=== PATIENT | male | born 1945 | race Caucasian/White ===

== ENCOUNTER 2018-12-24 08:17 | Day surgery (SDC) | payer OTHER ==
[2018-12-20 14:38] VITALS: BMI 29.6
[~2018-12-24 08:17] MED LIST: LACTATED RINGERS 1,000 ML IV SCH
[2018-12-24 09:14] VITALS: TEMP 97
[2018-12-24] MEDS ORDERED: hydrALAZINE HCL 20 MG/ML 1 ML VIAL ONE (09:28)
[2018-12-24] MEDS ORDERED: PROPOFOL 10 MG/ML 20 ML VIAL IV ONE (09:28)
--- NOTE | 2018-12-24 10:01 | P.PCN ---
Date of Procedure: 12/24/18 Description of Procedure: BRIEF HISTORY: Patient is a 73-year-old pleasant male scheduled for an elective colonoscopy as a part of screening for malignant neoplasm colon. Denies any change in bowel habits, constipation, diarrhea, abdominal pain or blood per rectum. No family history of colon cancer. No prior colonoscopy reported. PROCEDURE PERFORMED: Colonoscopy with polypectomy. PREOPERATIVE DIAGNOSIS: And screening for malignant colon. ESTIMATED BLOOD LOSS: Minimal. IV sedation per Anesthesia. PROCEDURE: After informed consent was obtained, the patient, was brought into the endoscopy unit. IV sedation was administered by Anesthesia under continuous monitoring. Digital rectal examination was normal, with external hemorrhoids noted. Initially the Olympus CF-190 flexible video colonoscope was then inserted in the rectum, gradually advanced into the cecum without any difficulty. Careful examination was performed as the scope was gradually being withdrawn. Ileocecal valve and the appendiceal orifice were visualized and appeared normal. Prep was excellent. Mucosa of the cecum, ascending colon, transverse colon, descending colon, sigmoid colon, and rectum appeared normal. Diminutive 2 mm ascending colon polyp removed with cold forcep polypectomy. Flat 6 mm hepatic flexure polyp removed with cold snare polypectomy. Diminutive 2 mm rectal polyp removed with cold forceps from the rectum. Mild sigmoid diverticulosis noted by a few small mouth diverticula in the sigmoid colon noted. Retroflexion was performed in the rectum and no lesions were seen, mild internal hemorrhoids noted. The patient tolerated the procedure well. IMPRESSION: Diminutive polyps removed with cold forcep from rectum and ascending colon. Small hepatic flexure polyp removed with cold snare polypectomy. Mild sigmoid diverticulosis. RECOMMENDATIONS: Findings of this examination were discussed with the patient and his . Okay to resume high-fiber diet. Okay to resume medications. Await pathology from polypectomies. Anticipate repeat colonoscopy in 3-5 years pending pathology from polypectomies.
[2018-12-24 10:21] VITALS: BP 163/91; PULSE 83; RESP 18
== END 2018-12-24 10:41 | disposition home or self-care (01) ==
LOC: ORWHC2ENDO 08:17
PROVIDERS: ATTEND Internal Medicine
DX: Z12.11 Encounter for screening for malignant neoplasm of colon (principal); D12.2 Benign neoplasm of ascending colon; D12.3 Benign neoplasm of transverse colon; K62.1 Rectal polyp; K57.30 Diverticulosis of large intestine without perforation or abscess without bleeding; K64.8 Other hemorrhoids; I10 Essential (primary) hypertension; E78.5 Hyperlipidemia, unspecified; Z87.891 Personal history of nicotine dependence; Z79.1 Long term (current) use of non-steroidal anti-inflammatories (NSAID); Z79.899 Other long term (current) drug therapy; Z88.0 Allergy status to penicillin; Z98.890 Other specified postprocedural states
CPT/HCPCS: 88305; 45380; 45385; J0360; J2704

== ENCOUNTER 2020-10-26 05:45 | Day surgery (SDC) | payer OTHER ==
[2020-10-21 12:32] VITALS: BMI 31.3
[2020-10-26] MEDS ORDERED: ALPRAZolam 0.25 MG TAB PO PRN (05:58)
[2020-10-26] MEDS ORDERED: SODIUM CHLORIDE 0.9% 1,000 ML in EMPTY BAG 1 BAG IV ONE (05:58)
[2020-10-26] MEDS ORDERED: ASPIRIN 325 MG TAB PO STA (05:58)
[2020-10-26] MEDS ORDERED: ALPRAZolam 0.5 MG TAB PO PRN (05:58)
[2020-10-26] MEDS ORDERED: HEPARIN SODIUM,PORCINE 2,500 UNIT in SODIUM CHLORIDE 0.9% 250 ML IRRIGATION PRN (05:58)
[2020-10-26] MEDS ORDERED: HEPARIN SODIUM,PORCINE 10,000 UNIT in SODIUM CHLORIDE 0.9% 1,000 ML IRRIGATION PRN (05:58)
[2020-10-26] MEDS ORDERED: NITROGLYCERIN SL TABS 0.4 MG TAB SUBLINGUAL PRN (05:58)
[2020-10-26 06:34] LABS: Basophils # (A) 0.1 k/uL (0-0.2); Basophils % (A) 1 %; Eosinophils # (A) 0.3 k/uL (0-0.7); Eosinophils % (A) 3 %; HCT 46.1 % (39.0-53.0); HGB 15.8 gm/dL (13.0-17.5); Lymphocytes # (A) 1.8 k/uL (1.0-4.8); Lymphocytes % (A) 21 %; MCH 30.8 pg (25.0-35.0); MCHC 34.3 g/dL (31.0-37.0); MCV 89.8 fL (80.0-100.0); Mean Platelet Volume 6.9; Monocytes # (A) 0.6 k/uL (0-1.0); Monocytes % (A) 7 %; Neutrophils # (A) 5.5 k/uL (1.3-7.7); Neutrophils % (A) 66 %; Platelet Count 242 k/uL (150-450); RBC 5.13 m/uL (4.30-5.90); RDW 13.6 % (11.5-15.5); WBC 8.4 k/uL (3.8-10.6)
[2020-10-26 06:37] VITALS: TEMP 98.7
[2020-10-26] MEDS ORDERED: SODIUM CHLORIDE 0.9% 1,000 ML IV ONE (06:38)
[2020-10-26 06:49] LABS: Potassium 4.2 mmol/L (3.5-5.1)
[2020-10-26] MEDS ORDERED: fentaNYL (PF) 50 MCG/ML 2 ML AMP ONE (07:09)
[2020-10-26] MEDS ORDERED: LIDOCAINE 1% INJ 10MG/ML (20 ML MDV) ONE (07:22)
[2020-10-26 07:45] VITALS: RESP 16
[2020-10-26] MEDS: BENZOCAINE SPRAY 1 CAN MUCOUS MEM ONE ×2 (07:53→07:55)
[2020-10-26] MEDS: fentaNYL (PF) 50 MCG/ML 2 ML AMP IVP ONE ×2 (07:56→08:50)
[2020-10-26] MEDS ORDERED: MIDAZOLAM 2 MG/2 ML VIAL IVP ONE (07:56)
[2020-10-26] MEDS ORDERED: LIDOCAINE 1% INJ 10MG/ML (20 ML MDV) SQ ONE (08:49)
[2020-10-26] MEDS ORDERED: MIDAZOLAM 2 MG/2 ML VIAL IV ONE (08:51)
[2020-10-26 09:19] LABS: O2 Sat Blood Gas 68.2 %
[2020-10-26 09:22] LABS: O2 Sat Blood Gas 70.9 %
[2020-10-26 09:33] LABS: O2 Sat Blood Gas 91.4 %
[2020-10-26] MEDS ORDERED: RX INFO: IV CONTRAST WAS GIVEN 1 EACH MISC MISCELLANE PRN (09:44)
[2020-10-26] MEDS ORDERED: SODIUM CHLORIDE 0.9% 1,000 ML IV SCH (09:45)
[2020-10-26] MEDS ORDERED: IOPAMIDOL-370 125ML BTL INJ ONE (09:45)
[2020-10-26 14:27] VITALS: BP 124/74; PULSE 68
--- NOTE | 2020-10-26 17:32 | P.TEE ---
Indications for Procedure(s): Aortic stenosis Date of Procedure: 10/26/20 Preoperative Diagnosis: Aortic stenosis, bicuspid aortic valve Postoperative Diagnosis: critical aortic stenosis with bicuspid aortic valve Procedure(s) Performed: CINDY Description of Procedure(s): This 75-year-old gentleman who has been experiencing exertional chest tightness and was noted to have severe aortic stenosis by transthoracic echo was brought in for CINDY examination. Procedure: Patient was brought to the lab in a fasting state. He was prepped and draped in the usual fashion. A verbal consent was obtained from the patient. The throat was sprayed with Hurricaine. Patient was given 2 mg of Versed and 25 g of fentanyl for sedation. A lubricated Omni probe was introduced in the oropharynx and was advanced into the esophagus. Multiple v iews were obtained both from the esophagus and stomach. Color, pulsed and continuous her Doppler studies were performed. A saline contrast bubble injections also done. Patient tolerated the procedure well. Findings: The aortic valve is calcified and bicuspid with restricted opening excursion. By planimetry valve area of 0.7 2.8 square segments were obtained. No significant aortic regurgitation was noted. The mitral valve function was normal with mild central regurgitation. The left atrial appendage is free of any clot. A peak gradient of about 70 with a mean gradient of 37 was obtained across the aortic valve. The interatrial septum appeared to show a small shunt suggestive of PFO. However, saline contrast bubble injection did not reveal any crossing of the bubbles. LV function appeared within normal. There is mild plaque in the aorta. Final impression: #1. Severe aortic stenosis. #2. Bicuspid aortic valve #3. Mild mitral regurgitation. #4. No clot in the left atrial appendage. #5. Suggestion of a small PFO, though bubble injection is negative. #5. Concentric left hypertrophy with preserved lv function.
--- NOTE | 2020-10-26 17:38 | P.CARDCATH ---
Date of Procedure: 10/26/20 Preoperative Diagnosis: Severe aortic stenosis. Rule out coronary artery disease Postoperative Diagnosis: Severe aortic stenosis. Mild diffuse coronary artery disease without critical stenosis Procedure(s) Performed: Left heart catheterization without left ventriculography. Right heart catheterization Description of Procedure: This 75-year-old gentleman was recently evaluated for symptoms of exertional chest pain and shortness of breath. He was found to have severe aortic stenosis which is confirmed by CINDY examination patient is also found to have bicuspid aortic valve. He is advised to have a cardiac catheterization to rule out concomitant ischemic or disease. Right heart catheterization. This is performed from the right femoral vein approach. The groin is infiltrated with lidocaine. The right femoral vein was entered using Seldinger technique. A 7-Dutch sheath was left in place. A 6- Dutch balloontipped [place] catheter was was used for right heart catheterization. Oxygen saturation were obtained. Cardiac output was measured. Patient tolerated the procedure well. Hemostasis was obtained with manual compression. Left heart catheterization CONSENT:I have discussed the risks, benefits and alternative therapies for the above-mentioned procedure and for both sedation/analgesia as well as necessary blood product administration, if indicated, as they pertain to this patient. The patient has indicated understanding and acceptance of the risks and procedures discussed. PROCEDURE: Patient was brought to the lab in a fasting state. Patient was given some IV sedation. The right groin is infiltrated with lidocaine and right femoral artery was entered using Seldinger technique. A 6-Dutch catheter was left in place and selective coronary arteriography was performed. Patient tolerated the procedure well. Femoral angiogram was performed and Angio-Seal was applied for hemostasis. No immediate complications were noted and patient was transferred to [facility] in a stable condition Conscious Sedation: Versed 0.5mg Fentanyl 25 g Duration 52 minutes minutes HEMODYNAMICS: The right heart catheterization: Right atrial pressure was 0. Right ventricular pressure was 21/2 and pulmonary artery pressure was 15/2 and pulmonary wedge pressure was 2. The the cardiac output by thermodilution method is 5.2 to and by Alessandra method was 6.23. The left heart catheterization: The aortic pressure is 120/68. Left ventricular pressures were 160/2. The peak gradient was 50 with a mean gradient of 42 across the aortic valve SELECTIVE CORONARY ARTERIOGRAPHY: LEFT MAIN: Short and divides into left anterior descending and also left circumflex and is coronary artery immediately THE LEFT ANTERIOR DESCENDING CORONARY ARTERY: moderate caliber vessel with a diffuse plaque with areas of about 40-50% stenosis. No critical lesions were noted THE LEFT CIRCUMFLEX AND IS CORONARY ARTERY: . Moderate caliber vessel, again with the diffuse disease with areas of 50-60% lesion in the midportion. No critical lesions noted THE RIGHT CORONARY ARTERY: Moderate caliber vessel, again diffuse disease with areas of 40-50% lesions LEFT VENTRICULOGRAPHY: Not performed FINAL IMPRESSION: For 1. Bicuspid aortic valve. #2. Critical aortic stenosis. #3. Mild to moderate diffuse coronary artery disease PLAN: . Continue medical therapy. Patient should be considered for aortic valve replacement PROGNOSIS: Fair
== END 2020-10-26 15:06 | disposition home or self-care (01) ==
LOC: CATHCVL 05:45
PROVIDERS: ATTEND Internal Medicine Cardiovascular Disease
DX: I08.0 Rheumatic disorders of both mitral and aortic valves (principal); I70.0 Atherosclerosis of aorta; Q23.1 Congenital insufficiency of aortic valve; I51.7 Cardiomegaly; I10 Essential (primary) hypertension; E78.00 Pure hypercholesterolemia, unspecified; Z20.822 Contact with and (suspected) exposure to COVID-19; E78.5 Hyperlipidemia, unspecified; Z87.891 Personal history of nicotine dependence; Z88.0 Allergy status to penicillin; Z79.899 Other long term (current) drug therapy; I25.10 Atherosclerotic heart disease of native coronary artery without angina pectoris
CPT/HCPCS: 93312; 93320; 93325; 93460; 80048; 85018; 82810; 85025; 87635; C1769 ×4; C1760; C1894 ×2; J2250; J2001; J3010; Q9967

== ENCOUNTER → 2020-11-23 | Outpatient (CLI) | payer OTHER ==
[2020-11-23 08:48] LABS: ALT 28 U/L (4-49); AST 28 U/L (17-59); African American GFR (CKD) >90 (>60 ml/min/1.73 sqM); Albumin 4.2 g/dL (3.5-5.0); Albumin/Globulin Ratio 1.6; Alkaline Phosphatase 72 U/L (38-126); Anion Gap 6 mmol/L; Bilirubin,Unconjugated 0.9 mg/dL (0.0-1.1); Blood Urea Nitrogen 17 mg/dL (9-20); Calcium 9.7 mg/dL (8.4-10.2); Carbon Dioxide 28 mmol/L (22-30); Chloride 104 mmol/L (98-107); Globulin 2.7 g/dL; Glucose 120 mg/dL (74-99); Magnesium 1.8 mg/dL (1.6-2.3); Non-African American GFR(CKD) 78 (>60 ml/min/1.73 sqM); Potassium 3.9 mmol/L (3.5-5.1); Sodium 138 mmol/L (137-145); Total Protein 6.9 g/dL (6.3-8.2)
[2020-11-23 08:52] LABS: Partial Thromboplastin Time 22.1 sec (22.0-30.0); Prothrombin Time 10.5 sec (9.0-12.0)
[2020-11-23 12:12] LABS: Amorphous Sediment,Urine Rare /hpf; Appearance,Urine Clear (Clear); Bilirubin,Urine Negative (Negative); Blood,Urine Negative (Negative); Color,Urine Yellow; Glucose,Urine (UA) Negative (Negative); Hyaline Casts,Urine 1 /lpf (0-2); Ketones,Urine Negative (Negative); Leukocyte Esterase,Urine Trace (Negative); Mucus,Urine Rare /hpf; Nitrite,Urine Negative (Negative); PH, Urine 5.5 (5.0-8.0); Protein,Urine Negative (Negative); RBC,Urine 1 /hpf (0-5); Specific Gravity,Urine 1.027 (1.001-1.035); Urobilinogen,Urine <2.0 mg/dL (<2.0); WBC,Urine 9 /hpf (0-5)
--- NOTE | 2020-11-23 12:33 | US ---
EXAMINATION TYPE: US carotid duplex BILAT DATE OF EXAM: 11/23/2020 COMPARISON: NONE CLINICAL HISTORY: R55. No HTN, no hx tia EXAM MEASUREMENTS: RIGHT: Peak Systolic Velocity (PSV) cm/sec ----- Right CCA: 82.6 ----- Right ICA: 57.4 ----- Right ECA: 84.8 ICA/CCA ratio: 0.7 RIGHT: End Diastole cm/sec ----- Right CCA: 16.6 ----- Right ICA: 13.3 ----- Right ECA: 13.4 LEFT: Peak Systolic Velocity (PSV) cm/sec ----- Left CCA: 67.0 ----- Left ICA: 59.2 ----- Left ECA: 90.1 ICA/CCA ratio: 0.9 LEFT: End Diastole cm/sec ----- Left CCA: 16.1 ----- Left ICA: 22.5 ----- Left ECA: 17.8 VERTEBRALS (direction of flow): Right Vertebral: Antegrade Left Vertebral: Antegrade Rhythm: Normal IMPRESSION: Bilateral wall thickening. No significant stenosis. No elevated velocities. Plaque in left bulb. Criteria for Assigning % of Stenosis / Diameter reduction (Estimation based on the indirect measurements of the internal carotid artery velocities (ICA PSV). 1. Normal (no stenosis)=ICA PSV < 125 cm/s: ratio < 2.0: ICA EDV<40 cm/s. 2. Less than 50% stenosis=ICA PSV < 125 cm/s: ratio < 2.0: ICA EDV<40 cm/s. 3. 50 to 69% stenosis=ICA PSV of 125 to 230 cm/s: ration 2.0 ? 4.0: ICA EDV 40-100 cm/s. 4. Greater than 70% stenosis to near occlusion= ICA PSV > 230 cm/s: ratio > 4.0: ICA EDV > 100 cm/s. 5. Near occlusion= ICA PSV velocities may be low or undetectable: variable ratio and ICA EDV. 6. Total occlusion=unable to detect flow.
[2020-11-23 12:54] LABS: Basophils # (A) 0.11 X 10*3/uL (0.00-0.10); Basophils % (A) 1.6 %; Eosinophils # (A) 0.18 X 10*3/uL (0.04-0.35); Eosinophils % (A) 2.6 %; HCT 45.6 % (39.6-50.0); Lymphocytes # (A) 1.51 X 10*3/uL (0.90-5.00); MCH 30.4 pg (27.0-32.0); MCHC 32.9 g/dL (32.0-37.0); MCV 92.3 fL (80.0-97.0); Mean Platelet Volume 10.4 fL (9.5-12.2); Monocytes # (A) 0.44 X 10*3/uL (0.20-1.00); Monocytes % (A) 6.4 %; Neutrophils # (A) 4.61 X 10*3/uL (1.80-7.70); Neutrophils % (A) 67.1 %; Platelet Count 238 X 10*3/uL (140-440); RBC 4.94 X 10*6/uL (4.40-5.60); RDW 13.8 % (11.5-14.5); WBC 6.87 X 10*3/uL (4.50-10.00)
[2020-11-23 15:40] LABS: Hemoglobin A1C 6.2 % (4.0-6.0)
[2020-11-23 17:26] LABS: Chol/HDL Ratio 3.69; Cholesterol 133 mg/dL (0-200); LDL Cholesterol,Calculated 72.8 mg/dL (0.0-131.0)
--- NOTE | 2020-11-23 18:24 | CT ---
EXAMINATION TYPE: CT TAVR Planning DATE OF EXAM: 11/23/2020 COMPARISON: None HISTORY: Nonrheumatic aortic (valve) insufficiency CT DLP: 1819.9 mGycm Automated exposure control for dose reduction was used. Contrast: None Technique: CT of the chest abdomen and pelvis is performed for evaluation for precardiac valve surger y. FINDINGS: CT chest: Lung owens are clear. Heart size is normal. The ascending thoracic aorta at the level of t he main pulmonary artery is 3.4 cm. Main pulmonary artery the bifurcation is 2.1 cm. No enlarged medi astinal or hilar adenopathy is evident. Note is made of coronary artery calcification. Small hiatal h ernia is present. CT ABDOMEN: There is moderate fatty infiltration of liver. The gallbladder is unremarkable. Spleen is normal. Adrenal glands normal. Pancreas is normal. Loops of bowel without oral contrast are normal. Kidneys at this phase of contrast appear normal bilaterally CT PELVIS: Loops of bowel within the pelvis are unremarkable. There are a few diverticula present. Th e prostate is very prominent. Urinary bladder is unremarkable. Facet degenerative changes are present . No suspicious lytic or sclerotic lesions are evident. IMPRESSION: 1. CT FOR PRECARDIAC VALVE SURGERY PLANNING. 2. NO SUSPICIOUS ACUTE CHANGES CT CHEST ABDOMEN PELVIS
== END | disposition home or self-care (01) ==
LOC: LABWHC1 07:34
PROVIDERS: ATTEND Thoracic Surgery (Cardiothoracic Vascular Surgery)
DX: Z01.812 Encounter for preprocedural laboratory examination (principal); E87.8 Other disorders of electrolyte and fluid balance, not elsewhere classified; E07.9 Disorder of thyroid, unspecified; R35.0 Frequency of micturition; E11.9 Type 2 diabetes mellitus without complications; N28.9 Disorder of kidney and ureter, unspecified; E78.5 Hyperlipidemia, unspecified; I35.1 Nonrheumatic aortic (valve) insufficiency; R55 Syncope and collapse; Z79.899 Other long term (current) drug therapy; R58 Hemorrhage, not elsewhere classified
CPT/HCPCS: 94150; 83880; 80061; 80053; 84443; 82248; 83735; 85025; 85610; 85730; 81001; 87086; 83036; 93880; 71275; 74174; 93005; 36415; Q9967; 87077; 87186

== ENCOUNTER 2020-12-01 10:13 | Day surgery (SDC) | payer OTHER ==
[2020-11-30 10:13] VITALS: BMI 30.5
[~2020-12-01 10:13] MED LIST changes: +ALPRAZolam 0.25 MG TAB PO PRN; +ALPRAZolam 0.5 MG TAB PO PRN; +ASPIRIN 325 MG TAB PO STA; +ATORVASTATIN 80 MG TAB PO STA; +HEPARIN SODIUM,PORCINE 10,000 UNIT in SODIUM CHLORIDE 0.9% 1,000 ML IRRIGATION PRN; +HEPARIN SODIUM,PORCINE 2,500 UNIT in SODIUM CHLORIDE 0.9% 250 ML IRRIGATION PRN; -LACTATED RINGERS 1,000 ML IV SCH; +NITROGLYCERIN SL TABS 0.4 MG TAB SUBLINGUAL PRN; +SODIUM CHLORIDE 0.9% 1,000 ML in EMPTY BAG 1 BAG IV ONE
[2020-12-01] MEDS ORDERED: VERAPAMIL 2.5 MG/ML 2 ML AMP ONE (12:26)
[2020-12-01] MEDS ORDERED: LIDOCAINE 1% INJ 10MG/ML (20 ML MDV) ONE (12:26)
[2020-12-01] MEDS ORDERED: LIDOCAINE 1% INJ 10MG/ML (20 ML MDV) SQ ONE (12:46)
[2020-12-01] MEDS ORDERED: HEPARIN SODIUM 1,000 UN/ML (10ML VL) ONE (12:47)
[2020-12-01] MEDS ORDERED: MIDAZOLAM 2 MG/2 ML VIAL IV ONE ×2 (12:50→12:57)
[2020-12-01] MEDS ORDERED: VERAPAMIL SYRINGE (5 MG/10 ML) INTRAARTER ONE (12:50)
[2020-12-01] MEDS ORDERED: HEPARIN SODIUM 1,000 UN/ML (10ML VL) IV ONE (12:50)
[2020-12-01] MEDS ORDERED: NITROGLYCERIN 1000MCG/10ML SYRINGE INTRACORON ONE (12:57)
[2020-12-01] MEDS ORDERED: CLOPIDOGREL 75 MG TAB PO ONE (13:07)
[2020-12-01] MEDS ORDERED: IOPAMIDOL-370 100ML BTL INJ ONE ×3 (13:07→13:12)
[2020-12-01] MEDS ORDERED: CLOPIDOGREL 75 MG TAB ONE (13:08)
[2020-12-01] MEDS ORDERED: RX INFO: IV CONTRAST WAS GIVEN 1 EACH MISC MISCELLANE PRN (13:45)
[2020-12-01] MEDS ORDERED: SODIUM CHLORIDE 0.9% 1,000 ML IV SCH (13:45)
[2020-12-01] MEDS ORDERED: MAG HYDROX/AL HYDROX/SIMETH 30 ML CUP PO PRN (13:45)
[2020-12-01] MEDS ORDERED: ZOLPIDEM 5 MG TAB PO PRN (13:45)
[2020-12-01] MEDS ORDERED: ATROPINE SULFATE 0.1 MG/ML 10ML SYRINGE IV PRN (13:45)
[2020-12-01] MEDS ORDERED: NITROGLYCERIN SL TABS 0.4 MG TAB SUBLINGUAL PRN (13:45)
[2020-12-01 14:23] LABS: Basophils # (A) 0.1 k/uL (0-0.2); Basophils % (A) 1 %; Eosinophils # (A) 0.2 k/uL (0-0.7); Eosinophils % (A) 2 %; HCT 47.6 % (39.0-53.0); HGB 15.8 gm/dL (13.0-17.5); Lymphocytes # (A) 1.7 k/uL (1.0-4.8); Lymphocytes % (A) 21 %; MCH 31.2 pg (25.0-35.0); MCHC 33.3 g/dL (31.0-37.0); MCV 93.6 fL (80.0-100.0); Mean Platelet Volume 8.5; Monocytes # (A) 0.5 k/uL (0-1.0); Monocytes % (A) 6 %; Neutrophils # (A) 5.4 k/uL (1.3-7.7); Neutrophils % (A) 66 %; Platelet Count 258 k/uL (150-450); RBC 5.08 m/uL (4.30-5.90); RDW 13.7 % (11.5-15.5); WBC 8.2 k/uL (3.8-10.6)
[2020-12-01 14:28] LABS: Calcium 10.1 mg/dL (8.4-10.2)
[2020-12-01 14:30] LABS: Potassium 5.1 mmol/L (3.5-5.1)
--- NOTE | 2020-12-01 15:11 | PTCA ---
PERCUTANEOUSTRANS CORORONARY ANGIOGRAPHY DATE OF SERVICE: December 01, 2020. PERFORMING PHYSICIAN: Chad Shine MD. PROCEDURE PERFORMED: Successful stenting of the mid left circumflex using 2.5 x 28 mm Xience drug-eluting stent which was dilated using 2.75 mm NC balloon with an excellent angiographic results and reduction of stenosis from 80% to 0%. INDICATION: This is a 75-year-old gentleman who was diagnosed recently with severe symptomatic aortic stenosis and was found to have severe disease involving the mid left circumflex coronary artery. He is scheduled to have the transcutaneous aortic valve replacement in a few days. APPROACH: Right radial artery. COMPLICATION: None. LEVEL OF SEDATION: Moderate with sedation length of 30 minutes. PROCEDURE DESCRIPTION: After obtaining an informed consent, the patient was brought to the cardiac mobile lab technician. The right radial artery was cannulated using micropuncture technique and a micropuncture wire passed easily. Then I placed a 6-[place] sheath at the right radial artery. At that point, I gave the patient 2 mg of verapamil IA and 6000 units of heparin IV. Subsequently, I did engage the left main using a JL-4 guiding catheter. I did wire the left circumflex using a run-through wire. I did balloon angioplasty using 2.5 x 12 mm balloon before I deployed 2.5 x 28 mm Xience drug-eluting stent where the stent was positioned under fluoroscopy guidance and deployed under 14 atmospheres for 20 seconds. The stent was dilated using 2.75 mm NC balloon. The final angiogram showed excellent angiographic results and the procedure was completed without any complication. POSTPROCEDURE MANAGEMENT: 1. Dual anti-platelet therapy. 2. Aggressive cholesterol control. 3. Risk factor modifications. 4. Follow up with the patient. MMODL / IJN: [id number] /
[2020-12-01] MEDS: lisinopriL 20 MG TAB PO SCH (19:56)
[2020-12-01] MEDS ORDERED: TAMSULOSIN 0.4 MG CAP.ER.24H PO SCH (21:00)
[2020-12-01] MEDS ORDERED: ATORVASTATIN 40 MG TAB PO SCH (21:00)
[2020-12-02 07:32] VITALS: BP 120/67; PULSE 72; RESP 19; TEMP 98.1
[2020-12-02 08:30] LABS: Basophils # (A) 0.1 k/uL (0-0.2); Basophils % (A) 1 %; Eosinophils # (A) 0.3 k/uL (0-0.7); Eosinophils % (A) 3 %; HCT 43.4 % (39.0-53.0); HGB 14.2 gm/dL (13.0-17.5); Lymphocytes # (A) 1.8 k/uL (1.0-4.8); Lymphocytes % (A) 21 %; MCH 31.1 pg (25.0-35.0); MCHC 32.8 g/dL (31.0-37.0); MCV 94.7 fL (80.0-100.0); Mean Platelet Volume 7.7; Monocytes # (A) 0.5 k/uL (0-1.0); Monocytes % (A) 6 %; Neutrophils # (A) 5.6 k/uL (1.3-7.7); Neutrophils % (A) 66 %; Platelet Count 242 k/uL (150-450); RBC 4.58 m/uL (4.30-5.90); RDW 13.7 % (11.5-15.5); WBC 8.5 k/uL (3.8-10.6)
[2020-12-02 08:46] LABS: African American GFR (CKD) 90 (>60 ml/min/1.73 sqM); Anion Gap 6 mmol/L; Blood Urea Nitrogen 19 mg/dL (9-20); Calcium 9.5 mg/dL (8.4-10.2); Carbon Dioxide 26 mmol/L (22-30); Chloride 104 mmol/L (98-107); Glucose 102 mg/dL (74-99); Non-African American GFR(CKD) 78 (>60 ml/min/1.73 sqM); Potassium 4.5 mmol/L (3.5-5.1); Sodium 136 mmol/L (137-145)
[2020-12-02] MEDS ORDERED: ASPIRIN 81 MG PO SCH (09:00)
[2020-12-02] MEDS ORDERED: CLOPIDOGREL 75 MG TAB PO SCH (09:00)
[2020-12-02] MEDS: lisinopriL 20 MG TAB PO SCH (09:31)
--- NOTE | 2020-12-02 10:06 | DS ---
DISCHARGE SUMMARY ADMISSION DATE: December 01, 2020. DISCHARGE DATE: December 02, 2020. BRIEF HISTORY: This is a very pleasant 75-year-old gentleman who underwent yesterday successful stenting of the left circumflex before transcutaneous aortic valve replacement to be performed in a few days. The patient was seen this morning. The procedure was performed from the right groin. The right radial artery site is good. No bruises identified. The patient is going to be discharged on dual anti-platelet therapy to follow up with Dr. De La Cruz. MMRICHARD / SHARRIN: [id number] /
== END 2020-12-02 10:25 | disposition home or self-care (01) ==
LOC: CATHCVL 10:13 → 6NMEDSUR 13:30 → CATHCVL 12-02 10:25
PROVIDERS: ATTEND Internal Medicine Interventional Cardiology
DX: I25.10 Atherosclerotic heart disease of native coronary artery without angina pectoris (principal); I10 Essential (primary) hypertension; E78.5 Hyperlipidemia, unspecified; Z79.899 Other long term (current) drug therapy; Z88.0 Allergy status to penicillin; I35.0 Nonrheumatic aortic (valve) stenosis; F17.210 Nicotine dependence, cigarettes, uncomplicated
CPT/HCPCS: 86900; 86901; 80048 ×2; 82565; 85025 ×2; 86850; 87070; C9600; C1769 ×2; C1887 ×2; C1894; C1725; C1874; J2250; J2001; J1644; Q9967

== ENCOUNTER 2020-12-08 05:45 | Inpatient (IN) | payer OTHER ==
[~2020-12-08 05:45] MED LIST changes: -ALPRAZolam 0.25 MG TAB PO PRN; -ALPRAZolam 0.5 MG TAB PO PRN; +ASPIRIN 325 MG TAB PO ONE; -ASPIRIN 325 MG TAB PO STA; +ATORVASTATIN 10 MG TAB PO ONE; -ATORVASTATIN 80 MG TAB PO STA; +CLEVIDIPINE BUTYRATE 25 MG in EMPTY BAG 1 BAG IV PRN; +CLOPIDOGREL 75 MG TAB PO ONE; +ELECTROLYTE-A SOLUTION 1,000 ML with POTASSIUM CHLORIDE 100 MEQ, MAGNESIUM SULFATE 16 M... IV PRN; +ELECTROLYTE-A SOLUTION 1,000 ML with POTASSIUM CHLORIDE 40 MEQ, MAGNESIUM SULFATE 16 ME... IV PRN; -HEPARIN SODIUM,PORCINE 10,000 UNIT in SODIUM CHLORIDE 0.9% 1,000 ML IRRIGATION PRN; -HEPARIN SODIUM,PORCINE 2,500 UNIT in SODIUM CHLORIDE 0.9% 250 ML IRRIGATION PRN; +INSULIN REGULAR 100 UNIT in SODIUM CHLORIDE 0.9% 100 ML IV PRN; +METOPROLOL TARTRATE 25 MG TAB PO ONE; +MUPIROCIN 2% OINT 22 GM TUBE NASAL SCH; -NITROGLYCERIN SL TABS 0.4 MG TAB SUBLINGUAL PRN; +NITROGLYCERIN-D5W PMX 25 MG/250 ML BTL IV PRN; +PROTAMINE SULFATE 250 MG in EMPTY BAG 1 BAG IV PRN; -SODIUM CHLORIDE 0.9% 1,000 ML in EMPTY BAG 1 BAG IV ONE; +SODIUM CHLORIDE 0.9% 500 ML 500 ML INTRAARTER ONE; +SODIUM CHLORIDE 0.9% 500 ML 500 ML IV ONE; +TRANEXAMIC ACID 2,000 MG in SODIUM CHLORIDE 0.9% 80 ML IV PRN; +VANCOMYCIN 1,250 MG in SODIUM CHLORIDE 0.9% 250 ML IVPB ONE
[2020-12-08 06:27] LABS: Glucose,Whole Blood 102 mg/dL (75-99)
[2020-12-08] MEDS ORDERED: PROPOFOL 10 MG/ML 20 ML VIAL IV ONE (07:56)
[2020-12-08] MEDS ORDERED: HEPARIN SODIUM,PORCINE 10,000 UNIT/ML 1 ML VIAL ONE (07:56)
[2020-12-08] MEDS ORDERED: NEOSTIGMINE 1 MG/ML 10 ML VIAL ONE (07:56)
[2020-12-08] MEDS ORDERED: fentaNYL (PF) 50 MCG/ML 2 ML AMP ONE (07:56)
[2020-12-08] MEDS ORDERED: ROCURONIUM 10 MG/ML (5 ML VIAL) IV ONE (07:56)
[2020-12-08] MEDS ORDERED: SUCCINYLCHOLINE CHLORIDE 100 MG/5 ML SYR IV ONE (07:56)
[2020-12-08] MEDS ORDERED: MIDAZOLAM 2 MG/2 ML VIAL ONE (07:56)
[2020-12-08] MEDS ORDERED: LIDOCAINE 1% INJ 10MG/ML (20 ML MDV) ONE (07:56)
[2020-12-08] MEDS ORDERED: ePHEDrine SULFATE/0.9% NACL/PF 50 MG/5 ML SYRINGE IV ONE (07:56)
[2020-12-08] MEDS ORDERED: PHENYLEPHRINE-0.9% NACL SYG 1,000 MCG/10 ML SYRINGE ONE (07:56)
[2020-12-08] MEDS ORDERED: PROTAMINE SULFATE 10 MG/ML 5 ML VIAL IV ONE (07:56)
[2020-12-08] MEDS ORDERED: GLYCOPYRROLATE 0.2 MG/ML 2 ML VIAL ONE (07:56)
[2020-12-08] MEDS ORDERED: CLINDAMYCIN 150 MG/ML 4 ML VIAL ONE (07:56)
[2020-12-08] MEDS ORDERED: IOPAMIDOL-370 125ML BTL INJ ONE (09:36)
[2020-12-08] MEDS ORDERED: ONDANSETRON 4 MG/2 ML VIAL IVP PRN (10:05)
[2020-12-08] MEDS ORDERED: IPRATROPIUM-ALBUTEROL 3 ML NEB INHALATION PRN (10:05)
[2020-12-08] MEDS ORDERED: ACETAMINOPHEN TAB 325 MG TAB PO PRN (10:05)
--- NOTE | 2020-12-08 10:17 | P.OP ---
Date of Procedure: 12/08/20 Preoperative Diagnosis: Bicuspid aortic valve calcific stenosis Postoperative Diagnosis: Same Procedure(s) Performed: Percutaneous transfemoral transcatheter aortic valve implantation with 29 mm Medtronic pro plus core valve Implants: 29 Medtronic pro plus core valve Surgeon: Gurdeep Liu Sap Architect #1: Gael Adams (card writer hand) Sap Architect #2: Chad Shine Estimated Blood Loss (ml): 10 IV fluids (ml): 1,000 Pathology: none sent Condition: stable Disposition: ICU Indications for Procedure: 75-year-old male with symptomatic aortic stenosis found to be calcific bicuspid valve. Ventricular function was good. Patient chronically ill gentleman who was felt to be high risk for cardiac surgery. Was therefore recommended that he undergo transcatheter aortic valve implantation. He had stenosis in his circumflex coronary artery and was stented a week prior. He was brought to the catheterization laboratory for elective aortic valve implantation. Operative Findings: Transvalvular gradient was high with a 40 mm gradient. Post deployment the valve was that 3 and 2 depths. The CINDY demonstrated no valvular insufficiency however the valve looked severely underexpanded. After post dilatation the valve expansion was beautiful and there was still 0 aortic insufficiency. After right femoral closure angiogram demonstrated normal-appearing iliofemoral system. Description of Procedure: Patient was brought to the cardiac catheterization laboratory and placed supine on the table. General anesthesia was induced. CINDY probe was placed. The anterior torso and bilateral groins were sterilely prepped and draped. After timeout a right subclavian venipuncture was performed with an 18-gauge needle and a guidewire threaded into the right atrium. Introducer and dilator were placed and through the introducer sheath a screw-in Medtronic pacemaker lead was advanced into the apex of the right ventricle and screwed in. Pacing thresholds were less than 1 V. Sheath was removed and the catheter secured with 0 silk sutures. Bilateral femoral access was obtained by Dr. Adams using ultrasound guidance. On the right a 6-[place] sheath was placed and 2 Perclose devices were deployed. On the left a long 6-[place] sheath was placed and this advanced into the descending thoracic aorta. Through this a pigtail catheter was advanced and a root injection was performed with the catheter positioned in the non-coronary cusp. Patient was now heparinized. The right sheath was removed and the tract dilated with 10 and 12-[place] dilators and then an 18-[place] sheath was placed over a stiff wire. The valve was then crossed through the right and a pigtail catheter placed in the apex of the ventricle. Transvalvular gradients were obtained. The predilated dictation of the aortic valve was then purse performed under rapid ventricular pacing with a 22-[place] chest root balloon. Following this a 29 Medtronic core valve pro plus delivery system which and been loaded on the back table was brought up onto the field. It was advanced through the 18 sheath across the valve. The valve was deployed under rapid ventricular pacing. Valve deployment levels were 2-3 on the right and 3 on the left. Echocardiography demonstrated no aortic valvular insufficiency however the valve didn't appear under expanded on fluoroscopy. The wire was maintained in the delivery system removed and a 24 Z-Med balloon was used to post dilate the valve. This proceeded well and the valve expanded nicely. The balloon and wire were now removed and CINDY demonstrated no evidence of valvular insufficiency with oh gradient. Heparin was reversed with protamine delivery system was removed and bilateral femoral hemostasis was obtained by Dr. Adams and Dr. Shine. Patient was subsequently transferred to the ICU in stable condition.
[2020-12-08 10:25] LABS: Glucose,Whole Blood 119 mg/dL (75-99)
[2020-12-08] MEDS: LACTATED RINGERS 1,000 ML IV SCH (10:36)
[2020-12-08 10:38] LABS: Basophils # (A) 0.1 k/uL (0-0.2); Basophils % (A) 1 %; Eosinophils # (A) 0.2 k/uL (0-0.7); Eosinophils % (A) 3 %; HCT 41.8 % (39.0-53.0); HGB 14.2 gm/dL (13.0-17.5); Lymphocytes # (A) 1.5 k/uL (1.0-4.8); Lymphocytes % (A) 19 %; MCH 31.7 pg (25.0-35.0); MCHC 33.9 g/dL (31.0-37.0); MCV 93.4 fL (80.0-100.0); Mean Platelet Volume 7.7; Monocytes # (A) 0.4 k/uL (0-1.0); Monocytes % (A) 5 %; Neutrophils # (A) 5.3 k/uL (1.3-7.7); Neutrophils % (A) 71 %; Platelet Count 222 k/uL (150-450); RBC 4.47 m/uL (4.30-5.90); RDW 13.3 % (11.5-15.5); WBC 7.5 k/uL (3.8-10.6)
--- NOTE | 2020-12-08 10:43 | IR ---
EXAMINATION TYPE: IR stent intravas non coronary DATE OF EXAM: 12/08/2020 COMPARISON: NONE HISTORY: Fluoroscopy time. Fluoroscopy was provided to the referring clinician.
[2020-12-08 10:51] LABS: INR 1.1 (<1.2); Prothrombin Time 11.4 sec (9.0-12.0)
[2020-12-08 11:01] LABS: Albumin 3.3 g/dL (3.5-5.0); Calcium 8.8 mg/dL (8.4-10.2); Magnesium 1.7 mg/dL (1.6-2.3); Potassium 4.2 mmol/L (3.5-5.1); Total Bilirubin 0.8 mg/dL (0.2-1.3); Total Protein 5.9 g/dL (6.3-8.2)
--- NOTE | 2020-12-08 13:41 | P.CNPUL ---
History of Present Illness Consult date: 12/08/20 Requesting physician: Gurdeep Liu Reason for consult: other Chief complaint: Status post transcatheter aortic valve replacement for aortic stenosis. History of present illness: Pulmonary/critical care note dated 12/08/2020. 75-year-old gentleman, with history of CAD, as well as hypertension, hyperlipidemia, and aortic stenosis. The patient underwent a transcatheter aortic valve replacement today by Dr. Liu. Currently he is resting comfortably in the intensive care unit. He is not on any supplemental oxygen is leaving lactated Ringer's at 50 mL an hour. Basically, the patient was recently found to have severe aortic stenosis, and active for transcatheter aortic valve replacement. It was done today here at the hospital. As mentioned earlier, the patient is resting comfortably in the intensive care unit. We saw him to 65. He has no major complaints. Fact, he was hungry asking for a Big Mac, and a strawberry malt. Currently labs include a white count 7.5, hemoglobin 14.2, hematocrit 41.8, and a platelet count that was 222,000. PT/INR/PTT are all normal. Sodium 135, potassium 4.2, chlorides 104, CO2 24, anion gap 7, BUN 26, and creatinine 1.01. No chest x-ray was done. The cardiovascular procedure note/operative note, was evaluated. Review of Systems REVIEW OF SYSTEMS: CONSTITUTIONAL: [Negative.] NEUROLOGIC: [ Negative.] HEENT: [ Negative.] CARDIAC: [Negative.] PULMONARY: Shortness of breath on exertion. GI: [Negative.] : [Negative.] RHEUMATOLOGIC: [ Negative.] IMMUNOLOGIC: [ Negative.] ENDOCRINE: [Negative. ] DERMATOLOGIC: [Negative.] Past Medical History Past Medical History: Hyperlipidemia, Hypertension, Musculoskeletal Disorder, Osteoarthritis (OA), Prostate Disorder Additional Past Medical History / Comment(s): self cath's due to enlarged prostate, heart valve problem per pt, DDD, both doses Moderna vaccine History of Any Multi-Drug Resistant Organisms: None Reported Past Surgical History: Heart Catheterization, Heart Catheterization With Stent Additional Past Surgical History / Comment(s): cyst off back of neck, circumcision, colonoscopy, recent CINDY Past Anesthesia/Blood Transfusion Reactions: No Reported Reaction Date of Last Stent Placement:: 12-01-20 Smoking Status: Former smoker - Past Family History Mother Additional Family Medical History / Comment(s): in 's Father Family Medical History: Diabetes Mellitus Medications and Allergies Home Medications Medication Instructions Recorded Confirmed Type Atorvastatin [Lipitor] 40 mg PO HS 12/20/18 12/08/20 History Aspirin 81 mg PO DAILY 10/21/20 12/08/20 History Tamsulosin [Flomax] 0.4 mg PO HS 10/21/20 12/08/20 History lisinopriL [Zestril] 20 mg PO BID 10/21/20 12/08/20 History Naproxen [Naprosyn] 500 mg PO Q12HR PRN 11/30/20 12/06/20 History Clopidogrel [Plavix] 75 mg PO DAILY #90 tablet 12/02/20 12/08/20 Rx Allergies Allergy/AdvReac Type Severity Reaction Status Date / Time Penicillins Allergy Anaphylaxis Verified 12/08/20 06:08 Physical Exam Osteopathic Statement: *. No significant issues noted on an osteopathic structural exam other than those noted in the History and Physical/Consult. Vitals: Vital Signs Temp Pulse Pulse Resp BP BP BP 12/08/20 13:00 94 29 H 12/08/20 12:30 74 7 L 100/70 12/08/20 12:00 98.2 F 70 15 12/08/20 11:30 82 13 94/63 12/08/20 11:10 71 41 H 94/63 12/08/20 11:00 73 77 H 12/08/20 10:50 73 15 12/08/20 10:40 75 48 H 12/08/20 10:30 80 12 106/78 12/08/20 10:20 82 23 12/08/20 10:19 97.3 F L 18 12/08/20 10:15 97.3 F L 12/08/20 06:42 98.5 F 81 18 128/72 118/76 Pulse Ox 12/08/20 13:00 93 L 12/08/20 12:30 94 L 12/08/20 12:00 95 12/08/20 11:30 93 L 12/08/20 11:10 94 L 12/08/20 11:00 90 L 12/08/20 10:50 93 L 12/08/20 10:40 91 L 12/08/20 10:30 92 L 12/08/20 10:20 92 L 12/08/20 10:19 12/08/20 10:15 12/08/20 06:42 95 Intake and Output 12/07/20 12/08/20 12/08/20 22:59 06:59 14:59 Intake Total 225 150 Balance 225 150 Intake: IV 225 150 Lactated Ringers 1,000 ml 150 @ 50 mls/hr IV .Q20H ISIDRO Rx#:[id number] Other: Weight 86.183 kg ABP, PAP, CO, CI - Last 8 Hours Arterial Blood Pressure 100/55 Arterial Blood Pressure 112/61 Arterial Blood Pressure 117/63 Arterial Blood Pressure 119/67 Arterial Blood Pressure 105/56 Arterial Blood Pressure 104/55 Arterial Blood Pressure 103/55 Arterial Blood Pressure 103/54 Arterial Blood Pressure 110/58 No acute distress, oriented 3. Patient is currently not on any supplemental oxygen. Room air saturations are 95%. HEENT examination is grossly unremarkable. Neck supple. Full range of motion. No adenopathy thyromegaly or neck vein distention. Cardiovascular examination reveals regular rhythm rate. S1-S2 normal. No S3 or S4. No discernible murmur noted. Heart rate 94 bpm. Lungs reveal clear breath sounds. Breath sounds are equal bilaterally. No a dventitious lung sounds including wheezes rhonchi or crackles. Abdomen soft bowel sounds are heard. No masses or tenderness. Extremities are intact. No cyanosis clubbing or edema. Skin is without rash or lesion. Neurologic examination is brief but nonfocal. Results - Laboratory Findings CBC and BMP: 12/08/20 10:20 12/08/20 10:20 PT/INR, D-dimer PT 11.4 sec (9.0-12.0) 12/08/20 10:20 INR 1.1 (<1.2) 12/08/20 10:20 Abnormal lab findings: Abnormal Labs 12/08/20 12/08/20 12/08/20 06:16 10:20 10:23 Sodium 135 L BUN 26 H Glucose 119 H POC Glucose (mg/dL) 102 H 119 H Total Protein 5.9 L Albumin 3.3 L Assessment and Plan Assessment: Postop day #0, status post transcatheter aortic valve replacement, for severe aortic stenosis. History of coronary artery disease. History of hypertension. History of hyperlipidemia. History of bicuspid aortic valve. Plan: Plan dated 12/08/2020. The patient was evaluated in the intensive care unit, room 265. The patient's resting comfortably. He is not requiring any supplemental oxygen. He is getting lactated Ringer's at 50 mL an hour. He is very hungry. He is requesting a Big Mac and a strawberry malt. The patient appears to be doing very well. We will continue to follow make recommendations where appropriate. Time with Patient: Greater than 30
--- NOTE | 2020-12-08 13:43 | P.ANPRN ---
Procedure Note - Anesthesia - Invasive Line Left Arterial Line Time Out Performed: Yes Date of Procedure: 12/08/20 Location of Patient: PreOp Preparation: Sterile Prep, Sterile Dressing Arterial Line Location: Radial Ultrasound Used: No Narrative: Central line placement per sterile protocol utilized. Informed consent obtained from the patient. Procedure was performed under complete aseptic precautions. The left wrist is slightly extended and placed on a roll of cloth. Radial artery palpated and appeared to have a intact collat eral circulation. Front of the wrist was cleaned with ChloraPrep. It was draped and 2 mL of 1% lidocaine was infiltrated and ability into the front of the wrist. A 20-gauge two and half inch Arrow arterial catheter was inserted and a bright red blood/back was noticed. It was connected to the pressure monitoring line and the flashback was confirmed. The line was sutured into the skin. Tegaderm dressing was applied. Patient tolerated the procedure very well with no apparent complications. Right Central Line Time Out Performed: Yes Date of Procedure: 12/08/20 Location of Patient: PreOp Preparation: Sterile Prep, Sterile Dressing Ultrasound Used: Yes Purpose - Visualization and Identification of Vasculature: Yes Image Stored and Saved: Yes Narrative: Central line placement per sterile protocol utilized. Informed consent obtained. Central line placement per sterile protocol utilized. Right Internal jugular vein cannulated under aseptic precautions. 3cc 1% lidocaine infiltrated initially after cleaning with iodine based prep and draping. Ultrasound used to locate the vein and selginger technique used. Triple-lumen central line inserted and after the finding the needle with water resource agent needle/catheter. After the insertion, the line is dressed with biopatch and tegaderm. Patient tolerated the procedure well. - CINDY Intraop Pre Bypass CINDY Intraop - Anesthesia Indication: Transcatheter aortic valve replacement procedure Date of Procedure: 12/08/20 Pre-operative Diagnosis: Severe aortic stenosis Post-operative Diagnosis: Transcatheter aortic valve replacement Surgeon: Gael Adams Ejection Fraction: Normal Regional Wall Motion Abnormalities: None Left Ventricle Hypertrophy: No R. Ventricle Function: Normal Aortic Valve: Bicuspid aortic valve with severe stenosis and calcification. Mean gradient across the valve 32 and peak gradient 52 mmHg Anatomy: Other (Bicuspid aortic valve) Aortic Stenosis: Severe Aortic Regurgitation: None Mitral Stenosis: None Mitral Regurgitation: Mild Tricuspid Stenosis: None Tricuspid Regurgitation: Trace Pulmonic Stenosis: None R. Atrial Dilation: No R. Atrial PFO: No L. Atrial Dilation: No Aortic Dissection: No Aortic Calcification: Mild Plural Effusion: None - CINDY Intraop Post Bypass CINDY Intraop Post Bypass Procedure Performed: Prosthetic aortic valve replacement Left Ventricle: Ejection fraction normal 50-60% Ejection Fraction: Normal Regional Wall Motion Abnormalities: None R. Ventricle Function: Normal Aortic Valve: Prosthetic aortic valve seated well. Mean gradient across the valve 5 mmHg and peak gradient of 9 mmHg. No paravalvular leaks seen Mitral Valve: Unchanged Tricuspid: Unchanged Pulmonic: Unchanged Aortic Dissection: No
--- NOTE | 2020-12-08 15:25 | XR ---
EXAMINATION TYPE: Portable chest DATE OF EXAM: 12/08/2020 COMPARISON: 01/29/2011 INDICATION: Postop cardiac surgery TECHNIQUE: Single frontal view of the chest is obtained. FINDINGS: The heart size is normal. The pulmonary vasculature is normal. The lungs are clear. IMPRESSION: 1. No acute pulmonary process.
[2020-12-08] MEDS: CLINDAMYCIN 600 MG in DEXTROSE 5% IN WATER 50 ML IVPB SCH ×2 (16:37)
--- NOTE | 2020-12-08 17:49 | P.OP ---
Description of Procedure: Transcatheter Aoritc Valve Replacement Operative report PROCEDURE PERFORMED: 1. Percutaneous Aortic Valve Implantation using a 29 mm Core-Valve Evolut-Pro Plus. 2. Transesophageal echocardiography (performed by anesthesia) 3. Ultrasound guided access and repair of right femoral artery access site by Perclose closure device. 4. Placement of temporary pacemaker wire. 5. Aortic root angiography 6. Pre balloon aortic valvuloplasty with a 22mm True balloon and post balloon aortic valvuloplasty with a 24mm Z med balloon INDICATIONS: 1. 75 year-old with a history of severe symptomatic aortic valve stenosis. 2. Bicuspid aortic valve, coronary artery disease status post stenting approximately one week prior, hypertension, hyperlipidemia, former tobacco, BPH requiring straight cath. He was felt to be higher risk for surgery and therefore recommendation was for stenting of the circumflex 12/01/2020 and TAVR. PERFORMING PHYSICIANS: 1. Gael Adams DO Interventional Cardiology 2. Chad Shine MD Interventional Cardiology. 3. Gurdeep Liu MD, Cardiothoracic Surgeon. 4. Ravi Resendez MD Proctoring Interventional cardiology SEDATION: General anesthesia provided by anesthesia, see separate note APPROACH: Right femoral artery via percutaneous approach PROCEDURE DESCRIPTION: The patient was discussed at valve clinic with multidisciplinary approach with cardiothoracic surgeon as well as panelboard tank pumper and thought better treated with TAVR. Risks, benefits, and alternatives of the procedure had been explained to the patient who understood the risks and agreed to proceed. After consents were obtained, patient was brought to the transcatheter aortic valve implantation room in the cardiac labor custodian and general anesthesia was provided by the anesthesiologist (see separate report). Once full body sterile prep was performed, right subclavian venous access was obtained and a temporary pacemaker was screwed in, performed by cardiothoracic surgery. Pacing threshholds were checked and deemed appropriate. Next the left femoral artery waw accessed using a modified Seldinger technique, ultrasound guidance and micropuncture technique. A 6 Ghanaian Rabi sheath was placed in the left femoral artery. Next, a 6-Ghanaian pigtail catheter was advanced into the aorta and positioned in the aortic root, aortic root angiography was performed to determine optimal deployment angle. The right femoral artery was accessed using modified Seldinger technique, micropuncture technique and under direct ultrasound guidance. Femoral angiogram was done showing access in the common femoral artery and a 6Fr sheath was placed. Next preclose technique was performed using 2 Percloses at 10 and 2 oclock position. Next a 0.035 Lunderquist wire was placed in the Aorta via a pigtail catheter. Over that the arteriotomy was serially dilated and an 18 Fr Mendon sheath was placed. Next a 6F- AL1 catheter was advanced over a wire to the aortic root. A straight wire was advanced through the catheter and used to cross the severely stenotic valve. The AL1 was then exchanged for a 6Fr pigtail catheter and pressure measurements were obtained. The 0.035 Lunderquist wire was then positioned in the apex. Next preTAVR balloon aortic valvuloplasty was performed with a 22mm True balloon. Next a 29 mm Corevalve Evolut-Pro Plus was advanced. The valve was then positioned across the aortic valve and confirmed with aortic root angiography. [The valve was initially partially deployed however needed repositioning and therefore was recaptured.] The valve was then deployed in proper position using slow deployment and with rapid pacing in conjuncture with aortic root angiography and CINDY. The delivery system was withdrawn back into the arch. The valve was somewhat constrained and therefore post TAVR balloon aortic valvuloplasty was performed with a 24mm Z-Med balloon. An aortic root injection in conjunction with CINDY demonstrated a satisfactory result. There was no para valvular leak. There was no evidence of any other significant abnormalities. The preclose Perclose was then deployed in the right femoral artery and hemostasis was achieved. The pigtail was then advanced to the level of the iliac bifurcation via the left femoral access. Femoral angiogram was performed that showed no contrast leak. The left femoral angiogram demons trated an arteriotomy in the common femoral artery and this was repaired using a 6F angioseal device with complete hemostasis. The temporary venous pacemaker was secured in place. The patient was then transported to the ICU in hemodynamically stable condition, requiring no pressor support. COMPLICATIONS: None CONCLUSION: 1. Implantaion of 29 Core-Valve Evolut-Pro Plus transcatheter aortic valve via right femoral approach under CINDY and fluoro guidance with no cheri-valvular aortic regurgitation. 2. Placement of temporary pacemaker wire 3. Aortic Root Aortogram. 4. Pre balloon aortic valvuloplasty with a 22mm True balloon and post balloon aortic valvuloplasty with a 24mm Z med balloon RECOMMENDATIONS: The patient will be monitored in the ICU for hemodynamic and electrical stability. Check 2D echo tomorrow morning.
[2020-12-08] MEDS ORDERED: TAMSULOSIN 0.4 MG CAP.ER.24H PO SCH (21:00)
[2020-12-08] MEDS ORDERED: ATORVASTATIN 40 MG TAB PO SCH (21:00)
[2020-12-08] MEDS: lisinopriL 20 MG TAB PO SCH (21:03)
[2020-12-09] MEDS: HEPARIN SODIUM,PORCINE/PF 5,000 UNIT/0.5 ML SYRINGE SQ SCH ×2 (00:56→08:22)
[2020-12-09] MEDS: CLINDAMYCIN 600 MG in DEXTROSE 5% IN WATER 50 ML IVPB SCH ×2 (00:57)
[2020-12-09 04:22] LABS: Basophils # (A) 0.1 k/uL (0-0.2); Basophils % (A) 1 %; Eosinophils # (A) 0.2 k/uL (0-0.7); Eosinophils % (A) 2 %; HCT 41.8 % (39.0-53.0); HGB 14.1 gm/dL (13.0-17.5); Lymphocytes # (A) 1.2 k/uL (1.0-4.8); Lymphocytes % (A) 12 %; MCH 31.2 pg (25.0-35.0); MCHC 33.6 g/dL (31.0-37.0); MCV 92.8 fL (80.0-100.0); Mean Platelet Volume 7.3; Monocytes # (A) 0.5 k/uL (0-1.0); Monocytes % (A) 6 %; Neutrophils # (A) 7.6 k/uL (1.3-7.7); Neutrophils % (A) 78 %; Platelet Count 229 k/uL (150-450); RBC 4.51 m/uL (4.30-5.90); RDW 13.8 % (11.5-15.5); WBC 9.8 k/uL (3.8-10.6)
[2020-12-09 04:26] LABS: ALT 29 U/L (4-49); AST 34 U/L (17-59); African American GFR (CKD) >90 (>60 ml/min/1.73 sqM); Albumin 3.5 g/dL (3.5-5.0); Alkaline Phosphatase 71 U/L (38-126); Anion Gap 8 mmol/L; Blood Urea Nitrogen 22 mg/dL (9-20); Calcium 9.3 mg/dL (8.4-10.2); Carbon Dioxide 25 mmol/L (22-30); Chloride 103 mmol/L (98-107); Glucose 117 mg/dL (74-99); Magnesium 1.8 mg/dL (1.6-2.3); Non-African American GFR(CKD) 80 (>60 ml/min/1.73 sqM); Potassium 4.4 mmol/L (3.5-5.1); Sodium 136 mmol/L (137-145); Total Bilirubin 0.7 mg/dL (0.2-1.3); Total Protein 5.9 g/dL (6.3-8.2)
[2020-12-09] MEDS: LACTATED RINGERS 1,000 ML IV SCH (07:13)
[2020-12-09] MEDS ORDERED: PANTOPRAZOLE 40 MG TABLET PO SCH (07:30)
[2020-12-09] MEDS: lisinopriL 20 MG TAB PO SCH (08:22)
--- NOTE | 2020-12-09 08:32 | XR ---
EXAMINATION TYPE: XR chest 1V portable DATE OF EXAM: 12/09/2020 Comparison: 12/08/2020 Clinical History: 75-year-old male Post Operative Cardiac Surgery Findings: Heart normal size. Endovascular aortic valve replacement. Mild patchy opacity at the left base, likel y atelectasis. A right ventricular pacer lead is noted. No consolidation or pleural effusion otherwis e seen. Impression: Right ventricular pacer lead. Endovascular aortic valve replacement. Left basilar opacity suspected s trandy atelectasis.
[2020-12-09] MEDS ORDERED: CLOPIDOGREL 75 MG TAB PO SCH (09:00)
[2020-12-09] MEDS ORDERED: ASPIRIN 81 MG PO SCH (09:00)
[2020-12-09] MEDS ORDERED: bisacodyL 10 MG SUPP RECTAL PRN (09:00)
[2020-12-09] MEDS ORDERED: METOPROLOL TARTRATE 12.5 MG TAB PO SCH (09:00)
[2020-12-09] MEDS ORDERED: ASPIRIN 325 MG TAB PO SCH (09:00)
[2020-12-09] MEDS ORDERED: MAGNESIUM HYDROXIDE 2,400 MG/10 ML CUP PO PRN (09:00)
[2020-12-09 09:53] VITALS: BMI 31.1
--- NOTE | 2020-12-09 09:57 | P.PN ---
Subjective Progress Note Date: 12/09/20 Principal diagnosis: Severe aortic stenosis 75-year-old gentleman, with history of CAD, as well as hypertension, hyperlipidemia, and aortic stenosis. The patient underwent a transcatheter aortic valve replacement today by Dr. Liu. Currently he is resting comfortably in the intensive care unit. He is not on any supplemental oxygen is leaving lactated Ringer's at 50 mL an hour. Basically, the patient was recently found to have severe aortic stenosis, and active for transcatheter aortic valve replacement. It was done today here at the hospital. As mentioned earlier, the patient is resting comfortably in the intensive care unit. We saw him to 65. He has no major complaints. Fact, he was hungry asking for a Big Mac, and a strawberry malt. Currently labs include a white count 7.5, hemoglobin 14.2, hematocrit 41.8, and a platelet count that was 222,000. PT/INR/PTT are all normal. Sodium 135, potassium 4.2, chlorides 104, CO2 24, anion gap 7, BUN 26, and creatinine 1.01. No chest x-ray was done. The cardiovascular procedure note/operative note, was evaluated. The patient is seen today 12/09/2020 in follow-up in the intensive care unit. This is postoperative day #1 of a percutaneous transcatheter aortic valve replacement. Currently he is doing very well. He is seen in follow-up in the intensive care unit. He is awake and alert in no acute distress. Maintaining O2 saturations in the 90s on room air. No IV fluids. White count 9.8. Hemoglobin 14.1. Sodium 136. Potassium 4.4. Creatinine 0.93. Objective - Vital Signs Vital signs: Vital Signs Temp 98.5 F 12/09/20 08:00 Pulse 84 12/09/20 09:00 Resp 23 12/09/20 09:00 BP 110/64 12/09/20 09:00 Pulse Ox 93 L 12/09/20 09:00 Intake & Output 12/08/20 12/09/20 12/09/20 18:59 06:59 18:59 Intake Total 650 750 740 Output Total 750 800 0 Balance -100 -50 740 Weight 90.2 kg Intake: IV 250 Lactated Ringers 1,000 ml 250 @ 50 mls/hr IV .Q20H [facility] Rx#:[id number] Intake, IV Titration 50 50 Amount Clindamycin 600 mg In 50 50 Dextrose 5% in Water 50 ml @ 50 mls/hr IVPB Q8HR [facility] Rx#:[id number] Oral 350 700 740 Output: Urine 750 800 0 Other: Voiding Method Self-Catheterization Self-Catheterization # Voids 1 0 ABP, PAP, CO, CI - Last Documented Arterial Blood Pressure 108/58 - Exam GENERAL EXAM: Alert, active, very pleasant 75-year-old gentleman, on room air, comfortable in no apparent distress. HEAD: Normocephalic. EYES: Normal reaction of pupils, equal size. NOSE: Clear with pink turbinates. THROAT: No erythema or exudates. NECK: No masses, no JVD. CHEST: No chest wall deformity. LUNGS: Equal air entry with no crackles, wheeze, rhonchi or dullness. CVS: S1 and S2 normal with no audible murmur, regular rhythm. ABDOMEN: No hepatosplenomegaly, normal bowel sounds, no guarding or rigidity. SPINE: No scoliosis or deformity SKIN: No rashes CENTRAL NERVOUS SYSTEM: No focal deficits, tone is normal in all 4 extremities. EXTREMITIES: There is no peripheral edema. No clubbing, no cyanosis. Peripheral pulses are intact. - Labs CBC & Chem 7: 12/09/20 03:52 12/09/20 03:52 Labs: Abnormal Lab Results - Last 24 Hours (Table) 12/08/20 12/08/20 12/09/20 Range/Units 10:20 10:23 03:52 Sodium 135 L 136 L (137-145) mmol/L BUN 26 H 22 H (9-20) mg/dL Glucose 119 H 117 H (74-99) mg/dL POC Glucose (mg/dL) 119 H (75-99) mg/dL Total Protein 5.9 L 5.9 L (6.3-8.2) g/dL Albumin 3.3 L (3.5-5.0) g/dL Assessment and Plan Assessment: 1 Postop day #1, status post transcatheter aortic valve replacement, for severe aortic stenosisbicuspid aortic valve. 2 History of coronary artery disease. 3 History of hypertension. 4 History of hyperlipidemia. Plan: The patient was seen and evaluated by Dr. Rui Shane from the pulmonary and critical care standpoint Home once cleared by CT services/cardiology I, the cosigning physician, performed a history & physical examination of the patient. Lungs sounds are clear. Maintaining good O2 saturations in the 90s on room air. I discussed the assessment and plan of care with my nurse practitioner, Jaja Mike. I attest to the above note as dictated by her.
--- NOTE | 2020-12-09 11:52 | ECHOF ---
Referral Reason:POST TAVR MEASUREMENTS -------- HEIGHT: 170.2 cm WEIGHT: 86.2 kg BP: 98/71 RVIDd: 3.1 cm (< 3.3) IVSd: 1.5 cm (0.6 - 1.1) LVIDd: 3.5 cm (3.9 - 5.3) LVPWd: 1.4 cm (0.6 - 1.1) IVSs: 1.8 cm LVIDs: 2.5 cm LVPWs: 1.9 cm LA Diam: 2.9 cm (2.7 - 3.8) LAESV Index (A-L): 17.09 ml/m Ao Diam: 2.7 cm (2.0 - 3.7) MV EXCURSION: 18.872 mm (> 18.000) MV EF SLOPE: 51 mm/s (70 - 150) EPSS: 0.3 cm MV E Krish: 0.70 m/s MV DecT: 155 ms MV A Krish: 1.06 m/s MV E/A Ratio: 0.65 AV maxP.86 mmHg AV meanP.52 mmHg RAP: 5.00 mmHg RVSP: 22.12 mmHg FINDINGS -------- Sinus rhythm. This was a technically adequate study. The left ventricular size is normal. There is moderate concentric left ventricular hypertrophy. O verall left ventricular systolic function is normal with, an EF between 60 - 65 %. The right ventricle is normal in size. The left atrium is normal in size. The right atrium is normal in size. Interatrial and interventricular septum intact. Peak/mean gradient across the Aortic Valve is 12.86mmHg / 5.52mmHg. Normally functioning bioprosthe tic valve. There is no cheri-prosthetic regurgitation of the bioprosthetic aortic valve. TAVR done The mitral valve is normal. Mild tricuspid regurgitation present. Right ventricular systolic pressure is normal at < 35 mmHg. Trace/mild (physiologic) pulmonic regurgitation. The aortic root size is normal. Normal inferior vena cava with normal inspiratory collapse consistent with estimated right atrial pre ssure of 5 mmHg. There is no pericardial effusion. CONCLUSIONS -------- 1. The left ventricular size is normal. 2. There is moderate concentric left ventricular hypertrophy. 3. Overall left ventricular systolic function is normal with, an EF between 60 - 65 %. 4. Peak/mean gradient across the Aortic Valve is 12.86mmHg / 5.52mmHg. 5. Normally functioning bioprosthetic valve. 6. There is no cheir-prosthetic regurgitation of the bioprosthetic aortic valve. 7. TAVR done 8. Mild tricuspid regurgitation present. 9. Trace/mild (physiologic) pulmonic regurgitation. 10. There is no pericardial effusion. PATIENT OFFICE REP: Dorothea Grimes RDCS
[2020-12-09 12:08] VITALS: TEMP 98.8
[2020-12-09 13:22] VITALS: BP 121/72
--- NOTE | 2020-12-09 13:55 | P.DS ---
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 Calcified bicuspid aortic valve with severe symptomatic aortic valve stenosis 2. Coronary artery disease, left circumflex, status post drug-eluting stent 3. Hypertension 4. Hyperlipidemia 5. Previous tobacco dependence 6. BPH requiring straight catheterization PROCEDURE: 1. Percutaneous aortic valve implantation using a 29 mm Core Valve Evolute-Pro Plus under CINDY and fluoroscopy guidance 2. Transesophageal echocardiography performed by anesthesia 3. Ultrasound-guided access and repair of right femoral artery access site by Perclose closure device 4. Placement of temporary pacemaker wire 5. Aortic root angiography 6. Pre-balloon aortic valvuloplasty with a 22 mm True balloon and post-balloon aortic valvuloplasty with a 24 mm Z med balloon HISTORY OF PRESENT ILLNESS: This is a 75-year-old gentleman who follows on an outpatient basis at the [facility] [place] for primary care and Dr. De La Cruz for cardiology. He has a known history of severe aortic stenosis and has been s ymptomatic with increased exertional dyspnea as well as chest tightness. He had been referred to structural heart clinic for evaluation for transcatheter aortic valve replacement after heart catheterization and transesophageal echocardiogram were completed. Echocardiography demonstrated normal left ventricular systolic function with EF 55%, calcified bicuspid aortic valve, aortic valve area 0.7 cm with a peak/mean gradient 70/37 mmHg. Heart catheterization showed diffuse nonobstructive coronary artery disease in the left anterior descending and right coronary arteries, along with 60% stenosis to the circumflex coronary artery. After workup was completed STS risk score was calculated along with incremental risk and the patient was felt to be very high risk for surgical aortic valve rep lacement, therefore transcatheter aortic valve replacement was recommended. The usual course of TAVR was discussed in detail the patient, risks and benefits were reviewed, and the patient consented to proceed with the procedure. Prior to his TAVR procedure a drug-eluting stent was placed to the left circumflex coronary artery by Dr. Shine. HOSPITAL COURSE: The patient was brought to the hospital on 12/08/20, taken to the extended stay area, prepared in the usual fashion, and subsequently taken to the cardiac catheterization laboratory where Dr. Adams and Dr. Liu completed TAVR procedure under general anesthesia with fluoroscopy and CINDY. The valve was deployed under rapid ventricular pacing and proceeded without event. At the end of the procedure there was no evidence of gradient, hemodynamics were felt to be excellent, and there is no evidence of significant perivalvular leak. Upon completion of the procedure the patient was extubated and was transferred to the cardiovascular intensive care unit where he was recovered and monitored hemodynamically. His oxygen was titrated down, he was tolerating oral diet, his pain was controlled, follow-up TTE demonstrated normal left ventricular systolic function with EF 60-65%, no periprosthetic regurgitation, mean gradient across the aortic valve 5.52 mmHg, and he was ready to be discharged to home on postoperative day #1. He received written and verbal instruction regarding his medications, activity restrictions, signs and symptoms requiring physician notification, and follow-up appointments. Patient Condition at Discharge: Stable Plan - Discharge Summary Discharge Rx Participant: No New Discharge Prescriptions: New Metoprolol Tartrate [Lopressor] 12.5 mg PO BID #30 tab Acetaminophen Tab [Tylenol] 650 mg PO Q4HR PRN tab PRN Reason: Fever And/ Or Mild Pain (1-3) Continue Atorvastatin [Lipitor] 40 mg PO HS Tamsulosin [Flomax] 0.4 mg PO HS Aspirin 81 mg PO DAILY lisinopriL [Zestril] 20 mg PO BID Clopidogrel [Plavix] 75 mg PO DAILY #90 tablet Naproxen [Naprosyn] 500 mg PO Q12HR PRN PRN Reason: Pain Discharge Medication List Atorvastatin [Lipitor] 40 mg PO HS 12/20/18 [History] Aspirin 81 mg PO DAILY 10/21/20 [History] Tamsulosin [Flomax] 0.4 mg PO HS 10/21/20 [History] lisinopriL [Zestril] 20 mg PO BID 10/21/20 [History] Naproxen [Naprosyn] 500 mg PO Q12HR PRN 11/30/20 [History] Clopidogrel [Plavix] 75 mg PO DAILY #90 tablet 12/02/20 [Rx] Acetaminophen Tab [Tylenol] 650 mg PO Q4HR PRN tab 12/09/20 [Rx] Metoprolol Tartrate [Lopressor] 12.5 mg PO BID #30 tab 12/09/20 [Rx] Follow up Appointment(s)/Referral(s): Bailey Cole NPC [Nurse Practitioner] - 01/20/21 1:30 pm (Appointment is at the hospital (come in the main entrance and ask for Baiely Cole) prior to your echo appointment with Dr. De La Cruz ) William De La Cruz MD [STAFF PHYSICIAN] - 12/16/20 2:30 pm (12/16/20 appointment is for groin check; you also have an appointment for an echocardiogram w/ Dr. De La Cruz 01/20/21 @ 2pm) [facility],Clinic [Primary Care Provider] - As Needed Activity/Diet/Wound Care/Special Instructions: DISCHARGE INSTRUCTIONS: 1. No driving for 1 week, or until physician gives their ok. 2. No lifting, pushing, or pulling more than 5-10 pounds for 1 week. 3. Hold both groins when you cough or sneeze for the next 2 weeks. Bruising is common, but report increased swelling, pain or fever >101F 4. Shower daily. No pool, hot tub, or bathtub for 1 week 5. No powders, lotions, ointments on incisions. 6. No straining, including for bowel movements. Use stool softner if necessary 7. Stairs are not an issue. Go slowly, using handrail and take 1 step at a time. Ambulate several times daily 8. Continue pain control per as needed orders. 9. Take only the medications listed on your discharge form 10. Eat low salt (limited to 2 grams or 2000 milligrams) daily, avoid adding salt, avoid canned/processed foods 11. Take your weight daily in the morning and record, bring with you to your follow up appointments 12. Keep all follow up appointments. You will need a valve clinic appointment at 30 days and 1 year post procedure for follow up 13. You have been referred to and are expected to begin Cardiac Rehab in approximately 4 weeks. 14. You will need antibiotics prior to any dental work, including cleanings, and any surgeries to prevent Endocarditis (bacterial infection in your heart) For any questions or concerns please call your valve coordinators: Bailey @ or Francesco @ Discharge Disposition: HOME SELF-CARE
[2020-12-09 14:02] VITALS: PULSE 76; RESP 18
[2020-12-09] MEDS ORDERED: SENNOSIDES-DOCUSATE SODIUM 1 EACH TAB PO SCH (21:00)
== END 2020-12-09 14:41 | disposition home or self-care (01) | DRG 267 ==
LOC: 2ORMAIN 05:45 → 2SICU 09:51
PROVIDERS: ADMIT Internal Medicine; ATTEND Internal Medicine
PROC: B3101ZZ Fluoroscopy of Thoracic Aorta using Low Osmolar Contrast (ICD-10-PCS; 2020-12-08)
PROC: B246ZZ4 Ultrasonography of Right and Left Heart, Transesophageal (ICD-10-PCS; 2020-12-08)
PROC: 02RF38Z Replacement of Aortic Valve with Zooplastic Tissue, Percutaneous Approach (ICD-10-PCS; principal; 2020-12-08 08:00)
PROC: 5A1223Z Performance of Cardiac Pacing, Continuous (ICD-10-PCS; 2020-12-08 08:00)
DX: Q23.1 Congenital insufficiency of aortic valve (principal); E78.5 Hyperlipidemia, unspecified; Z00.6 Encounter for examination for normal comparison and control in clinical research program; I25.10 Atherosclerotic heart disease of native coronary artery without angina pectoris; Z95.5 Presence of coronary angioplasty implant and graft; N40.0 Benign prostatic hyperplasia without lower urinary tract symptoms; I10 Essential (primary) hypertension; Z87.891 Personal history of nicotine dependence; Z83.3 Family history of diabetes mellitus; Z79.82 Long term (current) use of aspirin; Z79.02 Long term (current) use of antithrombotics/antiplatelets; Z79.899 Other long term (current) drug therapy
CPT/HCPCS: 33210; 33361; 71045; 80053; 82330; 83735; 85025; 85610; 85730; 86850; 86900; 86901; 93306; 93312; 93320; 93325

== ENCOUNTER → 2021-01-20 | Outpatient (CLI) | payer OTHER ==
[2021-01-20 14:21] LABS: HCT 45.4 % (39.6-50.0); HGB 14.6 g/dL (13.0-17.0); MCH 29.5 pg (27.0-32.0); MCHC 32.2 g/dL (32.0-37.0); MCV 91.7 fL (80.0-97.0); Platelet Count 276 X 10*3/uL (140-440); RBC 4.95 X 10*6/uL (4.40-5.60); RDW 13.8 % (11.5-14.5); WBC 8.46 X 10*3/uL (4.50-10.00)
[2021-01-20 16:33] LABS: African American GFR (CKD) 68.1 (60.0-200.0); Albumin 4.6 g/dL (3.80-4.90); Albumin/Globulin Ratio 1.92 (1.60-3.17); Anion Gap 4.7 mmol/L (4.00-12.00); BUN/Creat Ratio 15.83 Ratio (12.00-20.00); Calcium 9.4 mg/dL (8.7-10.3); Carbon Dioxide 28.3 mmol/L (21.6-31.8); Globulin 2.4 g/dL (1.6-3.3); Non-African American GFR(CKD) 58.8 (60.0-200.0); Potassium 5.2 mmol/L (3.5-5.5); Total Bilirubin 0.6 mg/dL (0.3-1.2)
== END | disposition home or self-care (01) ==
LOC: LABWHC1 09:38
PROVIDERS: ATTEND Nurse Practitioner Family
DX: Z48.812 Encounter for surgical aftercare following surgery on the circulatory system (principal)
CPT/HCPCS: 36415; 80053; 85027

== ENCOUNTER → 2021-04-06 | Outpatient (CLI) | payer OTHER ==
[2021-04-06 20:29] LABS: African American GFR (CKD) 82.9 (60.0-200.0); Blood Urea Nitrogen 15.3 mg/dL (9.0-27.0); Non-African American GFR(CKD) 71.6 (60.0-200.0); Prostate Specific Antigen 7.8 ng/mL (0.00-6.50)
== END | disposition home or self-care (01) ==
LOC: LABWHC1 11:23
PROVIDERS: ATTEND Urology
DX: N40.1 Benign prostatic hyperplasia with lower urinary tract symptoms (principal); R97.20 Elevated prostate specific antigen [PSA]
CPT/HCPCS: 36415; 82565; 84153; 84520

== ENCOUNTER → 2021-09-29 | Outpatient (CLI) | payer OTHER ==
[2021-09-29 22:59] LABS: African American GFR (CKD) 84.9 (60.0-200.0); Blood Urea Nitrogen 17.8 mg/dL (9.0-27.0); Non-African American GFR(CKD) 73.2 (60.0-200.0); Prostate Specific Antigen 5.9 ng/mL (0.00-6.50)
== END | disposition home or self-care (01) ==
LOC: LABWHC1 15:59
PROVIDERS: ATTEND Urology
DX: N40.1 Benign prostatic hyperplasia with lower urinary tract symptoms (principal)
CPT/HCPCS: 36415; 82565; 84153; 84520

== ENCOUNTER 2021-11-03 09:49 | Day surgery (SDC) | payer OTHER ==
[2021-11-01 16:10] VITALS: BMI 30.4
[~2021-11-03 09:49] MED LIST changes: +ALPRAZolam 0.25 MG TAB PO PRN; +ALPRAZolam 0.5 MG TAB PO PRN; -ASPIRIN 325 MG TAB PO ONE; +ASPIRIN 325 MG TAB PO STA; -ATORVASTATIN 10 MG TAB PO ONE; +ATORVASTATIN 80 MG TAB PO STA; -CLEVIDIPINE BUTYRATE 25 MG in EMPTY BAG 1 BAG IV PRN; -CLOPIDOGREL 75 MG TAB PO ONE; -ELECTROLYTE-A SOLUTION 1,000 ML with POTASSIUM CHLORIDE 100 MEQ, MAGNESIUM SULFATE 16 M... IV PRN; -ELECTROLYTE-A SOLUTION 1,000 ML with POTASSIUM CHLORIDE 40 MEQ, MAGNESIUM SULFATE 16 ME... IV PRN; +HEPARIN SODIUM,PORCINE 10,000 UNIT in SODIUM CHLORIDE 0.9% 1,000 ML IRRIGATION PRN; +HEPARIN SODIUM,PORCINE 2,500 UNIT in SODIUM CHLORIDE 0.9% 250 ML IRRIGATION PRN; -INSULIN REGULAR 100 UNIT in SODIUM CHLORIDE 0.9% 100 ML IV PRN; -METOPROLOL TARTRATE 25 MG TAB PO ONE; -MUPIROCIN 2% OINT 22 GM TUBE NASAL SCH; +NITROGLYCERIN SL TABS 0.4 MG TAB SUBLINGUAL PRN; -NITROGLYCERIN-D5W PMX 25 MG/250 ML BTL IV PRN; -PROTAMINE SULFATE 250 MG in EMPTY BAG 1 BAG IV PRN; +SODIUM CHLORIDE 0.9% 1,000 ML in EMPTY BAG 1 BAG IV SCH; -SODIUM CHLORIDE 0.9% 500 ML 500 ML INTRAARTER ONE; -SODIUM CHLORIDE 0.9% 500 ML 500 ML IV ONE; -TRANEXAMIC ACID 2,000 MG in SODIUM CHLORIDE 0.9% 80 ML IV PRN; -VANCOMYCIN 1,250 MG in SODIUM CHLORIDE 0.9% 250 ML IVPB ONE
[2021-11-03 10:32] VITALS: RESP 16; TEMP 98.1
[2021-11-03 10:32] LABS: Basophils # (A) 0.1 k/uL (0-0.2); Basophils % (A) 1 %; Eosinophils # (A) 0.2 k/uL (0-0.7); Eosinophils % (A) 4 %; HCT 47.5 % (39.0-53.0); HGB 15.7 gm/dL (13.0-17.5); Lymphocytes # (A) 1.3 k/uL (1.0-4.8); Lymphocytes % (A) 23 %; MCHC 33.1 g/dL (31.0-37.0); MCV 93.5 fL (80.0-100.0); Mean Platelet Volume 7.6; Monocytes # (A) 0.3 k/uL (0-1.0); Monocytes % (A) 6 %; Neutrophils # (A) 3.7 k/uL (1.3-7.7); Neutrophils % (A) 64 %; Platelet Count 179 k/uL (150-450); RBC 5.08 m/uL (4.30-5.90); RDW 13.9 % (11.5-15.5); WBC 5.8 k/uL (3.8-10.6)
[2021-11-03 10:56] LABS: Calcium 9.3 mg/dL (8.4-10.2); Potassium 4.5 mmol/L (3.5-5.1)
[2021-11-03] MEDS ORDERED: VERAPAMIL 2.5 MG/ML 2 ML AMP ONE (11:29)
[2021-11-03] MEDS ORDERED: HEPARIN SODIUM 1,000 UN/ML (10ML VL) ONE (11:43)
[2021-11-03] MEDS ORDERED: LIDOCAINE 1% INJ 10MG/ML (5 ML VIAL-PF) SQ ONE ×2 (11:49→11:50)
[2021-11-03] MEDS ORDERED: MIDAZOLAM 2 MG/2 ML VIAL IV ONE ×2 (11:49)
[2021-11-03] MEDS ORDERED: VERAPAMIL SYRINGE (5 MG/10 ML) INTRAARTER ONE ×2 (11:50→11:51)
[2021-11-03] MEDS ORDERED: HEPARIN SODIUM 1,000 UN/ML (10ML VL) IV ONE ×2 (11:52→11:53)
[2021-11-03] MEDS ORDERED: IOPAMIDOL-370 125ML BTL INJ ONE (12:11)
[2021-11-03] MEDS ORDERED: RX INFO: IV CONTRAST WAS GIVEN 1 EACH MISC MISCELLANE PRN (12:23)
--- NOTE | 2021-11-03 12:28 | P.PCN ---
Date of Procedure: 11/03/21 Operative Findings: CARDIAC CATHETERIZATION PERFORMING PHYSICIAN: Chad Shine MD, RPVI PROCEDURE PERFORMED: 1. Selective right and left coronary angiogram 2. Left heart catheterization INDICATION: This is a 76-year-old gentleman with history of coronary artery disease and prior stenting of the left circumflex as well as multiple comorbid conditions was experiencing symptoms of chest discomfort with exertion concerning for angina. In the light of that heart catheterization was advised COMPLICATION: None APPROACH: Right radial artery LEVEL OF SEDATION: Moderate with a sedation length of 22 minute PROCEDURE DESCRIPTION: After obtaining an informed consent, the patient was brought to cardiac clinical laboratory aide. Local anesthesia was performed using lidocaine subcutaneously. The right radial artery was cannulated using Seldinger technique, the guidewire passed easily, following that we advanced a 5-[place] sheath dilator assembly, the wire and dilator were removed and sheath was flushed. Following that, 2 mg of verapamil along with 5000 unit heparin were given. Selective right and left coronary angiogram using a 6-[place] JR4 and JL 4 catheters. Left heart catheterization was performed using the JR4 catheter which cross the aortic valve and I did pull back across the valve. The procedure was completed there was no complication. SELECTIVE CORONARY ANGIOGRAM: The right coronary artery: His medium caliber vessel and a dominant vessel. The RCA has mild diffuse disease. Its calcified. Left main: Is angiographically normal. Bifurcates into a LCx and LAD The left circumflex: Is a large caliber vessel and its and on dominant vessel. The proximal LCx gives rises into an OM1 which is a small caliber vessel was mild disease only. Then gives rises into an OM to which is a medium caliber vessel with moderate disease only. Then the wire a 3 which is a large caliber vessel seems to be stented with mild in-stent restenosis The left anterior descending artery: Is a large caliber vessel. The LAD has mild disease in the midportion. Gives rises into a large diagonal branch which seems to be angiographically normal. HEMODYNAMICS: The LVEDP is 10-12 mmHg with no significant gradient across aortic valve CONCLUSION: 1. Patent stent in the OM to which is a large caliber vessel. OM1 has intermediate lesion appears to be in the range of 60%. It's about 2 mm vessel in diameter 2. Normal left-sided filling pressures POSTPROCEDURE MANAGEMENT: Consider medical treatment at this point. If the patient continues to be symptomatic consider either myocardial perfusion imaging stress test or fractional flow reserve of OM 1
[2021-11-03] MEDS ORDERED: SODIUM CHLORIDE 0.9% 1,000 ML IV SCH (12:30)
[2021-11-03] MEDS ORDERED: hydrALAZINE HCL 20 MG/ML 1 ML VIAL IVP STA (14:52)
[2021-11-03] MEDS ORDERED: hydrALAZINE HCL 20 MG/ML 1 ML VIAL ONE (14:54)
[2021-11-03 18:42] VITALS: BP 158/74; PULSE 74
== END 2021-11-03 16:12 | disposition home or self-care (01) ==
LOC: CATHCVL 09:49
PROVIDERS: ATTEND Internal Medicine Interventional Cardiology
DX: T82.855A Stenosis of coronary artery stent, initial encounter (principal); E78.5 Hyperlipidemia, unspecified; I10 Essential (primary) hypertension; Z72.0 Tobacco use; E78.00 Pure hypercholesterolemia, unspecified; Z20.822 Contact with and (suspected) exposure to COVID-19; I35.0 Nonrheumatic aortic (valve) stenosis; Z79.02 Long term (current) use of antithrombotics/antiplatelets; Z79.82 Long term (current) use of aspirin; Z79.899 Other long term (current) drug therapy
CPT/HCPCS: 93458; 80048; 85025; 87635; C1887; C1769; C1894; J2250; J2001; J1644; Q9967

== ENCOUNTER 2022-01-04 09:00 | Emergency (ER) | payer OTHER ==
[2022-01-04 09:30] VITALS: BP 168/87; PULSE 73; RESP 20; TEMP 97.8
--- NOTE | 2022-01-04 10:35 | ED ---
Skin/Abscess/FB HPI - General Chief complaint: Skin/Abscess/Foreign Body Stated complaint: Swollen hand Source: patient, RN notes reviewed Mode of arrival: ambulatory Limitations: no limitations - History of Present Illness Initial comments: 76-year-old male presents emergency department to complaint of left hand redness. Patient states started 2 days ago states it started as a small by has spread. Patient denies any trauma no fevers or chills no pain into the wrist. Patient believes he was bit by something. Patient offers no other complaints. - Related Data Home Medications Medication Instructions Recorded Confirmed Atorvastatin [Lipitor] 40 mg PO HS 12/20/18 11/03/21 Aspirin 81 mg PO DAILY 10/21/20 11/03/21 Tamsulosin [Flomax] 0.4 mg PO HS 10/21/20 11/03/21 Naproxen [Naprosyn] 500 mg PO Q12HR PRN 11/30/20 11/01/21 Isosorbide Mononitrate ER [Imdur] 15 mg PO DAILY 11/01/21 11/03/21 Lisinopril-Hctz 20-12.5 mg 1 tab PO BID 11/03/21 11/03/21 [Zestoretic 20-12.5] Previous Rx's Medication Instructions Recorded Clopidogrel [Plavix] 75 mg PO DAILY #90 tablet 12/02/20 Cephalexin [Keflex] 500 mg PO Q6HR #40 cap 01/04/22 Allergies Allergy/AdvReac Type Severity Reaction Status Date / Time Penicillins Allergy Anaphylaxis Verified 01/04/22 09:30 Review of Systems ROS Statement: Those systems with pertinent positive or pertinent negative responses have been documented in the HPI. ROS Other: All systems not noted in ROS Statement are negative. Past Medical History Past Medical History: Coronary Artery Disease (CAD), Chest Pain / Angina, GERD/Reflux, Hyperlipidemia, Hypertension, Musculoskeletal Disorder, Osteoarthritis (OA), Prostate Disorder Additional Past Medical History / Comment(s): self cath's due to enlarged prostate, DDD History of Any Multi-Drug Resistant Organisms: None Reported Past Surgical History: Heart Catheterization, Heart Catheterization With Stent Additional Past Surgical History / Comment(s): cyst off back of neck, circumcision, colonoscopy, CINDY., heart cath with stent (12/01/20)., aortic valve replacement (12/08/20) Past Anesthesia/Blood Transfusion Reactions: No Reported Reaction Date of Last Stent Placement:: 12/01/20 Past Psychological History: No Psychological Hx Reported Smoking Status: Former smoker Past Alcohol Use History: None Reported Past Drug Use History: None Reported - Past Family History Mother Additional Family Medical History / Comment(s): in 90's Father Family Medical History: Diabetes Mellitus General Exam Limitations: no limitations General appearance: alert, in no apparent distress Head exam: Present: atraumatic, normocephalic, normal inspection Neck exam: Present: normal inspection. Absent: tenderness, meningismus, lymphadenopathy Respiratory exam: Present: normal lung sounds bilaterally. Absent: respiratory distress, wheezes, rales, rhonchi, stridor Cardiovascular Exam: Present: regular rate, normal rhythm, normal heart sounds. Absent: systolic murmur, diastolic murmur, rubs, gallop, clicks Extremities exam: Present: other (Left hand second digit there is small area of erythema with swelling surrounding, times palpation no drainable abscess neurovascular intact) Course Vital Signs 01/04/22 09:28 Temperature 97.8 F Pulse Rate 73 Respiratory 20 Rate Blood Pressure 168/87 O2 Sat by Pulse 97 Oximetry Medical Decision Making - Medical Decision Making 76-year-old male presented for rash her left hand he appears to have some cellulitis was started on Keflex return parameters were discussed. Disposition Clinical Impression: Cellulitis of left hand Disposition: HOME SELF-CARE Condition: Stable Instructions (If sedation given, give patient instructions): Cellulitis (ED) Additional Instructions: Please return to the Emergency Department if symptoms worsen or any other concerns. Prescriptions: Cephalexin [Keflex] 500 mg PO Q6HR #40 cap Is patient prescribed a controlled substance at d/c from ED?: No Referrals: [facility],Clinic [Primary Care Provider] - 1-2 days Time of Disposition: 10:34
== END 2022-01-04 10:44 | disposition home or self-care (01) ==
LOC: EC 09:00
DX: L03.114 Cellulitis of left upper limb (principal); E78.5 Hyperlipidemia, unspecified; I10 Essential (primary) hypertension; Z87.891 Personal history of nicotine dependence; Z88.0 Allergy status to penicillin
CPT/HCPCS: 99283

== ENCOUNTER 2022-02-21 20:46 | Emergency (ER) | payer OTHER ==
[2022-02-21 22:14] VITALS: TEMP 97.6
[2022-02-21] MEDS ORDERED: HYDROcodone/APAP 10-325MG 1 EACH TAB PO ONE (22:46)
--- NOTE | 2022-02-22 00:40 | XR ---
EXAMINATION TYPE: XR shoulder complete LT DATE OF EXAM: 02/21/2022 COMPARISON: NONE HISTORY: Shoulder pain TECHNIQUE: 3 views FINDINGS: There is some spurring at the glenohumeral joint. There is no fracture nor dislocation scap reymundo is intact. IMPRESSION: There is some mild osteoarthritis. No fracture.
--- NOTE | 2022-02-22 00:52 | ED ---
General Adult HPI - General Chief complaint: Extremity Injury, Upper Stated complaint: L shoulder pain Time Seen by Provider: 02/21/22 22:20 Source: patient Mode of arrival: ambulatory Limitations: no limitations - History of Present Illness Initial comments: 76-year-old male presents to the emergency room with left shoulder pain. She reports that he has had chronic left shoulder pain and was in physical therapy earlier this summer. Reports that he had improvement in his pain and he was discharged from physical therapy. Over the past couple of days the patient has had worsening pain. Denies any injuries. States the pain starts in the left shoulder and radiates into the mid bicep. This is not his dominant arm. He has not been taking any medications for the pain. Denies any hand weakness. No chest pain or shortness of breath no fevers or chills. No other alleviating, precipitating or modifying factors - Related Data Home Medications Medication Instructions Recorded Confirmed Atorvastatin [Lipitor] 40 mg PO HS 12/20/18 11/03/21 Aspirin 81 mg PO DAILY 10/21/20 11/03/21 Tamsulosin [Flomax] 0.4 mg PO HS 10/21/20 11/03/21 Naproxen [Naprosyn] 500 mg PO Q12HR PRN 11/30/20 11/01/21 Isosorbide Mononitrate ER [Imdur] 15 mg PO DAILY 11/01/21 11/03/21 Lisinopril-Hctz 20-12.5 mg 1 tab PO BID 11/03/21 11/03/21 [Zestoretic 20-12.5] Previous Rx's Medication Instructions Recorded Clopidogrel [Plavix] 75 mg PO DAILY #90 tablet 12/02/20 Cephalexin [Keflex] 500 mg PO Q6HR #40 cap 01/04/22 HYDROcodone/APAP 7.5-325MG [[place] 1 tab PO Q6HR PRN #12 tab 02/22/22 7.5-325] Allergies Allergy/AdvReac Type Severity Reaction Status Date / Time Penicillins Allergy Anaphylaxis Verified 02/21/22 22:10 Review of Systems ROS Statement: Those systems with pertinent positive or pertinent negative responses have been documented in the HPI. ROS Other: All systems not noted in ROS Statement are negative. Past Medical History Past Medical History: Coronary Artery Disease (CAD), Chest Pain / Angina, GERD/Reflux, Hyperlipidemia, Hypertension, Musculoskeletal Disorder, Osteoarthritis (OA), Prostate Disorder Additional Past Medical History / Comment(s): self cath's due to enlarged prostate, DDD History of Any Multi-Drug Resistant Organisms: None Reported Past Surgical History: Heart Catheterization, Heart Catheterization With Stent Additional Past Surgical History / Comment(s): cyst off back of neck, circumcision, colonoscopy, CINDY., heart cath with stent (12/01/20)., aortic valve replacement (12/08/20) Past Anesthesia/Blood Transfusion Reactions: No Reported Reaction Date of Last Stent Placement:: 12/01/20 Past Psychological History: No Psychological Hx Reported Smoking Status: Former smoker Past Alcohol Use History: None Reported Past Drug Use History: None Reported - Past Family History Mother Additional Family Medical History / Comment(s): in Father Family Medical History: Diabetes Mellitus General Exam Limitations: no limitations General appearance: alert, in no apparent distress Eye exam: Present: normal appearance Neck exam: Present: normal inspection. Absent: tenderness, meningismus, lymphadenopathy Respiratory exam: Present: normal lung sounds bilaterally. Absent: respiratory distress, wheezes, rales, rhonchi, stridor Cardiovascular Exam: Present: regular rate, normal rhythm, normal heart sounds. Absent: systolic murmur, diastolic murmur, rubs, gallop, clicks Extremities exam: Present: other (tenderness to left deltoid and left glenohumeral joint. no obvious deformity. normal ROM. Equal director of partner marketing strength. 2+ DP and PT pulses) Course Vital Signs 02/21/22 02/22/22 22:11 01:19 Temperature 97.6 F Pulse Rate 80 73 Respiratory 16 15 Rate Blood Pressure 191/104 155/79 O2 Sat by Pulse 97 97 Oximetry EKG Findings - EKG Comments: EKG Findings:: EKG demonstrates sinus rhythm with a rate of 73. HI interval 191. QRS 99. QTC of 387. No acute ST segment elevations. Mild ST depression 2, aVF, V5 and V6 Medical Decision Making - Medical Decision Making On arrival the patient was placed into room 6. Thorough history and physical exam was performed. 12-lead EKG was obtained. Pain is reproducible upon movement. X-ray is performed which demonstrates mild osteoarthritis. He was given a [place] for pain control reevaluated. Reports that his pain is completely gone at this time and is requesting discharge. He'll be discharged home with a short prescription for [place]. Instructed to follow up with his primary care doctor. May need orthopedic referral if his pain persists for further imaging studies and treatment options. Patient understood this. Instructed to return for any new or worsening symptoms. Patient discharged home in stable condition Disposition Clinical Impression: Left shoulder pain Disposition: HOME SELF-CARE Condition: Stable Instructions (If sedation given, give patient instructions): Shoulder Pain (ED) Additional Instructions: Please take the pain medication as needed. Follow-up with your primary care doctor in 2-4 days. I recommend you see an orthopedic doctor for your continued shoulder pain. Return for any new or worsening symptoms Prescriptions: HYDROcodone/APAP 7.5-325MG [[place] 7.5-325] 1 tab PO Q6HR PRN #12 tab PRN Reason: Pain Is patient prescribed a controlled substance at d/c from ED?: Yes When asked, does pt state using other controlled substances?: No If prescribed controlled substance>3 days was MAPS reviewed?: Prescribed <3 Days Referrals: [facility],Clinic [Primary Care Provider] - 1-2 days Alexis Tabares DO [Doctor of Osteopathic Medicine] - 1-2 days Time of Disposition: 00:52
[2022-02-22 01:20] VITALS: BP 155/79; PULSE 73; RESP 15
== END 2022-02-22 01:21 | disposition home or self-care (01) ==
LOC: EC 20:46
DX: M25.512 Pain in left shoulder (principal); I25.10 Atherosclerotic heart disease of native coronary artery without angina pectoris; K21.9 Gastro-esophageal reflux disease without esophagitis; E78.5 Hyperlipidemia, unspecified; I10 Essential (primary) hypertension; M19.90 Unspecified osteoarthritis, unspecified site; Z87.891 Personal history of nicotine dependence; Z88.0 Allergy status to penicillin; Z79.82 Long term (current) use of aspirin; Z79.899 Other long term (current) drug therapy
CPT/HCPCS: 93005; 99283

== ENCOUNTER 2022-07-08 12:38 | Inpatient (IN) | payer OTHER, MEDICARE ==
[2022-07-08] MEDS ORDERED: SODIUM CHLORIDE 0.9% 500 ML 500 ML IV STA (12:53)
--- NOTE | 2022-07-08 13:02 | ED ---
General Adult HPI - General Chief complaint: Neuro Symptoms/Deficit Stated complaint: Slurred speech x1wk Time Seen by Provider: 07/08/22 12:45 Source: patient, family, RN notes reviewed, old records reviewed Mode of arrival: ambulatory Limitations: no limitations - History of Present Illness Initial comments: This is a 77-year-old male who presents emergency Department complaining that for about a week now he has had slurred speech. Patient states she also having episodes of ataxia were difficult to walk without having onto something. Patient denies any headache patient denies any numbness weakness. Patient denies any facial droop. Patient denies any visual disturbance. Patient denies chest pain difficulty breathing shortest breath per patient denies any previous history of stroke. Patient states he has had an MD and a valve replacement. Patient denies any recent fever chills or cough. Patient denies any abdominal pain patient denies any nausea vomiting. Patient states he waited for a week and only comes in today because his daughter made him. - Related Data Home Medications Medication Instructions Recorded Confirmed Atorvastatin [Lipitor] 40 mg PO DAILY 12/20/18 07/08/22 Aspirin 81 mg PO DAILY 10/21/20 07/08/22 Lisinopril-Hctz 20-12.5 mg 1 tab PO BID 11/03/21 07/08/22 [Zestoretic 20-12.5] Tamsulosin [Flomax] 0.8 mg PO DAILY 07/08/22 07/08/22 Allergies Allergy/AdvReac Type Severity Reaction Status Date / Time Penicillins Allergy Anaphylaxis Verified 07/08/22 13:38 Review of Systems ROS Statement: Those systems with pertinent positive or pertinent negative responses have been documented in the HPI. ROS Other: All systems not noted in ROS Statement are negative. Past Medical History Past Medical History: Coronary Artery Disease (CAD), Chest Pain / Angina, GERD/Reflux, Hyperlipidemia, Hypertension, Musculoskeletal Disorder, O steoarthritis (OA), Prostate Disorder Additional Past Medical History / Comment(s): self cath's due to enlarged prostate, DDD History of Any Multi-Drug Resistant Organisms: None Reported Past Surgical History: Heart Catheterization, Heart Catheterization With Stent Additional Past Surgical History / Comment(s): cyst off back of neck, circumcision, colonoscopy, CINDY., heart cath with stent (12/01/20)., aortic valve replacement (12/08/20) Past Anesthesia/Blood Transfusion Reactions: No Reported Reaction Date of Last Stent Placement:: 12/01/20 Past Psychological History: No Psychological Hx Reported Smoking Status: Former smoker Past Alcohol Use History: None Reported Past Drug Use History: None Reported - Past Family History Mother Additional Family Medical History / Comment(s): in 90's Father Family Medical History: Diabetes Mellitus General Exam - General Exam Comments Initial Comments: GENERAL: Patient is well-developed and well-nourished. Patient is nontoxic and well-hydrated and is in mild distress. ENT: Neck is soft and supple. No significant lymphadenopathy is noted. Oropharynx is clear. Moist mucous membranes. Neck has full range of motion without eliciting any pain. EYES: The sclera were anicteric and conjunctiva were pink and moist. Extraocular movements were intact and pupils were equal round and reactive to light. Eyelids were unremarkable. PULMONARY: Unlabored respirations. Good breath sounds bilaterally. No audible rales rhonchi or wheezing was noted. CARDIOVASCULAR: There is a regular rate and rhythm without any murmurs gallops or rubs. ABDOMEN: Soft and nontender with normal bowel sounds. SKIN: Skin is clear with no lesions or rashes and otherwise unremarkable. NEUROLOGIC: Patient is alert and oriented x3. Cranial nerves II through XII are grossly intact. Motor and sensory are also intact. Patient's speech is significantly slurred. Patient has no pronator drift. Patient has good finger nose testing bilaterally MUSCULOSKELETAL: Normal extremities with adequate strength and full range of motion. LYMPHATICS: No significant lymphadenopathy is noted PSYCHIATRIC: Normal psychiatric evaluation. Limitations: no limitations Course Vital Signs 07/08/22 07/08/22 07/08/22 12:42 13:25 14:03 Temperature 97 F L 98.1 F Pulse Rate 88 71 73 Respiratory 16 16 17 Rate Blood Pressure 161/72 148/83 156/86 O2 Sat by Pulse 97 95 97 Oximetry 07/08/22 07/08/22 14:15 14:39 Temperature Pulse Rate 70 71 Respiratory 17 17 Rate Blood Pressure 142/81 130/94 O2 Sat by Pulse 97 96 Oximetry Medical Decision Making - Medical Decision Making EKG is interpreted by myself shows a sinus rhythm at 71 bpm TN interval is 05/06/2018 is 98 QT interval 360 QTC is 382. Patient's EKG shows no ST segment elevation. There is some slight ST segment depression in leads V4 V5 and V Was pt. sent in by a medical professional or institution (ADRIAN Mendoza, UG DESIGNER, urgent care, hospital, or residential...) When possible be specific @ -No Did you speak to anyone other than the patient for history (EMS, parent, family, police, friend...)? What history was obtained from this source @ -No Did you review nursing and triage notes (agree or disagree)? Why? @ -I reviewed and agree with nursing and triage notes Were old charts reviewed (outside hosp., previous admission, EMS record, old EKG, old radiological studies, urgent care reports/EKG's, residential records)? Report findings @ -No old charts were reviewed Differential Diagnosis (chest pain, altered mental status, abdominal pain women, abdominal pain men, vaginal bleeding, weakness, fever, dyspnea, syncope, headache, dizziness, GI bleed, back pain, seizure, CVA, palpatations, mental health, musculoskeletal)? @ -Differential CVA Ischemic stroke, hemorrhagic stroke, brain tumor, atypical migraine, Wernicke's encephalopathy, seizure, multiple sclerosis, meningitis, encephalitis, hypoglycemia, Guillain-Land, electrolytes disturbance, myasthenia gravis.... This is not meant to be an all-inclusive list EKG interpreted by me (3pts min.). @ -As above X-rays interpreted by me (1pt min.). @ -Chest x-ray was interpreted by myself and showed no acute abnormality. CT interpreted by me (1pt min.). @ -CT of the brain was interpreted by myself. Patient has a subacute infarct. CTA was also ordered and read and interpreted by the radiologist. U/S interpreted by me (1pt. min.). @ -None done What testing was considered but not performed or refused? (CT, X-rays, U/S, labs)? Why? @ -None What meds were considered but not given or refused? Why? @ -None Did you discuss the management of the patient with other professionals (professionals i.e. ADRIAN Mendoza, UG DESIGNER, lab, RT, psych nurse, social media manager, business lawyer, teacher, chief resource officer, field nurse case manager)? Give summary @ -No Was smoking cessation discussed for >3mins.? @ -No Was critical care preformed (if so, how long)? @ -35 minutes Were there social determinants of health that impacted care today? How? (Homelessness, low income, unemployed, alcoholism, drug addiction, transportation, low edu. Level, literacy, decrease access to med. care, long-term, rehab)? @ -No Was there de-escalation of care discussed even if they declined (Discuss DNR or withdrawal of care, Hospice)? DNR status @ -No What co-morbidities impacted this encounter? (DM, HTN, Smoking, COPD, CAD, Cancer, CVA, ARF, Chemo, Hep., AIDS, mental health diagnosis, sleep apnea, morbi d obesity)? @ -None Was patient admitted / discharged? Hospital course, mention meds given and route, prescriptions, significant lab abnormalities, going to OR and other pertinent info. @ -Patient came in with strokelike symptoms and CAT scans were done that did show a subacute infarct. Patient also had elevated troponin. I spoke with some physicians he agreed to admit the patient admitted the patient consult neurology and cardiology. Undiagnosed new problem with uncertain prognosis? @ -No Drug Therapy requiring intensive monitoring for toxicity (Heparin, Nitro, Insulin, Cardizem)? @ -No Were any procedures done? @ -No Diagnosis/symptom? @ -CVA Acute, or Chronic, or Acute on Chronic? @ -Acute Uncomplicated (without systemic symptoms) or Complicated (systemic symptoms)? @ -Complicated Side effects of treatment? @ -No Exacerbation, Progression, or Severe Exacerbation? @ -No Poses a threat to life or bodily function? How? (Chest pain, USA, MD, pneumonia, PE, COPD, DKA, ARF, appy, cholecystitis, CVA, Diverticulitis, Homicidal, Suicidal, threat to staff... and all critical care pts) @ -No Diagnosis/symptom? @ -Non-STEMI Acute, or Chronic, or Acute on Chronic? @ -Acute Uncomplicated (without systemic symptoms) or Complicated (systemic symptoms)? @ -Complicated Side effects of treatment? @ -none Exacerbation, Progression, or Severe Exacerbation] @ -no Poses a threat to life or bodily function? @ -Yes could lead to poor cardiac output hypoperfusion and end organ dysfunction Patient has no chest pain at this time. - Lab Data Result diagrams: 07/08/22 13:19 07/08/22 13:19 Lab Results 07/08/22 07/08/2207/08/23 Range/Units 13:19 13:19 13:19 WBC 6.4 (3.8-10.6) k/uL RBC 5.44 (4.30-5.90) m/uL Hgb 16.2 (13.0-17.5) gm/dL Hct 49.4 (39.0-53.0) % MCV 90.8 (80.0-100.0) fL MCH 29.8 (25.0-35.0) pg MCHC 32.8 (31.0-37.0) g/dL RDW 13.6 (11.5-15.5) % Plt Count 191 (150-450) k/uL MPV 7.7 Neutrophils % 67 % Lymphocytes % 21 % Monocytes % 6 % Eosinophils % 3 % Basophils % 1 % Neutrophils # 4.3 (1.3-7.7) k/uL Lymphocytes # 1.3 (1.0-4.8) k/uL Monocytes # 0.4 (0-1.0) k/uL Eosinophils # 0.2 (0-0.7) k/uL Basophils # 0.1 (0-0.2) k/uL PT 10.7 (9.0-12.0) sec INR 1.0 (<1.2) APTT 22.1 (22.0-30.0) sec Sodium 138 (137-145) mmol/L Potassium 3.9 (3.5-5.1) mmol/L Chloride 101 (98-107) mmol/L Carbon Dioxide 31 H (22-30) mmol/L Anion Gap 6 mmol/L BUN 12 (9-20) mg/dL Creatinine 1.01 (0.66-1.25) mg/dL Est GFR (CKD-EPI)AfAm 83 (>60 ml/min/1.73 sqM) Est GFR (CKD-EPI)NonAf 72 (>60 ml/min/1.73 sqM) Glucose 98 (74-99) mg/dL Calcium 9.1 (8.4-10.2) mg/dL Total Bilirubin 1.3 (0.2-1.3) mg/dL AST 25 (17-59) U/L ALT 34 (4-49) U/L Alkaline Phosphatase 91 (38-126) U/L Creatine Kinase (55-170) U/L Troponin I (0.000-0.034) ng/mL Total Protein 6.9 (6.3-8.2) g/dL Albumin 4.1 (3.5-5.0) g/dL 07/08/22 07/08/22 Range/Units 13:19 13:19 WBC (3.8-10.6) k/uL RBC (4.30-5.90) m/uL Hgb (13.0-17.5) gm/dL Hct (39.0-53.0) % MCV (80.0-100.0) fL MCH (25.0-35.0) pg MCHC (31.0-37.0) g/dL RDW (11.5-15.5) % Plt Count (150-450) k/uL MPV Neutrophils % % Lymphocytes % % Monocytes % % Eosinophils % % Basophils % % Neutrophils # (1.3-7.7) k/uL Lymphocytes # (1.0-4.8) k/uL Monocytes # (0-1.0) k/uL Eosinophils # (0-0.7) k/uL Basophils # (0-0.2) k/uL PT (9.0-12.0) sec INR (<1.2) APTT (22.0-30.0) sec Sodium (137-145) mmol/L Potassium (3.5-5.1) mmol/L Chloride (98-107) mmol/L Carbon Dioxide (22-30) mmol/L Anion Gap mmol/L BUN (9-20) mg/dL Creatinine (0.66-1.25) mg/dL Est GFR (CKD-EPI)AfAm (>60 ml/min/1.73 sqM) Est GFR (CKD-EPI)NonAf (>60 ml/min/1.73 sqM) Glucose (74-99) mg/dL Calcium (8.4-10.2) mg/dL Total Bilirubin (0.2-1.3) mg/dL AST (17-59) U/L ALT (4-49) U/L Alkaline Phosphatase (38-126) U/L Creatine Kinase 51 L (55-170) U/L Troponin I 0.192 H* (0.000-0.034) ng/mL Total Protein (6.3-8.2) g/dL Albumin (3.5-5.0) g/dL Critical Care Time Critical Care Time: Yes Total Critical Care Time: 35 Disposition Clinical Impression: Cerebrovascular accident (CVA), Non-STEMI (non-ST elevated myocardial infarction) Disposition: ADMITTED IP TO THIS HOSP Referrals: Tacho Hare PT [REFERRING] - 1-2 days Time of Disposition: 14:54
[2022-07-08 13:31] LABS: Basophils # (A) 0.1 k/uL (0-0.2); Basophils % (A) 1 %; Eosinophils # (A) 0.2 k/uL (0-0.7); Eosinophils % (A) 3 %; HCT 49.4 % (39.0-53.0); HGB 16.2 gm/dL (13.0-17.5); Lymphocytes # (A) 1.3 k/uL (1.0-4.8); Lymphocytes % (A) 21 %; MCH 29.8 pg (25.0-35.0); MCHC 32.8 g/dL (31.0-37.0); MCV 90.8 fL (80.0-100.0); Mean Platelet Volume 7.7; Monocytes # (A) 0.4 k/uL (0-1.0); Monocytes % (A) 6 %; Neutrophils # (A) 4.3 k/uL (1.3-7.7); Neutrophils % (A) 67 %; Platelet Count 191 k/uL (150-450); RBC 5.44 m/uL (4.30-5.90); RDW 13.6 % (11.5-15.5); WBC 6.4 k/uL (3.8-10.6)
[2022-07-08 13:43] LABS: Albumin 4.1 g/dL (3.5-5.0); Calcium 9.1 mg/dL (8.4-10.2); Potassium 3.9 mmol/L (3.5-5.1); Total Bilirubin 1.3 mg/dL (0.2-1.3); Total Protein 6.9 g/dL (6.3-8.2)
[2022-07-08 13:44] LABS: Partial Thromboplastin Time 22.1 sec (22.0-30.0); Prothrombin Time 10.7 sec (9.0-12.0)
--- NOTE | 2022-07-08 14:02 | XR ---
EXAMINATION TYPE: XR chest 2V DATE OF EXAM: 07/08/2022 1:43 PM COMPARISON: Chest radiographs from 01/09/2021 TECHNIQUE: XR chest 2V Frontal and lateral views of the chest. CLINICAL INDICATION:Male, 77 years old with history of altered mental status; FINDINGS: Lungs/Pleura: There is no evidence of pleural effusion, focal consolidation, or pneumothorax. Pulmonary vascularity: Unremarkable. Heart/mediastinum: Cardiomediastinal silhouette is unremarkable. Post aortic valve repair changes. Musculoskeletal: No acute osseous pathology. IMPRESSION: No acute cardiopulmonary disease/process.
--- NOTE | 2022-07-08 14:02 | CT ---
EXAMINATION TYPE: CT brain wo con CT DLP: 1131.5 mGycm, Automated exposure control for dose reduction was used. DATE OF EXAM: 07/08/2022 1:56 PM COMPARISON: None CLINICAL INDICATION:Male, 77 years old with history of Neuro deficit, acute, stroke suspected, Neuro deficits TECHNIQUE: Brain: Axial CT images of the brain were obtained with coronal and sagittal reformats created and rev iewed. Contrast used: None. Oral contrast used: None. FINDINGS: Brain: Extra-axial spaces: No abnormal extra-axial fluid collections. Ventricular system: Within normal limits Cerebral parenchyma: Hypodense area within the left lepe radiata. No acute intraparenchymal hemorrh age or mass effect. The spence-white junction is well differentiated. Scattered hypoattenuating areas are seen within the white matter. Cerebellum: Unremarkable. Mass effect: No evidence of midline shift. Intracranial vasculature: Atherosclerotic calcifications of the intracranial vessels. Soft tissues: Normal. Calvarium/osseous structures: No depressed skull fracture. Paranasal sinuses and mastoid air cells: Mild scattered paranasal sinus disease. Visualized orbits: Orbital contents are intact. IMPRESSION: 1. Indeterminate hypodense area with thin the left lepe radiata could represent acute/subacute CVA . Confirmation with MRI recommended. 2. Additional nonspecific scattered white matter disease.
[2022-07-08] MEDS ORDERED: ASPIRIN 325 MG TAB PO STA (14:55)
--- NOTE | 2022-07-08 14:57 | CT ---
EXAMINATION TYPE: CT angio head neck DATE OF EXAM: 07/08/2022 HISTORY: Neuro symptoms COMPARISON: None CT DLP: 490.8 mGycm. Automated Exposure Control for Dose Reduction was Utilized. TECHNIQUE: CTA scan of the head and neck is performed with IV Contrast, patient injected with 65 mL of Isovue 370, axial images are obtained, coronal and sagittal reformatted images are reviewed. 3D re constructed images are created on an independent workstation and reviewed. FINDINGS: Carotid/Vascular Structures: The brachiocephalic origins, common carotid arteries within the neck and internal carotid arteries within the neck are widely patent without significant stenosis. There is n o sizable aneurysm sac vascular malformation. There is no segmental occlusion intracranially. IMPRESSION: No significant abnormality is seen. NASCET criteria was used in interpretation of this exam?
[2022-07-08] MEDS ORDERED: ACETAMINOPHEN TAB 325 MG TAB PO PRN (17:12)
--- NOTE | 2022-07-08 17:42 | P.HPIM ---
History of Present Illness H&P Date: 07/08/22 Chief Complaint: Slurred speech 77-year-old man with medical history of CAD, hypertension, hyperlipidemia, aortic stenosis status post TAVR presented for slurred speech. Patient says that he had slurred speech for approximately 1 week, noticed some increasing unsteadiness in the last couple days which prompted him to come to the emergency room. Patient's is at bedside and supplement some of his history. Patient's explains that she started to notice that he started to have jumbled words over the last week which is very unusual for him despite his being edentulous. Normally he is able to articulate much better. In the last couple days he also noticed increasing unsteadiness of gait. Patient denies fevers, chills, nausea, vomiting, chest pain, palpitations, sick, presyncope, cough, dyspnea, abdominal pain, constipation, diarrhea, dysuria, dyschezia, numbness/weakness of extremities. In the emergency room, patient was afebrile, 161/72, heart rate 88, 97% on room air. CBC is unremarkable. Chemistries show bicarb of 31, otherwise unremarkable. Liver function tests are unremarkable. Troponin was 0.192, creatinine kinase was 51. Coags were unremarkable. Brain CT demonstrated an indeterminate hypodense area within the left lepe radiata which could represent an acute/subacute stroke. Chest x-ray demonstrated hyperinflation with flattening of diaphragms, no parenchymal abnormalities. CT angiography of the head and neck did not demonstrate any significant abnormalities. EKG demonstrated normal sinus rhythm with normal axis, T-wave inversions in leads 2, 3, V4, V5 and V6. Case was discussed with the emergency room physician and the decision was made to admit the patient to inpatient status for stroke workup. All Systems reviewed and pertinent positives and negatives noted in HPI, all other symptoms are negative Gen: in no apparent distress, resting comfortably in bed Eyes: PERRL, no scleral injection or icterus HENT: normocephalic, atraumatic, good hearing acuity, moist mucous membranes Neck: no tracheal deviation, full range of motion Resp: good air exchange, breathing comfortably with no accessory muscle use, no tactile fremitus, clear to auscultation bilaterally CVS: good distal perfusion x 4, no pitting edema, regular rate and rhythm without murmurs GI: soft, NTTP, ND, no hepatosplenomegaly : no suprapubic tenderness, no CVAT, aguiar catheter not present MSK: no clubbing, no cyanosis, no noted contractures of extremities Skin: no noted rashes, petechiae; temperature of skin is appropriate Neuro: moving all extremities without signs of weakness, CN II-XII intact, finger to nose is impaired more so on the right than the left, heel to heath is impaired more so on the right than the left Psych: cooperative, euthymic mood, insight and judgment intact Labs and imaging as above Assessment: Slurred speech and ataxia CAD Hypertension Hyperlipidemia Aortic stenosis status post TAVR Plan: Vital signs reviewed and noted in HPI Labs reviewed including CBC, chemistries, liver function tests, troponin, CK, coags, results noted in HPI EKG and chest x-ray were personally interpreted in noted in HPI Brain CT and CT angiography of the head and neck were reviewed and noted in HPI Case was discussed with emergency room physician and decision was made to admit the patient to inpatient status for stroke workup Ordered CBC, basic metabolic panel, magnesium, TSH, A1c, lipid panel for tomorrow Aspirin 81 mg daily Plavix 75 mg daily Patient's home atorvastatin was increased to 80 mg at bedtime Neurology consulted Monitor on telemetry Echocardiogram ordered MRI of the brain ordered Patient is full code DVT prophylaxis with heparin 5000 units subcu 3 times a day Past Medical History Past Medical History: Coronary Artery Disease (CAD), Chest Pain / Angina, GERD/Reflux, Hyperlipidemia, Hypertension, Musculoskeletal Disorder, Osteoarthritis (OA), Prostate Disorder Additional Past Medical History / Comment(s): self cath's due to enlarged prostate, DDD History of Any Multi-Drug Resistant Organisms: None Reported Past Surgical History: Heart Catheterization, Heart Catheterization With Stent Additional Past Surgical History / Comment(s): cyst off back of neck, circumcision, colonoscopy, CINDY., heart cath with stent (12/01/20)., aortic valve replacement (12/08/20) Past Anesthesia/Blood Transfusion Reactions: No Reported Reaction Date of Last Stent Placement:: 12/01/20 Past Psychological History: No Psychological Hx Reported Smoking Status: Former smoker Past Alcohol Use History: None Reported Additional Past Alcohol Use History / Comment(s): smoked 40 years cigars "never inhaled" quit 2010 Past Drug Use History: None Reported - Past Family History Mother Additional Family Medical History / Comment(s): in 's Father Family Medical History: Diabetes Mellitus Medications and Allergies Home Medications Medication Instructions Recorded Confirmed Type Atorvastatin [Lipitor] 40 mg PO DAILY 12/20/18 07/08/22 History Aspirin 81 mg PO DAILY 10/21/20 07/08/22 History Lisinopril-Hctz 20-12.5 mg 1 tab PO BID 11/03/21 07/08/22 History [Zestoretic 20-12.5] Tamsulosin [Flomax] 0.8 mg PO DAILY 07/08/22 07/08/22 History Allergies Allergy/AdvReac Type Severity Reaction Status Date / Time Penicillins Allergy Anaphylaxis Verified 07/08/22 13:38 Physical Exam Osteopathic Statement: *. No significant issues noted on an osteopathic structural exam other than those noted in the History and Physical/Consult. Vitals: Vital Signs Temp Pulse Resp BP Pulse Ox 07/08/22 14:55 87 16 162/101 97 07/08/22 14:45 80 17 145/102 97 07/08/22 14:30 71 17 130/94 96 07/08/22 14:15 70 17 142/81 97 07/08/22 14:01 73 17 156/86 97 07/08/22 13:25 98.1 F 71 16 148/83 95 07/08/22 12:42 97 F L 88 16 161/72 97 Intake and Output 07/08/22 07/08/22 07/08/22 06:59 14:59 22:59 Intake Total 240 Output Total 600 Balance -360 Intake: Oral 240 Output: Urine 600 Other: Voiding Method Indwelling Catheter # Voids 1 Weight 80.739 kg 80.739 kg Results CBC & Chem 7: 07/08/22 13:19 07/08/22 13:19 Labs: Abnormal Lab Results - Last 24 Hours (Table) 07/08/22 07/08/22 07/08/22 Range/Units 13:19 13:19 13:19 Carbon Dioxide 31 H (22-30) mmol/L Creatine Kinase 51 L (55-170) U/L Troponin I 0.192 H* (0.000-0.034) ng/mL Thrombosis Risk Factor Assmnt - Choose All That Apply Each Factor Represents 1 point: Obesity (BMI >25) Each Risk Factor Represents 3 Points: Age 75 years or older Each Risk Factor Represents 5 Points: Stroke (< 1 month) Thrombosis Risk Factor Assessment Total Risk Factor Score: 9 Thrombosis Risk Factor Assessment Level: High Risk
[2022-07-08] MEDS: ATORVASTATIN 80 MG TAB PO SCH (20:18)
[2022-07-08] MEDS: HEPARIN SODIUM,PORCINE/PF 5,000 UNIT/0.5 ML SYRINGE SQ SCH (23:15)
[2022-07-09] MEDS ORDERED: ASPIRIN 325 MG TAB PO SCH (09:00)
[2022-07-09] MEDS: ASPIRIN 81 MG PO SCH (09:01)
[2022-07-09] MEDS: TAMSULOSIN 0.4 MG CAP.ER.24H PO SCH (09:01)
[2022-07-09] MEDS: CLOPIDOGREL 75 MG TAB PO SCH (09:01)
[2022-07-09] MEDS: HEPARIN SODIUM,PORCINE/PF 5,000 UNIT/0.5 ML SYRINGE SQ SCH ×3 (09:02→23:13)
--- NOTE | 2022-07-09 09:50 | P.CNNES ---
History of Present Illness Consult date: 07/09/22 Requesting physician: Fredrick Pitt Reason for Consult: CVA History of Present Illness: Patient is a 77-year-old right-handed male came to the hospital yesterday at 12:42 PM for "they think I had a small stroke". Patient states that for the last 1 week he has been slurring words. He says that he gets around okay, is not dizzy and is not falling down. He denies any problem with the vision, or headache. Patient states that for last 2 weeks he is noticing numbness of the middle 2 fingers of right hand that goes to the right shoulder and then the pressure builds up in the front of the elbow region. Patient denies any neck pain. Patient also mentions that for the last 2 weeks he has developed a new onset movement disorder, in which he has developed dyskinesias of the oral tongue region as well as the torso. His daughter noted some droopy face, therefore forced him to go to the ER. Vital signs on arrival blood pressure 161/72, pulse rate 88 temperature 97.0. Blood test shows normal CBC, PT/PTT, normal CMP. Troponin is elevated 0.12. TSH is normal CT head revealed indeterminate hypodense area within the right lepe radiata could represent acute/subacute CVA. Confirmation with MRI recommended. Additional nonspecific scattered white matter disease. I personally reviewed CT head, appears subacute to chronic in nature. EKG shows sinus rhythm. Chest x-ray revealed no acute cardiopulmonary process. CTA reported no significant abnormality seen. No aneurysm or stenosis. Patient has history of hypertension, hyperlipidemia also had undergone valve replacement and cardiac stent in the past. He has never smoked, does not drink alcohol, denies diabetes, denies any previous history of strokes or TIA. Denies family history of strokes. Patient has to self catheterize 3 times a day for la st 3 years for prostate issues. Patient states he has lost 20 pounds in last 4 days. Home medications to Lipitor 40 mg, aspirin 81 mg, lisinopril/HCTZ 20/12.5 mg twice a day Flomax 0.8 mg daily. Review of Systems Constitutional: Denies chills, Denies fever Eyes: denies blurred vision, denies pain Ears: deny: decreased hearing, ear discharge Ears, nose, mouth and throat: Denies headache, Denies sore throat Cardiovascular: Denies chest pain, Denies shortness of breath Respiratory: Denies cough, Denies excessive sputum, Denies hemoptysis Gastrointestinal: Denies abdominal pain, Denies diarrhea, Denies nausea, Denies vomiting Musculoskeletal: Denies low back pain, Denies myalgias Integumentary: Denies pruritus, Denies rash Neurological: Reports as per HPI Psychiatric: Denies anxiety, Denies depression Endocrine: Reports weight change, Denies fatigue, Denies palpitations Past Medical History Past Medical History: Coronary Artery Disease (CAD), Chest Pain / Angina, GERD/Reflux, Hyperlipidemia, Hypertension, Musculoskeletal Disorder, Osteoarthritis (OA), Prostate Disorder Additional Past Medical History / Comment(s): self cath's due to enlarged prostate, DDD History of Any Multi-Drug Resistant Organisms: None Reported Past Surgical History: Heart Catheterization, Heart Catheterization With Stent Additional Past Surgical History / Comment(s): cyst off back of neck, circumcision, colonoscopy, CINDY., heart cath with stent (12/01/20)., aortic valve replacement (12/08/20) Past Anesthesia/Blood Transfusion Reactions: No Reported Reaction Date of Last Stent Placement:: 12/01/20 Past Psychological History: No Psychological Hx Reported Smoking Status: Former smoker Past Alcohol Use History: None Reported Additional Past Alcohol Use History / Comment(s): smoked 40 years cigars "never inhaled" quit 2010 Past Drug Use History: None Reported - Past Family History Mother Additional Family Medical History / Comment(s): in s Father Family Medical History: Diabetes Mellitus Medications and Allergies Home Medications Medication Instructions Recorded Confirmed Type Atorvastatin [Lipitor] 40 mg PO DAILY 12/20/18 07/08/22 History Aspirin 81 mg PO DAILY 10/21/20 07/08/22 History Lisinopril-Hctz 20-12.5 mg 1 tab PO BID 11/03/21 07/08/22 History [Zestoretic 20-12.5] Tamsulosin [Flomax] 0.8 mg PO DAILY 07/08/22 07/08/22 History Allergies Allergy/AdvReac Type Severity Reaction Status Date / Time Penicillins Allergy Anaphylaxis Verified 07/08/22 13:38 Physical Examination - Vital Signs Vital Signs: Vital Signs Temp Pulse Pulse Resp BP BP Pulse Ox 07/09/22 04:00 98.1 F 84 18 125/75 96 03/12/23 03:00 80 18 07/08/22 23:55 98.1 F 80 18 130/78 95 07/08/22 20:00 98.4 F 73 18 119/76 95 07/08/22 16:45 97.9 F 86 18 149/100 95 07/08/22 14:55 87 16 162/101 97 07/08/22 14:45 80 17 145/102 97 07/08/22 14:30 71 17 130/94 96 07/08/22 14:15 70 17 142/81 97 07/08/22 14:01 73 17 156/86 97 07/08/22 13:25 98.1 F 71 16 148/83 95 07/08/22 12:42 97 F L 88 16 161/72 97 Intake and Output 07/08/22 07/09/22 07/09/22 21:59 06:59 14:59 Intake Total Output Total Balance Intake: IV 0.9 Oral Output: Urine Other: Voiding Method # Voids Weight Patient is an elderly male, in no acute distress. Patient is alert awake oriented to time place and person. Patient states it is 07/08/2022, and that he is in [facility]. Speech and language functions are normal. Patient can name and repeat very well. No aphasia or dysarthria. Attention, concentration and fund of knowledge is adequate. Patient believes that his speech is still not back to normal yet. Patient has significant dyskinesias of his facial region, tongue, as well as involving the body and that she meet these. No tremors. On cranial nerve examination, pupils are equal, round and reacting to light, visual owens are full on confrontation, with no neglect on double simultaneous stimulation. Extraocular muscles are intact with no nystagmus. Face is symmetric, tongue protrudes to the midline. Palatal elevation and sensation normal, hearing and shoulder shrug normal, facial sensation normal. On muscle strength testing, there is no pronator drift and the strength is normal in arms and legs distally and proximally. Deep tendon reflexes are symmetric 1+ in the biceps, 1 brachioradialis, 1 at the knees and plantars questionable up on the right, down left. Sensory to touch is equal with no neglect on double simultaneous stimulation. Cerebellar function showed no ataxia for [id number] testing. No dysdiadochokinesia. No ataxia for [id number] testing on either side. Tone and bulk of muscles normal. Gait deferred.. On general examination, there is no carotid bruit or murmur, S1-S2 audible. Chest is clear on consultation. Abdomen is soft nontender. No organomegaly, bowel sounds present. Peripheral pulses are present. No edema. Results - Laboratory Findings CBC and BMP: 07/08/22 13:19 07/08/22 13:19 Abnormal Lab Findings: Abnormal Labs 07/08/22 07/08/22 07/08/22 13:19 13:19 13:19 Carbon Dioxide 31 H Creatine Kinase 51 L Troponin I 0.192 H* 07/08/22 07/08/22 17:55 20:00 Carbon Dioxide Creatine Kinase Troponin I 0.187 H* 0.180 H* Assessment and Plan Assessment: * Probable subacute CVA. Patient has neurological symptoms for last 2 weeks. Patient at present has no focal deficits although he does have persistent new onset dyskinesias involving facial and truncal region. CT head revealed subacute to chronic area of ischemia in the left lepe radiata. * Hypertension * Elevated cardiac enzymes * Hyperlipidemia Plan: * Agree with checking MRI of the brain evaluate for an acute/subacute stroke * CTA of head and neck reported no carotid disease, dissection or aneurysm. * 2-D echo to rule out embolic source * Fasting lipid panel, hemoglobin A1c * Telemetric monitoring * Continue neuro checks * Patient was taking aspirin 81 mg daily. Agree with adding Plavix 75 mg daily. Continue DAP for 21 days, then stop aspirin and continue Plavix. * DVT prophylaxis: Patient on heparin 5000 units subcu every 8 hours. * Dr. Joni Fabian will resume neurology service in the morning. * Thank you for the consult.
[2022-07-09 10:06] LABS: HCT 46.8 % (39.0-53.0); HGB 15.5 gm/dL (13.0-17.5); MCH 29.8 pg (25.0-35.0); MCHC 33.2 g/dL (31.0-37.0); MCV 89.7 fL (80.0-100.0); Mean Platelet Volume 7.8; Platelet Count 196 k/uL (150-450); RBC 5.22 m/uL (4.30-5.90); RDW 13.6 % (11.5-15.5); WBC 6.3 k/uL (3.8-10.6)
--- NOTE | 2022-07-09 11:06 | P.PN ---
Subjective Progress Note Date: 07/09/22 Patient has no new complaints today. MRI of the brain is pending. Echocardiogram is pending. Neurology note reviewed. Gen: awake, alert HEENT: normocephalic, atraumatic, good hearing acuity, moist mucous membranes Resp: good air exchange, breathing comfortably with no accessory muscle use CVS: good distal perfusion x 4, GI: soft, NTTP, ND : no SPT, no CVAT, aguiar catheter not present MSK: no pitting edema, no clubbing Neuro: non-focal, moving all extremities Psych: cooperative, euthymic mood Hospital course: 77-year-old man with medical history of CAD, hypertension, hyperlipidemia, aortic stenosis status post TAVR presented for slurred speech. In the emergency room, patient was afebrile, 161/72, heart rate 88, 97% on room air. CBC is unremarkable. Chemistries show bicarb of 31, otherwise unremarkable. Liver function tests are unremarkable. Troponin was 0.192, creatinine kinase was 51. Coags were unremarkable. Brain CT demonstrated an indeterminate hypodense area within the left lepe radiata which could represent an acute/subacute stroke. Chest x-ray demonstrated hyperinflation with flattening of diaphragms, no parenchymal abnormalities. CT angiography of the head and neck did not demonstrate any significant abnormalities. EKG demonstrated normal sinus rhythm with normal axis, T-wave inversions in leads 2, 3, V4, V5 and V6. Case was discussed with the emergency room physician and the decision was made to admit the patient to inpatient status for stroke workup. Assessment: Slurred speech and ataxia CAD Hypertension Hyperlipidemia Aortic stenosis status post TAVR Plan: Vital signs reviewed, afebrile, 147/92, heart rate 88, 97% on room air. CBC today is unremarkable. TSH is 2.32 A1c, lipid panel are still pending Neurology note reviewed, they agree with dual antiplatelet therapy, MRI of the brain Ordered CBC, basic metabolic panel, magnesium for tomorrow Aspirin 81 mg daily Plavix 75 mg daily Patient's home atorvastatin was increased to 80 mg at bedtime Monitor on telemetry Echocardiogram ordered MRI of the brain ordered Patient is full code DVT prophylaxis with heparin 5000 units subcu 3 times a day Objective - Vital Signs Vital signs: Vital Signs Temp 97.7 F 07/09/22 08:00 Pulse 88 07/09/22 08:00 Resp 18 07/09/22 08:00 BP 147/92 07/09/22 08:00 Pulse Ox 97 07/09/22 08:00 FiO2 Intake & Output 07/08/22 07/09/22 07/09/22 17:59 06:59 18:59 Intake Total 240 Output Total Balance 240 Weight Intake: IV 0.9 Oral 240 Output: Urine Other: Voiding Method Indwelling Catheter # Voids - Labs CBC & Chem 7: 07/09/22 09:47 07/08/22 13:19 Labs: Abnormal Lab Results - Last 24 Hours (Table) 07/08/22 07/08/22 07/08/22 Range/Units 13:19 13:19 13:19 Carbon Dioxide 31 H (22-30) mmol/L Creatine Kinase 51 L (55-170) U/L Troponin I 0.192 H* (0.000-0.034) ng/mL 07/08/22 07/08/22 Range/Units 17:55 20:00 Carbon Dioxide (22-30) mmol/L Creatine Kinase (55-170) U/L Troponin I 0.187 H* 0.180 H* (0.000-0.034) ng/mL
[2022-07-09 12:18] LABS: Chol/HDL Ratio 3.71 Ratio; LDL Cholesterol,Calculated 90.3 mg/dL (0.0-131.0)
--- NOTE | 2022-07-09 12:42 | P.CRDCN ---
History of Present Illness Consult date: 07/09/22 Requesting physician: Courtney Sales Reason for Consult (text): elevated cardiac enzymes, history of AVR, possible CVA Chief complaint: slurred speech, abnormal facial and arm movements History of present illness: This is a pleasant 77-year-old gentleman who follows with Dr. Shine in the offi ce. Has a history of CAD with prior stenting of the mid left circumflex in 2020 with heart catheterization done in October 2021 which revealed patent stent in the limb intermediate lesion in the range of 60% on , mild disease in the mid LAD and mild diffuse disease in the RCA, priorTAVR in November 2020. Presented to the emergency department after developing slurred speech and some abnormal facial a nd arm movements that started on Sunday. He was apparently seen in the office on Sunday by Dr. Balderas and was scheduled to undergo echocardiogram and stress test. He denies having any complaints of chest discomfort or shortness of breath. We are asked to the patient consultation for elevated troponins which came back at 0.192, 0.187 and 0.180. Computed tomography scan of the brain did show concern for acute/subacute CVA and recommended MRI which is scheduled. CT angiogram of the neck was normal. EKG on admission showed sinus mechanism with nonspecific ST-T wave abnormalities but no evidence of acute ischemia. He's been maintaining sinus mechanism. Blood pressure has been elevated but his home several has not been resumed. Overall he is feeling well from a cardiac standpoint. Denies any palpitations, dizziness or lightheadedness. Denies any shortness of breath, orthopnea or PND. He has no lower extremity edema. Complains of minimal left-sided weakness. He was ambulating at home without difficulty according to the patient. Past Medical History Past Medical History: Coronary Artery Disease (CAD), Chest Pain / Angina, GERD/Reflux, Hyperlipidemia, Hypertension, Musculoskeletal Disorder, Osteoarthritis (OA), Prostate Disorder Additional Past Medical History / Comment(s): self cath's due to enlarged pro state, DDD History of Any Multi-Drug Resistant Organisms: None Reported Past Surgical History: Heart Catheterization, Heart Catheterization With Stent Additional Past Surgical History / Comment(s): cyst off back of neck, circ umcision, colonoscopy, CINDY., heart cath with stent (12/01/20)., aortic valve replacement (12/08/20) Past Anesthesia/Blood Transfusion Reactions: No Reported Reaction Date of Last Stent Placement:: 12/01/20 Past Psychological History: No Psychological Hx Reported Smoking Status: Former smoker Past Alcohol Use History: None Reported Additional Past Alcohol Use History / Comment(s): smoked 40 years cigars "never inhaled" quit 2010 Past Drug Use History: None Reported - Past Family History Mother Additional Family Medical History / Comment(s): in 's Father Family Medical History: Diabetes Mellitus Medications and Allergies Home Medications Medication Instructions Recorded Confirmed Type Atorvastatin [Lipitor] 40 mg PO DAILY 12/20/18 07/08/22 History Aspirin 81 mg PO DAILY 10/21/20 07/08/22 History Lisinopril-Hctz 20-12.5 mg 1 tab PO BID 11/03/21 07/08/22 History [Zestoretic 20-12.5] Tamsulosin [Flomax] 0.8 mg PO DAILY 07/08/22 07/08/22 History Allergies Allergy/AdvReac Type Severity Reaction Status Date / Time Penicillins Allergy Anaphylaxis Verified 07/08/22 13:38 Physical Exam Vitals: Vital Signs Temp Pulse Pulse Resp BP BP Pulse Ox 07/09/22 11:59 97.7 F 89 18 158/65 94 L 07/09/22 08:00 97.7 F 88 18 147/92 97 07/09/22 04:00 98.1 F 84 18 125/75 96 07/09/22 03:00 80 18 07/08/22 23:55 98.1 F 80 18 130/78 95 07/08/22 20:00 98.4 F 73 18 119/76 95 07/08/22 16:45 97.9 F 86 18 149/100 95 07/08/22 14:55 87 16 162/101 97 07/08/22 14:45 80 17 145/102 97 07/08/22 14:30 71 17 130/94 96 07/08/22 14:15 70 17 142/81 97 07/08/22 14:01 73 17 156/86 97 07/08/22 13:25 98.1 F 71 16 148/83 95 07/08/22 12:42 97 F L 88 16 161/72 97 Intake and Output 07/08/22 07/09/22 07/09/22 21:59 06:59 14:59 Intake Total 480 Output Total 175 Balance 305 Intake: IV 0.9 Oral 480 Output: Urine 175 Other: Voiding Method Indwelling Catheter # Voids Weight PHYSICAL EXAMINATION: This is a 77-year-old male in no apparent distress at the time of my examination. HEENT: Head is atraumatic, normocephalic. Pupils are equal, round. Sclerae anicteric. Conjunctivae are clear. Mucous membranes of the mouth are moist. Neck is supple. There is no elevated jugular venous pressure. No carotid bruit is heard. CHEST EXAMINATION: Clear to auscultation bilaterally. No wheezes rales or rhonchi. Respirations even and nonlabored. HEART EXAMINATION: Heart regular, positive S1 and S2. No S3. No S4. Systolic murmur. ABDOMEN: Soft, nontender. Bowel sounds are heard. No organomegaly noted. EXTREMITIES: 2+ peripheral pulses with no evidence of peripheral edema and no calf tenderness noted. NEUROLOGIC EXAMINATION: Patient is awake, alert and oriented x3. Skin lesion of the face, tongue and arms is noted. Minimal weakness noted to the left with hand grasp Results 07/09/22 09:47 07/08/22 13:19 Cardiac Enzymes 07/08/22 07/08/22 07/08/22 Range/Units 13:19 13: 17:55 AST 25 (17-59) U/L Troponin I 0.192 H* 0.187 H* (0.000-0.034) ng/mL 07/08/22 Range/Units 20:00 AST (17-59) U/L Troponin I 0.180 H* (0.000-0.034) ng/mL Coagulation 07/08/22 Range/Units 13:19 PT 10.7 (9.0-12.0) sec APTT 22.1 (22.0-30.0) sec Lipids 07/08/22 Range/Units 13:19 Triglycerides 129.00 (0.00-149.00) mg/dL Cholesterol 159.00 (0.00-200.00) mg/dL HDL Cholesterol 42.90 (40.00-60.00) mg/dL Cholesterol/HDL Ratio 3.71 Ratio CBC 07/08/22 07/09/22 Range/Units 13:19 09:47 WBC 6.4 6.3 (3.8-10.6) k/uL RBC 5.44 5.22 (4.30-5.90) m/uL Hgb 16.2 15.5 (13.0-17.5) gm/dL Hct 49.4 46.8 (39.0-53.0) % Plt Count 191 196 (150-450) k/uL Comprehensive Metabolic Panel 07/08/22 Range/Units 13:19 Sodium 138 (137-145) mmol/L Potassium 3.9 (3.5-5.1) mmol/L Chloride 101 (98-107) mmol/L Carbon Dioxide 31 H (22-30) mmol/L BUN 12 (9-20) mg/dL Creatinine 1.01 (0.66-1.25) mg/dL Glucose 98 (74-99) mg/dL Calcium 9.1 (8.4-10.2) mg/dL AST 25 (17-59) U/L ALT 34 (4-49) U/L Alkaline Phosphatase 91 (38-126) U/L Total Protein 6.9 (6.3-8.2) g/dL Albumin 4.1 (3.5-5.0) g/dL Current Medications Generic Name Dose Route Start Last Admin Trade Name Freq PRN Reason Stop Dose Admin Acetaminophen 650 mg 07/08/22 17:12 Acetaminophen Tab 325 Mg Tab PO Q6HR PRN Pain Aspirin 81 mg 07/09/22 09:00 07/09/22 09:01 Aspirin 81 Mg PO 81 mg DAILY ISIDRO Administration Atorvastatin Calcium 80 mg 07/08/22 21:00 07/08/22 20:18 Atorvastatin 80 Mg Tab PO 80 mg HS ISIDRO Administration Clopidogrel Bisulfate 75 mg 07/09/22 09:00 07/09/22 09:01 Clopidogrel 75 Mg Tab PO 75 mg DAILY ISIDRO Administration Heparin Sodium (Porcine) 5,000 unit 07/09/22 00:00 07/09/22 09:02 Heparin Sodium,Porcine/Pf 5,000 Unit/0.5 Ml Syringe SQ 5,000 unit Q8HR ISIDRO Administration Tamsulosin HCl 0.8 mg 07/09/22 09:00 07/09/22 09:01 Tamsulosin 0.4 Mg Cap.Er.24h PO 0.8 mg DAILY ISIDRO Administration Intake and Output 07/08/22 07/09/22 07/09/22 21:59 06:59 14:59 Intake Total 480 Output Total 175 Balance 305 Intake: IV 0.9 Oral 480 Output: Urine 175 Other: Voiding Method Indwelling Catheter # Voids Weight 07/09/22 09:47 07/08/22 13:19 Assessment and Plan Assessment: 1 probable CVA 2 abnormal troponins, not consistent with acute coronary syndrome, patient is asymptomatic and heart catheterization done in October 30 CAD with prior stenting of the OM 4 status post TAVR 5 hypertension 6 hyperlipidemia Plan: From cardiology perspective we will review the echocardiogram once that's done. Troponin elevation not consistent with acute LA. We'll resume home antihypertensives. We will continue to follow the patient and provide further recommendations accordingly. 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 Patient was seen and examined.
[2022-07-09] MEDS: LISINOPRIL-HCTZ 20-12.5 MG 1 EACH TAB PO SCH ×2 (12:58→20:42)
[2022-07-09] MEDS: ATORVASTATIN 80 MG TAB PO SCH (20:42)
[2022-07-10 06:51] LABS: Basophils # (A) 0.1 k/uL (0-0.2); Basophils % (A) 1 %; Eosinophils # (A) 0.2 k/uL (0-0.7); Eosinophils % (A) 3 %; HCT 45.8 % (39.0-53.0); HGB 15.5 gm/dL (13.0-17.5); Lymphocytes # (A) 1.1 k/uL (1.0-4.8); Lymphocytes % (A) 16 %; MCH 30.3 pg (25.0-35.0); MCHC 33.7 g/dL (31.0-37.0); MCV 89.8 fL (80.0-100.0); Monocytes # (A) 0.5 k/uL (0-1.0); Monocytes % (A) 8 %; Neutrophils # (A) 4.8 k/uL (1.3-7.7); Neutrophils % (A) 70 %; Platelet Count 176 k/uL (150-450); RDW 13.6 % (11.5-15.5); WBC 6.9 k/uL (3.8-10.6)
[2022-07-10 07:02] LABS: Calcium 8.7 mg/dL (8.4-10.2); Magnesium 1.9 mg/dL (1.6-2.3); Potassium 4.1 mmol/L (3.5-5.1)
[2022-07-10 07:52] VITALS: BP 97/62; PULSE 89; RESP 18; TEMP 98.2
[2022-07-10] MEDS: LISINOPRIL-HCTZ 20-12.5 MG 1 EACH TAB PO SCH (08:00)
[2022-07-10] MEDS: CLOPIDOGREL 75 MG TAB PO SCH (08:00)
[2022-07-10] MEDS: TAMSULOSIN 0.4 MG CAP.ER.24H PO SCH (08:01)
[2022-07-10] MEDS: ASPIRIN 81 MG PO SCH (08:01)
[2022-07-10] MEDS: HEPARIN SODIUM,PORCINE/PF 5,000 UNIT/0.5 ML SYRINGE SQ SCH (08:01)
--- NOTE | 2022-07-10 10:29 | CA ---
Transthoracic Echo Report Name: Yazan Garcia Age: 77 Gender: M : 1945 Exam Date: 07/10/2022 07:01 Exam Location: [facility] Ht (in): 67 Wt (lb): 178 Ordering Physician: Courtney Sales MD Attending/Referring Phys: Quality Eng Dorothea Grimes RDCS Procedure CPT: Indications: Thrombus Cardiac Hx: Hx of AOV replacement, bioprostesis Technical Quality: Fair Contrast 1: Total Dose (mL): Contrast 2: Total Dose (mL): MEASUREMENTS (Male / Female) Normal Values 2D ECHO LV Diastolic Diameter PLAX 4.0 cm 4.2 - 5.9 / 3.9 - 5.3 cm LV Systolic Diameter PLAX 2.8 cm IVS Diastolic Thickness 1.2 cm 0.6 - 1.0 / 0.6 - 0.9 cm LVPW Diastolic Thickness 1.2 cm 0.6 - 1.0 / 0.6 - 0.9 cm LV Relative Wall Thickness 0.6 RV Internal Dim ED PLAX 3.0 cm LVOT Diameter 2.2 cm LA Systolic Diameter LX 3.3 cm 3.0 - 4.0 / 2.7 - 3.8 cm LV Diastolic Volume MOD 4C 135.8 cm??? LV Systolic Volume MOD 4C 74.1 cm??? LV Ejection Fraction MOD 4C 45.5 % LV Diastolic Length 4C 8.5 cm LV Systolic Length 4C 7.4 cm LV Diastolic Volume MOD 2C 64.9 cm??? LV Systolic Volume MOD 2C 30.2 cm??? LV Ejection Fraction MOD 2C 53.4 % LV Diastolic Length 2C 8.0 cm LV Systolic Length 2C 7.1 cm LA Volume 42.3 cm??? 18 - 58 / 22 - 52 cm??? M-MODE Aortic Root Diameter MM 2.6 cm MV E Point Septal Separation 0.7 cm DOPPLER AV Peak Velocity 368.8 cm/s AV Peak Gradient 54.4 mmHg AV Mean Velocity 267.9 cm/s AV Mean Gradient 32.1 mmHg AV Velocity Time Integral 64.3 cm LVOT Peak Velocity 103.1 cm/s LVOT Peak Gradient 4.3 mmHg LVOT Velocity Time Integral 19.6 cm LVOT Stroke Volume 76.4 cm??? LVOT Stroke Volume Index 39.7 ml/m??? AV Area Cont Eq vti 1.2 cm??? AV Area Cont Eq pk 1.1 cm??? MV Area PHT 8.2 cm??? Mitral E Point Velocity 54.9 cm/s Mitral A Point Velocity 110.7 cm/s Mitral E to A Ratio 0.5 MV Deceleration Time 92.4 ms MV E' Velocity 4.6 cm/s Mitral E to MV E' Ratio 11.9 FINDINGS Left Ventricle Left ventricular ejection fraction is estimated at 55-60 %. Normal left ventricular systolic function with no obvious regional wall motion abnormalities. Left ventricular cavity size normal. Borderline left ventricular hypertrophy. Right Ventricle Normal right ventricular size and function. No TR jet Right Atrium Normal right atrial size. Left Atrium Normal left atrial size. Mitral Valve Mitral valve thickened. No mitral stenosis, regurgitation or prolapse. Aortic Valve Porcine AOV. Gradient recorded across the prosthetic aortic valve above the expected range. Prosthetic aortic valve stenosis, with mean gradient of 32 mmHg and max gradient of 54 mmHg Tricuspid Valve Structurally normal tricuspid valve. No tricuspid stenosis, regurgitation or prolapse. Pulmonic Valve Mild pulmonic regurgitation. Pericardium Normal pericardium. No pericardial effusion. Aorta Normal size aortic root and proximal ascending aorta. CONCLUSIONS Normal left ventricular systolic function. Mild concentric left ventricular hypertrophy Bioprosthetic aortic valve with a mean gradient of 32 mmHg across it Previewed by: Dr. Chad Shine MD (Electronically Signed) Final Date: 10 July 2022 10:28
[2022-07-10 11:12] VITALS: BMI 27.8
--- NOTE | 2022-07-10 13:46 | P.PN ---
Subjective Progress Note Date: 07/10/22 I am seeing the patient for the first time. Please refer to Dr. Perez for further details. He is accompanied by his and daughters and they stated have left facial weakness. Has dyskinesia and had it for couple days. Objective - Vital Signs Vital signs: Vital Signs Temp 98.2 F 07/10/22 07:50 Pulse 89 07/10/22 07:50 Resp 18 07/10/22 07:50 BP 97/62 07/10/22 07:50 Pulse Ox 97 07/10/22 08:40 FiO2 Intake & Output 07/09/22 07/10/22 07/10/22 18:59 06:59 18:59 Intake Total 1080 118 Output Total 475 400 Balance 605 -400 118 Weight 80.739 kg Intake: Oral 1080 118 Output: Urine 475 400 Other: Voiding Method Indwelling Catheter Indwelling Catheter Indwelling Catheter - Exam GENERAL: The patient is lying in bed and is not in acute distress. NEUROLOGICAL: Higher mental function: The patient is awake, alert, oriented to self, place and time. Patient is following commands. No aphasia and no neglect. Cranial nerves: The pupils are round, equal and reactive to light. Visual owens are full to confrontation throughout. Extraocular movement is intact no nystagmus is noted. The facial strength is normal throughout. Has repeated abnormal movement of mouth. Tongue is midline and moved [id number] without any difficulty. No dysarthria is noted. Shoulder shrug is normal bilaterally. Motor: The strength is 5 over 5 throughout. Normal tone and bulk. Cerebellum: Normal finger to nose bilaterally. Sensation: Sensation is normal to touch throughout. - Labs CBC & Chem 7: 07/10/22 05:14 07/10/22 05:14 Labs: Abnormal Lab Results - Last 24 Hours (Table) 07/10/22 Range/Units 05:14 Sodium 136 L (137-145) mmol/L Assessment and Plan Assessment: * Probable subacute CVA. Patient has neurological symptoms for last 2 weeks. Patient at present has no focal deficits although he does have persistent new onset dyskinesias involving facial and truncal region. CT head revealed subacute to chronic area of ischemia in the left lepe radiata. * Hypertension * Elevated cardiac enzymes * Hyperlipidemia Plan: * Agree with checking MRI of the brain evaluate for an acute/subacute stroke * CTA of head and neck reported no carotid disease, dissection or aneurysm. * 2-D echo: Reported normal left ventricular systolic funciton. Mild concentric left ventriculr hypertrophy. Bioprosthetic aortic valve with a mean gradient of 32mmHg across it. * Fasting lipid panel: TG 129, cholestrol 159, LDL 90 and HDL 4. hemoglobin A1c 6.3, TSH 2.32 * Telemetric monitoring * Continue neuro checks * He has dyskinesia of face and possibly due to stroke. * Patient was taking aspirin 81 mg daily and during this hospital visit Plavix 75 mg daily was added. Continue DAP for 21 days, then stop aspirin and continue Plavix. Is currently on Lipitor 80mg qhs and from neurological perspective can be lowered to 40mg. * DVT prophylaxis: Patient on heparin 5000 units subcu every 8 hours. * Recommend patient to follow-up with neurologist as outpatient within 1-2 weeks. Plan is discussed with patient and family members ( and 2 daughters) as well primary team. Time with Patient: Less than 30
--- NOTE | 2022-07-10 17:06 | MR ---
EXAMINATION TYPE: MR brain wo con DATE OF EXAM: 07/10/2022 COMPARISON: HISTORY: Neuro deficit, acute, stroke suspected. Multiplanar multiecho imaging of the brain performed with no contrast. Ventricles have normal size. There is no mass effect or midline shift. There are 2 white matter high signal foci measuring up to 4 mm at the spence-white matter junction left posterior frontal lobe and le ft parietal lobe on the diffusion images. There is moderate patchy increased signal in the periventricular white matter with several measuring up to 1 cm. These are more concentrated in the parietal lobes. No midline shift. No sign of intracran ial hemorrhage. The brainstem appears intact. Cerebellum is intact. Sella turcica appears normal. Corpus callosum is intact. No evidence of orbital mass. There is some m ucosal thickening in the ethmoid air cells. There is mild mucosal thickening right maxillary sinus. IMPRESSION: There is 2 small white matter high signal foci on the diffusion images suggestive of acute lacunar in farct. Periventricular white matter signal changes consistent with chronic small vessel ischemia and old mul tiple lacunar infarcts. Corpus callosum appears fairly normal and I do not suspect demyelinating dise ase. No evidence of cortical infarct.
--- NOTE | 2022-07-10 17:18 | P.DS ---
Providers Date of admission: 07/08/22 14:58 Expected date of discharge: 07/10/22 Attending physician: Courtney Sales MD Consults: 07/08/22 14:56 Consult Physician Routine Consulting Provider: Jag Perez Consult Reason/Comments: CVA Do you want consulting provider notified?: Yes 07/09/22 11:01 Consult Physician Urgent Consulting Provider: Adalberto Mae Consult Reason/Comments: Elevated cardiac enzymes, history of AVR, possible CVA Do you want consulting provider notified?: Yes Primary care physician: [facility] Course: Assessment: Acute Ischemic Stroke CAD Hypertension Hyperlipidemia Aortic stenosis status post TAVR Hospital Course: 77-year-old man with medical history of CAD, hypertension, hyperlipidemia, aortic stenosis status post TAVR presented for slurred speech. In the emergency room, patient was afebrile, 161/72, heart rate 88, 97% on room air. CBC is unremarkable. Chemistries show bicarb of 31, otherwise unremarkable. Liver function tests are unremarkable. Troponin was 0.192, creatinine kinase was 51. Coags were unremarkable. Brain CT demonstrated an indeterminate hypodense area within the left lepe radiata which could represent an acute/subacute stroke. Chest x-ray demonstrated hyperinflation with flattening of diaphragms, no parenchymal abnormalities. CT angiography of the head and neck did not demonstrate any significant abnormalities. EKG demonstrated normal sinus rhythm with normal axis, T-wave inversions in leads 2, 3, V4, V5 and V6. Case was disc ussed with the emergency room physician and the decision was made to admit the patient to inpatient status for stroke workup. Echocardiogram showed preserved ejection fraction with no evidence of wall motion abnormality or thrombus, no evidence of PFO. Patient was discharged home with neurology follow-up as well as 21 days until antiplatelet therapy with instructions to stop aspirin and continue Plavix indefinitely at the 21 day zuri. MRI of the brain was completed with read pending, but I discussed this with the neurologist who consulted on the case, facilitate management, and read the images, there may be a stroke with undetermined acuity, but no change in management as previously detailed. I spent 45 minutes coordinating this discharge on 07/10 Gen: in no apparent distress, resting comfortably in bed Eyes: PERRL, no scleral injection or icterus HENT: normocephalic, atraumatic, good hearing acuity, moist mucous membranes Neck: no tracheal deviation, full range of motion Resp: good air exchange, breathing comfortably with no accessory muscle use, no tactile fremitus, clear to auscultation bilaterally CVS: good distal perfusion x 4, no pitting edema, regular rate and rhythm wi thout murmurs GI: soft, NTTP, ND, no hepatosplenomegaly : no suprapubic tenderness, no CVAT, aguiar catheter not present MSK: no clubbing, no cyanosis, no noted contractures of extremities Skin: no noted rashes, petechiae; temperature of skin is appropriate Neuro: moving all extremities without signs of weakness, CN II-XII intact, finger to nose is impaired more so on the right than the left, heel to heath is impaired more so on the right than the left Psych: cooperative, euthymic mood, insight and judgment intact Patient Condition at Discharge: Good Plan - Discharge Summary Discharge Rx Participant: No New Discharge Prescriptions: New Atorvastatin [Lipitor] 80 mg PO HS #30 tab Acetaminophen Tab [Tylenol] 650 mg PO Q6HR PRN tab PRN Reason: Pain Clopidogrel [Plavix] 75 mg PO DAILY #30 tab Continue Aspirin 81 mg PO DAILY Lisinopril-Hctz 20-12.5 mg [Zestoretic 20-12.5] 1 tab PO BID Tamsulosin [Flomax] 0.8 mg PO DAILY Discontinued Atorvastatin [Lipitor] 40 mg PO DAILY Discharge Medication List Aspirin 81 mg PO DAILY 10/21/20 [History] Lisinopril-Hctz 20-12.5 mg [Zestoretic 20-12.5] 1 tab PO BID 11/03/21 [History] Tamsulosin [Flomax] 0.8 mg PO DAILY 07/08/22 [History] Acetaminophen Tab [Tylenol] 650 mg PO Q6HR PRN tab 07/10/22 [Rx] Atorvastatin [Lipitor] 80 mg PO HS #30 tab 07/10/22 [Rx] Clopidogrel [Plavix] 75 mg PO DAILY #30 tab 07/10/22 [Rx] Follow up Appointment(s)/Referral(s): Tacho Hare PT [REFERRING] - 1-2 days Rach Arias MD [Medical Doctor] - 1 Week Activity/Diet/Wound Care/Special Instructions: Stop taking your aspirin in 19 days, and continue taking plavix 75mg daily indefinitely. If for any reason you cannot fill or run out of plavix, then take baby aspirin the days when you miss your plavix. Discharge Disposition: HOME SELF-CARE
--- NOTE | 2022-07-10 21:57 | PN ---
PROGRESS NOTE SUBJECTIVE: This is a gentleman with a history of CAD, previous PCI and also percutaneous aortic valve implant which was performed in November 2020. This gentleman has been evaluated by Dr. Butler yesterday. He came in with what seems to be some slurred speech and some facial and arm-related symptoms and was evaluated by Neurology. However, he seems to have recovered from this completely, he is being seen by Neurology at this time. The patient does not have any overt neurological motor deficits at this time. He is resting comfortably at the time of my evaluation. He currently has no chest pain or shortness of breath. Echo revealed good systolic function. He is on aspirin, Plavix, statin, and lisinopril. I am recommending that we continue current medications, and further followup will be up to Neurology, and possibility of MRI is being considered. CT of the neck did not reveal any significant disease. He may have had what seems to be a subacute CVA with a fairly decent motor function recovery. OBJECTIVE: VITAL SIGNS: Stable. HEART: S1 and S2 heard normally. Short systolic murmur is audible. LUNGS: Reveal decent air entry. ABDOMEN: Unchanged. LOWER EXTREMITIES: Unchanged. PLAN: From a cardiac standpoint, we will continue current medical regimen. Await further input from Neurology. MMODL / IJN: [id number] /
== END 2022-07-10 18:23 | disposition home or self-care (01) | DRG 66 ==
LOC: EC 12:38 → 3SCARD 14:58
PROVIDERS: ADMIT Internal Medicine; ATTEND Internal Medicine
DX: I62.9 Nontraumatic intracranial hemorrhage, unspecified (principal); I11.9 Hypertensive heart disease without heart failure; E78.5 Hyperlipidemia, unspecified; R27.0 Ataxia, unspecified; R47.81 Slurred speech; I25.10 Atherosclerotic heart disease of native coronary artery without angina pectoris; R29.810 Facial weakness; G24.9 Dystonia, unspecified; R01.1 Cardiac murmur, unspecified; R20.0 Anesthesia of skin; R77.8 Other specified abnormalities of plasma proteins; N40.0 Benign prostatic hyperplasia without lower urinary tract symptoms; Z95.2 Presence of prosthetic heart valve; Z87.891 Personal history of nicotine dependence; Z95.5 Presence of coronary angioplasty implant and graft; Z88.0 Allergy status to penicillin; Z79.899 Other long term (current) drug therapy; Z79.82 Long term (current) use of aspirin; I25.2 Old myocardial infarction
CPT/HCPCS: 36415; 70450; 70496; 70498; 70551; 71046; 80048; 80053; 80061; 82550; 83036; 83735; 84443; 84484; 85025; 85027; 85610; 85730; 93005; 93306; 94760; 99291

== ENCOUNTER → 2022-09-18 | Outpatient (CLI) | payer OTHER ==
[2022-09-18 19:47] LABS: HCT 46.3 % (39.6-50.0); HGB 14.8 g/dL (13.0-17.0); MCV 93.7 fL (80.0-97.0); Mean Platelet Volume 10.4 fL (9.5-12.2); NRBC Per 100 WBC 0 /100 WBCS (0.0-0.0); Platelet Count 249 X 10*3/uL (140-440); RBC 4.94 X 10*6/uL (4.40-5.60); RDW 15.7 % (11.5-14.5); WBC 8.13 X 10*3/uL (4.50-10.00)
[2022-09-18 20:27] LABS: African American GFR (CKD) 83.8 (60.0-200.0); Blood Urea Nitrogen 20.1 mg/dL (9.0-27.0); Non-African American GFR(CKD) 72.3 (60.0-200.0); Potassium 4.9 mmol/L (3.5-5.5)
== END | disposition home or self-care (01) ==
LOC: LABPAT 12:36
PROVIDERS: ATTEND Internal Medicine Interventional Cardiology
DX: Z01.812 Encounter for preprocedural laboratory examination (principal); I25.10 Atherosclerotic heart disease of native coronary artery without angina pectoris
CPT/HCPCS: 80051; 82565; 84520; 85027

== ENCOUNTER → 2022-09-22 | Day surgery (SDC) | payer OTHER ==
[2022-09-19 14:30] VITALS: BMI 26.7
[~2022-09-22] MED LIST changes: +ASPIRIN 325 MG TAB PO ONE; -ASPIRIN 325 MG TAB PO STA; +ATORVASTATIN 80 MG TAB PO ONE; +ATORVASTATIN 80 MG TAB PO SCH; -ATORVASTATIN 80 MG TAB PO STA; +CLOPIDOGREL 75 MG TAB PO SCH; +HEPARIN SODIUM 1,000 UN/ML (10ML VL) IVP ONE; +HEPARIN SODIUM 1,000 UN/ML (10ML VL) ONE; +IOPAMIDOL-370 100ML BTL INJ ONE; +LIDOCAINE 1% INJ 10MG/ML (5 ML VIAL-PF) SQ ONE; +LISINOPRIL-HCTZ 20-12.5 MG 1 EACH TAB PO SCH; +MIDAZOLAM 2 MG/2 ML VIAL IVP ONE; +RX INFO: IV CONTRAST WAS GIVEN 1 EACH MISC MISCELLANE PRN; +SODIUM CHLORIDE 0.9% 1,000 ML IV SCH; +TAMSULOSIN 0.4 MG CAP.ER.24H PO SCH; +VERAPAMIL SYRINGE (5 MG/10 ML) INTRAARTER ONE
[2022-09-22 06:51] VITALS: RESP 16; TEMP 98.2
--- NOTE | 2022-09-22 10:28 | P.PCN ---
Date of Procedure: 09/22/22 Operative Findings: CARDIAC CATHETERIZATION PERFORMING PHYSICIAN: Chad Shine MD, RPVI PROCEDURE PERFORMED: 1. Selective right and left coronary angiogram 2. Left heart catheterization INDICATION: Shortness of breath and abnormal stress test in this 77-year-old gentleman who is known to have CAD with prior stenting of the LCx COMPLICATION: None APPROACH: Right radial artery LEVEL OF SEDATION: Moderate with a sedation length of 18 minutes PROCEDURE DESCRIPTION: After obtaining an informed consent, the patient was brought to cardiac public works laborer. Local anesthesia was performed using lidocaine subcutaneously. The right radial artery was cannulated using Seldinger technique, the guidewire passed easily, following that we advanced a 5-Bahamian sheath dilator assembly, the wire and dilator were removed and sheath was flushed. Following that, 2 mg of verapamil along with 3000 unit heparin were given. Selective right and left coronary angiogram using a 6-Bahamian JR4 and JL 3.5 catheters. Following that we did left heart catheterization using 6-Bahamian pigtail catheter. The procedure was completed there was no complication. SELECTIVE CORONARY ANGIOGRAM: The right coronary artery: Moderate caliber vessel and a dominant vessel. The RCA has mild to moderate diffuse disease with no high-grade stenosis Left main: Appears to have mild disease only The left circumflex: Large caliber vessel nondominant vessel. The LCx is stented in the midportion and the stent is patent The left anterior descending artery: Has mild to moderate diffuse disease was no high-grade stenosis identified. The mid LAD has lesion appeared to be in the range of 30-40% HEMODYNAMICS: With LVEDP was 16 mmHg was no significant gradient across aortic valve CONCLUSION: 1. Calcified right and left coronary system 2. Mild to moderate diffuse triple-vessel CAD with patent stent in the LCx POSTPROCEDURE MANAGEMENT: Medical treatment and follow-up with the patient
[2022-09-22 12:26] VITALS: BP 165/82; PULSE 85
== END ==
LOC: CATHCVL 06:11
PROVIDERS: ATTEND Internal Medicine Interventional Cardiology
DX: I25.10 Atherosclerotic heart disease of native coronary artery without angina pectoris (principal); Z95.5 Presence of coronary angioplasty implant and graft; Z95.2 Presence of prosthetic heart valve; I10 Essential (primary) hypertension; E78.5 Hyperlipidemia, unspecified; I65.29 Occlusion and stenosis of unspecified carotid artery; Z86.73 Personal history of transient ischemic attack (TIA), and cerebral infarction without residual deficits; Z87.891 Personal history of nicotine dependence; I25.5 Ischemic cardiomyopathy; I70.0 Atherosclerosis of aorta; Z88.0 Allergy status to penicillin; Z79.02 Long term (current) use of antithrombotics/antiplatelets; Z79.899 Other long term (current) drug therapy
CPT/HCPCS: 93458; 99152; C1887; C1769; C1894; J2250; J2001; J1644; Q9967

== ENCOUNTER → 2023-12-26 | Day surgery (SDC) | payer OTHER ==
[2023-12-25 10:49] VITALS: BMI 28.4
[~2023-12-26] MED LIST changes: -ALPRAZolam 0.25 MG TAB PO PRN; -ALPRAZolam 0.5 MG TAB PO PRN; -ASPIRIN 325 MG TAB PO ONE; -ATORVASTATIN 80 MG TAB PO ONE; -ATORVASTATIN 80 MG TAB PO SCH; -CLOPIDOGREL 75 MG TAB PO SCH; -HEPARIN SODIUM 1,000 UN/ML (10ML VL) IVP ONE; -HEPARIN SODIUM 1,000 UN/ML (10ML VL) ONE; -HEPARIN SODIUM,PORCINE 10,000 UNIT in SODIUM CHLORIDE 0.9% 1,000 ML IRRIGATION PRN; -HEPARIN SODIUM,PORCINE 2,500 UNIT in SODIUM CHLORIDE 0.9% 250 ML IRRIGATION PRN; -IOPAMIDOL-370 100ML BTL INJ ONE; +LIDOCAINE 1% INJ 10MG/ML (20 ML MDV) ONE; -LIDOCAINE 1% INJ 10MG/ML (5 ML VIAL-PF) SQ ONE; -LISINOPRIL-HCTZ 20-12.5 MG 1 EACH TAB PO SCH; -MIDAZOLAM 2 MG/2 ML VIAL IVP ONE; -NITROGLYCERIN SL TABS 0.4 MG TAB SUBLINGUAL PRN; +PROPOFOL 10 MG/ML 20 ML VIAL IV ONE; -RX INFO: IV CONTRAST WAS GIVEN 1 EACH MISC MISCELLANE PRN; -SODIUM CHLORIDE 0.9% 1,000 ML IV SCH; -SODIUM CHLORIDE 0.9% 1,000 ML in EMPTY BAG 1 BAG IV SCH; -TAMSULOSIN 0.4 MG CAP.ER.24H PO SCH; -VERAPAMIL SYRINGE (5 MG/10 ML) INTRAARTER ONE
[2023-12-26 11:31] VITALS: TEMP 98.2
[2023-12-26] MEDS: IV FLUID CONTINUATION 1,000 ML IV ONE (11:33)
[2023-12-26] MEDS: LACTATED RINGERS 1,000 ML IV SCH (11:34)
[2023-12-26] MEDS: LIDOCAINE 1% (10MG/ML) FOR IV START INTRADERMA PRN (11:34)
--- NOTE | 2023-12-26 12:25 | P.PCN ---
Date of Procedure: 12/26/23 Procedure(s) Performed: BRIEF HISTORY: Patient is a 70-year-old pleasant white male scheduled for an elective colonoscopy as a part of evaluation of prior his history of colon polyps. PROCEDURE PERFORMED: Colonoscopy with biopsy PREOPERATIVE DIAGNOSIS: History of colon polyps. IV sedation per Anesthesia. PROCEDURE: After informed consent was obtained, the patient, was brought into the endoscopy unit. IV sedation was administered by Anesthesia under continuous monitoring. Digital rectal examination was normal. Initially the Olympus CF-160 flexible video colonoscope was then inserted in the rectum, gradually advanced into the cecum without any difficulty. Careful examination was performed as the scope was gradually being withdrawn. Ileocecal valve and the appendiceal orifice were visualized and appeared normal. Prep was excellent. Mucosa of the cecum, ascending colon, normal. Transverse colon there was a 4 mm polyp that was removed by cold biopsy. Rest of the transverse colon, descending colon, sigmoid colon, and rectum appeared normal. Retroflexion was performed in the rectum and grade 2 internal hemorrhoids were seen. The patient tolerated the procedure well. IMPRESSION: 4 mm transverse colon polyp status post cold biopsy Grade 2 internal hemorrhoids RECOMMENDATIONS: Findings of this examination were discussed with the patient as well as his family.. He was advised to follow with the biopsy results. Continue with a high-fiber diet and fiber supplements on a regular basis.
[2023-12-26 12:52] VITALS: BP 129/81; PULSE 74; RESP 18
== END ==
LOC: ORWHC2ENDO 10:53
PROVIDERS: ATTEND Internal Medicine Gastroenterology
DX: Z12.11 Encounter for screening for malignant neoplasm of colon (principal); K52.9 Noninfective gastroenteritis and colitis, unspecified; K64.1 Second degree hemorrhoids; I10 Essential (primary) hypertension; E78.5 Hyperlipidemia, unspecified; I25.10 Atherosclerotic heart disease of native coronary artery without angina pectoris; K21.9 Gastro-esophageal reflux disease without esophagitis; Z86.73 Personal history of transient ischemic attack (TIA), and cerebral infarction without residual deficits; Z86.010 Personal history of colon polyps; Z95.5 Presence of coronary angioplasty implant and graft; Z88.0 Allergy status to penicillin
CPT/HCPCS: 45380; 88305

== ENCOUNTER 2024-02-12 21:54 | Inpatient (IN) | payer OTHER, MEDICARE ==
[2024-02-12] MEDS: ASPIRIN 81 MG PO STA (22:20)
[2024-02-12 22:24] LABS: Basophils # (A) 0.1 k/uL (0-0.2); Basophils % (A) 1 %; Eosinophils # (A) 0.5 k/uL (0-0.7); Eosinophils % (A) 6 %; HCT 48.4 % (39.0-53.0); HGB 15.8 gm/dL (13.0-17.5); Lymphocytes # (A) 1.9 k/uL (1.0-4.8); Lymphocytes % (A) 21 %; MCH 30.5 pg (25.0-35.0); MCHC 32.5 g/dL (31.0-37.0); MCV 93.9 fL (80.0-100.0); Mean Platelet Volume 7.9; Monocytes # (A) 0.5 k/uL (0-1.0); Monocytes % (A) 6 %; Neutrophils # (A) 5.6 k/uL (1.3-7.7); Neutrophils % (A) 63 %; Platelet Count 176 k/uL (150-450); RBC 5.16 m/uL (4.30-5.90); RDW 13.6 % (11.5-15.5); WBC 8.8 k/uL (3.8-10.6)
--- NOTE | 2024-02-12 22:32 | ED ---
General Adult HPI - General Chief complaint: Chest Pain Stated complaint: chest pain Time Seen by Provider: 02/12/24 21:57 Source: patient, RN notes reviewed, old records reviewed Mode of arrival: ambulatory Limitations: no limitations - History of Present Illness Initial comments: 78-year-old male presenting with chest pain which began just prior to arrival. This is substernal pressure nonradiating. No associated vomiting or diaphoresis. Patient is on Plavix with history of CAD. Pain is improved at this time. He did take nitroglycerin prior to arrival. - Related Data Home Medications Medication Instructions Recorded Confirmed Lisinopril-Hctz 20-12.5 mg 1 tab PO BID 11/03/21 12/25/23 [Zestoretic 20-12.5] Previous Rx's Medication Instructions Recorded Atorvastatin [Lipitor] 80 mg PO HS #30 tab 07/10/22 Clopidogrel [Plavix] 75 mg PO DAILY #30 tab 07/10/22 Allergies Allergy/AdvReac Type Severity Reaction Status Date / Time Penicillins Allergy Anaphylaxis Verified 02/12/24 21:57 Review of Systems ROS Statement: Those systems with pertinent positive or pertinent negative responses have been documented in the HPI. ROS Other: All systems not noted in ROS Statement are negative. Past Medical History Past Medical History: Coronary Artery Disease (CAD), Chest Pain / Angina, CVA/TIA, GERD/Reflux, Hyperlipidemia, Hypertension, Musculoskeletal Disorder, Osteoarthritis (OA), Prostate Disorder Additional Past Medical History / Comment(s): CVA June 2022-no residual,self cath's due to enlarged prostate, DDD History of Any Multi-Drug Resistant Organisms: None Reported Past Surgical History: Heart Catheterization, Heart Catheterization With Stent Additional Past Surgical History / Comment(s): cyst off back of neck, circumcision, colonoscopy, CINDY., heart cath with stent (12/01/20)., aortic valve replacement(TAVR)12-08-20, LT CATARACT REMOVED WITH LENS IMPLANTS 12/24/23 Past Anesthesia/Blood Transfusion Reactions: No Reported Reaction Additional Past Anesthesia/Blood Transfusion Reaction / Comment(s): no hx blood transfusion Date of Last Stent Placement:: 12/01/20 Past Psychological History: No Psychological Hx Reported Smoking Status: Former smoker - Past Family History Mother Additional Family Medical History / Comment(s): in s Father Family Medical History: Diabetes Mellitus General Exam Limitations: no limitations General appearance: alert, in no apparent distress Head exam: Present: atraumatic, normocephalic Eye exam: Present: normal appearance, PERRL ENT exam: Present: normal exam Neck exam: Present: normal inspection. Absent: tenderness, meningismus Respiratory exam: Present: normal lung sounds bilaterally. Absent: respiratory distress, wheezes Cardiovascular Exam: Present: regular rate, normal rhythm, systolic murmur GI/Abdominal exam: Present: soft. Absent: distended, tenderness Extremities exam: Present: normal inspection, normal capillary refill. Absent: calf tenderness Neurological exam: Present: alert, oriented X3, CN II-XII intact. Absent: motor sensory deficit Psychiatric exam: Present: normal affect, normal mood Skin exam: Present: warm, dry, intact Course Vital Signs 02/12/24 02/12/24 02/12/24 21:55 22:12 22:58 Temperature 98.6 F Pulse Rate 77 92 83 Respiratory 18 16 16 Rate Blood Pressure 186/76 170/91 135/94 O2 Sat by Pulse 96 97 95 Oximetry Medical Decision Making - Medical Decision Making Was pt. sent in by a medical professional or institution (, PA, SHELTER SUPERVISOR, urgent care, hospital, or detention...) When possible be specific @ -No Did you speak to anyone other than the patient for history (EMS, parent, family, police, friend...)? What history was obtained from this source @ -No Did you review nursing and triage notes (agree or disagree)? Why? @ -I reviewed and agree with nursing and triage notes Were old charts reviewed (outside hosp., previous admission, EMS record, old EKG, old radiological studies, urgent care reports/EKG's, detention records)? Report findings @ -No old charts were reviewed Differential Chest Pain: Stable Angina, Unstable Angina, STEMI, NSTEMI Aortic Dissection, Pneumothorax, Musculoskeletal, Esophageal Spasm GERD, Cholecystitis, Pancreatitis, Zoster, this is not meant to be an all-inclusive list. EKG interpreted by me (3pts min.). @ -Sinus rhythm rate of 92, FL interval 187, QRS duration 93, QTc [address] segment elevation, ST segment depression inferiorly and V6 X-rays interpreted by me (1pt min.). @ -[X-ray negative for acute cardiopulmonary findings CT interpreted by me (1pt min.). @ -None done U/S interpreted by me (1pt. min.). @ -None done What testing was considered but not performed or refused? (CT, X-rays, U/S, labs)? Why? @ -None What meds were considered but not given or refused? Why? @ -None Did you discuss the management of the patient with other professionals (professionals i.e. Dr., PA, SHELTER SUPERVISOR, lab, RT, psych nurse, social services specialist, network and threat support specialist, teacher, escrow officer, pillowcase folder)? Give summary @ -[employer] Was smoking cessation discussed for >3mins.? @ -No Was critical care preformed (if so, how long)? @ -No Were there social determinants of health that impacted care today? How? (Homelessness, low income, unemployed, alcoholism, drug addiction, transportation, low edu. Level, literacy, decrease access to med. care, usp, rehab)? @ -No Was there de-escalation of care discussed even if they declined (Discuss DNR or withdrawal of care, Hospice)? DNR status @ -No What co-morbidities impacted this encounter? (DM, HTN, Smoking, COPD, CAD, Cancer, CVA, ARF, Chemo, Hep., AIDS, mental health diagnosis, sleep apnea, morbid obesity)? @ -[Coronary artery disease Was patient admitted / discharged? Hospital course, mention meds given and route, prescriptions, significant lab abnormalities, going to OR and other pertinent info. @ -78-year-old male presenting for evaluation of substernal chest pain, nonradiating. EKG sinus without ST segment elevation. Chest x-ray is clear. Normal CBC, normal CMP, negative initial troponin. Patient reevaluated in the emergency department without further chest pain. Patient will be observed overnight for serial cardiac enzymes, telemetry, cardiology consultation. Case discussed with Dr. Oliva who will admit. Undiagnosed new problem with uncertain prognosis? @ -No Drug Therapy requiring intensive monitoring for toxicity (Heparin, Nitro, Insulin, Cardizem)? @ -No Were any procedures done? @ -No Diagnosis/symptom? @ -Chest pain Acute, or Chronic, or Acute on Chronic? @ -acute Uncomplicated (without systemic symptoms) or Complicated (systemic symptoms)? @ -Default Side effects of treatment? @ -No Exacerbation, Progression, or Severe Exacerbation? @ -No Poses a threat to life or bodily function? How? (Chest pain, USA, SD, pneumonia, PE, COPD, DKA, ARF, appy, cholecystitis, CVA, Diverticulitis, Homicidal, Suicidal, threat to staff... and all critical care pts) @ -[yes, ACS - Lab Data Result diagrams: 02/12/24 22:10 02/12/24 22:10 Lab Results 02/12/24 02/12/24 02/12/24 Range/Units 22:10 22:10 22:10 WBC 8.8 (3.8-10.6) k/uL RBC 5.16 (4.30-5.90) m/uL Hgb 15.8 (13.0-17.5) gm/dL Hct 48.4 (39.0-53.0) % MCV 93.9 (80.0-100.0) fL MCH 30.5 (25.0-35.0) pg MCHC 32.5 (31.0-37.0) g/dL RDW 13.6 (11.5-15.5) % Plt Count 176 (150-450) k/uL MPV 7.9 Neutrophils % 63 % Lymphocytes % 21 % Monocytes % 6 % Eosinophils % 6 % Basophils % 1 % Neutrophils # 5.6 (1.3-7.7) k/uL Lymphocytes # 1.9 (1.0-4.8) k/uL Monocytes # 0.5 (0-1.0) k/uL Eosinophils # 0.5 (0-0.7) k/uL Basophils # 0.1 (0-0.2) k/uL PT 10.5 (10.0-12.5) sec INR 1.0 (<1.2) APTT 22.3 (22.0-30.0) sec Sodium 139 (137-145) mmol/L Potassium 3.9 (3.5-5.1) mmol/L Chloride 107 (98-107) mmol/L Carbon Dioxide 26 (22-30) mmol/L Anion Gap 6 mmol/L BUN 12 (9-20) mg/dL Creatinine 1.06 (0.66-1.25) mg/dL Est GFR (CKD-EPI)AfAm 78 (>60 ml/min/1.73 sqM) Est GFR (CKD-EPI)NonAf 67 (>60 ml/min/1.73 sqM) Glucose 150 H (74-99) mg/dL Calcium 9.6 (8.4-10.2) mg/dL Magnesium 1.7 (1.6-2.3) mg/dL Total Bilirubin 0.7 (0.2-1.3) mg/dL AST 23 (17-59) U/L ALT 24 (4-49) U/L Alkaline Phosphatase 68 (38-126) U/L Troponin I (0.000-0.034) ng/mL Total Protein 6.8 (6.3-8.2) g/dL Albumin 4.2 (3.5-5.0) g/dL 02/12/24 Range/Units 22:10 WBC (3.8-10.6) k/uL RBC (4.30-5.90) m/uL Hgb (13.0-17.5) gm/dL Hct (39.0-53.0) % MCV (80.0-100.0) fL MCH (25.0-35.0) pg MCHC (31.0-37.0) g/dL RDW (11.5-15.5) % Plt Count (150-450) k/uL MPV Neutrophils % % Lymphocytes % % Monocytes % % Eosinophils % % Basophils % % Neutrophils # (1.3-7.7) k/uL Lymphocytes # (1.0-4.8) k/uL Monocytes # (0-1.0) k/uL Eosinophils # (0-0.7) k/uL Basophils # (0-0.2) k/uL PT (10.0-12.5) sec INR (<1.2) APTT (22.0-30.0) sec Sodium (137-145) mmol/L Potassium (3.5-5.1) mmol/L Chloride (98-107) mmol/L Carbon Dioxide (22-30) mmol/L Anion Gap mmol/L BUN (9-20) mg/dL Creatinine (0.66-1.25) mg/dL Est GFR (CKD-EPI)AfAm (>60 ml/min/1.73 sqM) Est GFR (CKD-EPI)NonAf (>60 ml/min/1.73 sqM) Glucose (74-99) mg/dL Calcium (8.4-10.2) mg/dL Magnesium (1.6-2.3) mg/dL Total Bilirubin (0.2-1.3) mg/dL AST (17-59) U/L ALT (4-49) U/L Alkaline Phosphatase (38-126) U/L Troponin I 0.016 (0.000-0.034) ng/mL Total Protein (6.3-8.2) g/dL Albumin (3.5-5.0) g/dL Disposition Clinical Impression: Chest pain Disposition: ADMITTED IP TO THIS HOSP Condition: Stable Is patient prescribed a controlled substance at d/c from ED?: No Referrals: [facility],Clinic [Primary Care Provider] - 1-2 days Time of Disposition: 23:05
[2024-02-12 22:36] LABS: Partial Thromboplastin Time 22.3 sec (22.0-30.0); Prothrombin Time 10.5 sec (10.0-12.5)
[2024-02-12 22:37] LABS: ALT 24 U/L (4-49); AST 23 U/L (17-59); African American GFR (CKD) 78 (>60 ml/min/1.73 sqM); Albumin 4.2 g/dL (3.5-5.0); Alkaline Phosphatase 68 U/L (38-126); Anion Gap 6 mmol/L; Blood Urea Nitrogen 12 mg/dL (9-20); Calcium 9.6 mg/dL (8.4-10.2); Carbon Dioxide 26 mmol/L (22-30); Chloride 107 mmol/L (98-107); Glucose 150 mg/dL (74-99); Magnesium 1.7 mg/dL (1.6-2.3); Non-African American GFR(CKD) 67 (>60 ml/min/1.73 sqM); Potassium 3.9 mmol/L (3.5-5.1); Sodium 139 mmol/L (137-145); Total Bilirubin 0.7 mg/dL (0.2-1.3); Total Protein 6.8 g/dL (6.3-8.2)
[2024-02-12] MEDS ORDERED: NALOXONE 0.4 MG/ML 1 ML VIAL IV PRN (23:01)
[2024-02-12] MEDS ORDERED: NITROGLYCERIN SL TABS 0.4 MG TAB SUBLINGUAL PRN (23:02)
--- NOTE | 2024-02-12 23:46 | XR ---
EXAM: XR Chest, 2 Views CLINICAL HISTORY: ITS.REASON XR Reason: Chest Pain TECHNIQUE: Frontal and lateral views of the chest. COMPARISON: No relevant prior studies available. FINDINGS: Lungs: Unremarkable. No consolidation. Pleural space: Unremarkable. No pneumothorax. Heart: Prosthetic cardiac valve. No cardiomegaly. Mediastinum: Unremarkable. Normal mediastinal contour. Bones/joints: Unremarkable. No acute fracture. IMPRESSION: No acute findings in the chest.
--- NOTE | 2024-02-13 00:44 | P.HPIM ---
History of Present Illness H&P Date: 02/12/24 Chief Complaint: chest pain Patient is a 78-year-old male with hypertension, hyperlipidemia, GERD, CAD with 1 stent placement (November 2020), TAVR (November 2020. managed [address] Dr. Shnie), and CVA (June 2022) who came in for chest pain. Tonight around 9 PM, patient expe rienced sudden development of chest pressure that was substernal constant with a maximum intensity of 7 out of 10 that was nonradiating and nonpleuritic. He reported associated lightheadedness, diaphoresis. He denied shortness of breath, leg pain, dizziness, nausea or vomiting, focal weakness, vocal changes, fevers, chills, or cough. On admission, he reported to still be experiencing chest pain with less intensity of 6 out of 10. Review of systems: Pertinent positives and negatives as discussed in HPI, a complete review of systems was performed and all other systems are negative. Social history: Tobacco: Formerly smoked cigars. 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 Physical examination: Vital signs reviewed General: non toxic, no distress, appears at stated age Derm: no unusual rashes/lesions, warm Head: atraumatic, normocephalic, symmetric Eyes: EOMI, anicteric sclera, pupils equal round reactive to light ENT: Nose and ears atraumatic Neck: No cervical lymphadenopathy, trachea midline, supple Mouth: no lip lesion, mucus membranes moist Cardiovascular: S1S2 reg, 3/6 murmur best heard at the right second ICS, positive dorsalis pedis pulse bilateral Lungs: CTA bilateral, no rhonchi, no rales, no accessory muscle use Abdominal: soft, nondistended, nontender to palpation, no guarding Ext: muscle strength 5 out of 5 in distal lower extremities grossly, no gross muscle atrophy, no contractures, no edema Neuro: CN II-XI grossly intact, no gross focal neuro deficits Psych: Alert and oriented x 3, appropriate affect and mood Assessment/Plan: Patient is a 78-year-old male who came in for chest pain. He has a prior history of CVA, TAVR and CAD with 1 stent placement. Troponin is mildly elevated at 0.0 16. EKG is normal sinus rhythm with a rate of [address]-T changes. Chest x-ray is negative no acute processes. HEART score moderate at 5. Glucose is elevated at 150 with no known diagnosis of diabetes. ED documentation reviewed. Agreed to admit this patient for unstable angina and hyperglycemia. The patient is admitted with an anticipated less than 2 midnight stay for evaluation. #. Atypical chest pain Troponin 0.016. EKG NSR [address]-T changes. Chest x-ray is negative no acute processes -Cardiac monitoring -Supplemental oxygen as needed -Nitrostat 0.4 mg sublingual every 5 hours as needed for chest pain -Aspirin 81 mg p.o. OD -Plavix 75 mg p.o. OD -Lipitor 80 mg p.o. at bedtime -Trend troponins -Consult cardiology #. Hyperglycemia Glucose 150. No known dianosis of DM. Patient asymptomatic and stable at current. -NovoLog sliding scale low-dose at greater than 70 kg ACHS -Glucose Accu-Cheks ACHS, monitor for hypoglycemia -BMP and A1c at a.m. Chronic conditions: #. Hypertension #. Hyperlipidemia #. GERD -Resume home medications once reconciled DVT prophylaxis: Lovenox 40mg SQ OD CODE STATUS: Full Discussed with: Patient Anticipated discharge place: Home Past Medical History Past Medical History: Coronary Artery Disease (CAD), Chest Pain / Angina, CVA/TIA, GERD/Reflux, Hyperlipidemia, Hypertension, Musculoskeletal Disorder, Osteoarthritis (OA), Prostate Disorder Additional Past Medical History / Comment(s): CVA June 2022-no residual,self cath's due to enlarged prostate, DDD History of Any Multi-Drug Resistant Organisms: None Reported Past Surgical History: Heart Catheterization, Heart Catheterization With Stent Additional Past Surgical History / Comment(s): cyst off back of neck, circumcision, colonoscopy, CINDY., heart cath with stent (12/01/20)., aortic valve replacement(TAVR)12-08-20, LT CATARACT REMOVED WITH LENS IMPLANTS 12/24/23 Past Anesthesia/Blood Transfusion Reactions: No Reported Reaction Additional Past Anesthesia/Blood Transfusion Reaction / Comment(s): no hx blood transfusion Date of Last Stent Placement:: 12/01/20 Past Psychological History: No Psychological Hx Reported Smoking Status: Former smoker - Past Family History Mother Additional Family Medical History / Comment(s): in s Father Family Medical History: Diabetes Mellitus Medications and Allergies Home Medications Medication Instructions Recorded Confirmed Type Lisinopril-Hctz 20-12.5 mg 1 tab PO BID 11/03/21 12/25/23 History [Zestoretic 20-12.5] Atorvastatin [Lipitor] 80 mg PO HS #30 tab 07/10/22 12/25/23 Rx Clopidogrel [Plavix] 75 mg PO DAILY #30 tab 07/10/22 12/25/23 Rx Allergies Allergy/AdvReac Type Severity Reaction Status Date / Time Penicillins Allergy Anaphylaxis Verified 02/12/24 21:57 Physical Exam Vitals: Vital Signs Temp Pulse Resp BP Pulse Ox 02/12/24 23:33 85 16 143/78 96 02/12/24 23:25 83 16 117/68 95 02/12/24 22:58 83 16 135/94 95 02/12/24 22:12 92 16 170/91 97 02/12/24 21:55 98.6 F 77 18 186/76 96 Intake and Output 02/12/24 02/12/24 02/13/24 14:59 22:59 06:59 Other: Weight 83.915 kg Results CBC & Chem 7: 02/12/24 22:10 02/12/24 22:10 Labs: Abnormal Lab Results - Last 24 Hours (Table) 02/12/24 Range/Units 22:10 Glucose 150 H (74-99) mg/dL Assessment and Plan Assessment: I have seen and evaluated the patient today. I Discussed the case with the resident and agree with the resident's findings I edited the assessment and plan as necessary as documented in the resident's note.
[2024-02-13] MEDS ORDERED: DEXTROSE 50% SYRINGE 50 ML IVP PRN ×2 (01:20)
[2024-02-13 05:18] LABS: Glucose,Whole Blood 94 mg/dL (70-110)
[2024-02-13] MEDS: INSULIN ASPART (NovoLOG) 100 UNIT/ML VIAL SQ SCH (07:30)
[2024-02-13] MEDS ORDERED: PANTOPRAZOLE 40 MG TABLET PO SCH (07:30)
[2024-02-13] MEDS: CLOPIDOGREL 75 MG TAB PO SCH (08:46)
[2024-02-13] MEDS: LISINOPRIL-HCTZ 20-12.5 MG 1 EACH TAB PO SCH (08:47)
[2024-02-13] MEDS: ASPIRIN 81 MG PO SCH (08:47)
[2024-02-13] MEDS: PANTOPRAZOLE 40 MG TABLET PO SCH (08:47)
[2024-02-13] MEDS: ENOXAPARIN 40 MG/0.4 ML SYRINGE SQ SCH (08:49)
[2024-02-13 08:56] LABS: BUN/Creat Ratio 11.27 Ratio (12.00-20.00); Blood Urea Nitrogen 12.4 mg/dL (9.0-27.0); Calcium 9.3 mg/dL (8.7-10.3); Carbon Dioxide 25.7 mmol/L (21.6-31.8); Chloride 106 mmol/L (96-109); Glucose 97 mg/dL (70-110); Sodium 141 mmol/L (135-145)
[2024-02-13] MEDS ORDERED: REGADENOSON 0.4 MG/5 ML SYRINGE IV PRN (10:33)
[2024-02-13] MEDS ORDERED: CAFFEINE CITRATE 60 MG/3 ML VIAL IV PRN (10:33)
[2024-02-13] MEDS ORDERED: AMINOPHYLLINE 500 MG/20 ML VIAL IV PRN (10:33)
[2024-02-13] MEDS ORDERED: DOBUTamine DRIP for NUC MED 500 MG in DEXTROSE/WATER 1 250ML.BAG IV PRN (10:37)
[2024-02-13 12:42] LABS: Glucose,Whole Blood 93 mg/dL (70-110)
--- NOTE | 2024-02-13 12:56 | P.PN ---
Subjective Progress Note Date: 02/13/24 Hospital course Patient is a 78-year-old male with hypertension, hyperlipidemia, GERD, CAD with 1 stent placement (November 2020), TAVR (November 2020. managed by Dr. Shine), and CVA (June 2022) who came in for chest pain. Tonight around 9 PM, patient experienced sudden development of chest pressure that was substernal constant with a maximum intensity of 7 out of 10 that was nonradiating and nonpleuritic. Patient was admitted to the medicine service cardiology consultation. Patient's troponins were negative x 3. Patient seen this morning. He is denying any chest pain. 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 daily Continue Plavix 75 mg p.o. daily Continue Lipitor 80 mg p.o. at bedtime Continue with sublingual nitro every 5 hours as needed for pain Cardiology ordered dobutamine echo stress test Hyperglycemia likely reactive Repeat blood glucose is 94 Hypertension Continue with lisinopril-hydrochlorothiazide 20 mg-12.5 mg p.o. twice daily Hyperlipidemia Continue with atorvastatin 80 mg p.o. daily GERD Continue pantoprazole 40 mg p.o. daily DVT prophylaxis: Lovenox 40 mg subcu daily Objective - Vital Signs Vital signs: Vital Signs Temp 97.8 F 02/13/24 07:00 Pulse 77 02/13/24 07:00 Resp 16 02/13/24 07:00 BP 145/87 02/13/24 07:00 Pulse Ox 95 02/13/24 07:00 FiO2 Intake & Output 02/12/24 02/13/24 02/13/24 18:59 06:59 18:59 Weight 83.915 kg Other: # Voids 1 - Labs CBC & Chem 7: 02/12/24 22:10 02/13/24 04:00 Labs: Abnormal Lab Results - Last 24 Hours (Table) 02/12/24 02/13/24 02/13/24 Range/Units 22:10 04:00 04:00 BUN/Creatinine Ratio 11.27 L (12.00-20.00) Ratio Glucose 150 H (74-99) mg/dL Hemoglobin A1c 6.1 H (<=6.0) %
--- NOTE | 2024-02-13 12:57 | P.CRDCN ---
History of Present Illness Consult date: 02/13/24 Consult reason: chest pain History of present illness: This is a 78-year-old male patient of Dr. Shine with past medical history of CAD with prior stenting of the mid left circumflex in 2020 with heart catheterization done in October 2021 which revealed patent stent in the OM 3 and intermediate lesion in the range of 60% of the OM 2, mild disease in the mid LAD and mild diffuse disease in the RCA, prior TAVR in November 2020, hypertension, dyslipidemia, carotid atherosclerosis, CVA. We have been asked to evaluate the patient for chest pain. 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 He describes the pain as pressure. It was up to an 8/9 out of 10 and by the time he arrived in the ER it was at a 7. He denies having any cough, fever or chills. At the time of this evaluation he is feeling fine. It is noted that on arrival to the emergency center, his blood pressure was 186/76 but improved without treatment. Blood pressure 145/87, heart rate 77, pulse ox 95% on room air. Discussed options of stress testing and he has agreeable to move forward with this today. EKG: Sinus rhythm with nonspecific ST-T wave changes Chest x-ray: No acute findings Laboratory studies: CBC, INR, electrolytes renal function all within normal limits. Troponin negative x 3. Liver function test are normal. Magnesium 1.7. Hemoglobin A1c 6.1 Home cardiac medications: Atorvastatin 40 mg at bedtime, Plavix 75 mg daily, lisinoprilhydrochlorothiazide 20-12.5 mg 1 twice daily. Echocardiogram performed in the office on 11/19/2023 revealed EF 55%, small hypokinetic area of the inferior wall at the base. Grade 2 diastolic dysfunction. Moderate left ventricular hypertrophy. Transcatheter AV prosthesis. Ascending aorta is enlarged. Mild mitral regurgitation. Mitral valve calcified. Mild tricuspid regurgitation. PASP 33 mmHg. Mild pulmonic regurgitation. Lexiscan Cardiolite stress test performed in the office on 09/04/2022 is a nondiagnostic electrocardiographic stress testing and response to Lexiscan. Abnormal myocardial perfusion imaging with evidence of reversible defect anteriorly. Normal left ventricular systolic function. Review Of Systems: At the time of my exam: CONSTITUTIONAL: Denies fever or chills. HEENT: Denies blurred vision, vision changes, or eye pain. Denies hemoptysis CARDIOVASCULAR: Denies chest pain. Denies orthopnea. Denies PND. Denies palpitations RESPIRATORY: Denies shortness of breath. GASTROINTESTINAL: Denies abdominal pain. Denies nausea or vomiting. HEMATOLOGIC: Denies bleeding disorders. GENITOURINARY: Denies any blood in urine. SKIN: Denies puritis. Denies rash. Physical examination: Gen: This is a 78-year-old male in no acute distress VS: reviewed HEENT: Head is atraumatic, normocephalic. Pupils equal, round. Sclerae is anicteric. NECK: Supple. No JVD. LUNGS: Clear to auscultation. No wheezes or rhonchi. No intercostal retractions. HEART: Regular rate and rhythm. Systolic murmur at the right upper sternal border. ABDOMEN: Soft No tenderness. EXTREMITIES: No pedal edema. No calf tenderness. NEUROLOGICAL: Patient is awake, alert and oriented x3. Assessment: Atypical chest pain, acute coronary syndrome ruled out History of coronary artery disease with prior stenting Status post TAVR Hypertension Hyperlipidemia Carotid atherosclerosis History of CVA Plan: Resume patient's home cardiac medications Obtain dobutamine stress test today If stress test is unremarkable, patient is cleared for discharge and may follow- up with Dr. Shine in 1 to 2 weeks. Further recommendations to follow based upon clinical course Thank you kindly for this consultation. Nurse practitioner note has been reviewed, I agree with documented findings and plan of care. Patient was seen and examined. Past Medical History Past Medical History: Coronary Artery Disease (CAD), Chest Pain / Angina, CVA/TIA, GERD/Reflux, Hyperlipidemia, Hypertension, Musculoskeletal Disorder, Osteoarthritis (OA), Prostate Disorder Additional Past Medical History / Comment(s): CVA June 2022-no residual,self cath's due to enlarged prostate, DDD History of Any Multi-Drug Resistant Organisms: None Reported Past Surgical History: Heart Catheterization, Heart Catheterization With Stent Additional Past Surgical History / Comment(s): cyst off back of neck, circumcision, colonoscopy, CINDY., heart cath with stent (12/01/20)., aortic valve replacement(TAVR)12-08-20, LT CATARACT REMOVED WITH LENS IMPLANTS 12/24/23 Past Anesthesia/Blood Transfusion Reactions: No Reported Reaction Additional Past Anesthesia/Blood Transfusion Reaction / Comment(s): no hx blood transfusion Date of Last Stent Placement:: 12/01/20 Past Psychological History: No Psychological Hx Reported Smoking Status: Former smoker - Past Family History Mother Additional Family Medical History / Comment(s): in 90's Father Family Medical History: Diabetes Mellitus Medications and Allergies Home Medications Medication Instructions Recorded Confirmed Type Lisinopril-Hctz 20-12.5 mg 1 tab PO BID 11/03/21 02/13/24 History [Zestoretic 20-12.5] Clopidogrel [Plavix] 75 mg PO DAILY #30 tab 07/10/22 02/13/24 Rx Atorvastatin [Lipitor] 40 mg PO HS 02/13/24 02/13/24 History Allergies Allergy/AdvReac Type Severity Reaction Status Date / Time Penicillins Allergy Anaphylaxis Verified 02/13/24 07:46 Physical Exam Vitals: Vital Signs Temp Pulse Pulse Resp BP BP Pulse Ox 02/13/24 07:00 97.8 F 77 16 145/87 95 02/13/24 04:12 98.0 F 90 17 119/77 97 02/12/24 23:50 98.0 F 65 16 138/86 98 02/12/24 23:33 85 16 143/78 96 02/12/24 23:25 83 16 117/68 95 02/12/24 22:58 83 16 135/94 95 02/12/24 22:12 92 16 170/91 97 02/12/24 21:55 98.6 F 77 18 186/76 96 Intake and Output 02/12/24 02/13/24 02/13/24 22:59 06:59 14:59 Other: # Voids 1 Weight 83.915 kg 83.915 kg Results 02/12/24 22:10 02/13/24 04:00 Cardiac Enzymes 02/12/24 02/12/24 02/13/24 Range/Units 22:10 22:10 00:33 AST 23 (17-59) U/L Troponin I 0.016 0.022 (0.000-0.034) ng/mL 02/13/24 Range/Units 04:00 AST (17-59) U/L Troponin I 0.021 (0.000-0.034) ng/mL Coagulation 02/12/24 Range/Units 22:10 PT 10.5 (10.0-12.5) sec APTT 22.3 (22.0-30.0) sec CBC 02/12/24 Range/Units 22:10 WBC 8.8 (3.8-10.6) k/uL RBC 5.16 (4.30-5.90) m/uL Hgb 15.8 (13.0-17.5) gm/dL Hct 48.4 (39.0-53.0) % Plt Count 176 (150-450) k/uL Comprehensive Metabolic Panel 02/12/24 02/13/24 Range/Units 22:10 04:00 Sodium 139 141 (137-145) mmol/L Potassium 3.9 4.0 (3.5-5.1) mmol/L Chloride 107 106 (98-107) mmol/L Carbon Dioxide 26 25.7 (22-30) mmol/L BUN 12 12.4 (9-20) mg/dL Creatinine 1.06 1.1 (0.66-1.25) mg/dL Glucose 150 H 97 (74-99) mg/dL Calcium 9.6 9.3 (8.4-10.2) mg/dL AST 23 (17-59) U/L ALT 24 (4-49) U/L Alkaline Phosphatase 68 (38-126) U/L Total Protein 6.8 (6.3-8.2) g/dL Albumin 4.2 (3.5-5.0) g/dL Current Medications Generic Name Dose Route Start Last Admin Trade Name Freq PRN Reason Stop Dose Admin Aspirin 81 mg 02/13/24 09:00 02/13/24 08:47 Aspirin 81 Mg PO 81 mg DAILY ISIDRO Administration Atorvastatin Calcium 80 mg 02/13/24 21:00 Atorvastatin 80 Mg Tab PO HS ISIDRO Clopidogrel Bisulfate 75 mg 02/13/24 09:00 02/13/24 08:46 Clopidogrel 75 Mg Tab PO 75 mg DAILY ISIDRO Administration Dextrose/Water 25 ml 02/13/24 01:20 Dextrose 50% Syringe 50 Ml IVP PER PROTOCOL PRN Hypoglycemia Protocol Dextrose/Water 50 ml 02/13/24 01:20 Dextrose 50% Syringe 50 Ml IVP PER PROTOCOL PRN Hypoglycemia Protocol Enoxaparin Sodium 40 mg 02/13/24 09:00 02/13/24 08:49 Enoxaparin 40 Mg/0.4 Ml Syringe SQ Not Given DAILY ISIDRO Lisinopril/HCTZ 1 each 02/13/24 09:00 02/13/24 08:47 Lisinopril-Hctz 20-12.5 Mg 1 Each Tab PO 1 each BID ISIDRO Administration Insulin Aspart 0 unit 02/13/24 07:30 02/13/24 07:30 Insulin Aspart (Novolog) 100 Unit/Ml Vial SQ Not Given ACHS [facility] Protocol Naloxone HCl 0.2 mg 02/12/24 23:01 Naloxone 0.4 Mg/Ml 1 Ml Vial IV Q2M PRN Opioid Reversal Nitroglycerin 0.4 mg 02/12/24 23:02 Nitroglycerin Sl Tabs 0.4 Mg Tab SUBLINGUAL Q5M PRN Chest Pain Pantoprazole Sodium 40 mg 02/13/24 07:30 02/13/24 08:47 Pantoprazole 40 Mg Tablet PO 40 mg [id number] [facility] Administration Intake and Output 02/12/24 02/13/24 02/13/24 22:59 06:59 14:59 Other: # Voids 1 Weight 83.915 kg 83.915 kg 02/12/24 22:10 02/13/24 04:00
[2024-02-13] MEDS ORDERED: ALPRAZolam 0.25 MG TAB PO PRN (13:48)
[2024-02-13] MEDS ORDERED: ALPRAZolam 0.5 MG TAB PO PRN (13:48)
[2024-02-13] MEDS ORDERED: NITROGLYCERIN SL TABS 0.4 MG TAB SUBLINGUAL PRN (13:48)
[2024-02-13 17:46] LABS: Glucose,Whole Blood 109 mg/dL (70-110)
[2024-02-13 20:30] LABS: Glucose,Whole Blood 108 mg/dL (70-110)
[2024-02-13] MEDS: ATORVASTATIN 80 MG TAB PO SCH (21:09)
[2024-02-14] MEDS: EMPTY BAG 1 BAG with SODIUM CHLORIDE 0.9% 1,000 ML IV ONE (01:03)
[2024-02-14] MEDS: ASPIRIN 325 MG TAB PO ONE (05:59)
[2024-02-14] MEDS: ATORVASTATIN 80 MG TAB PO ONE (05:59)
[2024-02-14 06:05] LABS: Glucose,Whole Blood 101 mg/dL (70-110)
--- NOTE | 2024-02-14 10:38 | P.PN ---
Subjective This is a 78-year-old male patient of Dr. Shine with past medical history of CAD with prior stenting of the mid left circumflex in 2020 with heart ca theterization done in October 2021 which revealed patent stent in the OM 3 and intermediate lesion in the range of 60% of the OM 2, mild disease in the mid LAD and mild diffuse disease in the RCA, prior TAVR in November 2020, hypertension, dyslipidemia, carotid atherosclerosis, CVA. We have been asked to evaluate the patient for chest pain. 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 He describes the pain as pressure. It was up to an 8/9 out of 10 and by the time he arrived in the ER it was at a 7. He denies having any cough, fever or chills. At the time of this evaluation he is feeling fine. It is noted that on arrival to the emergency center, his blood pressure was 186/76 but improved without treatment. Blood pressure 145/87, heart rate 77, pulse ox 95% on room air. Discussed options of stress testing and he has agreeable to move forward with this today. EKG: Sinus rhythm with nonspecific ST-T wave changes Chest x-ray: No acute findings Laboratory studies: CBC, INR, electrolytes renal function all within normal limits. Troponin negative x 3. Liver function test are normal. Magnesium 1.7. Hemoglobin A1c 6.1 Home cardiac medications: Atorvastatin 40 mg at bedtime, Plavix 75 mg daily, lisinoprilhydrochlorothiazide 20-12.5 mg 1 twice daily. Echocardiogram performed in the office on 11/19/2023 revealed EF 55%, small hypokinetic area of the inferior wall at the base. Grade 2 diastolic dysfunction. Moderate left ventricular hypertrophy. Transcatheter AV prosthesis. Ascending aorta is enlarged. Mild mitral regurgitation. Mitral valve calcified. Mild tricuspid regurgitation. PASP 33 mmHg. Mild pulmonic regurgitation. Lexiscan Cardiolite stress test performed in the office on 09/04/2022 is a nondiagnostic electrocardiographic stress testing and response to Lexiscan. Abnormal myocardial perfusion imaging with evidence of reversible defect anteriorly. Normal left ventricular systolic function. 02/13 Patient seen and examined. Overall patient is doing well. He denies any further chest or neck pain. He did undergo dobutamine stress test which showed abnormal inducible anterior ischemia. His EKG portion had baseline changes however accentuation of baseline EKG abnormalities. Physical examination: Gen: This is a 78-year-old male in no acute distress VS: reviewed HEENT: Head is atraumatic, normocephalic. Pupils equal, round. Sclerae is anicteric. NECK: Supple. No JVD. LUNGS: Clear to auscultation. No wheezes or rhonchi. No intercostal retracti ons. HEART: Regular rate and rhythm. Systolic murmur at the right upper sternal border. ABDOMEN: Soft No tenderness. EXTREMITIES: No pedal edema. No calf tenderness. NEUROLOGICAL: Patient is awake, alert and oriented x3. Assessment: Atypical chest pain, acute coronary syndrome ruled out History of coronary artery disease with prior stenting Status post TAVR Hypertension Hyperlipidemia Carotid atherosclerosis History of CVA Plan: Abnormal stress test and therefore discussed heart catheterization and patient is agreeable. No further chest pain at this point. Possible discharge home after catheterization depending on findings and patient's status. Objective - Vital Signs Vital signs: Vital Signs Temp 98.1 F 02/14/24 07:00 Pulse 73 02/14/24 07:00 Resp 16 02/14/24 07:00 BP 128/68 02/14/24 07:00 Pulse Ox 94 L 02/14/24 09:01 FiO2 Intake & Output 02/13/24 02/14/24 02/14/24 18:59 06:59 18:59 Intake Total 1080 Balance 1080 Intake: Oral 1080 Other: # Voids 1 2 - Labs CBC & Chem 7: 02/12/24 22:10 02/13/24 04:00
--- NOTE | 2024-02-14 13:11 | CA ---
Dobutamine Stress Echocardiogram Report Yazan Garcia Age: 78 Gender: M : 1945 Exam Date: 02/13/2024 13:23 Exam Location: [place] [facility] Ordering Physician: Ramonita Leiva Referring Physician: [id number] Brief Writer: Layo Hernández Technologist: Ht (in): 67 Wt (lb): 185 Procedure CPT: Indication: Chest Pain ICD-9 Codes: Rhythm: Patient History: Cardiac Medications: SEE CHART Medications in past 24 hours: Contrast: N/A Total Dose (mL): NA Stress Results Protocol: Dobutamine Peak Dose (???g/kg/min): 30 Duration (min:sec): Atropine:(mg) Target HR: 121 Double Product: [id number] Resting HR: 58 Resting BP: 113 / 76 Peak HR: 134 Peak BP: 142 / 64 Max Predicted HR: 142 94 % Max Predicted HR Stress Summary: BP Response: Reason for Termination: Target HR Cardiac Symptoms: NO SYMPTOMS ECG Analysis Resting EKG: Stress EKG: Arrhythmia: Echo Analysis Base Echo Analysis: Low Echo Anaylsis: Peak Echo Analysis: Recovery Echo: MEASUREMENTS (Male/Female) Normal Values CONCLUSIONS Patient underwent dobutamine stress echo with infusion of dobutamine into Stage 2 for a total of 7 minutes 34 seconds. Patient's maximum heart rate was 134 which represented 94% age- predicted maximum heart rate. Stress EKG portion: At baseline patient's EKG showed normal sinus rhythm, normal axis, 0.[address] depressions in the inferior leads.. At peak dobutamine infusion, EKG showed significant [address] depressions in the inferior lateral leads.. Stress echo portion: 2-D echocardiogram was performed in the parasternal long, personal short, apical 2 and apical four-chamber views at rest, low-dose, peak infusion and in recovery. At baseline, echocardiogram showed left ventricular ejection fraction 55% without wall motion abnormalities. With peak infusion, echocardiogram shows anterior lateral apical hypokinesis consistent with ischemia. Conclusions: 1. Nonspecific stress EKG portion with mild baseline EKG abnormalities accentuated in stress 2. Inducible anterior lateral apical ischemia Dr. Gael Adams DO (Electronically Signed) Final Date: 14 February 2024 13:10
[2024-02-14] MEDS: IV FLUID CONTINUATION 1,000 ML IV ONE (13:20)
[2024-02-14] MEDS: MIDAZOLAM 2 MG/2 ML VIAL IVP ONE (13:22)
[2024-02-14] MEDS: LIDOCAINE 1% INJ 10MG/ML (20 ML MDV) SQ ONE (13:23)
[2024-02-14] MEDS: VERAPAMIL SYRINGE (5 MG/10 ML) INTRAARTER ONE (13:25)
[2024-02-14] MEDS: HEPARIN SODIUM 1,000 UN/ML (10ML VL) IV ONE (13:31)
[2024-02-14] MEDS: HEPARIN SODIUM,PORCINE 10,000 UNIT in SODIUM CHLORIDE 0.9% 1,000 ML IRRIGATION PRN (13:32)
[2024-02-14] MEDS: HEPARIN SODIUM,PORCINE (1 ML) 2,500 UNIT in SODIUM CHLORIDE 0.9% 250 ML IRRIGATION PRN (13:32)
[2024-02-14] MEDS ORDERED: RX INFO: IV CONTRAST WAS GIVEN 1 EACH MISC MISCELLANE PRN (13:55)
--- NOTE | 2024-02-14 13:56 | P.PN ---
Subjective Progress Note Date: 02/14/24 Hospital course Patient is a 78-year-old male with hypertension, hyperlipidemia, GERD, CAD with 1 stent placement (November 2020), TAVR (November [address]. managed [address] Dr[address] Shine), and CVA (June 2022) who came in for chest pain. Tonight around 9 PM, patient experienced sudden development of chest pressure that was substernal constant with a maximum intensity of 7 out of 10 that was nonradiating and nonpleuritic. Patient was admitted to the medicine service cardiology consultation. Patient's troponins were negative x 3. Patient had a dobutamine stress test done that was positive for reversible ischemia. Patient scheduled for heart catheterization. Patient seen this morning. He is denying any chest pain. Physical exam General examination - Alert and Oriented 3 in NAD Heart - + S1S2 no murmurs Lungs - Clear to auscultation Abdomen soft NT ND +ve BS Extremities - No edema PANEL GLUER - Moving all 4 extremities spontaneously Psych - Calm and cooperative Assessment and plan Atypical chest pain Troponins negative x 3 Continue with aspirin 81 mg p.o. daily Continue Plavix 75 mg p.o. daily Continue Lipitor 80 mg p.o. at bedtime Continue with sublingual nitro every 5 hours as needed for pain Dobutamine stress test shows reversible ischemia Patient scheduled for stress test today Hyperglycemia likely reactive Repeat blood glucose levels have been within normal limits Hypertension Continue with lisinopril-hydrochlorothiazide 20 mg-12.5 mg p.o. twice daily Hyperlipidemia Continue with atorvastatin 80 mg p.o. daily GERD Continue pantoprazole 40 mg p.o. daily DVT prophylaxis: Lovenox 40 mg subcu daily Objective - Vital Signs Vital signs: Vital Signs Temp 98.1 F 02/14/24 07:00 Pulse 68 02/14/24 11:40 Resp 16 02/14/24 07:00 BP 122/70 02/14/24 11:40 Pulse Ox 95 02/14/24 11:40 FiO2 Intake & Output 02/13/24 02/14/24 02/14/24 18:59 06:59 18:59 Intake Total 1080 251.5 Balance 1080 251.5 Intake: IV 251.5 Oral 1080 Other: # Voids 1 2 - Labs CBC & Chem 7: 02/12/24 22:10 02/13/24 04:00
[2024-02-14] MEDS: IOPAMIDOL-370 100ML BTL INJ ONE (13:58)
--- NOTE | 2024-02-14 17:53 | P.PCN ---
Date of Procedure: 02/14/24 Operative Findings: CARDIAC CATHETERIZATION PERFORMING PHYSICIAN: Chad Shine MD, RPVI PROCEDURE PERFORMED: 1. Selective right and left coronary angiogram 2. Left heart catheterization 3. Ultrasound-guided access of the right radial artery INDICATION: Symptomatic 78-year-old gentleman with abnormal stress test COMPLICATION: None APPROACH: Right radial artery LEVEL OF SEDATION: Moderate with a sedation length of 28 minutes PROCEDURE DESCRIPTION: After obtaining an informed consent, the patient was brought to cardiac laboratory associate. Local anesthesia was performed using lidocaine subcutaneously. The right radial artery was cannulated using Seldinger technique, the guidewire passed easily, following that we advanced a 5-Armenian sheath dilator assembly, the wire and dilator were removed and sheath was flushed. Following that, 2 mg of verapamil along with 5000 unit heparin were given. Selective right and left coronary angiogram using a 6-Armenian JR4 and JL 3.5 catheters. Left heart catheterization was performed using the JR4 catheter which crossed the aortic valve The procedure was completed there was no complication. SELECTIVE CORONARY ANGIOGRAM: The right coronary artery: Medium to large caliber vessel with intermediate diffuse disease appears to be unchanged compared to before Left main: Appears to have mild disease only The left circumflex: Large caliber vessel nondominant vessel with mild disease only The left anterior descending artery: The proximal LAD appeared to have mild disease only. The mid LAD has intermediate lesion appears to be in the range of 50% HEMODYNAMICS: LVEDP was 20 mmHg with mean gradient across aortic valve of 53 millimeter mercury CONCLUSION: 1. Intermediate disease involving the mid LAD appears to be in the range of 50 to 60% 2. Severe aortic stenosis of transcatheter aortic valve with a mean gradient of 53 mmHg POSTPROCEDURE MANAGEMENT: Consider further evaluation of the aortic valve including TTE versus CINDY
[2024-02-14] MEDS: SODIUM CHLORIDE 0.9% 1,000 ML IV SCH (20:53)
[2024-02-15 07:34] VITALS: RESP 16
[2024-02-15 08:28] VITALS: BP 171/73; PULSE 78; TEMP 97.9
--- NOTE | 2024-02-15 11:37 | P.DS ---
Providers Date of admission: 02/12/24 23:01 Expected date of discharge: 02/15/24 Attending physician: Kike Oliva MD Consults: 02/12/24 23:01 Consult Physician Routine Consulting Provider: Chad Shine Consult Reason/Comments: CP Do you want consulting provider notified?: Yes Primary care physician: [facility] Hospital Course: Discharge Diagnosis: Atypical chest pain, acute coronary event ruled out. Severe aortic stenosis. Hyperglycemia. Likely reactive and resolved. Hypertension. Continue daily medication regimen with lisinopril/hydrochlorothiazide 20-12.5 mg tablets twice daily. Hyperlipidemia. Continue atorvastatin 40 mg nightly. Hospital Course: Patient is a very pleasant 78-year-old male with a past medical history of CAD status post stenting, hypertension, hyperlipidemia, and GERD. He presented to the emergency department on 02/12/2024 with a chief complaint of chest pain. He underwent full cardiac workup complete with cardiac cath. His troponins were negative at 0.016, 0.022, and 0.021. EKG revealed sinus mechanism with diffuse T wave/ST changes in inferior/lateral leads. He was evaluated by cardiology and underwent a dobutamine stress test which revealed nonspecific stress EKG portion with mild baseline EKG abnormalities accentuated and stress and inducible anterior lateral apical ischemia. On 02/14/2024 patient was taken for cardiac catheterization which revealed intermediate disease involving the mid LAD approximately 50 to 60% with severe aortic stenosis. Cardiology recommending maximizing medical treatment and patient from cardiac perspective for discharge home and recommending pt follow-up outpatient in their office next week for further evaluation and scheduling of CINDY versus TTE. Patient currently free from any complaints or pain stating full resolution of chest pain shortly after arrival patient denies having any further questions, needs, or complaints at this time. Patient is medically optimized for discharge and follow-up outpatient with PCP in 1 to 2 days and with cardiology in 1 week. Patient discharged home on dual antiplatelet therapy with aspirin and Plavix and to continue daily medication regimen with lisinopril/hydrochlorothiazide 20/12.5 mg tablets twice daily and atorvastatin 40 mg nightly. Physical Exam: Patient seen and examined at bedside. Vital signs reviewed and stable. General: Nontoxic, no distress and appears stated age. Derm: Skin warm and dry, normal coloration for ethnicity. Head: Atraumatic, normocephalic and symmetric. Eyes: EOM's intact, no lid lag, and anicteric sclera Mouth: no lip lesions, mucus membranes moist Cardiovascular: regular rate and rhythm with normal S1S2, systolic murmur, positive posterior tibial pulses bilaterally, and cap refill < 2 seconds. Lungs: Respirations even, regular, and unlabored on room air. Lungs CTA bilaterally, no rhonchi, no rales, no wheezing, and no accessory muscle usage. Abdominal: soft, nontender to palpation, no guarding, no appreciable organomegaly Ext: ROM intact. No gross muscle atrophy, no edema, no contractures Neuro: Speech clear, face symmetrical and CN II-XII grossly intact with no noted focal neuro deficits Psych: Alert and oriented to person, place, time, and situation. Appropriate and pleasant affect. A total of 36 minutes of time were spent preparing this complex discharge summary. Pt was discharged on 02/15/2024 at 11:23 AM Patient was seen independently by Nurse Practitioner. This document was prepared using [employer] dictation software. Please allow for errors in cabin equipment supervisor while rare they do occur. . I reviewed the documentation as provided by the YESENIA above, who is the original author of this note. I agree with the documented assessment and plan, with the following changes: none Patient Condition at Discharge: Stable Plan - Discharge Summary Discharge Rx Participant: No New Discharge Prescriptions: New Aspirin 81 mg PO DAILY 30 Days #30 tab Continue Lisinopril-Hctz 20-12.5 mg [Zestoretic 20-12.5] 1 tab PO BID Clopidogrel [Plavix] 75 mg PO DAILY #30 tab Atorvastatin [Lipitor] 40 mg PO HS Discharge Medication List Lisinopril-Hctz 20-12.5 mg [Zestoretic 20-12.5] 1 tab PO BID 11/03/21 [History] Clopidogrel [Plavix] 75 mg PO DAILY #30 tab 07/10/22 [Rx] Aspirin 81 mg PO DAILY 30 Days #30 tab 02/13/24 [Rx] Atorvastatin [Lipitor] 40 mg PO HS 02/13/24 [History] Follow up Appointment(s)/Referral(s): Chad Shine MD [STAFF PHYSICIAN] - 1 Week [facility] [Primary Care Provider] - 1-2 days Patient Instructions/Handouts: Aortic Stenosis (DC) Activity/Diet/Wound Care/Special Instructions: Activity: As tolerated. Take breaks as needed. Diet: Heart healthy and carb consistent diet. Avoid salts, or foods with hidden salts such as canned or boxed foods and frozen dinners. Extra salt makes your heart work harder and traps the fluid in your body for longer. Special Instructions: Take all of your medications as directed and remember to keep all of your doctor's appointments and follow-up as needed. Again, thank you for your service it is always an honor having the opportunity to participate in the care of a !!! And Yesss Familia Mccoy!! Thank you for allowing us to participate in your care, it was truly a pleasure having you for our patient!!! . Discharge Disposition: HOME SELF-CARE
--- NOTE | 2024-02-15 14:34 | P.PN ---
Subjective Progress Note Date: 02/15/24 This is a 78-year-old male patient of Dr. Shine with past medical history of CAD with prior stenting of the mid left circumflex in 2020 with heart catheterization done in October 2021 which revealed patent stent in the OM 3 and intermediate lesion in the range of 60% of the OM 2, mild disease in the mid LAD and mild diffuse disease in the RCA, prior TAVR in November 2020, hypertension, dyslipidemia, carotid atherosclerosis, CVA. We have been asked to evaluate the patient for chest pain. 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 He describes the pain as pressure. It was up to an 8/9 out of 10 and by the time he arrived in the ER it was at a 7. He denies having any cough, fever or chills. At the time of this evaluation he is feeling fine. It is noted that on arrival to the emergency center, his blood pressure was 186/76 but improved without treatment. Blood pressure 145/87, heart rate 77, pulse ox 95% on room air. Discussed options of stress testing and he has agreeable to move forward with this today. EKG: Sinus rhythm with nonspecific ST-T wave changes Chest x-ray: No acute findings Laboratory studies: CBC, INR, electrolytes renal function all within normal limits. Troponin negative x 3. Liver function test are normal. Magnesium 1.7. Hemoglobin A1c 6.1 Home cardiac medications: Atorvastatin 40 mg at bedtime, Plavix 75 mg daily, lisinoprilhydrochlorothiazide 20-12.5 mg 1 twice daily. Echocardiogram performed in the office on 11/19/2023 revealed EF 55%, small hypokinetic area of the inferior wall at the base. Grade 2 diastolic dysfunction. Moderate left ventricular hypertrophy. Transcatheter AV prosthesis. Ascending aorta is enlarged. Mild mitral regurgitation. Mitral valve calcified. Mild tricuspid regurgitation. PASP 33 mmHg. Mild pulmonic regurgitation. Lexiscan Cardiolite stress test performed in the office on 09/04/2022 is a nondiagnostic electrocardiographic stress testing and response to Lexiscan. Abnormal myocardial perfusion imaging with evidence of reversible defect anteriorly. Normal left ventricular systolic function. 02/13 Patient seen and examined. Overall patient is doing well. He denies any further chest or neck pain. He did undergo dobutamine stress test which showed abnormal inducible anterior ischemia. His EKG portion had baseline changes however accentuation of baseline EKG abnormalities. 02/14 Patient is seen and examined. Yesterday, he underwent cardiac catheterization with Dr. Shine which revealed intermediate disease involving the LAD appears to be in the range of 50 to 60%, severe aortic stenosis of transcatheter aortic valve with mean gradient of 53 mmHg. Consider further evaluation of the aortic valve including TTE versus CINDY can be done as an outpatient. Blood pressure 171/73, pulse ox 96% on room air, heart rate in the 60s and 70s. Patient denies having any chest pain. No lightheadedness or dizziness. Physical examination: Gen: This is a 78-year-old male in no acute distress VS: reviewed HEENT: Head is atraumatic, normocephalic. Pupils equal, round. Sclerae is anicteric. NECK: Supple. No JVD. LUNGS: Clear to auscultation. No wheezes or rhonchi. No intercostal retractions. HEART: Regular rate and rhythm. Systolic murmur at the right upper sternal border. ABDOMEN: Soft No tenderness. EXTREMITIES: No pedal edema. No calf tenderness. NEUROLOGICAL: Patient is awake, alert and oriented x3. Assessment: Atypical chest pain, acute coronary syndrome ruled out History of coronary artery disease with prior stenting Status post TAVR Hypertension Hyperlipidemia Carotid atherosclerosis History of CVA Plan: Continue current cardiac medications. Patient is cleared for discharge and may follow-up in the office with Dr. Shine in 1 to 2 weeks. er aortic valve. Nurse practitioner note has been reviewed, I agree with documented findings and plan of care. Patient was seen and examined. Objective - Vital Signs Vital signs: Vital Signs Temp 97.9 F 02/15/24 08:00 Pulse 78 02/15/24 08:00 Resp 16 02/15/24 07:32 BP 171/73 02/15/24 08:00 Pulse Ox 96 02/15/24 08:00 FiO2 Intake & Output 02/14/24 02/15/24 02/15/24 18:59 06:59 18:59 Intake Total 1241.5 Output Total 200 Balance 1041.5 Intake: IV 301.5 Oral 940 Output: Urine 200 Other: # Voids 2 1 # Bowel Movements 1 - Labs CBC & Chem 7: 02/12/24 22:10 02/13/24 04:00
== END 2024-02-15 12:00 | disposition home or self-care (01) | DRG 287 ==
LOC: EC 21:54 → OBSVTOIN 23:01 → 6NMEDSUR 23:01
PROVIDERS: ADMIT Internal Medicine; ATTEND Internal Medicine
PROC: B2111ZZ Fluoroscopy of Multiple Coronary Arteries using Low Osmolar Contrast (ICD-10-PCS; 2024-02-14)
PROC: 4A023N7 Measurement of Cardiac Sampling and Pressure, Left Heart, Percutaneous Approach (ICD-10-PCS; principal; 2024-02-14 07:30)
DX: R07.89 Other chest pain (principal); R73.9 Hyperglycemia, unspecified; I10 Essential (primary) hypertension; I35.0 Nonrheumatic aortic (valve) stenosis; E78.5 Hyperlipidemia, unspecified; I25.10 Atherosclerotic heart disease of native coronary artery without angina pectoris; I65.29 Occlusion and stenosis of unspecified carotid artery; K21.9 Gastro-esophageal reflux disease without esophagitis; N40.0 Benign prostatic hyperplasia without lower urinary tract symptoms; Z79.02 Long term (current) use of antithrombotics/antiplatelets; Z79.82 Long term (current) use of aspirin; Z79.899 Other long term (current) drug therapy; Z86.73 Personal history of transient ischemic attack (TIA), and cerebral infarction without residual deficits; Z87.891 Personal history of nicotine dependence; Z95.2 Presence of prosthetic heart valve; Z95.5 Presence of coronary angioplasty implant and graft; Z96.1 Presence of intraocular lens; Z98.42 Cataract extraction status, left eye; Z88.0 Allergy status to penicillin
CPT/HCPCS: 36415; 71046; 80048; 80053; 83036; 83735; 84484; 85025; 85610; 85730; 93005; 93351; 93458; 94760; 99285

== ENCOUNTER 2024-03-21 10:48 | Day surgery (SDC) | payer MEDICARE, OTHER ==
[2024-03-21] MEDS: IV FLUID CONTINUATION 500 ML IV ONE (12:01)
[2024-03-21] MEDS: BENZOCAINE SPRAY 1 EACH MM ONE (12:28)
[2024-03-21] MEDS: fentaNYL (PF) 50 MCG/ML 2 ML AMP IVP ONE (12:29)
[2024-03-21] MEDS: MIDAZOLAM 2 MG/2 ML VIAL IVP ONE (12:29)
--- NOTE | 2024-03-21 12:50 | P.PCN ---
Date of Procedure: 03/21/24 Operative Findings: TRANSESOPHAGEAL ECHOCARDIOGRAM INFANTRY INDIRECT FIRE CREWMEMBER: ELLIE BURK MD, RPVI INDICATION: Aortic stenosis SEDATION: Conscious sedation COMPLICATION: None LEVEL OF SEDATION Moderate with sedation length of 18 minutes PROCEDURE DESCRIPTION: After obtaining an informed consent, the patient was brought to transesophageal echocardiogram room. Pulse oximetry and heart monitors were attached to the patient. The patient throat was sprayed using lidocaine. The patient was turned into left lateral position. After that a bite guard was placed. After an appropriate conscious sedation was initiated, the transesophageal echocardiogram was advanced through a bite guard into the mid esophagus. A 2-D echocardiogram images, color Doppler images, continuous wave images, pulse-wave images, of various cardiac structure were performed. After that the transesophageal echocardiogram probe was advanced into the stomach and fixed to obtain transgastric view was. The probe was brought into the mid esophagus. Inter-atrial septum was interrogated using 2D images, color Doppler images, and then contrast study. After that transesophageal echocardiogram was withdrawn out and upon withdrawing the descending thoracic aorta all the way up to the arch was evaluated. CONCLUSION: 1. Normal biventricular systolic function 2. Transcatheter valve with evidence of severe aortic stenosis and peak gradient of 71 mmHg and mean gradient of 41 mmHg 3. Mild mitral regurgitation 4. Normal tricuspid valve and pulmonary valve 5. Intact left atrial appendage and intact interatrial septum 6. No evidence of pericardial effusion
[2024-03-21 13:43] VITALS: RESP 16
[2024-03-21 13:58] VITALS: BP 144/86; PULSE 81
== END 2024-03-21 14:02 | disposition home or self-care (01) ==
LOC: CATHCVL 10:48
PROVIDERS: ATTEND Internal Medicine Interventional Cardiology
DX: I35.0 Nonrheumatic aortic (valve) stenosis (principal); I34.0 Nonrheumatic mitral (valve) insufficiency; I25.10 Atherosclerotic heart disease of native coronary artery without angina pectoris; I10 Essential (primary) hypertension; E78.5 Hyperlipidemia, unspecified; I65.29 Occlusion and stenosis of unspecified carotid artery; R01.1 Cardiac murmur, unspecified; Z86.73 Personal history of transient ischemic attack (TIA), and cerebral infarction without residual deficits; Z95.2 Presence of prosthetic heart valve; Z79.899 Other long term (current) drug therapy; Z88.0 Allergy status to penicillin
CPT/HCPCS: 93312; 93320; 93325; J2250; J3010

== ENCOUNTER → 2024-08-08 | Day surgery (SDC) | payer OTHER ==
[2024-08-07 09:29] VITALS: BMI 29.6
[~2024-08-08] MED LIST changes: +ALPRAZolam 0.25 MG TAB PO PRN; +ALPRAZolam 0.5 MG TAB PO PRN; +ATORVASTATIN 80 MG TAB PO STA; -LIDOCAINE 1% INJ 10MG/ML (20 ML MDV) ONE; +NITROGLYCERIN SL TABS 0.4 MG TAB SUBLINGUAL PRN; -PROPOFOL 10 MG/ML 20 ML VIAL IV ONE; +RX INFO: IV CONTRAST WAS GIVEN 1 EACH MISC MISCELLANE PRN; +SODIUM CHLORIDE 0.9% 1,000 ML IV SCH
[2024-08-08] MEDS: IV FLUID CONTINUATION 1,000 ML IV ONE ×2 (08:42→15:50)
[2024-08-08] MEDS: SODIUM CHLORIDE 0.9% 1,000 ML in EMPTY BAG 1 BAG IV SCH (08:53)
[2024-08-08 09:13] VITALS: TEMP 97.9
[2024-08-08] MEDS: ASPIRIN 325 MG TAB PO STA (09:18)
[2024-08-08] MEDS: LIDOCAINE 1% INJ 10MG/ML (20 ML MDV) SQ ONE (11:41)
[2024-08-08] MEDS: MIDAZOLAM 2 MG/2 ML VIAL IVP ONE (11:41)
[2024-08-08] MEDS: HEPARIN SODIUM 1,000 UN/ML (10ML VL) IV ONE (11:46)
[2024-08-08] MEDS: VERAPAMIL SYRINGE (5 MG/10 ML) INTRAARTER ONE (11:46)
[2024-08-08] MEDS: IOPAMIDOL-370 100ML BTL INJ ONE (11:55)
[2024-08-08] MEDS: HEPARIN SODIUM,PORCINE (1 ML) 2,500 UNIT in SODIUM CHLORIDE 0.9% 250 ML IRRIGATION PRN (11:55)
[2024-08-08] MEDS: HEPARIN SODIUM,PORCINE 10,000 UNIT in SODIUM CHLORIDE 0.9% 1,000 ML IRRIGATION PRN (11:55)
--- NOTE | 2024-08-08 12:11 | P.PCN ---
Date of Procedure: 08/08/24 Operative Findings: CARDIAC CATHETERIZATION PERFORMING PHYSICIAN: Chad Shine MD, RPVI PROCEDURE PERFORMED: 1. Selective right and left coronary angiogram and IFR of the LAD 2. Left heart catheterization 3. Ultrasound-guided access of the right radial artery INDICATION: Symptomatic 79-year-old gentleman with known CAD and also valvular heart disease status post COMPLICATION: None APPROACH: Right radial artery LEVEL OF SEDATION: Moderate with a sedation length of 23 minutes PROCEDURE DESCRIPTION: After obtaining an informed consent, the patient was brought to cardiac blood bank laboratory professional. Local anesthesia was performed using lidocaine subcutaneously. The right radial artery was cannulated using Seldinger technique, under ultrasound guidance, the guidewire passed easily, following that we advanced a 5-Moroccan sheath dilator assembly, the wire and dilator were removed and sheath was flushed. Following that, 2 mg of verapamil along with 5000 unit heparin were given. Selective right and left coronary angiogram using 5 Moroccan JR4 catheter. Also crossing the aortic valve was performed using JR4 catheter After that I decided to do an IFR of the LAD. After zeroing the Dobler wire and equalized in between the Dobler wire and catheter which was JR4 catheter I did wire the LAD after the left main was engaged and subsequently we did an IFR of the LAD which came to be at 0.58 The procedure was completed there was no complication. SELECTIVE CORONARY ANGIOGRAM: The right coronary artery: Large-caliber vessel and a dominant vessel with mild diffuse disease with no evidence of high-grade stenosis Left main: Is angiographically normal The left circumflex: Large-caliber vessel nondominant vessel with no evidence of high-grade stenosis The left anterior descending artery: The mid LAD has intermediate to severe lesion documented to be flow-limiting by Doppler wire with IFR of 0.58 HEMODYNAMICS: The LVEDP was 18 mmHg and there was significant gradient across aortic valve with a mean of 56 mm zuri CONCLUSION: 1. Severe disease involving the mid LAD documented to be flow-limiting by Doppler wire 2. Significant stenosis of transcatheter valve with a mean gradient of 56 mm POSTPROCEDURE MANAGEMENT: Discussed with the patient the options including aortic valve replacement versus ballooning the transcatheter valve
[2024-08-08 19:23] VITALS: RESP 16
[2024-08-08 19:24] VITALS: BP 117/62; PULSE 72
== END ==
LOC: CATHCVL 08:21
PROVIDERS: ATTEND Internal Medicine Interventional Cardiology
DX: I25.10 Atherosclerotic heart disease of native coronary artery without angina pectoris (principal); I38 Endocarditis, valve unspecified; I10 Essential (primary) hypertension; E78.5 Hyperlipidemia, unspecified; Z72.0 Tobacco use; Z88.0 Allergy status to penicillin; Z86.73 Personal history of transient ischemic attack (TIA), and cerebral infarction without residual deficits; Z95.2 Presence of prosthetic heart valve; Z79.02 Long term (current) use of antithrombotics/antiplatelets; Z79.899 Other long term (current) drug therapy
CPT/HCPCS: 93458; 93799; 99152; 99153; C1894; C1769; J2250; J1644 ×3; J2003; Q9967

== ENCOUNTER → 2024-09-05 | Outpatient (CLI) | payer OTHER ==
[2024-09-05 11:24] LABS: Partial Thromboplastin Time 22.6 sec (22.0-30.0); Prothrombin Time 11.1 sec (10.0-12.5)
--- NOTE | 2024-09-05 11:57 | XR ---
EXAMINATION TYPE: XR chest 2V DATE OF EXAM: 09/05/2024 11:43 AM COMPARISON: Chest radiographs from 07/08/2022 TECHNIQUE: XR chest 2V Frontal and lateral views of the chest. CLINICAL INDICATION:Male, 79 years old with history of CAD; FINDINGS: Lungs/Pleura: There is no evidence of pleural effusion, focal consolidation, or pneumothorax. Pulmonary vascularity: Unremarkable. Heart/mediastinum: Cardiomediastinal silhouette is stable. Post aortic valve repair changes. Atherosc lerotic calcifications are seen in the aorta. Musculoskeletal: No acute osseous pathology. DISH of the thoracic spine. IMPRESSION: No acute cardiopulmonary disease/process. [facility], , 09/05/2024 11:55 AM
--- NOTE | 2024-09-05 12:10 | CT ---
EXAMINATION TYPE: CT chest wo con CT DLP: 495 mGycm, Automated exposure control for dose reduction was used. DATE OF EXAM: 09/05/2024 12:03 PM COMPARISON: Chest radiograph from same day. CT TAVR 11/23/2020 CLINICAL INDICATION:Male, 79 years old with history of CAD; PHH, Pre op heart surgery. TECHNIQUE: Multiple axial images were obtained through the chest without IV contrast. Lack of IV or o ral contrast limits evaluation of solid and hollow organ viscera. . Coronal and sagittal reformats re viewed. FINDINGS: LUNGS/ PLEURA: No pleural effusion, pneumothorax, focal consolidation. Elevation of the right hemidia phragm. No suspicious pulmonary nodule or mass. AIRWAY: Patent and unremarkable.. HEART: Cardiomegaly is demonstrated.Post surgical changes from TAVR. No pericardial effusion. Moderat e to severe coronary artery calcifications present. MEDIASTINUM: No gross evidence of adenopathy. VASCULATURE: No aortic aneurysm. Bovine aortic arch. Mild atherosclerotic calcification of the aorta and its branches. MUSCULOSKELETAL: No acute osseous abnormalities. DISH of the thoracic spine. SOFT TISSUES/LYMPH NODES: Mild bilateral gynecomastia. LOWER NECK: No significant findings. UPPER ABDOMEN: Small hiatal hernia. IMPRESSION: 1. No acute thoracic process. 2. Postsurgical changes from TAVR. 3. Moderate to severe coronary arterial calcifications. [facility], , 09/05/2024 12:07 PM
--- NOTE | 2024-09-05 13:50 | US ---
EXAMINATION TYPE: US vein mapping BILAT DATE OF EXAM: 09/05/2024 1:29 PM COMPARISON: NONE CLINICAL INDICATION: Male, 79 years old with history of OPEN HEART; , Preop- Cardiac Surgery TECHNIQUE: Grayscale and color Doppler imaging of the lower extremity venous system. SIDE PERFORMED: Bilateral FINDINGS: DUPLEX FINDINGS: Greater Saphenous: Color flow seen Lesser Saphenous: Color flow seen Measurements in mm: Right Greater Saphenous: Groin: 6.0x3.8 mm High Thigh: 4.2x3.2 mm Mid Thigh: 3.2x3.3 mm Above Knee: 4.4x3.1 mm Knee: 3.8x2.1 mm Below Knee: 2.0x1.1 mm Mid Calf: 3.4x2.3 mm At Ankle: 3.6x2.3 mm Left Greater Saphenous: Groin: 2.6x3.2 mm High Thigh: 3.0x2.2 mm Mid Thigh: 2.7x2.3 mm Above Knee: 2.6x2.0 mm Knee: 3.2x1.8 mm Below Knee: 3.7x2.4 mm Mid Calf: 2.5x2.0 mm At Ankle: 2.2x2.0 mm IMPRESSION: 1. No evidence for occlusion. 2. GSV measurements listed above. 3. Performing surgeon to determine viability as conduit. [facility], , 09/05/2024 1:48 PM
--- NOTE | 2024-09-05 13:50 | US ---
EXAMINATION TYPE: US carotid duplex BILAT DATE OF EXAM: 09/05/2024 COMPARISON: NONE CLINICAL INDICATION: Male, 79 years old with history of OPEN HEART; Additional History: .... TECHNIQUE: Grayscale, color Doppler and spectral Doppler evaluation of the bilateral carotid systems and vertebral arteries. Indirect Doppler criteria was utilized. FINDINGS: EXAM MEASUREMENTS: RIGHT: Peak Systolic Velocity (PSV) cm/sec ----- Right CCA: 74.4 ----- Right ICA: 66.8 ----- Right ECA: 65.2 ICA/CCA ratio: 0.9 RIGHT: End Diastole cm/sec ----- Right CCA: 14.2 ----- Right ICA: 21.7 ----- Right ECA: 8.6 LEFT: Peak Systolic Velocity (PSV) cm/sec ----- Left CCA: 74.4 ----- Left ICA: 71.3 ----- Left ECA: 78.7 ICA/CCA ratio: 1.0 LEFT: End Diastole cm/sec ----- Left CCA: 11.9 ----- Left ICA: 17.6 ----- Left ECA: 10.7 VERTEBRALS (direction of flow): Right Vertebral: Antegrade Left Vertebral: Antegrade Rhythm: Normal BATCH MIXER OPERATOR NOTES: no elevated velocities or significant stenosis seen bilaterally, minimal plaque se en within bilat bulbs Color Doppler imaging shows patency with blood flow throughout the carotid artery. Spectral waveforms are within normal limits. IMPRESSION: Right: No hemodynamically significant stenosis. Left: No hemodynamically significant stenosis. Criteria for Assigning % of Stenosis / Diameter reduction (Estimation based on the indirect measurements of the internal carotid artery velocities (ICA PSV). 1. Normal (no stenosis)=ICA PSV < 180 cm/s: ratio < 2.0: ICA EDV<40 cm/s. 2. Less than 50% stenosis=ICA PSV < 180 cm/s: ratio < 2.0: ICA EDV<40 cm/s. 3. 50 to 69% stenosis=ICA PSV of 180 to 230 cm/s: ration 2.0 ? 4.0: ICA EDV 40-100 cm/s. PSV 125-180 cm/sec and ICA/CCA PSV Ratio ? 2.0 is also consistent with 50-69% stenosis 4. Greater than 70% stenosis to near occlusion= ICA PSV > 230 cm/s: ratio > 4.0: ICA EDV > 100 cm/s. 5. Near occlusion= ICA PSV velocities may be low or undetectable: variable ratio and ICA EDV. 6. Total occlusion=unable to detect flow. [facility], , 09/05/2024 1:48 PM
[2024-09-05 15:54] LABS: HGB 16.4 g/dL (13.0-17.0); MCHC 32.8 g/dL (32.0-37.0); MCV 91.4 FL (80.0-97.0); Mean Platelet Volume 10.6 FL (9.5-12.2); NRBC Per 100 WBC 0 X 10*3/uL (0.00-0.01); Platelet Count 158 X 10*3/uL (140-440); RBC 5.47 X 10*6/uL (4.40-5.60); RDW 14.2 % (11.5-14.5); WBC 7.72 X 10*3/uL (4.50-10.00)
[2024-09-05 16:53] LABS: Hepatitis A Antibody IgM Nonreactive (Nonreactive); Hepatitis B Core IgM Nonreactive (Nonreactive); Hepatitis B Surface Antigen Nonreactive (Nonreactive); Hepatitis C IgG Antibody Nonreactive (Nonreactive)
[2024-09-05 17:06] LABS: ALT 28 U/L (10-49); AST 22 U/L (14-35); Albumin 4.3 g/dL (3.8-4.9); Albumin/Globulin Ratio 1.59 Ratio (1.60-3.17); Alkaline Phosphatase 82 U/L (41-126); Blood Urea Nitrogen 11.2 mg/dL (9.0-27.0); Calcium 9.4 mg/dL (8.7-10.3); Carbon Dioxide 25.6 mmol/L (21.6-31.8); Chloride 103 mmol/L (96-109); Chol/HDL Ratio 4.09 Ratio; Globulin 2.7 g/dL (1.6-3.3); Glucose 100 mg/dL (70-110); Potassium 4.4 mmol/L (3.5-5.5); Sodium 140 mmol/L (135-145); Total Bilirubin 1.2 mg/dL (0.3-1.2)
--- NOTE | 2024-09-07 11:50 | CA ---
Transthoracic Echo Report Name: Yazan Garcia Age: 79 Gender: M : 1945 Exam Date: 09/05/2024 12:05 Exam Location: [facility] Ht (in): 67 Wt (lb): 185 Ordering Physician: Gurdeep Liu MD Attending/Referring Phys: [id number], Noe Stereotype Molder Carol Zambrano, [facility] Procedure CPT: Indications: CAD Cardiac Hx: TAVR Technical Quality: Fair Contrast 1: Total Dose (mL): Contrast 2: Total Dose (mL): MEASUREMENTS (Male / Female) Normal Values 2D ECHO LV Diastolic Diameter PLAX 3.9 cm 4.2 - 5.9 / 3.9 - 5.3 cm LV Systolic Diameter PLAX 2.3 cm IVS Diastolic Thickness 1.5 cm 0.6 - 1.0 / 0.6 - 0.9 cm LVPW Diastolic Thickness 1.3 cm 0.6 - 1.0 / 0.6 - 0.9 cm LV Relative Wall Thickness 0.7 RV Internal Dim ED PLAX 2.9 cm LVOT Diameter 2.0 cm LA Systolic Diameter LX 3.9 cm 3.0 - 4.0 / 2.7 - 3.8 cm LV Diastolic Volume MOD BP 68.1 cm??? 67 - 155 / 56 - 104 cm??? LV Systolic Volume MOD BP 30.2 cm??? 22 - 58 / 19 - 49 cm??? LV Ejection Fraction MOD BP 55.6 % >= 55 % LV Cardiac Index MOD BP 1430.9 cm???/min???m??? LV Diastolic Volume MOD 4C 72.4 cm??? LV Systolic Volume MOD 4C 38.3 cm??? LV Ejection Fraction MOD 4C 47.1 % LV Cardiac Index MOD 4C 1287.5 cm???/min???m??? LV Diastolic Length 4C 7.4 cm LV Systolic Length 4C 7.0 cm LV Diastolic Volume MOD 2C 60.9 cm??? LV Systolic Volume MOD 2C 20.4 cm??? LV Ejection Fraction MOD 2C 66.6 % LV Cardiac Index MOD 2C 1530.4 cm???/min???m??? LV Diastolic Length 2C 7.0 cm LV Systolic Length 2C 6.3 cm LA Volume 39.7 cm??? 18 - 58 / 22 - 52 cm??? LA Volume Index 19.7 cm???/m??? 16 - 28 cm???/m??? M-MODE Aortic Root Diameter MM 2.6 cm LA Systolic Diameter MM 3.9 cm LA Ao Ratio MM 1.5 DOPPLER AV Peak Velocity 436.5 cm/s AV Peak Gradient 76.2 mmHg AV Mean Velocity 352.3 cm/s AV Mean Gradient 52.8 mmHg AV Velocity Time Integral 100.0 cm AI Peak Velocity 380.6 cm/s AI Peak Gradient 57.9 mmHg AI Pressure Half Time 495.7 ms LVOT Peak Velocity 79.4 cm/s LVOT Peak Gradient 2.5 mmHg LVOT Velocity Time Integral 18.3 cm LVOT Stroke Volume 55.1 cm??? LVOT Stroke Volume Index 28.1 ml/m??? LVOT Cardiac Index 2078.4 cm???/min???m??? AV Area Cont Eq vti 0.6 cm??? AV Area Cont Eq pk 0.5 cm??? MV Area PHT 2.9 cm??? Mitral E Point Velocity 72.9 cm/s Mitral A Point Velocity 109.0 cm/s Mitral E to A Ratio 0.7 MV Deceleration Time 259.9 ms FINDINGS Left Ventricle Left ventricular ejection fraction is estimated at 60-65%. Moderately increased septal wall thickness. Normal left ventricular systolic function with no obvious regional wall motion abnormalities. Left ventricular cavity size normal. Right Ventricle Normal right ventricular size and function. Right ventricular systolic pressure within normal limits. Right Atrium Normal right atrial size. Left Atrium Mild left atrial dilatation. Mitral Valve Structurally normal mitral valve. Mild mitral regurgitation. No mitral stenosis. Aortic Valve Bioprosthetic aortic valve stenosis with a peak velocity of 4.36 m/s, peak gradient 76mmHg, mean gradient 53 mmHg. trace paravalvular aortic regurgitation. Prosthetic aortic valve regurgitation. Tricuspid Valve Structurally normal tricuspid valve. Trace tricuspid regurgitation. No tricuspid stenosis. Pulmonic Valve Structurally normal pulmonic valve. Trace pulmonic regurgitation. No pulmonic stenosis. Pericardium No pericardial or pleural effusion. Aorta Normal size aortic root and proximal ascending aorta. 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
== END | disposition home or self-care (01) ==
LOC: LABWHC1 09:02
PROVIDERS: ATTEND Thoracic Surgery (Cardiothoracic Vascular Surgery)
DX: I35.0 Nonrheumatic aortic (valve) stenosis (principal); I25.10 Atherosclerotic heart disease of native coronary artery without angina pectoris
CPT/HCPCS: 36415; 71046; 71250; 80053; 80061; 80074; 83036; 83735; 84443; 85027; 85610; 85730; 86850; 86900; 86901; 86920; 87070; 93306; 93880; 93970; 94150

== ENCOUNTER → 2024-09-08 | Outpatient (CLI) | payer OTHER ==
[2024-09-08 15:57] LABS: Bacteria,Urine Many /hpf; Mucus,Urine Rare /hpf; RBC,Urine 1 /hpf (0-5); WBC,Urine 8 /hpf (0-5)
[2024-09-08 17:16] LABS: Appearance,Urine Clear (Clear); Bilirubin,Urine Negative (Negative); Blood,Urine Negative (Negative); Color,Urine Yellow; Glucose,Urine (UA) Negative (Negative); Ketones,Urine Negative (Negative); Leukocyte Esterase,Urine Small (Negative); Nitrite,Urine Positive (Negative); Protein,Urine Negative (Negative); Specific Gravity,Urine 1.021 (1.001-1.035); Urobilinogen,Urine <2.0 mg/dL (<2.0)
== END | disposition home or self-care (01) ==
LOC: LABPAT 13:45
PROVIDERS: ATTEND Thoracic Surgery (Cardiothoracic Vascular Surgery)
DX: Z01.812 Encounter for preprocedural laboratory examination (principal); I25.10 Atherosclerotic heart disease of native coronary artery without angina pectoris; I35.0 Nonrheumatic aortic (valve) stenosis
CPT/HCPCS: 81001; 87077; 87086; 87186

== ENCOUNTER 2024-09-11 05:34 | Inpatient (IN) | payer OTHER ==
[2024-09-11] MEDS: ATORVASTATIN 10 MG TAB PO ONE (06:10)
[2024-09-11] MEDS: METOPROLOL TARTRATE 12.5 MG TAB PO ONE (06:11)
--- NOTE | 2024-09-11 06:16 | P.PN ---
Progress Note - Text Progress Note Date: 09/11/24 5 meter walk test completed: #1 2.59 sec #2 2.60 sec #3 2.15 sec CFS 4 STS risk score calculated and discussed with patient.
[2024-09-11] MEDS: IV FLUID CONTINUATION 1,000 ML IV ONE (06:40)
[2024-09-11] MEDS ORDERED: PROPOFOL 10 MG/ML 20 ML VIAL IV ONE (07:34)
[2024-09-11] MEDS ORDERED: VECURONIUM 10 MG VIAL IV ONE (07:34)
[2024-09-11] MEDS ORDERED: NITROGLYCERIN-D5W PMX 50 MG/250 ML BOTTLE IV ONE (07:34)
[2024-09-11] MEDS ORDERED: ALBUMIN HUMAN 5% (25gm) 500 ML VIAL IVPB ONE (07:34)
[2024-09-11] MEDS ORDERED: TRANEXAMIC 1,000 MG/100ML-NACL PREMIX BAG ONE (07:34)
[2024-09-11] MEDS ORDERED: ePHEDrine 50 MG/ML 1 ML VIAL ONE (07:34)
[2024-09-11] MEDS ORDERED: fentaNYL (PF) 50 MCG/ML 50 ML VIAL ONE (07:34)
[2024-09-11] MEDS ORDERED: HEPARIN SODIUM,PORCINE 5,000 UNIT/ML 1 ML VIAL ONE (07:34)
[2024-09-11] MEDS ORDERED: CALCIUM CHLORIDE 100 MG/ML 10 ML SYRINGE ONE (07:34)
[2024-09-11] MEDS ORDERED: PHENYLEPHRINE 10 MG/ML VIAL ONE (07:34)
[2024-09-11] MEDS ORDERED: MIDAZOLAM HCL 10 MG/10 ML VIAL ONE (07:34)
[2024-09-11] MEDS ORDERED: LIDOCAINE 2% SYG (PF) 100 MG/5 ML ONE (07:34)
[2024-09-11] MEDS: SODIUM CHLORIDE 0.9% 100 ML with ceFAZolin 2,000 MG IV ONE (08:00)
[2024-09-11 08:31] LABS: ABG Base Excess 0.4 mmol/L; ABG Glucose Whole Blood 108 mg/dL (75-99); ABG HCO3 26 mmol/L (21-25); ABG Hematocrit 41 % (34.0-46.0); ABG Ionized Calcium 4.8 mg/dL (4.5-5.3); ABG Lactic Acid Whole Blood 1.2 mmol/L (0.5-1.6); ABG Oxygen Saturation >99.4 % (94-97); ABG PCO2 46 mmHg (35-45); ABG PH 7.37 (7.35-7.45); ABG Potassium Whole Blood 3.9 mmol/L (3.4-4.5); ABG Sodium Whole Blood 142 mmol/L (135-146); Allen Test Performed? Yes
[2024-09-11] MEDS: SODIUM CHLORIDE 0.9% 500 ML 500 ML with HEPARIN SODIUM,PORCINE (1 ML) 5,000 UNIT IV ONE (09:12)
[2024-09-11] MEDS: PAPAVERINE 360 MG in SODIUM CHLORIDE 0.9% 90 ML IV ONE ×2 (09:12→11:53)
[2024-09-11] MEDS: ceFAZolin 1,000 MG in SODIUM CHLORIDE 0.9% 1,000 ML IRRIGATION ONE (09:13)
[2024-09-11 10:00] LABS: ABG Base Excess -7.3 mmol/L; ABG Glucose Whole Blood 82 mg/dL (75-99); ABG HCO3 17 mmol/L (21-25); ABG Hematocrit 27 % (34.0-46.0); ABG Lactic Acid Whole Blood 0.9 mmol/L (0.5-1.6); ABG PCO2 28 mmHg (35-45); ABG PH 7.39 (7.35-7.45); ABG PO2 174 mmHg (83-108); ABG Sodium Whole Blood 144 mmol/L (135-146); ABG TCO2 16 mmol/L (19-24); Allen Test Performed? Yes
[2024-09-11 10:03] LABS: ABG Glucose Whole Blood 114 mg/dL (75-99); ABG HCO3 25 mmol/L (21-25); ABG Hematocrit 35 % (34.0-46.0); ABG Ionized Calcium 4.6 mg/dL (4.5-5.3); ABG Lactic Acid Whole Blood 1.2 mmol/L (0.5-1.6); ABG Oxygen Saturation 99.1 % (94-97); ABG PCO2 41 mmHg (35-45); ABG PH 7.39 (7.35-7.45); ABG PO2 166 mmHg (83-108); ABG Sodium Whole Blood 142 mmol/L (135-146); ABG TCO2 23 mmol/L (19-24); Allen Test Performed? Yes
[2024-09-11 10:27] LABS: ABG Glucose Whole Blood 100 mg/dL (75-99); ABG HCO3 26 mmol/L (21-25); ABG Hematocrit 27 % (34.0-46.0); ABG Ionized Calcium 4.1 mg/dL (4.5-5.3); ABG Lactic Acid Whole Blood 1.2 mmol/L (0.5-1.6); ABG Oxygen Saturation >99.4 % (94-97); ABG PCO2 36 mmHg (35-45); ABG PH 7.47 (7.35-7.45); ABG PO2 415 mmHg (83-108); ABG Potassium Whole Blood 4.5 mmol/L (3.4-4.5); ABG Sodium Whole Blood 140 mmol/L (135-146); Allen Test Performed? Yes
[2024-09-11 10:58] LABS: ABG Base Excess 2.2 mmol/L; ABG Glucose Whole Blood 113 mg/dL (75-99); ABG HCO3 25 mmol/L (21-25); ABG Hematocrit 28 % (34.0-46.0); ABG Ionized Calcium 4.2 mg/dL (4.5-5.3); ABG Lactic Acid Whole Blood 1.5 mmol/L (0.5-1.6); ABG Oxygen Saturation >99.4 % (94-97); ABG PCO2 33 mmHg (35-45); ABG PH 7.49 (7.35-7.45); ABG Potassium Whole Blood 4.3 mmol/L (3.4-4.5); ABG Sodium Whole Blood 141 mmol/L (135-146); Allen Test Performed? Yes
[2024-09-11 11:35] LABS: ABG Base Excess 0.6 mmol/L; ABG Glucose Whole Blood 116 mg/dL (75-99); ABG HCO3 25 mmol/L (21-25); ABG Hematocrit 29 % (34.0-46.0); ABG Ionized Calcium 4.3 mg/dL (4.5-5.3); ABG Lactic Acid Whole Blood 1.4 mmol/L (0.5-1.6); ABG Oxygen Saturation >99.4 % (94-97); ABG PCO2 39 mmHg (35-45); ABG PH 7.42 (7.35-7.45); ABG Potassium Whole Blood 4.3 mmol/L (3.4-4.5); ABG Sodium Whole Blood 139 mmol/L (135-146); Allen Test Performed? Yes
[2024-09-11] MEDS: ALBUMIN HUMAN 25% 50 ML IV ONE (11:46)
[2024-09-11] MEDS: ASPIRIN 325 MG TAB PO ONE (11:46)
[2024-09-11] MEDS: ALBUMIN HUMAN 5% 500 ML IVPB ONE (11:46)
[2024-09-11] MEDS: CARDIOPLEGIC SOLN (K+ 16 MEQ/L 1,000 ML with SODIUM BICARB (1 MEQ/ML) 20 ML, LIDOCAINE ... PERFUSION ONE (11:47)
[2024-09-11] MEDS: ceFAZolin 1,000 MG in SODIUM CHLORIDE 0.9% IRRIGATIO 1,000 ML IRRIGATION ONE (11:47)
[2024-09-11] MEDS: CLEVIDIPINE BUTYRATE 25 MG in EMPTY BAG 1 BAG IV ONE (11:47)
[2024-09-11] MEDS: CALCIUM CHLORIDE 100 MG/ML 10 ML SYRINGE IV ONE (11:47)
[2024-09-11] MEDS: CHLORHEXIDINE GLUCONATE 15 ML CUP MUCOUS MEM ONE (11:47)
[2024-09-11] MEDS: ceFAZolin 2 GM in DEXTROSE 5% IN WATER 50 ML IVPB ONE ×2 (11:47)
[2024-09-11] MEDS: HEPARIN SODIUM,PORCINE (1 ML) 5,000 UNIT in SODIUM CHLORIDE 0.9% 500 ML 500 ML IV ONE (11:48)
[2024-09-11] MEDS: HEPARIN SODIUM 1,000 UN/ML (10ML VL) IV ONE (11:48)
[2024-09-11] MEDS: INSULIN REGULAR 100 UNIT in SODIUM CHLORIDE 0.9% 100 ML IV ONE (11:51)
[2024-09-11] MEDS: NITROGLYCERIN SL TABS 0.4 MG TAB SUBLINGUAL ONE (11:52)
[2024-09-11] MEDS: MAGNESIUM SULFATE 16.24 MEQ in EMPTY SYRINGE 1 SYR IV ONE (11:52)
[2024-09-11] MEDS: NITROGLYCERIN-D5W PMX 25 MG/250 ML BTL IV ONE (11:52)
[2024-09-11] MEDS: LACTATED RINGERS 1,000 ML IV ONE (11:52)
[2024-09-11] MEDS: MANNITOL 25% 12.5 GM/50 ML VIAL IV ONE (11:52)
[2024-09-11] MEDS: NOREPINEPHRINE 4 MG in SODIUM CHLORIDE 0.9% 250 ML IV ONE (11:53)
[2024-09-11] MEDS: NITROGLYCERIN-D5W PMX 50 MG in DEXTROSE/WATER 1 250ML.BAG IV ONE (11:53)
[2024-09-11] MEDS: PHENYLEPHRINE 10 MG/ML VIAL IV ONE (11:53)
[2024-09-11] MEDS: PROTAMINE SULFATE 10 MG/ML 25 ML VIAL IV ONE (11:54)
[2024-09-11] MEDS: PHENYLEPHRINE 40 MG in SODIUM CHLORIDE 0.9% 250 ML IV ONE (11:54)
[2024-09-11] MEDS: SODIUM BICARB 8.4% 50 ML SYR (1 MEQ/ML) IV ONE (11:54)
[2024-09-11] MEDS: PROTAMINE SULFATE 250 MG in EMPTY BAG 1 BAG IV ONE (11:54)
[2024-09-11] MEDS: propofoL 1,000 MG/100 ML VIAL IV ONE (11:54)
[2024-09-11] MEDS: SODIUM CHLORIDE 0.9% 1,000 ML IV ONE (11:55)
[2024-09-11] MEDS: MUPIROCIN 2% OINT 22 GM TUBE NASAL ONE (11:55)
[2024-09-11] MEDS: TRANEXAMIC ACID 2,000 MG in SODIUM CHLORIDE 0.9% 80 ML IV ONE (11:55)
[2024-09-11 12:26] LABS: ABG PO2 >420 mmHg (83-108)
--- NOTE | 2024-09-11 12:30 | P.ANPRN ---
Procedure Note - Anesthesia - Invasive Line Right Central Line Time Out Performed: Yes ([id number]) Date of Procedure: 09/11/24 Time of Procedure: 07:14 Location of Patient: Phase I Preparation: Sterile Prep, Sterile Dressing Central Line Location: Internal Jugular (right) Ultrasound Used: Yes Purpose - Visualization and Identification of Vasculature: Yes Needle Guage: 18g angio Image Stored and Saved: Yes Narrative: Invasive line placement per sterile protocol utilized. Anesthesia note Procedure: Right internal jugular central venous catheter insertion: 8.5-[place] Cordis Sterile protocol followed. Right neck prepped. Ultrasound used. Lidocaine 1% used. Using ultrasound local anesthetic was instilled site over right Internal Jugular vein. Angiocath was used to gain access via ultrasound. Once free flow non-pulsatile blood flow was confirmed, 12 inch extension tubing was then placed on Angiocath. Once central venous pressure was confirmed, J-wire was then placed through Angiocath. Angiocath was then withdrawn. Local was instilled at J-wire site. Small skin cori was then made with provided sterile scalpel. 8.5- [place] Cordis was then inserted over the wire while maintaining control of wire at all times. Uneventful insertion with dilation. Free flow nonpulsatile blood flow through Cordis. Hooked up to IV tubing. Secured with suture. Dressings applied. Drapes Removed. Attempts x1.
[2024-09-11 12:31] LABS: ABG PO2 >420 mmHg (83-108)
--- NOTE | 2024-09-11 12:31 | P.ANPRN ---
Procedure Note - Anesthesia - Invasive Line Right [place] Margarita Time Out Performed: Yes Date of Procedure: 09/11/24 Time of Procedure: 07:21 Location of Patient: Phase I Preparation: Sterile Prep, Sterile Dressing [place] Line Location: Internal Jugular (Right IJ) Narrative: Invasive line placement per sterile protocol utilized. Anesthesia note Procedure right [place]-Margarita catheter placed through right internal jugular central venous catheter Sterile protocol maintained from previous procedure. [place]Marg[place]ita catheter sterilely placed in sheath and flushed prior to insertion. After advancing 15 cm [place]Marg[place]ita catheter was then slowly inserted with balloon up. Advanced through CVP, RV to PA waveform. [place]Marg[place]ita catheter wedged around 54 cm. Balloon down. Catheter withdrawn 5 cm. . Seated at the hub at 49 cm. At sheath at 52 cm depth no wedge. Proximal and distal sites locked on sheath. Attempts x1. Sterile drapes removed and dressings applied.
[2024-09-11 12:32] LABS: ABG PO2 >420 mmHg (83-108)
[2024-09-11 12:44] LABS: ABG Base Excess -1.6 mmol/L; ABG Glucose Whole Blood 123 mg/dL (75-99); ABG HCO3 24 mmol/L (21-25); ABG Hematocrit 31 % (34.0-46.0); ABG Lactic Acid Whole Blood 1.7 mmol/L (0.5-1.6); ABG Oxygen Saturation 99.1 % (94-97); ABG PCO2 40 mmHg (35-45); ABG PH 7.38 (7.35-7.45); ABG PO2 335 mmHg (83-108); ABG Potassium Whole Blood 3.7 mmol/L (3.4-4.5); ABG Sodium Whole Blood 142 mmol/L (135-146); ABG TCO2 22 mmol/L (19-24); Allen Test Performed? Yes
[2024-09-11 12:56] LABS: ABG Base Excess -1.4 mmol/L; ABG Glucose Whole Blood 148 mg/dL (75-99); ABG HCO3 24 mmol/L (21-25); ABG Hematocrit 31 % (34.0-46.0); ABG Ionized Calcium 4.7 mg/dL (4.5-5.3); ABG Lactic Acid Whole Blood 1.8 mmol/L (0.5-1.6); ABG PCO2 45 mmHg (35-45); ABG PH 7.35 (7.35-7.45); ABG Potassium Whole Blood 4.2 mmol/L (3.4-4.5); ABG Sodium Whole Blood 141 mmol/L (135-146); ABG TCO2 23 mmol/L (19-24); Allen Test Performed? Yes
--- NOTE | 2024-09-11 13:12 | P.ANPRN ---
Procedure Note - Anesthesia - CINDY Intraop Pre Bypass CINDY Intraop - Anesthesia Indication: Coronary disease, aortic stenosis Date of Procedure: 09/11/24 Pre-operative Diagnosis: Coronary artery disease, aortic stenosis Post-operative Diagnosis: Same Surgeon: Gurdeep Liu Ejection Fraction: Normal Regional Wall Motion Abnormalities: None Left Ventricle Hypertrophy: No R. Ventricle Function: Normal Anatomy: Other (TAVR valve in place, severe aortic stenosis peaks of 65-69 mod erate AI) Aortic Stenosis: Severe Aortic Regurgitation: Moderate Mitral Stenosis: None Mitral Regurgitation: Trace Tricuspid Stenosis: None Tricuspid Regurgitation: None Pulmonic Stenosis: None Pulmonic Regurgitation: None R. Atrial Dilation: No R. Atrial PFO: No L. Atrial Dilation: No Aortic Dissection: No Aortic Calcification: None Plural Effusion: None
--- NOTE | 2024-09-11 13:13 | P.ANPRN ---
Procedure Note - Anesthesia - CINDY Intraop Post Bypass CINDY Intraop Post Bypass Procedure Performed: Explantation TAVR, aortic valve replacement, CABG Ejection Fraction: Normal Regional Wall Motion Abnormalities: None Aortic Valve: TAVR valve is no longer appreciated. New prosthetic valve in place unidirectional no perivalvular leak, residual mean 6 Mitral Valve: Unchanged Tricuspid: Unchanged Pulmonic: Unchanged Aortic Dissection: No
[2024-09-11] MEDS ORDERED: AMIODARONE 360 MG in DEXTROSE 5% IN WATER 200 ML IV PRN (13:14)
[2024-09-11] MEDS ORDERED: DEXMEDETOMIDINE/0.9% NACL(PMX) 400 MCG in EMPTY BAG 1 BAG IV SCH (13:14)
[2024-09-11] MEDS ORDERED: BENZOCAINE/MENTHOL LOZENG 1 EACH LOZENGE MUCOUS MEM PRN (13:14)
[2024-09-11] MEDS ORDERED: CALCIUM GLUCONATE IN NACL 2 GM in SALINE 1 100ML.BAG IVPB PRN (13:14)
[2024-09-11] MEDS ORDERED: DEXTROSE 50% SYRINGE 50 ML IVP PRN ×2 (13:14)
[2024-09-11] MEDS ORDERED: Potassium Replacement Protocol 1 EACH MISC MISCELLANE PRN (13:14)
[2024-09-11] MEDS ORDERED: Magnesium Replacement Protocol 1 EACH MISC MISCELLANE PRN (13:14)
[2024-09-11] MEDS ORDERED: IPRATROPIUM-ALBUTEROL 3 ML NEB INHALATION PRN (13:14)
[2024-09-11] MEDS ORDERED: DEXTROSE 5% IN WATER 100 ML with AMIODARONE 150 MG IV PRN (13:14)
[2024-09-11] MEDS ORDERED: AMIODARONE 450 MG in DEXTROSE 5% IN WATER 250 ML IV PRN (13:14)
[2024-09-11 13:40] LABS: Glucose,Whole Blood 119 mg/dL (70-110)
[2024-09-11] MEDS: IPRATROPIUM-ALBUTEROL 3 ML NEB INHALATION SCH ×2 (13:42→19:27)
[2024-09-11] MEDS: NITROGLYCERIN-D5W PMX 50 MG in DEXTROSE/WATER 1 250ML.BAG IV SCH (13:49)
[2024-09-11] MEDS: SODIUM CHLORIDE 0.9% 1,000 ML IV SCH (13:50)
[2024-09-11] MEDS: hydrALAZINE HCL 20 MG/ML 1 ML VIAL IVP PRN (13:57)
[2024-09-11 14:05] LABS: ABG Base Excess -1.7 mmol/L; ABG HCO3 22 mmol/L (21-25); ABG Oxygen Saturation >100.0 % (94-97); ABG PCO2 35 mmHg (35-45); ABG PH 7.42 (7.35-7.45); ABG PO2 318 mmHg (83-108); ABG TCO2 23 mmol/L (19-24)
[2024-09-11 14:09] LABS: Ionized Calcium 4.7 mg/dL (4.5-5.3)
--- NOTE | 2024-09-11 14:10 | P.OP ---
Date of Procedure: 09/11/24 Preoperative Diagnosis: Prosthetic aortic valve stenosis, coronary artery disease Postoperative Diagnosis: Same Procedure(s) Performed: Coronary bypass grafting x 1 with TRAN to LAD, excision of Medtronic evolute CoreValve, excision date of aortic valve, replacement aortic valve with 23 mm Echeverria Inspiris bovine pericardial valve prosthesis, occlusion of left atrial appendage with 40 mm AtriCure clip, CINDY by anesthesia Implants: 23 mm Echeverria Inspiris aortic valve prosthesis, 40 mm AtriCure clip Anesthesia: GETA Surgeon: Gurdeep Liu Hydraulic Barker Operator #1: Luis Alcala Hydraulic Barker Operator #2: Jackie White Estimated Blood Loss (ml): 200 Pathology: other (Thrombus from aortic root, prosthetic aortic valve, tribe aortic valve) Condition: stable Disposition: ICU Indications for Procedure: 79-year-old male who underwent transcatheter aortic valve replacement with a 29 mm Medtronic evolute pro plus valve prosthesis in 1998. He developed increasing gradients across the valve and was treated for suspected HALTS with anticoagulation. Despite this, he continued to have worsening physiologic and symptomatic stenosis of the aortic valve. Cardiac catheterization demonstrated significant diffuse disease with extensive calcification in the left anterior descending coronary artery. Patient was evaluated in the office and offered either angioplasty of the LAD with stenting and subsequent redo TAVR with a Echeverria valve or surgery with explant of the TAVR valve, implant of a surgical valve and RAMON to the LAD. Patient opted for the latter. Operative Findings: LAD was diffusely diseased and heavily calcified vessel. It was grafted fairly proximally at the takeoff of the first diagonal branch. On opening the aorta, the cage of the Medtronic evolute valve was significantly adherent to the ascending aorta. After freeing this up it was even more adherent to the tribe valve. We were able to completely excise the TAVR valve and the tribe valve. Annulus was sized and a 23 mm Inspris valve was chosen. This was seated without difficulty. Postoperative CINDY demonstrated excellent ventricular function with no evidence of paravalvular leak and minimal gradient across the aortic valve. Description of Procedure: Patient was brought to the operating room and placed supine on the table. [place]- Margarita and arterial lines have been placed in the preop holding area. General anesthesia was induced and the patient was intubated. CINDY probe was placed. [place] catheter was placed. Patient was appropriately positioned. Anterior torso and bilateral lower extremities were sterilely prepped and draped in standard fashion. Midline sternotomy was performed. Left hemisternum was retracted upwards and the left internal mammary artery harvested on a va scularized pedicle, left intact and its origin from the subclavian and divided distally. It was a good conduit with excellent flow. 32 [place] left pleural chest tube was placed through separate stab incision. Standard sternal retractor was placed. Pericardium was opened in the midline and the heart exposed with pericardial sutures. Patient was systemically heparinized and cannulated for cardiopulmonary bypass with a 7 mm soft flow cannula in the proximal arch of the aorta and a two-stage venous cannula through the right atrium into the inferior vena cava. Antegrade and retrograde cardioplegia lines were placed in standard fashion. Patient was placed on cardiopulmonary bypass and stabilized. Pursestring suture was placed in the right superior pulmonary vein. 40 mm AtriCure clip was placed across the base of the left atrial appendage. The LAD target was explored at the takeoff of the first diagonal coronary artery. Aorta was crossclamped and the heart arrested with a liter of crystalloid antegrade cardioplegia followed by retrograde cardioplegia. Intermittent dosing of retrograde cardioplegia was continued during the cross- clamp. Left atrial vent was placed through the pursestring in the right superior pulmonary vein. TRAN was brought into the pericardium through a rent in the pericardial pleural apposition. The end of the TRAN was appropriately prepared. The LAD was opened at the takeoff of the first diagonal coronary artery. It was a heavily calcified vessel with a 1.5 to 175 mm lumen. It was difficult to pass a 1.5 probe either proximally or distally but a 1 mm probe threaded easily. TRAN was anastomosed in end-to-side fashion with running 8-0 Prolene suture. This proceeded without problem. Next an aortotomy was performed. This was performed in a tangential fashion from the left superior portion of the aorta to the right inferior portion of the ascending aorta. The cage of the CoreValve was immediately evident. It was fairly densely adherent to much of the ascending aorta. This was taken down with sharp dissection. Once we got down into the root, the valve was densely adherent to the tribe valve. We first excised the CoreValve. This was facilitated with the use of some topical slush and gentle traction on the CoreValve frame. When we got into the noncoronary sinus of Valsalva there was some red adherent clot present. This was removed and sent to specimen. Once the prosthetic valve was excised we excised the tribe valve. Both were sent for pathology. The annulus was debrided of calcium. Circumferential valve sutures of 2-0 Tycron pledgeted suture were placed around the annulus of the valve. Valve annulus was sized and easily excepted a 23 mm sizer. A 25 mm sizer did not fit. 23 mm Inspra's valve was opened and brought up on the field. Valve sutures were placed through the sewing ring of the valve and it was seated without difficulty. Valve sutures were tied and the valve was noted to seat well. Coronary ostia were free. Copious irrigation had been performed during the annular debridement, on completion of the debridement and after implantation of the valve. The aorta was now closed with the 2 layer running closure of 4-0 Prolene. This was reinforced with some CoSeal. Patient was placed into Trendelenburg. The left atrial vent was removed and the pursestring tied with good resultant hemostasis. The cross-clamp was removed and the flow was opened in the TRAN to the LAD. Retrograde cardioplegia line was removed and atrial and ventricular pacing wires were placed. Patient was AV paced successfully. Heart was de-aired under CINDY guidance to the apex with a 16 [place] Angiocath. On completion of this, the aortic vent line was removed and the pursestring suture tied. Patient was weaned from cardiopulmonary bypass without the use of inotropic support. He was quite volume dependent. He was decannulated in standard fashion and heparin reversed with protamine. Good hemostasis was obtained throughout. Mediastinum was drained with 236 [place] chest tubes. After assuring good hemostasis and stable hemodynamics, the sternum was closed with 8 sternal wires. Fascia was closed with 0 Ethibond. Subcutaneous and subcuticular layers were closed with layers of Vicryl suture. Skin glue and dry sterile dressings were applied and the patient was transferred to ICU in stable condition. He received no blood transfusions and required no inotropic support.
[2024-09-11 14:14] LABS: INR 1.2 (<1.2); Partial Thromboplastin Time 27.2 sec (22.0-30.0); Prothrombin Time 13.2 sec (10.0-12.5)
[2024-09-11] MEDS: ALBUMIN HUMAN 5% 250 ML in EMPTY BAG 1 BAG IVPB PRN (14:14)
[2024-09-11 14:15] LABS: Basophils # (A) 0.09 10*3/uL (0.00-0.10); Basophils % (A) 0.7 %; Eosinophils # (A) 0.19 10*3/uL (0.04-0.35); Eosinophils % (A) 1.5 %; HCT 32.4 % (39.6-50.0); HGB 11.3 g/dL (13.0-17.0); Lymphocytes # (A) 1.22 10*3/uL (0.90-5.00); Lymphocytes % (A) 9.7 %; MCH 31.2 pg (27.0-32.0); MCHC 34.9 g/dL (32.0-37.0); MCV 89.5 fL (80.0-97.0); Mean Platelet Volume 10.3 fL (9.5-12.2); Monocytes % (A) 3.2 %; Neutrophils # (A) 10.54 10*3/uL (1.80-7.70); Neutrophils % (A) 83.9 %; RBC 3.62 10*6/uL (4.40-5.60); RDW 14.3 % (11.5-14.5); WBC 12.57 10*3/uL (4.50-10.00)
[2024-09-11 14:18] LABS: ALT 17 U/L (4-49); AST 31 U/L (17-59); African American GFR (CKD) >90 (>60 ml/min/1.73 sqM); Alkaline Phosphatase 36 U/L (38-126); Anion Gap 6 mmol/L; Blood Urea Nitrogen 15 mg/dL (9-20); Calcium 8.8 mg/dL (8.4-10.2); Carbon Dioxide 22 mmol/L (22-30); Chloride 109 mmol/L (98-107); Glucose 113 mg/dL (74-99); Magnesium 3.8 mg/dL (1.6-2.3); Non-African American GFR(CKD) 87 (>60 ml/min/1.73 sqM); Potassium 4.3 mmol/L (3.5-5.1); Sodium 137 mmol/L (137-145); Total Bilirubin 1.4 mg/dL (0.2-1.3); Total Protein 4.8 g/dL (6.3-8.2)
--- NOTE | 2024-09-11 14:29 | XR ---
EXAMINATION TYPE: XR chest 1V portable DATE OF EXAM: 09/11/2024 2:14 PM COMPARISON: 09/05/2024 CLINICAL INDICATION: Male, 79 years old with history of Post Operative Cardiac Surgery, , FINDINGS: ET and NG tubes are satisfactory. Right IJ [place]-Margarita catheter tip at the right main pulmonary artery level. Mediastinal drains are present. Left-sided chest tube. No appreciable pneumothorax. Median karyna rnotomy wires with post-CABG clips and prosthetic aortic valve. Heart mildly enlarged. Interstitial d ensities. Trace left pleural effusion with patchy retrocardiac opacity. IMPRESSION: 1. Post-CABG changes and placement of aortic valve replacement. 2. CHF with pulmonary vascular congestion. 3. Trace left pleural effusion with adjacent patchy atelectasis. [facility], , 09/11/2024 2:26 PM
[2024-09-11] MEDS: ACETAMINOPHEN IV (For NPO) 1,000 MG in EMPTY BAG 1 BAG IVPB SCH (14:49)
[2024-09-11 14:55] LABS: Glucose,Whole Blood 145 mg/dL (70-110)
[2024-09-11] MEDS: INSULIN REGULAR 100 UNIT in SODIUM CHLORIDE 0.9% 100 ML IV SCH (14:55)
[2024-09-11 15:13] LABS: RBC Morphology Normal
[2024-09-11 15:14] LABS: Large Platelets Present
[2024-09-11 15:15] LABS: Platelet Count 94 10*3/uL (140-440)
--- NOTE | 2024-09-11 15:15 | P.CNPUL ---
History of Present Illness Consult date: 09/11/24 Chief complaint: Postthoracotomy, aortic replacement and single-vessel bypass surgery History of present illness: This is a 79-year-old male patient who was brought into the intensive care unit following cardiac surgery. The patient had a previous TAVR and the patient developed prosthetic aortic valve stenosis and the patient also has coronary artery disease. Based on that, the patient underwent coronary artery bypass surgery x 1 with TRAN to LAD and excision of the Medtronic CoreValve and replacement aortic valve with 23 mm Echeverria Inspiris bovine pericardial valve prosthesis. The patient was kept intubated the patient was brought into the intensive care for further care. At this point in time, the patient is on propofol running at 20 mcg/kg/min and the patient is calm and comfortable and synchronous with mechanical ventilator. The patient is on assist-control mode of mechanical ventilation and the patient is currently on a rate of 12, tidal volume of 500, FiO2 of 100% with a PEEP of 5. Blood gases showed a pH of 7.4 with a LKS866 and PO2 of 318. FiO2 is now down to 50%. The patient has been mediastinal and 1 left pleural chest tube and output has been minimal since arriving from the operating room. No evidence of any pneumothorax on postop chest x-ray. There is mild pulm vessel congestion and the patient has some mild CHF findings. The patient's cardiac rhythm is paced at a rate of 80. He is on nitroglycerin drip running at 5 mcg/min. His hemodynamic parameters show a PA pressure of 30/19 with a cardiac output of 3.5 with an index of 1.9. Initially, his cardiac index was low and the patient was given 2 boluses of albumin, 250 cc each. Urine output is adequate. He is normothermic. His blood work shows a WBC count of 12.5 with a hemoglobin of 11.3 and his sodium level is at 137, BUN is 50 with a creatinine of 0.7. LFTs are normal. 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 History of Any Multi-Drug Resistant Organisms: None Reported Past Surgical History: Heart Catheterization, Heart Catheterization With Stent Additional Past Surgical History / Comment(s): cyst off back of neck ( calcium), circumcision, colonoscopy, heart cath with stent (12/01/20), aortic valve replacement(TAVR)12-08-20, B/L CATARACT REMOVAL WITH LENS IMPLANTS 12/24/23 Past Anesthesia/Blood Transfusion Reactions: Previous Problems w/ Anesthesia Additional Past Anesthesia/Blood Transfusion Reaction / Comment(s): Woke up during a colonoscopy; no hx of blood transfusion. Date of Last Stent Placement:: 12/01/20 Smoking Status: Former smoker - Past Family History Mother Family Medical History: No Reported History Additional Family Medical History / Comment(s): in Father Family Medical History: Diabetes Mellitus Medications and Allergies Home Medications Medication Instructions Recorded Confirmed Type Lisinopril-Hctz 20-12.5 mg 1 tab PO BID 11/03/21 09/11/24 History [Zestoretic 20-12.5] Clopidogrel [Plavix] 75 mg PO DAILY #30 tab 07/10/22 09/11/24 Rx Aspirin 81 mg PO DAILY 30 Days #30 tab 02/13/24 09/11/24 Rx Atorvastatin [Lipitor] 80 mg PO HS 02/13/24 09/11/24 History prednisoLONE ACETATE 1% OPHTH 1 drops BOTH EYES DAILY 03/19/24 09/11/24 History [Pred Forte 1%] Allergies Allergy/AdvReac Type Severity Reaction Status Date / Time ketorolac Allergy redness Verified 09/11/24 06:01 and burning to eye from drops Penicillins Allergy Anaphylaxis Verified 09/11/24 06:01 Physical Exam Vitals: Vital Signs Temp Pulse Pulse Pulse Resp BP BP 09/11/24 14:07 09/11/24 13:49 80 16 09/11/24 13:42 80 09/11/24 13:39 09/11/24 13:35 09/11/24 06:35 97.3 F L 83 79 16 180/90 200/95 Pulse Ox FiO2 09/11/24 14:07 50 09/11/24 13:49 09/11/24 13:42 09/11/24 13:39 100 05/15/25 13:35 100 09/11/24 06:35 96 Intake and Output 09/11/24 09/11/24 09/11/24 06:59 14:59 22:59 Intake Total 463.5 Output Total 1075 Balance -611.5 Intake: IV 152 ns for cardiac output 40 ns for pressure flush 9 Intake, IV Titration 311.5 Amount Albumin Human 5% 250 ml 250 In Empty Bag 1 bag @ 250 mls/hr IVPB Q1HR PRN Rx#: [id number] Nitroglycerin-D5w Pmx 50 1.5 mg In Dextrose/Water 1 250ml.bag @ 5 MCG/MIN 1.5 mls/hr IV .Q24H ISIDRO Rx#: [id number] Sodium Chloride 0.9% 1, 50 000 ml @ 50 mls/hr IV . Q20H ISIDRO Rx#:[id number] propofoL 1,000 mg In 10 Empty Bag 1 bag @ Titrate IV .Q0M ISIDRO Rx#: [id number] Output: Chest Tube Drainage 185 Mediastinal 25 Pleural Catheter Left 160 Urine 515 Estimated Blood Loss 375 Other: Weight 82.6 kg The patient appeared well nourished and normally developed. Patient sedated on propofol,, comfortable. Orogastric and orotracheal tube are both in place.. Head exam is unremarkable. No scleral icterus or corneal arcus noted. Neck is without jugular venous distension, thyromegaly, or carotid bruits. Carotid upstrokes are brisk bilaterally. The patient has a Grayson-Margarita catheter in the right IJ Lungs are clear to auscultation and percussion. Thoracotomy scar is dry clean and intact. The patient has a mediastinal and left pleural chest tube. Cardiac exam reveals the PMI to be normally sized and situated. Rhythm is regular. First and second heart sounds normal. No murmurs, rubs or gallops. Epicardiac pacemaker wires are in place and the patient is paced with a rate of 80 Abdominal exam reveals normal bowel sounds, no masses, no organomegaly and no aortic enlargement. Extremities are nonedematous and both femoral and pedal pulses are normal. Examination of the skin revealed no evidence of significant rashes, suspicious appearing nevi or other concerning lesions. Neurologically, the patient is sedated on propofol Results - Laboratory Findings CBC and BMP: 09/11/24 13:28 09/11/24 13:28 ABG ABG pH 7.42 (7.35-7.45) 09/11/24 14:03 ABG pCO2 35 mmHg (35-45) 09/11/24 14:03 ABG pO2 318 mmHg (83-108) H 09/11/24 14:03 ABG O2 Saturation >100.0 % (94-97) H 09/11/24 14:03 PT/INR, D-dimer PT 13.2 sec (10.0-12.5) H 09/11/24 13:28 INR 1.2 (<1.2) H 09/11/24 13:28 Abnormal lab findings: Abnormal Labs 09/05/24 09/11/24 09/11/24 09: 08:32 10:03 WBC RBC Hgb Hct Immature Gran # PT INR ABG pH ABG pCO2 46 H ABG pO2 >420 H 166 H ABG HCO3 26 H ABG O2 Saturation >99.4 H 99.1 H ABG Hematocrit ABG Ionized Calcium ABG Glucose 108 H 114 H ABG Lactic Acid Hemoglobin 11.5 L Chloride Glucose POC Glucose (mg/dL) Magnesium Total Bilirubin Alkaline Phosphatase Total Protein Albumin Arterial Blood Glucose 108 H 114 H Crossmatch See Detail 09/11/24 09/11/24 09/11/24 10:28 10:58 11:35 WBC RBC Hgb Hct Immature Gran # PT INR ABG pH 7.47 H 7.49 H ABG pCO2 33 L ABG pO2 415 H >420 H >420 H ABG HCO3 26 H ABG O2 Saturation >99.4 H >99.4 H >99.4 H ABG Hematocrit 27 L 28 L 29 L ABG Ionized Calcium 4.1 L 4.2 L 4.3 L ABG Glucose 100 H 113 H 116 H ABG Lactic Acid Hemoglobin 8.9 L 9.0 L 9.4 L Chloride Glucose POC Glucose (mg/dL) Magnesium Total Bilirubin Alkaline Phosphatase Total Protein Albumin Arterial Blood Glucose 100 H 113 H 116 H Crossmatch 09/11/24 09/11/24 09/11/24 12:45 13:28 13:28 WBC 12.57 H RBC 3.62 L Hgb 11.3 L Hct 32.4 L Immature Gran # 0.13 H PT 13.2 H INR 1.2 H ABG pH ABG pCO2 ABG pO2 335 H ABG HCO3 ABG O2 Saturation 99.1 H ABG Hematocrit 31 L ABG Ionized Calcium ABG Glucose 123 H ABG Lactic Acid 1.7 H Hemoglobin 10.2 L Chloride Glucose POC Glucose (mg/dL) Magnesium Total Bilirubin Alkaline Phosphatase Total Protein Albumin Arterial Blood Glucose 123 H Crossmatch 09/11/24 09/11/24 09/11/24 13:28 13:38 14:03 WBC RBC Hgb Hct Immature Gran # PT INR ABG pH ABG pCO2 ABG pO2 318 H ABG HCO3 ABG O2 Saturation >100.0 H ABG Hematocrit ABG Ionized Calcium ABG Glucose ABG Lactic Acid Hemoglobin 12.0 L Chloride 109 H Glucose 113 H POC Glucose (mg/dL) 119 H Magnesium 3.8 H Total Bilirubin 1.4 H Alkaline Phosphatase 36 L Total Protein 4.8 L Albumin 3.0 L Arterial Blood Glucose Crossmatch 09/11/24 14:53 WBC RBC Hgb Hct Immature Gran # PT INR ABG pH ABG pCO2 ABG pO2 ABG HCO3 ABG O2 Saturation ABG Hematocrit ABG Ionized Calcium ABG Glucose ABG Lactic Acid Hemoglobin Chloride Glucose POC Glucose (mg/dL) 145 H Magnesium Total Bilirubin Alkaline Phosphatase Total Protein Albumin Arterial Blood Glucose Crossmatch - Diagnostic Findings Chest x-ray: image reviewed Assessment and Plan Plan: Aortic valve replacement and a single-vessel bypass surgery with TRAN to LAD. The patient is currently postop day #0. Hemodynamically stable. Maintained on low-dose nitroglycerin drip. Adequate cardiac output and index. Remains intubated on mechanical ventilator. Postop cardiac rhythm is asystole and the patient is currently paced with a rate of 80. Postthoracotomy, remains intubated on mechanical ventilator. Chest x-ray and blood gas were noted and the patient has mediastinal chest tubes x 2 in the left lower chest tube. Adequate oxygenation. Adequate ventilation based on postop blood gases. Coronary artery disease, cardiac catheterization revealing intermediate disease involving the mid LAD approximately 50 to 60% History of aortic valve stenosis with a previous TAVR with subsequent bioprosthetic valve stenosis History of CVA back in 2022 BPH and the patient undergoes self-catheterization Hypertension Hyperlipidemia Osteoarthritis Acid reflux Plan Keep the patient on propofol for now Wean FiO2 Monitor output from the chest tubes Monitor hemodynamic parameters Keep the patient on nitroglycerin drip Cardiac rhythm is paced at a rate of 80. IV albumin given Urine output is adequate Labs were reviewed Chest x-ray and blood gas were reviewed We will continue to follow. Will monitor the progress. Anticipate extubation within the next 46 hours.
[2024-09-11 16:04] LABS: Glucose,Whole Blood 140 mg/dL (70-110)
[2024-09-11] MEDS: HEPARIN SODIUM,PORCINE 5,000 UNIT/ML 1 ML VIAL SQ SCH (16:12)
--- NOTE | 2024-09-11 16:24 | P.CONS ---
History of Present Illness - Reason for Consult Consult date: 09/11/24 - History of Present Illness Patient is a 79-year-old male with history of aortic stenosis with previous TAVR, CAD, hypertension, dyslipidemia, GERD, CVA/TIA presenting for elective CABG and aortic valve replacement. [facility] physicians consulted for medical management. Currently patient is intubated and sedated. Temperature 97.5, pulse 80, respiratory rate 12, blood pressure 113/59, saturating 100% on mechani mariely ventilation. WBC 12.57, hemoglobin 11.3, platelet 94, pH 7.42, CLK183, potassium 4.3, creatinine 0.75, blood sugars range between 113-145, magnesium 2.8, total bili 1.4, AST 31, ALT 17, ALP 36. Chest x-ray independently interpreted, shows postoperative changes, interstitial opacities bilaterally. Pertinent positives and negatives as discussed in HPI, a complete review of systems was performed and all other systems are negative. Patient seen and examined at bedside. Vital signs reviewed General: Intubated sedated Derm: warm, dry, chest dressing clean, dry, intact Head: atraumatic, normocephalic, symmetric Eyes: anicteric sclera, pupils equal round reactive to light ENT: Nose and ears atraumatic Neck: No thyromegaly, supple Mouth: no lip lesion, mucus membranes moist Cardiovascular: S1S2 reg, no murmur, no edema, heart hugger in place, chest tubes in place Lungs: Bilateral rhonchi, no wheeze, no accessory muscle use, mechanically ventilated Abdominal: soft, no appreciable organomegaly Ext: no gross muscle atrophy, no contractures Neuro: Sedated Psych: Unable to assess Assessment/Plan: Active: CAD status post CABG, and aortic valve replacement Hypertension Dyslipidemia - On amiodarone drip, aspirin 325 daily, aspirin 80 mg daily, Plavix 75 daily, metoprolol 12.5 daily - Pain control, DVT prophylaxis, bowel regimen per cardiothoracic surgery - Pulmonology to manage vent settings Hyperglycemia Prediabetes, A1c 6.1 - Continue with insulin drip, blood sugars every hours - Switch to subcu insulin when able to tolerate oral intake Thank you for allowing us to participate in the care of this pleasant patient. Do not hesitate to contact us with questions. Someone can be reached from the [facility] hospitalist group all hours of the day at [phone] or via [employer]. 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 History of Any Multi-Drug Resistant Organisms: None Reported Past Surgical History: Heart Catheterization, Heart Catheterization With Stent Additional Past Surgical History / Comment(s): cyst off back of neck ( calcium), circumcision, colonoscopy, heart cath with stent (12/01/20), aortic valve replacement(TAVR)12-08-20, B/L CATARACT REMOVAL WITH LENS IMPLANTS 12/24/23 Past Anesthesia/Blood Transfusion Reactions: Previous Problems w/ Anesthesia Additional Past Anesthesia/Blood Transfusion Reaction / Comm: Woke up during a colonoscopy; no hx of blood transfusion. Date of Last Stent Placement:: 12/01/20 Smoking Status: Former smoker - Past Family History Mother Family Medical History: No Reported History Additional Family Medical History / Comment(s): in Father Family Medical History: Diabetes Mellitus Medications and Allergies Home Medications Medication Instructions Recorded Confirmed Type Lisinopril-Hctz 20-12.5 mg 1 tab PO BID 11/03/21 09/11/24 History [Zestoretic 20-12.5] Clopidogrel [Plavix] 75 mg PO DAILY #30 tab 07/10/22 09/11/24 Rx Aspirin 81 mg PO DAILY 30 Days #30 tab 02/13/24 09/11/24 Rx Atorvastatin [Lipitor] 80 mg PO HS 02/13/24 09/11/24 History prednisoLONE ACETATE 1% OPHTH 1 drops BOTH EYES DAILY 03/19/24 09/11/24 History [Pred Forte 1%] Allergies Allergy/AdvReac Type Severity Reaction Status Date / Time ketorolac Allergy redness Verified 09/11/24 06:01 and burning to eye from drops Penicillins Allergy Anaphylaxis Verified 09/11/24 06:01 Physical Exam Vitals: Vital Signs Temp Pulse Pulse Pulse Resp BP BP 09/11/24 15:39 80 20 09/11/24 15:37 09/11/24 15:00 97.5 F L 80 12 09/11/24 14:45 80 12 09/11/24 14:30 80 12 09/11/24 14:15 80 12 09/11/24 14:07 09/11/24 14:00 80 12 09/11/24 13:49 80 16 09/11/24 13:45 97.7 F 80 12 09/11/24 13:42 80 09/11/24 13:39 09/11/24 13:35 09/11/24 06:35 97.3 F L 83 79 16 180/90 200/95 Pulse Ox FiO2 09/11/24 15:39 09/11/24 15:37 50 09/11/24 15:00 100 09/11/24 14:45 100 09/11/24 14:30 100 09/11/24 14:15 100 09/11/24 14:07 50 09/11/24 14:00 100 50 09/11/24 13:49 09/11/24 13:45 100 09/11/24 13:42 09/11/24 13:39 100 09/11/24 13:35 100 09/11/24 06:35 96 Intake and Output 09/11/24 09/11/24 09/11/24 06:59 14:59 22:59 Intake Total 563.5 340.5 Output Total 1075 110 Balance -511.5 230.5 Intake: IV 152 29 ns for cardiac output 40 20 ns for pressure flush 9 9 Intake, IV Titration 411.5 311.5 Amount ACETAMINOPHEN IV (For NPO 100 ) 1,000 mg In Empty Bag 1 bag @ 400 mls/hr IVPB Q6H ISIDRO Rx#:[id number] Albumin Human 5% 250 ml 250 250 In Empty Bag 1 bag @ 250 mls/hr IVPB Q1HR PRN Rx#: [id number] Nitroglycerin-D5w Pmx 50 1.5 1.5 mg In Dextrose/Water 1 250ml.bag @ 5 MCG/MIN 1.5 mls/hr IV .Q24H ISIDRO Rx#: [id number] Sodium Chloride 0.9% 1, 50 50 000 ml @ 50 mls/hr IV . Q20H ISIDRO Rx#:[id number] propofoL 1,000 mg In 10 10 Empty Bag 1 bag @ Titrate IV .Q0M ISIDRO Rx#: [id number] Output: Chest Tube Drainage 185 50 Mediastinal 25 10 Pleural Catheter Left 160 40 Urine 515 60 Estimated Blood Loss 375 Other: Weight 82.6 kg ABP, PAP, CO, CI - Last 8 Hours Arterial Blood Pressure 113/59 Arterial Blood Pressure 111/59 Arterial Blood Pressure 102/57 Arterial Blood Pressure 105/61 Arterial Blood Pressure 128/80 Arterial Blood Pressure 125/77 Pulmonary Artery Pressure 32/20 Pulmonary Artery Pressure 33/22 Pulmonary Artery Pressure 32/21 Pulmonary Artery Pressure 30/18 Pulmonary Artery Pressure 30/19 Pulmonary Artery Pressure 33/17 Cardiac Output 3.8 Cardiac Output 3.5 Cardiac Output 3 Cardiac Output 2.7 Cardiac Index 1.9 Cardiac Index 1.8 Cardiac Index 1.5 Cardiac Index 1.4 Results CBC & Chem 7: 09/11/24 13:28 09/11/24 13:28 Labs: Abnormal Lab Results - Last 24 Hours (Table) 09/05/24 09/11/24 09/11/24 Range/Units 09:25 08:32 10:03 WBC (4.50-10.00) 10*3/uL RBC (4.40-5.60) 10*6/uL Hgb (13.0-17.0) g/dL Hct (39.6-50.0) % Plt Count (140-440) 10*3/uL Immature Gran # (0.00-0.04) 10*3/uL Neutrophils # (1.80-7.70) 10*3/uL PT (10.0-12.5) sec INR (<1.2) ABG pH (7.35-7.45) ABG pCO2 46 H (35-45) mmHg ABG pO2 >420 H 166 H (83-108) mmHg ABG HCO3 26 H (21-25) mmol/L ABG O2 Saturation >99.4 H 99.1 H (94-97) % ABG Hematocrit (34.0-46.0) % ABG Ionized Calcium (4.5-5.3) mg/dL ABG Glucose 108 H 114 H (75-99) mg/dL ABG Lactic Acid (0.5-1.6) mmol/L Hemoglobin 11.5 L (13.0-17.5) gm/dL Chloride (98-107) mmol/L Glucose (74-99) mg/dL POC Glucose (mg/dL) (70-110) mg/dL Magnesium (1.6-2.3) mg/dL Total Bilirubin (0.2-1.3) mg/dL Alkaline Phosphatase (38-126) U/L Total Protein (6.3-8.2) g/dL Albumin (3.5-5.0) g/dL Arterial Blood Glucose 108 H 114 H (75-99) mg/dL Crossmatch See Detail 09/11/24 09/11/24 09/11/24 Range/Units 10:28 10:58 11:35 WBC (4.50-10.00) 10*3/uL RBC (4.40-5.60) 10*6/uL Hgb (13.0-17.0) g/dL Hct (39.6-50.0) % Plt Count (140-440) 10*3/uL Immature Gran # (0.00-0.04) 10*3/uL Neutrophils # (1.80-7.70) 10*3/uL PT (10.0-12.5) sec INR (<1.2) ABG pH 7.47 H 7.49 H (7.35-7.45) ABG pCO2 33 L (35-45) mmHg ABG pO2 415 H >420 H >420 H (83-108) mmHg ABG HCO3 26 H (21-25) mmol/L ABG O2 Saturation >99.4 H >99.4 H >99.4 H (94-97) % ABG Hematocrit 27 L 28 L 29 L (34.0-46.0) % ABG Ionized Calcium 4.1 L 4.2 L 4.3 L (4.5-5.3) mg/dL ABG Glucose 100 H 113 H 116 H (75-99) mg/dL ABG Lactic Acid (0.5-1.6) mmol/L Hemoglobin 8.9 L 9.0 L 9.4 L (13.0-17.5) gm/dL Chloride (98-107) mmol/L Glucose (74-99) mg/dL POC Glucose (mg/dL) (70-110) mg/dL Magnesium (1.6-2.3) mg/dL Total Bilirubin (0.2-1.3) mg/dL Alkaline Phosphatase (38-126) U/L Total Protein (6.3-8.2) g/dL Albumin (3.5-5.0) g/dL Arterial Blood Glucose 100 H 113 H 116 H (75-99) mg/dL Crossmatch 09/11/24 09/11/24 09/11/24 Range/Units 12:45 13:28 13:28 WBC 12.57 H (4.50-10.00) 10*3/uL RBC 3.62 L (4.40-5.60) 10*6/uL Hgb 11.3 L (13.0-17.0) g/dL Hct 32.4 L (39.6-50.0) % Plt Count 94 L (140-440) 10*3/uL Immature Gran # 0.13 H (0.00-0.04) 10*3/uL Neutrophils # 10.54 H (1.80-7.70) 10*3/uL PT 13.2 H (10.0-12.5) sec INR 1.2 H (<1.2) ABG pH (7.35-7.45) ABG pCO2 (35-45) mmHg ABG pO2 335 H (83-108) mmHg ABG HCO3 (21-25) mmol/L ABG O2 Saturation 99.1 H (94-97) % ABG Hematocrit 31 L (34.0-46.0) % ABG Ionized Calcium (4.5-5.3) mg/dL ABG Glucose 123 H (75-99) mg/dL ABG Lactic Acid 1.7 H (0.5-1.6) mmol/L Hemoglobin 10.2 L (13.0-17.5) gm/dL Chloride (98-107) mmol/L Glucose (74-99) mg/dL POC Glucose (mg/dL) (70-110) mg/dL Magnesium (1.6-2.3) mg/dL Total Bilirubin (0.2-1.3) mg/dL Alkaline Phosphatase (38-126) U/L Total Protein (6.3-8.2) g/dL Albumin (3.5-5.0) g/dL Arterial Blood Glucose 123 H (75-99) mg/dL Crossmatch 09/11/24 09/11/24 09/11/24 Range/Units 13:28 13:38 14:03 WBC (4.50-10.00) 10*3/uL RBC (4.40-5.60) 10*6/uL Hgb (13.0-17.0) g/dL Hct (39.6-50.0) % Plt Count (140-440) 10*3/uL Immature Gran # (0.00-0.04) 10*3/uL Neutrophils # (1.80-7.70) 10*3/uL PT (10.0-12.5) sec INR (<1.2) ABG pH (7.35-7.45) ABG pCO2 (35-45) mmHg ABG pO2 318 H (83-108) mmHg ABG HCO3 (21-25) mmol/L ABG O2 Saturation >100.0 H (94-97) % ABG Hematocrit (34.0-46.0) % ABG Ionized Calcium (4.5-5.3) mg/dL ABG Glucose (75-99) mg/dL ABG Lactic Acid (0.5-1.6) mmol/L Hemoglobin 12.0 L (13.0-17.5) gm/dL Chloride 109 H (98-107) mmol/L Glucose 113 H (74-99) mg/dL POC Glucose (mg/dL) 119 H (70-110) mg/dL Magnesium 3.8 H (1.6-2.3) mg/dL Total Bilirubin 1.4 H (0.2-1.3) mg/dL Alkaline Phosphatase 36 L (38-126) U/L Total Protein 4.8 L (6.3-8.2) g/dL Albumin 3.0 L (3.5-5.0) g/dL Arterial Blood Glucose (75-99) mg/dL Crossmatch 09/11/24 Range/Units 14:53 WBC (4.50-10.00) 10*3/uL RBC (4.40-5.60) 10*6/uL Hgb (13.0-17.0) g/dL Hct (39.6-50.0) % Plt Count (140-440) 10*3/uL Immature Gran # (0.00-0.04) 10*3/uL Neutrophils # (1.80-7.70) 10*3/uL PT (10.0-12.5) sec INR (<1.2) ABG pH (7.35-7.45) ABG pCO2 (35-45) mmHg ABG pO2 (83-108) mmHg ABG HCO3 (21-25) mmol/L ABG O2 Saturation (94-97) % ABG Hematocrit (34.0-46.0) % ABG Ionized Calcium (4.5-5.3) mg/dL ABG Glucose (75-99) mg/dL ABG Lactic Acid (0.5-1.6) mmol/L Hemoglobin (13.0-17.5) gm/dL Chloride (98-107) mmol/L Glucose (74-99) mg/dL POC Glucose (mg/dL) 145 H (70-110) mg/dL Magnesium (1.6-2.3) mg/dL Total Bilirubin (0.2-1.3) mg/dL Alkaline Phosphatase (38-126) U/L Total Protein (6.3-8.2) g/dL Albumin (3.5-5.0) g/dL Arterial Blood Glucose (75-99) mg/dL Crossmatch
[2024-09-11] MEDS: ceFAZolin 2 GM in DEXTROSE 5% IN WATER 50 ML IVPB SCH (16:41)
[2024-09-11] MEDS: ALBUMIN HUMAN 5% 250 ML in EMPTY BAG 1 BAG IVPB ONE ×2 (16:46→17:48)
[2024-09-11 16:50] LABS: Basophils # (A) 0.06 10*3/uL (0.00-0.10); Basophils % (A) 0.6 %; Eosinophils # (A) 0.05 10*3/uL (0.04-0.35); Eosinophils % (A) 0.5 %; HCT 30.6 % (39.6-50.0); HGB 10.7 g/dL (13.0-17.0); Lymphocytes # (A) 0.58 10*3/uL (0.90-5.00); Lymphocytes % (A) 5.5 %; MCV 88.7 fL (80.0-97.0); Mean Platelet Volume 9.8 fL (9.5-12.2); Monocytes # (A) 0.75 10*3/uL (0.20-1.00); Monocytes % (A) 7.1 %; Neutrophils # (A) 9.04 10*3/uL (1.80-7.70); Neutrophils % (A) 85.7 %; RBC 3.45 10*6/uL (4.40-5.60); RDW 14.3 % (11.5-14.5); WBC 10.54 10*3/uL (4.50-10.00)
[2024-09-11 17:13] LABS: Glucose,Whole Blood 144 mg/dL (70-110)
[2024-09-11 17:34] LABS: Large Platelets Present; Polychromasia Present
[2024-09-11 17:35] LABS: Platelet Count 93 10*3/uL (140-440)
[2024-09-11 18:24] LABS: Glucose,Whole Blood 139 mg/dL (70-110)
[2024-09-11 19:33] LABS: Glucose,Whole Blood 166 mg/dL (70-110)
[2024-09-11 19:45] LABS: Basophils # (A) 0.07 10*3/uL (0.00-0.10); Basophils % (A) 0.6 %; Eosinophils # (A) 0.02 10*3/uL (0.04-0.35); Eosinophils % (A) 0.2 %; HCT 29.5 % (39.6-50.0); Immature Platelet Fraction 3.8 % (1.1-6.1); Lymphocytes # (A) 0.83 10*3/uL (0.90-5.00); Lymphocytes % (A) 7.2 %; MCH 30.8 pg (27.0-32.0); MCHC 33.9 g/dL (32.0-37.0); MCV 90.8 fL (80.0-97.0); Monocytes # (A) 0.79 10*3/uL (0.20-1.00); Monocytes % (A) 6.8 %; Neutrophils # (A) 9.82 10*3/uL (1.80-7.70); Neutrophils % (A) 84.7 %; Platelet Count 101 10*3/uL (140-440); RBC 3.25 10*6/uL (4.40-5.60); RDW 14.2 % (11.5-14.5); WBC 11.59 10*3/uL (4.50-10.00)
[2024-09-11 21:14] LABS: Glucose,Whole Blood 172 mg/dL (70-110)
[2024-09-11] MEDS: SENNOSIDES-DOCUSATE SODIUM 1 EACH TAB PO SCH (21:21)
[2024-09-11 21:46] LABS: ABG Base Excess -3.6 mmol/L; ABG HCO3 23 mmol/L (21-25); ABG Oxygen Saturation 98.1 % (94-97); ABG PCO2 47 mmHg (35-45); ABG PO2 109 mmHg (83-108); ABG TCO2 24 mmol/L (19-24)
[2024-09-11 21:47] LABS: Allen Test Performed? no
[2024-09-11 22:06] LABS: Glucose,Whole Blood 167 mg/dL (70-110)
[2024-09-11 22:07] LABS: ABG Ionized Calcium 3.4 mg/dL (4.5-5.3); ABG PO2 35 mmHg (83-108); ABG Potassium Whole Blood 2.6 mmol/L (3.4-4.5)
[2024-09-11] MEDS: CLEVIDIPINE BUTYRATE 25 MG in EMPTY BAG 1 BAG IV PRN (22:27)
[2024-09-11 23:28] LABS: Glucose,Whole Blood 152 mg/dL (70-110)
[2024-09-12 00:23] LABS: Glucose,Whole Blood 150 mg/dL (70-110)
[2024-09-12 01:19] LABS: Glucose,Whole Blood 161 mg/dL (70-110)
[2024-09-12 02:17] LABS: Glucose,Whole Blood 155 mg/dL (70-110)
[2024-09-12 03:06] LABS: Glucose,Whole Blood 158 mg/dL (70-110)
[2024-09-12 04:13] LABS: Glucose,Whole Blood 149 mg/dL (70-110)
[2024-09-12 04:43] LABS: Basophils # (A) 0.03 10*3/uL (0.00-0.10); Basophils % (A) 0.2 %; HCT 29.7 % (39.6-50.0); Lymphocytes % (A) 3.1 %; MCH 30.9 pg (27.0-32.0); MCHC 33.7 g/dL (32.0-37.0); MCV 91.7 fL (80.0-97.0); Mean Platelet Volume 10.8 fL (9.5-12.2); Monocytes % (A) 6.2 %; Neutrophils # (A) 11.71 10*3/uL (1.80-7.70); RBC 3.24 10*6/uL (4.40-5.60); RDW 14.6 % (11.5-14.5)
[2024-09-12 04:47] LABS: Ionized Calcium 4.5 mg/dL (4.5-5.3)
[2024-09-12 04:52] LABS: Platelet Count 108 10*3/uL (140-440)
[2024-09-12 05:00] LABS: ALT 15 U/L (4-49); AST 39 U/L (17-59); African American GFR (CKD) >90 (>60 ml/min/1.73 sqM); Albumin 3.7 g/dL (3.5-5.0); Alkaline Phosphatase 30 U/L (38-126); Anion Gap 10 mmol/L; Blood Urea Nitrogen 17 mg/dL (9-20); Calcium 8.2 mg/dL (8.4-10.2); Carbon Dioxide 22 mmol/L (22-30); Chloride 107 mmol/L (98-107); Glucose 133 mg/dL (74-99); Magnesium 2.7 mg/dL (1.6-2.3); Non-African American GFR(CKD) 84 (>60 ml/min/1.73 sqM); Potassium 3.9 mmol/L (3.5-5.1); Sodium 139 mmol/L (137-145); Total Bilirubin 0.8 mg/dL (0.2-1.3); Total Protein 5.3 g/dL (6.3-8.2)
[2024-09-12] MEDS: POTASSIUM CHLORIDE ER 20 MEQ TAB.ER PO SCH (05:57)
[2024-09-12 06:13] LABS: Glucose,Whole Blood 160 mg/dL (70-110)
[2024-09-12 06:59] LABS: Glucose,Whole Blood 144 mg/dL (70-110)
[2024-09-12] MEDS: METOCLOPRAMIDE 5 MG/ML 2 ML VIAL IVP PRN (07:03)
--- NOTE | 2024-09-12 07:45 | P.CRDCN ---
History of Present Illness Consult date: 09/12/24 History of present illness: The patient is a pleasant 79-year-old gentleman who is known to our service from before with a past medical history significant for severe symptomatic aortic stenosis as well as a CAD documented on recent heart catheterization showing severe disease involving the left anterior descending artery as well as hypertension and dyslipidemia. The patient in 2018 underwent a TAVR and that was successful. He starts being symptomatic again with shortness of breath with exertion and lately symptoms of chest discomfort with exertion. Because he continues to be symptomatic he underwent a heart catheterization which revealed severe disease involving the LAD and severe gradient across aortic valve with a mean gradient exceeding 40 mmHg. Subsequently the patient was referred for surgery and underwent surgical aortic valve replacement with taking the TAVR valve out. This is postoperation day #1. The patient was extubated yesterday. He is currently in what is seems to be complete heart block requiring pacing which is not surprising. Hemodynamically he is stable. His pressure has been maybe on the soft side. He is dry with low CVP and he is in process of receiving fluid. Otherwise he seems to be stable from a cardiovascular standp oint of view. The urine output has been reasonable. Blood work was reviewed. Chest x-ray was reviewed as well. Assessment Severe symptomatic aortic stenosis in patient who had TAVR before CAD with known severe disease involving the LAD Status post aortic valve replacement along with TRAN to LAD Multiple comorbid conditions Plan Continue current medical regimen Give the patient IV fluid Continue monitoring the kidney function and electrolyte and the urine output Continue monitoring the chest x-ray as well Hold beta-mina in the light of AV block Consider permanent pacemaker down the line if the patient remains in AV block Past Medical History Past Medical History: Coronary Artery Disease (CAD), Chest Pain / Angina, CVA/TIA, GERD/Reflux, Hyperlipidemia, Hypertension, Musculoskeletal Disorder, Osteoarthritis (OA), Prostate Disorder Additional Past Medical History / Comment(s): 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 History of Any Multi-Drug Resistant Organisms: None Reported Past Surgical History: Heart Catheterization, Heart Catheterization With Stent Additional Past Surgical History / Comment(s): cyst off back of neck ( calcium), circumcision, colonoscopy, heart cath with stent (12/01/20), aortic valve replacement(TAVR)12-08-20, B/L CATARACT REMOVAL WITH LENS IMPLANTS 12/24/23 Past Anesthesia/Blood Transfusion Reactions: Previous Problems w/ Anesthesia Additional Past Anesthesia/Blood Transfusion Reaction / Comment(s): Woke up during a colonoscopy; no hx of blood transfusion. Date of Last Stent Placement:: 12/01/20 Smoking Status: Former smoker - Past Family History Mother Family Medical History: No Reported History Additional Family Medical History / Comment(s): in 90's Father Family Medical History: Diabetes Mellitus Medications and Allergies Home Medications Medication Instructions Recorded Confirmed Type Lisinopril-Hctz 20-12.5 mg 1 tab PO BID 11/03/21 09/11/24 History [Zestoretic 20-12.5] Clopidogrel [Plavix] 75 mg PO DAILY #30 tab 07/10/22 09/11/24 Rx Aspirin 81 mg PO DAILY 30 Days #30 tab 02/13/24 09/11/24 Rx Atorvastatin [Lipitor] 80 mg PO HS 02/13/24 09/11/24 History prednisoLONE ACETATE 1% OPHTH 1 drops BOTH EYES DAILY 03/19/24 09/11/24 History [Pred Forte 1%] Allergies Allergy/AdvReac Type Severity Reaction Status Date / Time ketorolac Allergy redness Verified 09/11/24 06:01 and burning to eye from drops Penicillins Allergy Anaphylaxis Verified 09/11/24 06:01 Physical Exam Vitals: Vital Signs Temp Pulse Resp BP Pulse Ox FiO2 09/12/24 07:15 80 14 93 L 09/12/24 07:00 80 18 96 09/12/24 06:45 80 16 97 09/12/24 06:30 80 16 97 09/12/24 06:15 80 14 95 09/12/24 06:00 80 19 96 09/12/24 05:45 80 18 94 L 09/12/24 05:30 80 25 H 100/54 96 09/12/24 05:15 78 16 112/62 92 L 09/12/24 05:00 80 21 87 L 09/12/24 04:45 80 15 93 L 09/12/24 04:30 80 16 92 L 09/12/24 04:15 79 13 93 L 09/12/24 04:00 97.9 F 79 15 92 L 09/12/24 03:45 79 13 92 L 09/12/24 03:30 79 13 91 L 09/12/24 03:15 80 15 91 L 09/12/24 03:00 80 17 92 L 09/12/24 02:45 80 15 92 L 09/12/24 02:30 80 15 92 L 09/12/24 02:15 80 14 94 L 09/12/24 02:00 80 12 95 09/12/24 01:45 80 12 96 09/12/24 01:30 80 14 94 L 09/12/24 01:15 80 13 94 L 09/12/24 01:00 80 14 94 L 09/12/24 00:45 80 14 93 L 09/12/24 00:30 80 12 95 09/12/24 00:15 80 16 93 L 09/12/24 00:00 97.3 F L 80 15 93 L 09/11/24 23:45 80 15 93 L 09/11/24 23:35 80 14 92 L 09/11/24 23:30 80 14 92 L 09/11/24 23:15 80 14 94 L 09/11/24 23:00 80 14 93 L 09/11/24 22:45 80 13 95 09/11/24 22:30 80 14 99 09/11/24 22:15 80 15 99 09/11/24 22:13 98 09/11/24 22:00 97.9 F 80 14 98 09/11/24 21:45 80 15 98 09/11/24 21:30 80 13 98 09/11/24 21:27 40 09/11/24 21:15 80 15 98 09/11/24 21:00 97.5 F L 80 17 97 09/11/24 20:45 80 16 99 09/11/24 20:30 80 19 99 09/11/24 20:15 80 20 99 09/11/24 20:00 97.2 F L 80 18 99 50 09/11/24 19:53 80 09/11/24 19:45 80 12 100 09/11/24 19:37 80 09/11/24 19:36 40 09/11/24 19:30 80 11 L 97 09/11/24 19:21 40 09/11/24 19:15 80 21 100 09/11/24 19:00 97.3 F L 80 20 100 09/11/24 18:45 80 20 100 09/11/24 18:30 80 20 100 09/11/24 18:15 80 20 100 09/11/24 18:00 97.2 F L 80 20 100 09/11/24 17:45 80 20 100 09/11/24 17:30 80 20 100 09/11/24 17:15 80 20 100 09/11/24 17:00 97.3 F L 80 20 100 50 09/11/24 16:45 80 20 100 09/11/24 16:30 80 20 100 09/11/24 16:15 80 20 100 09/11/24 16:00 97.5 F L 80 20 100 50 09/11/24 15:54 80 20 09/11/24 15:45 80 20 100 09/11/24 15:39 80 20 09/11/24 15:37 50 09/11/24 15:30 80 20 100 09/11/24 15:15 80 19 100 09/11/24 15:00 97.5 F L 80 12 100 09/11/24 14:45 80 12 100 09/11/24 14:30 80 12 100 09/11/24 14:15 80 12 100 09/11/24 14:07 50 09/11/24 14:00 80 12 100 50 09/11/24 13:49 80 16 09/11/24 13:45 97.7 F 80 12 100 09/11/24 13:42 80 09/11/24 13:39 100 09/11/24 13:35 100 Intake and Output 09/11/24 09/12/24 09/12/24 22:59 06:59 14:59 Intake Total 2190.872 800.101 93.724 Output Total 1225 740 25 Balance 965.872 60.101 68.724 Intake: IV 792 692 59 0.9 @ 50 150 400 50 ACETAMINOPHEN IV (For NPO 400 ) 1,000 mg In Empty Bag 1 bag @ 400 mls/hr IVPB Q6H [facility] Rx#:[id number] ceFAZolin 2 gm In 50 Dextrose 5% in Water 50 ml @ 100 mls/hr IVPB Q8HR [facility] Rx#:[id number] ns for cardiac output 170 170 0 ns for pressure flush 72 72 9 Intake, IV Titration 1398.872 108.101 34.724 Amount Albumin Human 5% 250 ml 500 In Empty Bag 1 bag @ 250 mls/hr IVPB ONCE ONE Rx#: [id number] Albumin Human 5% 250 ml 500 In Empty Bag 1 bag @ 250 mls/hr IVPB Q1HR PRN Rx#: [id number] Clevidipine Butyrate 25 0.934 78.600 3.901 mg In Empty Bag 1 bag @ 1 MG/HR 2 mls/hr IV .Q24H PRN Rx#:[id number] Insulin Regular 100 unit 18.725 29.501 4.798 In Sodium Chloride 0.9% 100 ml @ Per Protocol IV .Q0M [facility] Rx#:[id number] Nitroglycerin-D5w Pmx 50 7.5 26.025 mg In Dextrose/Water 1 250ml.bag @ 5 MCG/MIN 1.5 mls/hr IV .Q24H [facility] Rx#: [id number] Sodium Chloride 0.9% 1, 250 000 ml @ 30 mls/hr IV . Q24H [facility] Rx#:[id number] ceFAZolin 2 gm In 50 Dextrose 5% in Water 50 ml @ 100 mls/hr IVPB Q8HR [facility] Rx#:[id number] propofoL 1,000 mg In 71.713 Empty Bag 1 bag @ Titrate IV .Q0M [facility] Rx#: [id number] Output: Chest Tube Drainage 740 480 0 Mediastinal 640 410 0 Pleural Catheter Left 100 70 0 Gastric Drainage 70 Urine 415 260 25 Other: Voiding Method Indwelling Catheter Indwelling Catheter Weight 86.6 kg ABP, PAP, CO, CI - Last 8 Hours Arterial Blood Pressure 139/50 Arterial Blood Pressure 118/44 Arterial Blood Pressure 122/43 Arterial Blood Pressure 119/41 Arterial Blood Pressure 112/40 Arterial Blood Pressure 123/39 Arterial Blood Pressure 132/51 Arterial Blood Pressure 113/40 Arterial Blood Pressure 123/44 Arterial Blood Pressure 131/47 Arterial Blood Pressure 131/48 Arterial Blood Pressure 128/46 Arterial Blood Pressure 125/47 Arterial Blood Pressure 123/47 Arterial Blood Pressure 124/47 Arterial Blood Pressure 121/45 Arterial Blood Pressure 126/47 Arterial Blood Pressure 126/48 Arterial Blood Pressure 123/46 Arterial Blood Pressure 128/46 Arterial Blood Pressure 124/48 Arterial Blood Pressure 123/47 Arterial Blood Pressure 126/47 Arterial Blood Pressure 141/55 Arterial Blood Pressure 126/49 Arterial Blood Pressure 125/49 Arterial Blood Pressure 126/49 Arterial Blood Pressure 133/56 Arterial Blood Pressure 129/53 Arterial Blood Pressure 128/51 Pulmonary Artery Pressure 25/5 Pulmonary Artery Pressure 19/1 Pulmonary Artery Pressure 21/3 Pulmonary Artery Pressure 21/2 Pulmonary Artery Pressure 22/4 Pulmonary Artery Pressure 23/7 Pulmonary Artery Pressure 34/16 Pulmonary Artery Pressure 43/23 Pulmonary Artery Pressure 32/11 Pulmonary Artery Pressure 32/21 Pulmonary Artery Pressure 30/12 Pulmonary Artery Pressure 30/13 Pulmonary Artery Pressure 30/12 Pulmonary Artery Pressure 26/10 Pulmonary Artery Pressure 31/11 Pulmonary Artery Pressure 30/10 Pulmonary Artery Pressure 31/11 Pulmonary Artery Pressure 32/13 Pulmonary Artery Pressure 27/10 Pulmonary Artery Pressure 29/10 Pulmonary Artery Pressure 29/14 Pulmonary Artery Pressure 33/13 Pulmonary Artery Pressure 33/15 Pulmonary Artery Pressure 37/17 Pulmonary Artery Pressure 36/14 Pulmonary Artery Pressure 34/16 Pulmonary Artery Pressure 34/14 Pulmonary Artery Pressure 42/17 Pulmonary Artery Pressure 30/14 Pulmonary Artery Pressure 38/15 Cardiac Output 5.4 Cardiac Output 5.7 Cardiac Output 5.7 Cardiac Output 5.5 Cardiac Output 6 Cardiac Output 4.7 Cardiac Index 2.8 Cardiac Index 2.9 Cardiac Index 2.9 Cardiac Index 2.8 Cardiac Index 3.1 Cardiac Index 2.4 Results 09/12/24 04:30 09/12/24 04:45 Cardiac Enzymes 09/11/24 09/12/24 Range/Units 13:28 04:45 AST 31 39 (17-59) U/L Coagulation 09/11/24 Range/Units 13:28 PT 13.2 H (10.0-12.5) sec APTT 27.2 (22.0-30.0) sec CBC 09/11/24 09/11/24 09/11/24 Range/Units 13:28 16:39 19:37 WBC 12.57 H 10.54 H 11.59 H (4.50-10.00) 10*3/uL RBC 3.62 L 3.45 L 3.25 L (4.40-5.60) 10*6/uL Hgb 11.3 L 10.7 L 10.0 L (13.0-17.0) g/dL Hct 32.4 L 30.6 L 29.5 L (39.6-50.0) % Plt Count 94 L 93 L 101 L (140-440) 10*3/uL 09/12/24 Range/Units 04:30 WBC 13.00 H (4.50-10.00) 10*3/uL RBC 3.24 L (4.40-5.60) 10*6/uL Hgb 10.0 L (13.0-17.0) g/dL Hct 29.7 L (39.6-50.0) % Plt Count 108 L (140-440) 10*3/uL Comprehensive Metabolic Panel 09/11/24 09/12/24 Range/Units 13:28 04:45 Sodium 137 139 (137-145) mmol/L Potassium 4.3 3.9 (3.5-5.1) mmol/L Chloride 109 H 107 (98-107) mmol/L Carbon Dioxide 22 22 (22-30) mmol/L BUN 15 17 (9-20) mg/dL Creatinine 0.75 0.83 (0.66-1.25) mg/dL Glucose 113 H 133 H (74-99) mg/dL Calcium 8.8 8.2 L (8.4-10.2) mg/dL AST 31 39 (17-59) U/L ALT 17 15 (4-49) U/L Alkaline Phosphatase 36 L 30 L (38-126) U/L Total Protein 4.8 L 5.3 L (6.3-8.2) g/dL Albumin 3.0 L 3.7 (3.5-5.0) g/dL Current Medications Generic Name Dose Route Start Last Admin Trade Name Freq PRN Reason Stop Dose Admin Acetaminophen 650 mg 09/12/24 02:00 Acetaminophen Tab 325 Mg Tab PO Q4HR PRN Fever And/ Or Mild Pain (1-3) Albuterol/Ipratropium 3 ml 09/11/24 13:14 Ipratropium-Albuterol 3 Ml Neb INHALATION RT-Q2H PRN Shortness Of Breath Or Wheezing Albuterol/Ipratropium 3 ml 09/11/24 20:00 09/11/24 19:37 Ipratropium-Albuterol 3 Ml Neb INHALATION 3 ml RT-QID [facility] Administration Aspirin 325 mg 09/12/24 09:00 Aspirin 325 Mg Tab PO DAILY [facility] Atorvastatin Calcium 80 mg 09/12/24 21:00 Atorvastatin 80 Mg Tab PO HS [facility] Benzocaine/Menthol 1 each 09/11/24 13:14 Benzocaine/Menthol Lozeng 1 Each Lozenge MUCOUS MEM Q2H PRN Sore Throat Bisacodyl 10 mg 09/12/24 09:00 Bisacodyl 10 Mg Supp RECTAL DAILY PRN Constipation Clopidogrel Bisulfate 75 mg 09/12/24 09:00 Clopidogrel 75 Mg Tab PO DAILY [facility] Dextrose/Water 25 ml 09/11/24 13:14 Dextrose 50% Syringe 50 Ml IVP PER PROTOCOL PRN Hypoglycemia Protocol Dextrose/Water 50 ml 09/11/24 13:14 Dextrose 50% Syringe 50 Ml IVP PER PROTOCOL PRN Hypoglycemia Protocol Heparin Sodium (Porcine) 5,000 unit 09/11/24 16:00 09/12/24 00:24 Heparin Sodium,Porcine 5,000 Unit/Ml 1 Ml Vial SQ 5,000 unit Q8HR [facility] Administration Hydralazine HCl 10 mg 09/11/24 13:14 09/11/24 17:45 Hydralazine Hcl 20 Mg/Ml 1 Ml Vial IVP 10 mg Q1H PRN Administration Blood Pressure - High Clevidipine 25 mg/ IV Solution 50 mls @ 2 mls/hr 09/11/24 13:14 09/12/24 07:16 IV 3 mg/hr .Q24H PRN 6 mls/hr Hypertension Titration Protocol 1 MG/HR Amiodarone HCl 150 mg/ 103 mls @ 618 mls/hr 09/11/24 13:14 Dextrose/Water IV .Q10M PRN A.FIB/FLUTTER Protocol Amiodarone HCl 360 mg/ 207.2 mls @ 34.533 mls/hr 09/11/24 13:14 Dextrose/Water IV .Q6H PRN A.FIB/FLUTTER Protocol 1 MG/MIN Amiodarone HCl 450 mg/ 250 mls @ 16.667 mls/hr 09/11/24 13:14 Dextrose/Water IV .Q15H PRN A.FIB/FLUTTER Protocol 0.5 MG/MIN Albumin Human 250 ml/ IV 250 mls @ 250 mls/hr 09/11/24 13:14 09/12/24 07:06 Solution IVPB 09/13/24 13:13 250 mls/hr Q1HR PRN Administration For Volume Protocol Cefazolin Sodium 2 gm/ 50 mls @ 100 mls/hr 09/11/24 16:00 09/12/24 00:23 Dextrose/Water IVPB 09/12/24 08:29 100 mls/hr Q8HR [facility] Administration Protocol Calcium Gluconate/Sodium 100 mls @ 100 mls/hr 09/11/24 13:14 Chloride 2 gm/ IV Solution IVPB 10/11/24 13:13 ONCE PRN Ionized Calcium less than 4.4 Insulin Human Regular 100 unit 101 mls @ 0 mls/hr 09/11/24 13:14 09/12/24 07:10 / Sodium Chloride IV 4 unit/hr .Q0M [facility] 4.04 mls/hr Titration Protocol Per Protocol Sodium Chloride 1,000 mls @ 30 mls/hr 09/11/24 13:14 09/11/24 13:50 Saline 0.9% IV 50 mls/hr .Q24H [facility] Administration Ketorolac Tromethamine 15 mg 09/12/24 06:45 Ketorolac 15 Mg/Ml 1 Ml Vial IVP 09/17/24 06:36 Q6HR [facility] Magnesium Hydroxide 2,400 mg 09/12/24 09:00 Magnesium Hydroxide 2,400 Mg/30 Ml Cup PO BID PRN Constipation Metoclopramide HCl 10 mg 09/11/24 13:14 09/12/24 07:03 Metoclopramide 5 Mg/Ml 2 Ml Vial IVP 10 mg Q4H PRN Administration Nausea And Vomiting Miscellaneous Information 1 each 09/11/24 13:14 Potassium Replacement Protocol 1 Each Misc MISCELLANE DAILY PRN Per Protocol Protocol Miscellaneous Information 1 each 09/11/24 13:14 Magnesium Replacement Protocol 1 Each Misc MISCELLANE DAILY PRN Per Protocol Protocol Ondansetron HCl 4 mg 09/11/24 13:14 Ondansetron 4 Mg/2 Ml Vial IVP Q6HR PRN Nausea And Vomiting Oxycodone HCl 5 mg 09/11/24 13:14 09/11/24 17:45 Oxycodone Hcl 5 Mg Tab PO 5 mg Q4HR PRN Administration Moderate Pain (Scale 4 to 6) Oxycodone HCl 10 mg 09/11/24 13:14 09/12/24 03:18 Oxycodone Hcl 5 Mg Tab PO 10 mg Q4HR PRN Administration Severe Pain (Scale 7 to 10) Pantoprazole Sodium 40 mg 09/12/24 09:00 Pantoprazole 40 Mg/10 Ml Vial IVP 09/12/24 10:00 DAILY [facility] Pantoprazole Sodium 40 mg 09/13/24 07:30 Pantoprazole 40 Mg Tablet PO AC-BRKFST [facility] Prednisolone Acetate 1 drops 09/12/24 09:00 Prednisolone Acetate 1% Ophth Drops 5 Ml Btl BOTH EYES DAILY [facility] Senna/Docusate Sodium 2 each 09/11/24 21:00 09/11/24 21:21 Sennosides-Docusate Sodium 1 Each Tab PO 2 each HS [facility] Administration Sodium Chloride 10 ml 09/11/24 21:00 09/11/24 20:10 Sodium Chloride 0.9% Flush 10 Ml Syringe IV Not Given BID [facility] Intake and Output 09/11/24 09/12/24 09/12/24 22:59 06:59 14:59 Intake Total 2190.872 800.101 93.724 Output Total 1225 740 25 Balance 965.872 60.101 68.724 Intake: IV 792 692 59 0.9 @ 50 150 400 50 ACETAMINOPHEN IV (For NPO 400 ) 1,000 mg In Empty Bag 1 bag @ 400 mls/hr IVPB Q6H [facility] Rx#:[id number] ceFAZolin 2 gm In 50 Dextrose 5% in Water 50 ml @ 100 mls/hr IVPB Q8HR [facility] Rx#:[id number] ns for cardiac output 170 170 0 ns for pressure flush 72 72 9 Intake, IV Titration 1398.872 108.101 34.724 Amount Albumin Human 5% 250 ml 500 In Empty Bag 1 bag @ 250 mls/hr IVPB ONCE ONE Rx#: [id number] Albumin Human 5% 250 ml 500 In Empty Bag 1 bag @ 250 mls/hr IVPB Q1HR PRN Rx#: [id number] Clevidipine Butyrate 25 0.934 78.600 3.901 mg In Empty Bag 1 bag @ 1 MG/HR 2 mls/hr IV .Q24H [facility]N Rx#:[id number] Insulin Regular 100 unit 18.725 29.501 4.798 In Sodium Chloride 0.9% 100 ml @ Per Protocol IV .Q0M [facility] Rx#:[id number] Nitroglycerin-D5w Pmx 50 7.5 26.025 mg In Dextrose/Water 1 250ml.bag @ 5 MCG/MIN 1.5 mls/hr IV .Q24H [facility] Rx#: [id number] Sodium Chloride 0.9% 1, 250 000 ml @ 30 mls/hr IV . Q24H [facility] Rx#:[id number] ceFAZolin 2 gm In 50 Dextrose 5% in Water 50 ml @ 100 mls/hr IVPB Q8HR [facility] Rx#:[id number] propofoL 1,000 mg In 71.713 Empty Bag 1 bag @ Titrate IV .Q0M [facility] Rx#: [id number] Output: Chest Tube Drainage 740 480 0 Mediastinal 640 410 0 Pleural Catheter Left 100 70 0 Gastric Drainage 70 Urine 415 260 25 Other: Voiding Method Indwelling Catheter Indwelling Catheter Weight 86.6 kg 09/12/24 04:30 09/12/24 04:45
[2024-09-12 08:01] LABS: Glucose,Whole Blood 130 mg/dL (70-110)
--- NOTE | 2024-09-12 08:07 | P.PN ---
Subjective Progress Note Date: 09/12/24 Principal diagnosis: Prosthetic aortic valve stenosis, coronary artery disease. History of severe aortic stenosis with TAVR in November 2020, coronary artery disease with PCI in 2020, heart failure with preserved ejection fraction, hypertension, hyperlipidemia, CVA in 2022, mild restrictive lung disease, previous tobacco dependence, osteoarthritis, enlarged prostate with self catheterization POD#1 Coronary bypass grafting x 1 with TRAN to LAD, excision of Medtronic Evolut CoreValve, excision of [employer] aortic valve, replacement aortic valve with 23 mm Echeverria Inspiris bovine pericardial valve prosthesis, occlusion of left atrial appendage with 40 mm AtriCure clip, CINDY by anesthesia Acute blood loss anemia and thrombocytopenia, expected given hemodilution and cardiopulmonary bypass pump The patient was seen and examined this morning sitting up in recliner in the intensive care unit in no acute distress. He was successfully extubated last night at 22:18. Currently AV placed with underlying heart rhythm complete heart block, hemodynamically stable on IV Cleviprex and nitro to keep blood pressure on the lower side. States pain is controlled on current medication regimen, denies shortness of breath. Currently on 4 L nasal cannula with oxygen saturation in the high 90s, able to achieve 1250 mL on his incentive spirometry. Right internal jugular Schriever/Cordis, mediastinal/left pleural chest tubes all remain. No other new concerns. Objective - Vital Signs Vital signs: Vital Signs Temp 97.9 F 09/12/24 04:00 Pulse 80 09/12/24 07:15 Resp 14 09/12/24 07:15 BP 100/54 09/12/24 05:30 Pulse Ox 93 L 09/12/24 07:15 FiO2 40 09/11/24 21:27 Intake & Output 09/11/24 09/12/24 09/12/24 18:59 06:59 18:59 Intake Total 4225.675 9763.508 93.724 Output Total 1655 1385 25 Balance 111.965 402.508 68.724 Weight 86.6 kg Intake: IV 268 1368 59 0.9 @ 50 550 50 ACETAMINOPHEN IV (For NPO 400 ) 1,000 mg In Empty Bag 1 bag @ 400 mls/hr IVPB Q6H [facility] Rx#:[id number] ceFAZolin 2 gm In 50 Dextrose 5% in Water 50 ml @ 100 mls/hr IVPB Q8HR [facility] Rx#:[id number] ns for cardiac output 120 260 0 ns for pressure flush 45 108 9 Intake, IV Titration 1498.965 419.508 34.724 Amount ACETAMINOPHEN IV (For NPO 100 ) 1,000 mg In Empty Bag 1 bag @ 400 mls/hr IVPB Q6H [facility] Rx#:[id number] Albumin Human 5% 250 ml 250 250 In Empty Bag 1 bag @ 250 mls/hr IVPB ONCE ONE Rx#: [id number] Albumin Human 5% 250 ml 750 In Empty Bag 1 bag @ 250 mls/hr IVPB Q1HR [facility]N Rx#: [id number] Clevidipine Butyrate 25 79.534 3.901 mg In Empty Bag 1 bag @ 1 MG/HR 2 mls/hr IV .Q24H [facility] Rx#:[id number] Insulin Regular 100 unit 9.752 38.474 4.798 In Sodium Chloride 0.9% 100 ml @ Per Protocol IV .Q0M [facility] Rx#:[id number] Nitroglycerin-D5w Pmx 50 7.5 1.5 26.025 mg In Dextrose/Water 1 250ml.bag @ 5 MCG/MIN 1.5 mls/hr IV .Q24H [facility] Rx#: [id number] Sodium Chloride 0.9% 1, 250 50 000 ml @ 30 mls/hr IV . Q24H [facility] Rx#:[id number] ceFAZolin 2 gm In 50 Dextrose 5% in Water 50 ml @ 100 mls/hr IVPB Q8HR [facility] Rx#:[id number] propofoL 1,000 mg In 81.713 Empty Bag 1 bag @ Titrate IV .Q0M [facility] Rx#: [id number] Output: Chest Tube Drainage 495 910 0 Mediastinal 430 780 0 Pleural Catheter Left 65 130 0 Gastric Drainage 70 Urine 785 405 25 Estimated Blood Loss 375 Other: Voiding Method Indwelling Catheter Indwelling Catheter ABP, PAP, CO, CI - Last Documented Arterial Blood Pressure 139/50 Pulmonary Artery Pressure 25/5 Cardiac Output 5.4 Cardiac Index 2.8 - Exam CONSTITUTIONAL: Appears comfortable, cooperative, no acute distress RESPIRATORY: Lungs sounds diminished bilaterally. Respirations even, nonlabored. Currently on 4 L nasal cannula with oxygen saturation 97%. Able to achieve 1250 mL on incentive spirometry. Strong cough. CARDIOVASCULAR: S1, S2 present. AV paced on telemetry with underlying rhythm complete heart block. Sternum stable. Palpable peripheral pulses bilaterally. Trace generalized edema present. No calf pain or tenderness noted. Heart hugger in place with patient demonstrating appropriate use. Antiembolism stockings, SCDs present. GASTROINTESTINAL: Abdomen soft, nontender, nondistended. Hypoactive bowel sounds present 4 quadrants. Tolerating minimal clear liquids. Denies flatus GENITOURINARY: [place] present draining clear, yellow urine. Output overnight 25-40 mL per hour INTEGUMENTARY: Skin is warm and dry with evidence of good perfusion. Anterior chest incision well approximated and covered with dry intact dressing NEUROLOGIC: Cranial nerves II through XII intact MUSKULOSKELETAL: Able to move all extremities, strength equal bilaterally PSYCHIATRIC: Alert and oriented to person place and time, appropriate affect, intact judgment and insight INVASIVE LINES AND TUBES: Mediastinal/left pleural chest tubes present and connected to wall suction, no air leaks present. Mediastinal tube with 400 mL serosanguineous drainage overnight, 1200 mL since surgery. Left pleural chest tube with 65 mL serosanguineous drainage overnight, 210 mL since surgery. A/V epicardial pacemaker wires present, connected to generator, DDD mode with rate 80 bpm. Right internal jugular Schriever/Cordis, right radial arterial line present. Last CO/CI 5.4/2.0, PA 21/3, CVP 1. - Allied health notes Allied health notes reviewed: nursing - Labs CBC & Chem 7: 09/12/24 04:30 09/12/24 04:45 Labs: Abnormal Lab Results - Last 24 Hours (Table) 09/05/24 09/11/24 09/11/24 Range/Units 09:25 08:32 08:33 WBC (4.50-10.00) 10*3/uL RBC (4.40-5.60) 10*6/uL Hgb (13.0-17.0) g/dL Hct (39.6-50.0) % Plt Count (140-440) 10*3/uL Immature Gran # (0.00-0.04) 10*3/uL Neutrophils # (1.80-7.70) 10*3/uL Lymphocytes # (0.90-5.00) 10*3/uL Eosinophils # (0.04-0.35) 10*3/uL PT (10.0-12.5) sec INR (<1.2) ABG pH (7.35-7.45) ABG pCO2 46 H 28 L (35-45) mmHg ABG pO2 >420 H 174 H (83-108) mmHg ABG HCO3 26 H 17 L (21-25) mmol/L ABG Total CO2 16 L (19-24) mmol/L ABG O2 Saturation >99.4 H 99.0 H (94-97) % ABG Hematocrit 27 L (34.0-46.0) % ABG Potassium 2.6 L* (3.4-4.5) mmol/L ABG Ionized Calcium 3.4 L* (4.5-5.3) mg/dL ABG Glucose 108 H (75-99) mg/dL ABG Lactic Acid (0.5-1.6) mmol/L Hemoglobin 8.6 L (13.0-17.5) gm/dL Chloride (98-107) mmol/L Glucose (74-99) mg/dL POC Glucose (mg/dL) (70-110) mg/dL Calcium (8.4-10.2) mg/dL Magnesium (1.6-2.3) mg/dL Total Bilirubin (0.2-1.3) mg/dL Alkaline Phosphatase (38-126) U/L Total Protein (6.3-8.2) g/dL Albumin (3.5-5.0) g/dL Arterial Blood Potassium 2.6 L* (3.4-4.5) mmol/L Arterial Blood Glucose 108 H (75-99) mg/dL Crossmatch See Detail 09/11/24 09/11/24 09/11/24 Range/Units 08:33 10:03 10:28 WBC (4.50-10.00) 10*3/uL RBC (4.40-5.60) 10*6/uL Hgb (13.0-17.0) g/dL Hct (39.6-50.0) % Plt Count (140-440) 10*3/uL Immature Gran # (0.00-0.04) 10*3/uL Neutrophils # (1.80-7.70) 10*3/uL Lymphocytes # (0.90-5.00) 10*3/uL Eosinophils # (0.04-0.35) 10*3/uL PT (10.0-12.5) sec INR (<1.2) ABG pH 7.47 H (7.35-7.45) ABG pCO2 (35-45) mmHg ABG pO2 35 L* 166 H 415 H (83-108) mmHg ABG HCO3 26 H (21-25) mmol/L ABG Total CO2 (19-24) mmol/L ABG O2 Saturation 67.0 L 99.1 H >99.4 H (94-97) % ABG Hematocrit 31 L 27 L (34.0-46.0) % ABG Potassium (3.4-4.5) mmol/L ABG Ionized Calcium 4.1 L (4.5-5.3) mg/dL ABG Glucose 148 H 114 H 100 H (75-99) mg/dL ABG Lactic Acid 1.8 H (0.5-1.6) mmol/L Hemoglobin 10.0 L 11.5 L 8.9 L (13.0-17.5) gm/dL Chloride (98-107) mmol/L Glucose (74-99) mg/dL POC Glucose (mg/dL) (70-110) mg/dL Calcium (8.4-10.2) mg/dL Magnesium (1.6-2.3) mg/dL Total Bilirubin (0.2-1.3) mg/dL Alkaline Phosphatase (38-126) U/L Total Protein (6.3-8.2) g/dL Albumin (3.5-5.0) g/dL Arterial Blood Potassium (3.4-4.5) mmol/L Arterial Blood Glucose 148 H 114 H 100 H (75-99) mg/dL Crossmatch 09/11/24 09/11/24 09/11/24 Range/Units 10:58 11:35 12:45 WBC (4.50-10.00) 10*3/uL RBC (4.40-5.60) 10*6/uL Hgb (13.0-17.0) g/dL Hct (39.6-50.0) % Plt Count (140-440) 10*3/uL Immature Gran # (0.00-0.04) 10*3/uL Neutrophils # (1.80-7.70) 10*3/uL Lymphocytes # (0.90-5.00) 10*3/uL Eosinophils # (0.04-0.35) 10*3/uL PT (10.0-12.5) sec INR (<1.2) ABG pH 7.49 H (7.35-7.45) ABG pCO2 33 L (35-45) mmHg ABG pO2 >420 H >420 H 335 H (83-108) mmHg ABG HCO3 (21-25) mmol/L ABG Total CO2 (19-24) mmol/L ABG O2 Saturation >99.4 H >99.4 H 99.1 H (94-97) % ABG Hematocrit 28 L 29 L 31 L (34.0-46.0) % ABG Potassium (3.4-4.5) mmol/L ABG Ionized Calcium 4.2 L 4.3 L (4.5-5.3) mg/dL ABG Glucose 113 H 116 H 123 H (75-99) mg/dL ABG Lactic Acid 1.7 H (0.5-1.6) mmol/L Hemoglobin 9.0 L 9.4 L 10.2 L (13.0-17.5) gm/dL Chloride (98-107) mmol/L Glucose (74-99) mg/dL POC Glucose (mg/dL) (70-110) mg/dL Calcium (8.4-10.2) mg/dL Magnesium (1.6-2.3) mg/dL Total Bilirubin (0.2-1.3) mg/dL Alkaline Phosphatase (38-126) U/L Total Protein (6.3-8.2) g/dL Albumin (3.5-5.0) g/dL Arterial Blood Potassium (3.4-4.5) mmol/L Arterial Blood Glucose 113 H 116 H 123 H (75-99) mg/dL Crossmatch 09/11/24 09/11/24 09/11/24 Range/Units 13:28 13:28 13:28 WBC 12.57 H (4.50-10.00) 10*3/uL RBC 3.62 L (4.40-5.60) 10*6/uL Hgb 11.3 L (13.0-17.0) g/dL Hct 32.4 L (39.6-50.0) % Plt Count 94 L (140-440) 10*3/uL Immature Gran # 0.13 H (0.00-0.04) 10*3/uL Neutrophils # 10.54 H (1.80-7.70) 10*3/uL Lymphocytes # (0.90-5.00) 10*3/uL Eosinophils # (0.04-0.35) 10*3/uL PT 13.2 H (10.0-12.5) sec INR 1.2 H (<1.2) ABG pH (7.35-7.45) ABG pCO2 (35-45) mmHg ABG pO2 (83-108) mmHg ABG HCO3 (21-25) mmol/L ABG Total CO2 (19-24) mmol/L ABG O2 Saturation (94-97) % ABG Hematocrit (34.0-46.0) % ABG Potassium (3.4-4.5) mmol/L ABG Ionized Calcium (4.5-5.3) mg/dL ABG Glucose (75-99) mg/dL ABG Lactic Acid (0.5-1.6) mmol/L Hemoglobin (13.0-17.5) gm/dL Chloride 109 H (98-107) mmol/L Glucose 113 H (74-99) mg/dL POC Glucose (mg/dL) (70-110) mg/dL Calcium (8.4-10.2) mg/dL Magnesium 3.8 H (1.6-2.3) mg/dL Total Bilirubin 1.4 H (0.2-1.3) mg/dL Alkaline Phosphatase 36 L (38-126) U/L Total Protein 4.8 L (6.3-8.2) g/dL Albumin 3.0 L (3.5-5.0) g/dL Arterial Blood Potassium (3.4-4.5) mmol/L Arterial Blood Glucose (75-99) mg/dL Crossmatch 09/11/24 09/11/24 09/11/24 Range/Units 13:38 14:03 14:53 WBC (4.50-10.00) 10*3/uL RBC (4.40-5.60) 10*6/uL Hgb (13.0-17.0) g/dL Hct (39.6-50.0) % Plt Count (140-440) 10*3/uL Immature Gran # (0.00-0.04) 10*3/uL Neutrophils # (1.80-7.70) 10*3/uL Lymphocytes # (0.90-5.00) 10*3/uL Eosinophils # (0.04-0.35) 10*3/uL PT (10.0-12.5) sec INR (<1.2) ABG pH (7.35-7.45) ABG pCO2 (35-45) mmHg ABG pO2 318 H (83-108) mmHg ABG HCO3 (21-25) mmol/L ABG Total CO2 (19-24) mmol/L ABG O2 Saturation >100.0 H (94-97) % ABG Hematocrit (34.0-46.0) % ABG Potassium (3.4-4.5) mmol/L ABG Ionized Calcium (4.5-5.3) mg/dL ABG Glucose (75-99) mg/dL ABG Lactic Acid (0.5-1.6) mmol/L Hemoglobin 12.0 L (13.0-17.5) gm/dL Chloride (98-107) mmol/L Glucose (74-99) mg/dL POC Glucose (mg/dL) 119 H 145 H (70-110) mg/dL Calcium (8.4-10.2) mg/dL Magnesium (1.6-2.3) mg/dL Total Bilirubin (0.2-1.3) mg/dL Alkaline Phosphatase (38-126) U/L Total Protein (6.3-8.2) g/dL Albumin (3.5-5.0) g/dL Arterial Blood Potassium (3.4-4.5) mmol/L Arterial Blood Glucose (75-99) mg/dL Crossmatch 09/11/24 09/11/24 09/11/24 Range/Units 16:01 16:39 17:11 WBC 10.54 H (4.50-10.00) 10*3/uL RBC 3.45 L (4.40-5.60) 10*6/uL Hgb 10.7 L (13.0-17.0) g/dL Hct 30.6 L (39.6-50.0) % Plt Count 93 L (140-440) 10*3/uL Immature Gran # 0.06 H (0.00-0.04) 10*3/uL Neutrophils # 9.04 H (1.80-7.70) 10*3/uL Lymphocytes # 0.58 L (0.90-5.00) 10*3/uL Eosinophils # (0.04-0.35) 10*3/uL PT (10.0-12.5) sec INR (<1.2) ABG pH (7.35-7.45) ABG pCO2 (35-45) mmHg ABG pO2 (83-108) mmHg ABG HCO3 (21-25) mmol/L ABG Total CO2 (19-24) mmol/L ABG O2 Saturation (94-97) % ABG Hematocrit (34.0-46.0) % ABG Potassium (3.4-4.5) mmol/L ABG Ionized Calcium (4.5-5.3) mg/dL ABG Glucose (75-99) mg/dL ABG Lactic Acid (0.5-1.6) mmol/L Hemoglobin (13.0-17.5) gm/dL Chloride (98-107) mmol/L Glucose (74-99) mg/dL POC Glucose (mg/dL) 140 H 144 H (70-110) mg/dL Calcium (8.4-10.2) mg/dL Magnesium (1.6-2.3) mg/dL Total Bilirubin (0.2-1.3) mg/dL Alkaline Phosphatase (38-126) U/L Total Protein (6.3-8.2) g/dL Albumin (3.5-5.0) g/dL Arterial Blood Potassium (3.4-4.5) mmol/L Arterial Blood Glucose (75-99) mg/dL Crossmatch 09/11/24 09/11/24 09/11/24 Range/Units 18:22 19:32 19:37 WBC 11.59 H (4.50-10.00) 10*3/uL RBC 3.25 L (4.40-5.60) 10*6/uL Hgb 10.0 L (13.0-17.0) g/dL Hct 29.5 L (39.6-50.0) % Plt Count 101 L (140-440) 10*3/uL Immature Gran # 0.06 H (0.00-0.04) 10*3/uL Neutrophils # 9.82 H (1.80-7.70) 10*3/uL Lymphocytes # 0.83 L (0.90-5.00) 10*3/uL Eosinophils # 0.02 L (0.04-0.35) 10*3/uL PT (10.0-12.5) sec INR (<1.2) ABG pH (7.35-7.45) ABG pCO2 (35-45) mmHg ABG pO2 (83-108) mmHg ABG HCO3 (21-25) mmol/L ABG Total CO2 (19-24) mmol/L ABG O2 Saturation (94-97) % ABG Hematocrit (34.0-46.0) % ABG Potassium (3.4-4.5) mmol/L ABG Ionized Calcium (4.5-5.3) mg/dL ABG Glucose (75-99) mg/dL ABG Lactic Acid (0.5-1.6) mmol/L Hemoglobin (13.0-17.5) gm/dL Chloride (98-107) mmol/L Glucose (74-99) mg/dL POC Glucose (mg/dL) 139 H 166 H (70-110) mg/dL Calcium (8.4-10.2) mg/dL Magnesium (1.6-2.3) mg/dL Total Bilirubin (0.2-1.3) mg/dL Alkaline Phosphatase (38-126) U/L Total Protein (6.3-8.2) g/dL Albumin (3.5-5.0) g/dL Arterial Blood Potassium (3.4-4.5) mmol/L Arterial Blood Glucose (75-99) mg/dL Crossmatch 09/11/24 09/11/24 09/11/24 Range/Units 21:12 21:43 22:05 WBC (4.50-10.00) 10*3/uL RBC (4.40-5.60) 10*6/uL Hgb (13.0-17.0) g/dL Hct (39.6-50.0) % Plt Count (140-440) 10*3/uL Immature Gran # (0.00-0.04) 10*3/uL Neutrophils # (1.80-7.70) 10*3/uL Lymphocytes # (0.90-5.00) 10*3/uL Eosinophils # (0.04-0.35) 10*3/uL PT (10.0-12.5) sec INR (<1.2) ABG pH 7.30 L (7.35-7.45) ABG pCO2 47 H (35-45) mmHg ABG pO2 109 H (83-108) mmHg ABG HCO3 (21-25) mmol/L ABG Total CO2 (19-24) mmol/L ABG O2 Saturation 98.1 H (94-97) % ABG Hematocrit (34.0-46.0) % ABG Potassium (3.4-4.5) mmol/L ABG Ionized Calcium (4.5-5.3) mg/dL ABG Glucose (75-99) mg/dL ABG Lactic Acid (0.5-1.6) mmol/L Hemoglobin 10.1 L (13.0-17.5) gm/dL Chloride (98-107) mmol/L Glucose (74-99) mg/dL POC Glucose (mg/dL) 172 H 167 H (70-110) mg/dL Calcium (8.4-10.2) mg/dL Magnesium (1.6-2.3) mg/dL Total Bilirubin (0.2-1.3) mg/dL Alkaline Phosphatase (38-126) U/L Total Protein (6.3-8.2) g/dL Albumin (3.5-5.0) g/dL Arterial Blood Potassium (3.4-4.5) mmol/L Arterial Blood Glucose (75-99) mg/dL Crossmatch 09/11/24 09/12/24 09/12/24 Range/Units 23:27 00:21 01:17 WBC (4.50-10.00) 10*3/uL RBC (4.40-5.60) 10*6/uL Hgb (13.0-17.0) g/dL Hct (39.6-50.0) % Plt Count (140-440) 10*3/uL Immature Gran # (0.00-0.04) 10*3/uL Neutrophils # (1.80-7.70) 10*3/uL Lymphocytes # (0.90-5.00) 10*3/uL Eosinophils # (0.04-0.35) 10*3/uL PT (10.0-12.5) sec INR (<1.2) ABG pH (7.35-7.45) ABG pCO2 (35-45) mmHg ABG pO2 (83-108) mmHg ABG HCO3 (21-25) mmol/L ABG Total CO2 (19-24) mmol/L ABG O2 Saturation (94-97) % ABG Hematocrit (34.0-46.0) % ABG Potassium (3.4-4.5) mmol/L ABG Ionized Calcium (4.5-5.3) mg/dL ABG Glucose (75-99) mg/dL ABG Lactic Acid (0.5-1.6) mmol/L Hemoglobin (13.0-17.5) gm/dL Chloride (98-107) mmol/L Glucose (74-99) mg/dL POC Glucose (mg/dL) 152 H 150 H 161 H (70-110) mg/dL Calcium (8.4-10.2) mg/dL Magnesium (1.6-2.3) mg/dL Total Bilirubin (0.2-1.3) mg/dL Alkaline Phosphatase (38-126) U/L Total Protein (6.3-8.2) g/dL Albumin (3.5-5.0) g/dL Arterial Blood Potassium (3.4-4.5) mmol/L Arterial Blood Glucose (75-99) mg/dL Crossmatch 09/12/24 09/12/24 09/12/24 Range/Units 02:16 03:04 04:12 WBC (4.50-10.00) 10*3/uL RBC (4.40-5.60) 10*6/uL Hgb (13.0-17.0) g/dL Hct (39.6-50.0) % Plt Count (140-440) 10*3/uL Immature Gran # (0.00-0.04) 10*3/uL Neutrophils # (1.80-7.70) 10*3/uL Lymphocytes # (0.90-5.00) 10*3/uL Eosinophils # (0.04-0.35) 10*3/uL PT (10.0-12.5) sec INR (<1.2) ABG pH (7.35-7.45) ABG pCO2 (35-45) mmHg ABG pO2 (83-108) mmHg ABG HCO3 (21-25) mmol/L ABG Total CO2 (19-24) mmol/L ABG O2 Saturation (94-97) % ABG Hematocrit (34.0-46.0) % ABG Potassium (3.4-4.5) mmol/L ABG Ionized Calcium (4.5-5.3) mg/dL ABG Glucose (75-99) mg/dL ABG Lactic Acid (0.5-1.6) mmol/L Hemoglobin (13.0-17.5) gm/dL Chloride (98-107) mmol/L Glucose (74-99) mg/dL POC Glucose (mg/dL) 155 H 158 H 149 H (70-110) mg/dL Calcium (8.4-10.2) mg/dL Magnesium (1.6-2.3) mg/dL Total Bilirubin (0.2-1.3) mg/dL Alkaline Phosphatase (38-126) U/L Total Protein (6.3-8.2) g/dL Albumin (3.5-5.0) g/dL Arterial Blood Potassium (3.4-4.5) mmol/L Arterial Blood Glucose (75-99) mg/dL Crossmatch 09/12/24 09/12/24 09/12/24 Range/Units 04:30 04:45 06:11 WBC 13.00 H (4.50-10.00) 10*3/uL RBC 3.24 L (4.40-5.60) 10*6/uL Hgb 10.0 L (13.0-17.0) g/dL Hct 29.7 L (39.6-50.0) % Plt Count 108 L (140-440) 10*3/uL Immature Gran # 0.06 H (0.00-0.04) 10*3/uL Neutrophils # 11.71 H (1.80-7.70) 10*3/uL Lymphocytes # 0.40 L (0.90-5.00) 10*3/uL Eosinophils # 0.00 L (0.04-0.35) 10*3/uL PT (10.0-12.5) sec INR (<1.2) ABG pH (7.35-7.45) ABG pCO2 (35-45) mmHg ABG pO2 (83-108) mmHg ABG HCO3 (21-25) mmol/L ABG Total CO2 (19-24) mmol/L ABG O2 Saturation (94-97) % ABG Hematocrit (34.0-46.0) % ABG Potassium (3.4-4.5) mmol/L ABG Ionized Calcium (4.5-5.3) mg/dL ABG Glucose (75-99) mg/dL ABG Lactic Acid (0.5-1.6) mmol/L Hemoglobin (13.0-17.5) gm/dL Chloride (98-107) mmol/L Glucose 133 H (74-99) mg/dL POC Glucose (mg/dL) 160 H (70-110) mg/dL Calcium 8.2 L (8.4-10.2) mg/dL Magnesium 2.7 H (1.6-2.3) mg/dL Total Bilirubin (0.2-1.3) mg/dL Alkaline Phosphatase 30 L (38-126) U/L Total Protein 5.3 L (6.3-8.2) g/dL Albumin (3.5-5.0) g/dL Arterial Blood Potassium (3.4-4.5) mmol/L Arterial Blood Glucose (75-99) mg/dL Crossmatch 09/12/24 Range/Units 06:58 WBC (4.50-10.00) 10*3/uL RBC (4.40-5.60) 10*6/uL Hgb (13.0-17.0) g/dL Hct (39.6-50.0) % Plt Count (140-440) 10*3/uL Immature Gran # (0.00-0.04) 10*3/uL Neutrophils # (1.80-7.70) 10*3/uL Lymphocytes # (0.90-5.00) 10*3/uL Eosinophils # (0.04-0.35) 10*3/uL PT (10.0-12.5) sec INR (<1.2) ABG pH (7.35-7.45) ABG pCO2 (35-45) mmHg ABG pO2 (83-108) mmHg ABG HCO3 (21-25) mmol/L ABG Total CO2 (19-24) mmol/L ABG O2 Saturation (94-97) % ABG Hematocrit (34.0-46.0) % ABG Potassium (3.4-4.5) mmol/L ABG Ionized Calcium (4.5-5.3) mg/dL ABG Glucose (75-99) mg/dL ABG Lactic Acid (0.5-1.6) mmol/L Hemoglobin (13.0-17.5) gm/dL Chloride (98-107) mmol/L Glucose (74-99) mg/dL POC Glucose (mg/dL) 144 H (70-110) mg/dL Calcium (8.4-10.2) mg/dL Magnesium (1.6-2.3) mg/dL Total Bilirubin (0.2-1.3) mg/dL Alkaline Phosphatase (38-126) U/L Total Protein (6.3-8.2) g/dL Albumin (3.5-5.0) g/dL Arterial Blood Potassium (3.4-4.5) mmol/L Arterial Blood Glucose (75-99) mg/dL Crossmatch - Imaging and Cardiology Chest x-ray: image reviewed Assessment and Plan Assessment: Prosthetic aortic valve stenosis, status post excision of TAVR and [place] valve, replacement aortic valve Coronary artery disease, status post single-vessel CABG Underlying complete heart block, unexpected but potential complication of any valve surgery Acute blood loss anemia and thrombocytopenia, expected History of severe aortic stenosis with TAVR in November 2020 Coronary artery disease with PCI in 2020 Heart failure with preserved ejection fraction, EF 60 to 65% Hypertension Hyperlipidemia, treated, cholesterol 171, LDL 97, triglycerides 161 CVA in 2022 Mild restrictive lung disease, preoperative FEV1 62% of predicted Previous tobacco dependence Osteoarthritis Enlarged prostate with self catheterization Plan: Continue to maximize medical therapy with aspirin, statin, Plavix. Will hold off on beta-mina for now due to underlying heart rhythm Discontinue IV nitro Wean Cleviprex, will transition to lisinopril for afterload reduction Wean oxygen as tolerated. Encourage incentive spirometry use 10 times every hour while awake. Bronchodilators per pulmonology Increase activity, ambulate as tolerated. PT/OT/cardiac rehab consulted Will monitor daily labs and x-rays, electrolyte replacement per protocol GI/DVT prophylaxis Pain control per current medication regimen Insulin management per internal medicine. Patient is not diabetic, preoperative hemoglobin A1c 6.1%. Should remain on continuous IV insulin for 48 hours, then may transition to subcutaneous per protocol Continue to AV pace, monitor for return of intrinsic rhythm, hold AV panda blockers Continue Schriever/Cordis Continue [place] catheter for another 24 hours, monitor and record strict accurate intake and output Continue chest tubes for another 24 hours More recommendations to follow as patient progresses
[2024-09-12] MEDS: KETOROLAC 15 MG/ML 1 ML VIAL IVP SCH (08:10)
[2024-09-12] MEDS: ASPIRIN 325 MG TAB PO SCH (08:11)
[2024-09-12] MEDS: prednisoLONE ACETATE 1% OPHTH DROPS 5 ML BTL BOTH EYES SCH (08:11)
[2024-09-12] MEDS: CLOPIDOGREL 75 MG TAB PO SCH (08:11)
[2024-09-12] MEDS: PANTOPRAZOLE 40 MG/10 ML VIAL IVP SCH (08:11)
--- NOTE | 2024-09-12 08:32 | XR ---
EXAMINATION TYPE: XR chest 1V portable DATE OF EXAM: 09/12/2024 5:52 AM COMPARISON: 09/11/2024 CLINICAL INDICATION: Male, 79 years old with history of Post Operative Cardiac Surgery, , FINDINGS: Right IJ [place] catheter tip at the right main pulmonary artery level. Mediastinal drains. Left-si ded chest tube. Interval extubation and removal of NG tube. Heart mildly enlarged. Diffuse interstiti al densities persist. Patchy retrocardiac opacity persists. No sizable pneumothorax. Questionable tra ce 1 cm left apical pneumothorax. Median sternotomy wires with prosthetic aortic valve and post-CABG clips. IMPRESSION: 1. Ongoing pulmonary vascular congestion. 2. Ongoing patchy retrocardiac pulmonary edema versus atelectasis. 3. Left-sided chest tube in place. There is either superimposition shadow versus a trace 1 cm left ap ical pneumothorax. [facility], , 09/12/2024 8:30 AM
[2024-09-12] MEDS ORDERED: METOPROLOL TARTRATE 12.5 MG TAB PO SCH (09:00)
[2024-09-12] MEDS ORDERED: MAGNESIUM HYDROXIDE 2,400 MG/30 ML CUP PO PRN (09:00)
[2024-09-12] MEDS: lisinopriL 10 MG TAB PO SCH (09:13)
[2024-09-12 09:24] LABS: Glucose,Whole Blood 129 mg/dL (70-110)
[2024-09-12 09:56] LABS: Glucose,Whole Blood 117 mg/dL (70-110)
[2024-09-12 10:16] LABS: Glucose,Whole Blood 129 mg/dL (70-110)
[2024-09-12 10:57] VITALS: BMI 29.9
[2024-09-12 10:58] LABS: Glucose,Whole Blood 114 mg/dL (70-110)
[2024-09-12 12:08] LABS: Glucose,Whole Blood 126 mg/dL (70-110)
--- NOTE | 2024-09-12 12:32 | P.PN ---
Subjective Progress Note Date: 09/12/24 No new complaints today. Sugars are well controlled. Gen: In NAD, non-toxic HEENT: normocephalic, atraumatic, hearing acuity is intant, mucous membranes moist CVS: perfusing all extremities well, no pitting edema, Respiratory: symmetric chest expansion, no accessory muscle use, GI: soft, NTTP, ND, : no suprapubic tenderness, no CVA tenderness MSK/Derm: no rashes, cyanosis Neuro: CN II-XII intact, no motor weakness, Psych: cooperative, euthymic mood, judgment and insight is intact Hospital course: Patient is a 79-year-old male with history of aortic stenosis with previous TAVR, CAD, hypertension, dyslipidemia, GERD, CVA/TIA presenting for elective CABG and aortic valve replacement. [facility] [place] physicians consulted for medical management. Upon initial evaluation, WBC 12.57, hemoglobin 11.3, platelet 94, pH 7.42, [id number], potassium 4.3, creatinine 0.75, blood sugars range between 113- 145, magnesium 2.8, total bili 1.4, AST 31, ALT 17, ALP 36. Chest x-ray independently interpreted, shows postoperative changes, interstitial opacities bilaterally. Assessment/Plan: Active: CAD status post CABG, and aortic valve replacement Hypertension Dyslipidemia - On amiodarone drip, aspirin 325 daily, aspirin 80 mg daily, Plavix 75 daily, metoprolol 12.5 daily - Pain control, DVT prophylaxis, bowel regimen per cardiothoracic surgery - Pulmonology to manage vent settings Hyperglycemia Prediabetes, A1c 6.1 - Continue with insulin drip, blood sugars every hours - Switch to subcu insulin when able to tolerate oral intake Thank you for allowing us to participate in the care of this pleasant patient. Do not hesitate to contact us with questions. Someone can be reached from the [facility] [place] [facility] hospitalist group all hours of the day at [phone] or via perfect serve. Objective - Vital Signs Vital signs: Vital Signs Temp 97.5 F L 09/12/24 08:00 Pulse 80 09/12/24 11:30 Resp 10 L 09/12/24 11:30 BP 100/54 09/12/24 05:30 Pulse Ox 95 09/12/24 11:30 FiO2 40 09/11/24 21:27 Intake & Output 0509/12/24 09/12/24 18:59 06:59 18:59 Intake Total 0963.622 7996.508 721.310 Output Total 1655 1385 305 Balance 111.965 402.508 416.310 Weight 86.6 kg 86.6 kg Intake: IV 268 1368 615 0.9 @ 50 550 250 ACETAMINOPHEN IV (For NPO 400 ) 1,000 mg In Empty Bag 1 bag @ 400 mls/hr IVPB Q6H [facility] Rx#:[id number] Albumin Human 5% 250 ml 250 In Empty Bag 1 bag @ 250 mls/hr IVPB ONCE ONE Rx#: [id number] Pressure Bag 45 108 45 ceFAZolin 2 gm In 50 50 Dextrose 5% in Water 50 ml @ 100 mls/hr IVPB Q8HR [facility] Rx#:[id number] ns for cardiac output 120 260 20 Intake, IV Titration 1498.965 419.508 56.310 Amount ACETAMINOPHEN IV (For NPO 100 ) 1,000 mg In Empty Bag 1 bag @ 400 mls/hr IVPB Q6H [facility] Rx#:[id number] Albumin Human 5% 250 ml 250 250 In Empty Bag 1 bag @ 250 mls/hr IVPB ONCE ONE Rx#: [id number] Albumin Human 5% 250 ml 750 In Empty Bag 1 bag @ 250 mls/hr IVPB Q1HR PRN Rx#: [id number] Clevidipine Butyrate 25 79.534 11.801 mg In Empty Bag 1 bag @ 1 MG/HR 2 mls/hr IV .Q24H PRN Rx#:[id number] Insulin Regular 100 unit 9.752 38.474 18.484 In Sodium Chloride 0.9% 100 ml @ Per Protocol IV .Q0M [facility] Rx#:[id number] Nitroglycerin-D5w Pmx 50 7.5 1.5 26.025 mg In Dextrose/Water 1 250ml.bag @ 5 MCG/MIN 1.5 mls/hr IV .Q24H [facility] Rx#: [id number] Sodium Chloride 0.9% 1, 250 50 000 ml @ 30 mls/hr IV . Q24H [facility] Rx#:[id number] ceFAZolin 2 gm In 50 Dextrose 5% in Water 50 ml @ 100 mls/hr IVPB Q8HR [facility] Rx#:[id number] propofoL 1,000 mg In 81.713 Empty Bag 1 bag @ Titrate IV .Q0M [facility] Rx#: [id number] Oral 50 Output: Chest Tube Drainage 495 910 180 Mediastinal 430 780 120 Pleural Catheter Left 65 130 60 Gastric Drainage 70 Urine 785 405 125 Estimated Blood Loss 375 Other: Voiding Method Indwelling Catheter Indwelling Catheter Indwelling Catheter ABP, PAP, CO, CI - Last Documented Arterial Blood Pressure 111/46 Pulmonary Artery Pressure 38/13 Cardiac Output 6.2 Cardiac Index 3.2 - Labs CBC & Chem 7: 09/12/24 04:30 09/12/24 04:45 Labs: Abnormal Lab Results - Last 24 Hours (Table) 09/05/24 09/11/24 09/11/24 Range/Units 09:25 08:33 08:33 WBC (4.50-10.00) 10*3/uL RBC (4.40-5.60) 10*6/uL Hgb (13.0-17.0) g/dL Hct (39.6-50.0) % Plt Count (140-440) 10*3/uL Immature Gran # (0.00-0.04) 10*3/uL Neutrophils # (1.80-7.70) 10*3/uL Lymphocytes # (0.90-5.00) 10*3/uL Eosinophils # (0.04-0.35) 10*3/uL PT (10.0-12.5) sec INR (<1.2) ABG pH (7.35-7.45) ABG pCO2 28 L (35-45) mmHg ABG pO2 174 H 35 L* (83-108) mmHg ABG HCO3 17 L (21-25) mmol/L ABG Total CO2 16 L (19-24) mmol/L ABG O2 Saturation 99.0 H 67.0 L (94-97) % ABG Hematocrit 27 L 31 L (34.0-46.0) % ABG Potassium 2.6 L* (3.4-4.5) mmol/L ABG Ionized Calcium 3.4 L* (4.5-5.3) mg/dL ABG Glucose 148 H (75-99) mg/dL ABG Lactic Acid 1.8 H (0.5-1.6) mmol/L Hemoglobin 8.6 L 10.0 L (13.0-17.5) gm/dL Chloride (98-107) mmol/L Glucose (74-99) mg/dL POC Glucose (mg/dL) (70-110) mg/dL Calcium (8.4-10.2) mg/dL Magnesium (1.6-2.3) mg/dL Total Bilirubin (0.2-1.3) mg/dL Alkaline Phosphatase (38-126) U/L Total Protein (6.3-8.2) g/dL Albumin (3.5-5.0) g/dL Arterial Blood Potassium 2.6 L* (3.4-4.5) mmol/L Arterial Blood Glucose 148 H (75-99) mg/dL Crossmatch See Detail 09/11/24 09/11/24 09/11/24 Range/Units 10:03 10:28 10:58 WBC (4.50-10.00) 10*3/uL RBC (4.40-5.60) 10*6/uL Hgb (13.0-17.0) g/dL Hct (39.6-50.0) % Plt Count (140-440) 10*3/uL Immature Gran # (0.00-0.04) 10*3/uL Neutrophils # (1.80-7.70) 10*3/uL Lymphocytes # (0.90-5.00) 10*3/uL Eosinophils # (0.04-0.35) 10*3/uL PT (10.0-12.5) sec INR (<1.2) ABG pH 7.47 H 7.49 H (7.35-7.45) ABG pCO2 33 L (35-45) mmHg ABG pO2 166 H 415 H >420 H (83-108) mmHg ABG HCO3 26 H (21-25) mmol/L ABG Total CO2 (19-24) mmol/L ABG O2 Saturation 99.1 H >99.4 H >99.4 H (94-97) % ABG Hematocrit 27 L 28 L (34.0-46.0) % ABG Potassium (3.4-4.5) mmol/L ABG Ionized Calcium 4.1 L 4.2 L (4.5-5.3) mg/dL ABG Glucose 114 H 100 H 113 H (75-99) mg/dL ABG Lactic Acid (0.5-1.6) mmol/L Hemoglobin 11.5 L 8.9 L 9.0 L (13.0-17.5) gm/dL Chloride (98-107) mmol/L Glucose (74-99) mg/dL POC Glucose (mg/dL) (70-110) mg/dL Calcium (8.4-10.2) mg/dL Magnesium (1.6-2.3) mg/dL Total Bilirubin (0.2-1.3) mg/dL Alkaline Phosphatase (38-126) U/L Total Protein (6.3-8.2) g/dL Albumin (3.5-5.0) g/dL Arterial Blood Potassium (3.4-4.5) mmol/L Arterial Blood Glucose 114 H 100 H 113 H (75-99) mg/dL Crossmatch 09/11/24 09/11/24 09/11/24 Range/Units 11:35 12:45 13:28 WBC 12.57 H (4.50-10.00) 10*3/uL RBC 3.62 L (4.40-5.60) 10*6/uL Hgb 11.3 L (13.0-17.0) g/dL Hct 32.4 L (39.6-50.0) % Plt Count 94 L (140-440) 10*3/uL Immature Gran # 0.13 H (0.00-0.04) 10*3/uL Neutrophils # 10.54 H (1.80-7.70) 10*3/uL Lymphocytes # (0.90-5.00) 10*3/uL Eosinophils # (0.04-0.35) 10*3/uL PT (10.0-12.5) sec INR (<1.2) ABG pH (7.35-7.45) ABG pCO2 (35-45) mmHg ABG pO2 >420 H 335 H (83-108) mmHg ABG HCO3 (21-25) mmol/L ABG Total CO2 (19-24) mmol/L ABG O2 Saturation >99.4 H 99.1 H (94-97) % ABG Hematocrit 29 L 31 L (34.0-46.0) % ABG Potassium (3.4-4.5) mmol/L ABG Ionized Calcium 4.3 L (4.5-5.3) mg/dL ABG Glucose 116 H 123 H (75-99) mg/dL ABG Lactic Acid 1.7 H (0.5-1.6) mmol/L Hemoglobin 9.4 L 10.2 L (13.0-17.5) gm/dL Chloride (98-107) mmol/L Glucose (74-99) mg/dL POC Glucose (mg/dL) (70-110) mg/dL Calcium (8.4-10.2) mg/dL Magnesium (1.6-2.3) mg/dL Total Bilirubin (0.2-1.3) mg/dL Alkaline Phosphatase (38-126) U/L Total Protein (6.3-8.2) g/dL Albumin (3.5-5.0) g/dL Arterial Blood Potassium (3.4-4.5) mmol/L Arterial Blood Glucose 116 H 123 H (75-99) mg/dL Crossmatch 09/11/24 09/11/24 09/11/24 Range/Units 13:28 13:28 13:38 WBC (4.50-10.00) 10*3/uL RBC (4.40-5.60) 10*6/uL Hgb (13.0-17.0) g/dL Hct (39.6-50.0) % Plt Count (140-440) 10*3/uL Immature Gran # (0.00-0.04) 10*3/uL Neutrophils # (1.80-7.70) 10*3/uL Lymphocytes # (0.90-5.00) 10*3/uL Eosinophils # (0.04-0.35) 10*3/uL PT 13.2 H (10.0-12.5) sec INR 1.2 H (<1.2) ABG pH (7.35-7.45) ABG pCO2 (35-45) mmHg ABG pO2 (83-108) mmHg ABG HCO3 (21-25) mmol/L ABG Total CO2 (19-24) mmol/L ABG O2 Saturation (94-97) % ABG Hematocrit (34.0-46.0) % ABG Potassium (3.4-4.5) mmol/L ABG Ionized Calcium (4.5-5.3) mg/dL ABG Glucose (75-99) mg/dL ABG Lactic Acid (0.5-1.6) mmol/L Hemoglobin (13.0-17.5) gm/dL Chloride 109 H (98-107) mmol/L Glucose 113 H (74-99) mg/dL POC Glucose (mg/dL) 119 H (70-110) mg/dL Calcium (8.4-10.2) mg/dL Magnesium 3.8 H (1.6-2.3) mg/dL Total Bilirubin 1.4 H (0.2-1.3) mg/dL Alkaline Phosphatase 36 L (38-126) U/L Total Protein 4.8 L (6.3-8.2) g/dL Albumin 3.0 L (3.5-5.0) g/dL Arterial Blood Potassium (3.4-4.5) mmol/L Arterial Blood Glucose (75-99) mg/dL Crossmatch 09/11/24 09/11/24 09/11/24 Range/Units 14:03 14:53 16:01 WBC (4.50-10.00) 10*3/uL RBC (4.40-5.60) 10*6/uL Hgb (13.0-17.0) g/dL Hct (39.6-50.0) % Plt Count (140-440) 10*3/uL Immature Gran # (0.00-0.04) 10*3/uL Neutrophils # (1.80-7.70) 10*3/uL Lymphocytes # (0.90-5.00) 10*3/uL Eosinophils # (0.04-0.35) 10*3/uL PT (10.0-12.5) sec INR (<1.2) ABG pH (7.35-7.45) ABG pCO2 (35-45) mmHg ABG pO2 318 H (83-108) mmHg ABG HCO3 (21-25) mmol/L ABG Total CO2 (19-24) mmol/L ABG O2 Saturation >100.0 H (94-97) % ABG Hematocrit (34.0-46.0) % ABG Potassium (3.4-4.5) mmol/L ABG Ionized Calcium (4.5-5.3) mg/dL ABG Glucose (75-99) mg/dL ABG Lactic Acid (0.5-1.6) mmol/L Hemoglobin 12.0 L (13.0-17.5) gm/dL Chloride (98-107) mmol/L Glucose (74-99) mg/dL POC Glucose (mg/dL) 145 H 140 H (70-110) mg/dL Calcium (8.4-10.2) mg/dL Magnesium (1.6-2.3) mg/dL Total Bilirubin (0.2-1.3) mg/dL Alkaline Phosphatase (38-126) U/L Total Protein (6.3-8.2) g/dL Albumin (3.5-5.0) g/dL Arterial Blood Potassium (3.4-4.5) mmol/L Arterial Blood Glucose (75-99) mg/dL Crossmatch 09/11/24 09/11/24 09/11/24 Range/Units 16:39 17:11 18:22 WBC 10.54 H (4.50-10.00) 10*3/uL RBC 3.45 L (4.40-5.60) 10*6/uL Hgb 10.7 L (13.0-17.0) g/dL Hct 30.6 L (39.6-50.0) % Plt Count 93 L (140-440) 10*3/uL Immature Gran # 0.06 H (0.00-0.04) 10*3/uL Neutrophils # 9.04 H (1.80-7.70) 10*3/uL Lymphocytes # 0.58 L (0.90-5.00) 10*3/uL Eosinophils # (0.04-0.35) 10*3/uL PT (10.0-12.5) sec INR (<1.2) ABG pH (7.35-7.45) ABG pCO2 (35-45) mmHg ABG pO2 (83-108) mmHg ABG HCO3 (21-25) mmol/L ABG Total CO2 (19-24) mmol/L ABG O2 Saturation (94-97) % ABG Hematocrit (34.0-46.0) % ABG Potassium (3.4-4.5) mmol/L ABG Ionized Calcium (4.5-5.3) mg/dL ABG Glucose (75-99) mg/dL ABG Lactic Acid (0.5-1.6) mmol/L Hemoglobin (13.0-17.5) gm/dL Chloride (98-107) mmol/L Glucose (74-99) mg/dL POC Glucose (mg/dL) 144 H 139 H (70-110) mg/dL Calcium (8.4-10.2) mg/dL Magnesium (1.6-2.3) mg/dL Total Bilirubin (0.2-1.3) mg/dL Alkaline Phosphatase (38-126) U/L Total Protein (6.3-8.2) g/dL Albumin (3.5-5.0) g/dL Arterial Blood Potassium (3.4-4.5) mmol/L Arterial Blood Glucose (75-99) mg/dL Crossmatch 09/11/24 09/11/24 09/11/24 Range/Units 19:32 19:37 21:12 WBC 11.59 H (4.50-10.00) 10*3/uL RBC 3.25 L (4.40-5.60) 10*6/uL Hgb 10.0 L (13.0-17.0) g/dL Hct 29.5 L (39.6-50.0) % Plt Count 101 L (140-440) 10*3/uL Immature Gran # 0.06 H (0.00-0.04) 10*3/uL Neutrophils # 9.82 H (1.80-7.70) 10*3/uL Lymphocytes # 0.83 L (0.90-5.00) 10*3/uL Eosinophils # 0.02 L (0.04-0.35) 10*3/uL PT (10.0-12.5) sec INR (<1.2) ABG pH (7.35-7.45) ABG pCO2 (35-45) mmHg ABG pO2 (83-108) mmHg ABG HCO3 (21-25) mmol/L ABG Total CO2 (19-24) mmol/L ABG O2 Saturation (94-97) % ABG Hematocrit (34.0-46.0) % ABG Potassium (3.4-4.5) mmol/L ABG Ionized Calcium (4.5-5.3) mg/dL ABG Glucose (75-99) mg/dL ABG Lactic Acid (0.5-1.6) mmol/L Hemoglobin (13.0-17.5) gm/dL Chloride (98-107) mmol/L Glucose (74-99) mg/dL POC Glucose (mg/dL) 166 H 172 H (70-110) mg/dL Calcium (8.4-10.2) mg/dL Magnesium (1.6-2.3) mg/dL Total Bilirubin (0.2-1.3) mg/dL Alkaline Phosphatase (38-126) U/L Total Protein (6.3-8.2) g/dL Albumin (3.5-5.0) g/dL Arterial Blood Potassium (3.4-4.5) mmol/L Arterial Blood Glucose (75-99) mg/dL Crossmatch 09/11/24 09/11/24 09/11/24 Range/Units 21:43 22:05 23:27 WBC (4.50-10.00) 10*3/uL RBC (4.40-5.60) 10*6/uL Hgb (13.0-17.0) g/dL Hct (39.6-50.0) % Plt Count (140-440) 10*3/uL Immature Gran # (0.00-0.04) 10*3/uL Neutrophils # (1.80-7.70) 10*3/uL Lymphocytes # (0.90-5.00) 10*3/uL Eosinophils # (0.04-0.35) 10*3/uL PT (10.0-12.5) sec INR (<1.2) ABG pH 7.30 L (7.35-7.45) ABG pCO2 47 H (35-45) mmHg ABG pO2 109 H (83-108) mmHg ABG HCO3 (21-25) mmol/L ABG Total CO2 (19-24) mmol/L ABG O2 Saturation 98.1 H (94-97) % ABG Hematocrit (34.0-46.0) % ABG Potassium (3.4-4.5) mmol/L ABG Ionized Calcium (4.5-5.3) mg/dL ABG Glucose (75-99) mg/dL ABG Lactic Acid (0.5-1.6) mmol/L Hemoglobin 10.1 L (13.0-17.5) gm/dL Chloride (98-107) mmol/L Glucose (74-99) mg/dL POC Glucose (mg/dL) 167 H 152 H (70-110) mg/dL Calcium (8.4-10.2) mg/dL Magnesium (1.6-2.3) mg/dL Total Bilirubin (0.2-1.3) mg/dL Alkaline Phosphatase (38-126) U/L Total Protein (6.3-8.2) g/dL Albumin (3.5-5.0) g/dL Arterial Blood Potassium (3.4-4.5) mmol/L Arterial Blood Glucose (75-99) mg/dL Crossmatch 09/12/24 09/12/24 09/12/24 Range/Units 00:21 01:17 02:16 WBC (4.50-10.00) 10*3/uL RBC (4.40-5.60) 10*6/uL Hgb (13.0-17.0) g/dL Hct (39.6-50.0) % Plt Count (140-440) 10*3/uL Immature Gran # (0.00-0.04) 10*3/uL Neutrophils # (1.80-7.70) 10*3/uL Lymphocytes # (0.90-5.00) 10*3/uL Eosinophils # (0.04-0.35) 10*3/uL PT (10.0-12.5) sec INR (<1.2) ABG pH (7.35-7.45) ABG pCO2 (35-45) mmHg ABG pO2 (83-108) mmHg ABG HCO3 (21-25) mmol/L ABG Total CO2 (19-24) mmol/L ABG O2 Saturation (94-97) % ABG Hematocrit (34.0-46.0) % ABG Potassium (3.4-4.5) mmol/L ABG Ionized Calcium (4.5-5.3) mg/dL ABG Glucose (75-99) mg/dL ABG Lactic Acid (0.5-1.6) mmol/L Hemoglobin (13.0-17.5) gm/dL Chloride (98-107) mmol/L Glucose (74-99) mg/dL POC Glucose (mg/dL) 150 H 161 H 155 H (70-110) mg/dL Calcium (8.4-10.2) mg/dL Magnesium (1.6-2.3) mg/dL Total Bilirubin (0.2-1.3) mg/dL Alkaline Phosphatase (38-126) U/L Total Protein (6.3-8.2) g/dL Albumin (3.5-5.0) g/dL Arterial Blood Potassium (3.4-4.5) mmol/L Arterial Blood Glucose (75-99) mg/dL Crossmatch 09/12/24 09/12/24 09/12/24 Range/Units 03:04 04:12 04:30 WBC 13.00 H (4.50-10.00) 10*3/uL RBC 3.24 L (4.40-5.60) 10*6/uL Hgb 10.0 L (13.0-17.0) g/dL Hct 29.7 L (39.6-50.0) % Plt Count 108 L (140-440) 10*3/uL Immature Gran # 0.06 H (0.00-0.04) 10*3/uL Neutrophils # 11.71 H (1.80-7.70) 10*3/uL Lymphocytes # 0.40 L (0.90-5.00) 10*3/uL Eosinophils # 0.00 L (0.04-0.35) 10*3/uL PT (10.0-12.5) sec INR (<1.2) ABG pH (7.35-7.45) ABG pCO2 (35-45) mmHg ABG pO2 (83-108) mmHg ABG HCO3 (21-25) mmol/L ABG Total CO2 (19-24) mmol/L ABG O2 Saturation (94-97) % ABG Hematocrit (34.0-46.0) % ABG Potassium (3.4-4.5) mmol/L ABG Ionized Calcium (4.5-5.3) mg/dL ABG Glucose (75-99) mg/dL ABG Lactic Acid (0.5-1.6) mmol/L Hemoglobin (13.0-17.5) gm/dL Chloride (98-107) mmol/L Glucose (74-99) mg/dL POC Glucose (mg/dL) 158 H 149 H (70-110) mg/dL Calcium (8.4-10.2) mg/dL Magnesium (1.6-2.3) mg/dL Total Bilirubin (0.2-1.3) mg/dL Alkaline Phosphatase (38-126) U/L Total Protein (6.3-8.2) g/dL Albumin (3.5-5.0) g/dL Arterial Blood Potassium (3.4-4.5) mmol/L Arterial Blood Glucose (75-99) mg/dL Crossmatch 09/12/24 09/12/24 09/12/24 Range/Units 04:45 06:11 06:58 WBC (4.50-10.00) 10*3/uL RBC (4.40-5.60) 10*6/uL Hgb (13.0-17.0) g/dL Hct (39.6-50.0) % Plt Count (140-440) 10*3/uL Immature Gran # (0.00-0.04) 10*3/uL Neutrophils # (1.80-7.70) 10*3/uL Lymphocytes # (0.90-5.00) 10*3/uL Eosinophils # (0.04-0.35) 10*3/uL PT (10.0-12.5) sec INR (<1.2) ABG pH (7.35-7.45) ABG pCO2 (35-45) mmHg ABG pO2 (83-108) mmHg ABG HCO3 (21-25) mmol/L ABG Total CO2 (19-24) mmol/L ABG O2 Saturation (94-97) % ABG Hematocrit (34.0-46.0) % ABG Potassium (3.4-4.5) mmol/L ABG Ionized Calcium (4.5-5.3) mg/dL ABG Glucose (75-99) mg/dL ABG Lactic Acid (0.5-1.6) mmol/L Hemoglobin (13.0-17.5) gm/dL Chloride (98-107) mmol/L Glucose 133 H (74-99) mg/dL POC Glucose (mg/dL) 160 H 144 H (70-110) mg/dL Calcium 8.2 L (8.4-10.2) mg/dL Magnesium 2.7 H (1.6-2.3) mg/dL Total Bilirubin (0.2-1.3) mg/dL Alkaline Phosphatase 30 L (38-126) U/L Total Protein 5.3 L (6.3-8.2) g/dL Albumin (3.5-5.0) g/dL Arterial Blood Potassium (3.4-4.5) mmol/L Arterial Blood Glucose (75-99) mg/dL Crossmatch 09/12/24 09/12/24 09/12/24 Range/Units 08:00 09:23 09:54 WBC (4.50-10.00) 10*3/uL RBC (4.40-5.60) 10*6/uL Hgb (13.0-17.0) g/dL Hct (39.6-50.0) % Plt Count (140-440) 10*3/uL Immature Gran # (0.00-0.04) 10*3/uL Neutrophils # (1.80-7.70) 10*3/uL Lymphocytes # (0.90-5.00) 10*3/uL Eosinophils # (0.04-0.35) 10*3/uL PT (10.0-12.5) sec INR (<1.2) ABG pH (7.35-7.45) ABG pCO2 (35-45) mmHg ABG pO2 (83-108) mmHg ABG HCO3 (21-25) mmol/L ABG Total CO2 (19-24) mmol/L ABG O2 Saturation (94-97) % ABG Hematocrit (34.0-46.0) % ABG Potassium (3.4-4.5) mmol/L ABG Ionized Calcium (4.5-5.3) mg/dL ABG Glucose (75-99) mg/dL ABG Lactic Acid (0.5-1.6) mmol/L Hemoglobin (13.0-17.5) gm/dL Chloride (98-107) mmol/L Glucose (74-99) mg/dL POC Glucose (mg/dL) 130 H 129 H 117 H (70-110) mg/dL Calcium (8.4-10.2) mg/dL Magnesium (1.6-2.3) mg/dL Total Bilirubin (0.2-1.3) mg/dL Alkaline Phosphatase (38-126) U/L Total Protein (6.3-8.2) g/dL Albumin (3.5-5.0) g/dL Arterial Blood Potassium (3.4-4.5) mmol/L Arterial Blood Glucose (75-99) mg/dL Crossmatch 09/12/24 09/12/24 09/12/24 Range/Units 10:15 10:56 12:06 WBC (4.50-10.00) 10*3/uL RBC (4.40-5.60) 10*6/uL Hgb (13.0-17.0) g/dL Hct (39.6-50.0) % Plt Count (140-440) 10*3/uL Immature Gran # (0.00-0.04) 10*3/uL Neutrophils # (1.80-7.70) 10*3/uL Lymphocytes # (0.90-5.00) 10*3/uL Eosinophils # (0.04-0.35) 10*3/uL PT (10.0-12.5) sec INR (<1.2) ABG pH (7.35-7.45) ABG pCO2 (35-45) mmHg ABG pO2 (83-108) mmHg ABG HCO3 (21-25) mmol/L ABG Total CO2 (19-24) mmol/L ABG O2 Saturation (94-97) % ABG Hematocrit (34.0-46.0) % ABG Potassium (3.4-4.5) mmol/L ABG Ionized Calcium (4.5-5.3) mg/dL ABG Glucose (75-99) mg/dL ABG Lactic Acid (0.5-1.6) mmol/L Hemoglobin (13.0-17.5) gm/dL Chloride (98-107) mmol/L Glucose (74-99) mg/dL POC Glucose (mg/dL) 129 H 114 H 126 H (70-110) mg/dL Calcium (8.4-10.2) mg/dL Magnesium (1.6-2.3) mg/dL Total Bilirubin (0.2-1.3) mg/dL Alkaline Phosphatase (38-126) U/L Total Protein (6.3-8.2) g/dL Albumin (3.5-5.0) g/dL Arterial Blood Potassium (3.4-4.5) mmol/L Arterial Blood Glucose (75-99) mg/dL Crossmatch
[2024-09-12 14:00] LABS: Glucose,Whole Blood 166 mg/dL (70-110)
[2024-09-12 14:55] LABS: Glucose,Whole Blood 151 mg/dL (70-110)
--- NOTE | 2024-09-12 15:21 | P.PN ---
Subjective Progress Note Date: 09/12/24 This is a 79-year-old male patient who was brought into the intensive care unit following cardiac surgery. The patient had a previous TAVR and the patient developed prosthetic aortic valve stenosis and the patient also has coronary artery disease. Based on that, the patient underwent coronary artery bypass surgery x 1 with TRAN to LAD and excision of the Medtronic CoreValve and replacement aortic valve with 23 mm Echeverria Inspiris bovine pericardial valve prosthesis. The patient was kept intubated the patient was brought into the intensive care for further care. At this point in time, the patient is on propofol running at 20 mcg/kg/min and the patient is calm and comfortable and synchronous with mechanical ventilator. The patient is on assist-control mode of mechanical ventilation and the patient is currently on a rate of 12, tidal volume of 500, FiO2 of 100% with a PEEP of 5. Blood gases showed a pH of 7.4 with a [id number] and PO2 of 318. FiO2 is now down to 50%. The patient has been m ediastinal and 1 left pleural chest tube and output has been minimal since arriving from the operating room. No evidence of any pneumothorax on postop chest x-ray. There is mild pulm vessel congestion and the patient has some mild CHF findings. The patient's cardiac rhythm is paced at a rate of 80. He is on nitroglycerin drip running at 5 mcg/min. His hemodynamic parameters show a PA pressure of 30/19 with a cardiac output of 3.5 with an index of 1.9. Initially, his cardiac index was low and the patient was given 2 boluses of albumin, 250 cc each. Urine output is adequate. He is normothermic. His blood work shows a WBC count of 12.5 with a hemoglobin of 11.3 and his sodium level is at 137, BUN is 50 with a creatinine of 0.7. LFTs are normal. On 09/12/2024, the patient is being seen for a follow-up. The patient was weaned off the mechanical ventilator and the patient was extubated without any major difficulties and the patient is currently on oxygen room air. Chest x-ray shows postsurgical changes, chest tubes are in place, Dudley-Margarita catheter in place. ET tube has been removed. Lung volumes are small and the patient has some mild pulmonary vascular congestion. Earlier hemodynamic parameters showed a PA pressure of 29/8 and a cardiac index is up to 3.2. The patient is paced at a rate of 80 and he would likely need a permanent pacemaker. Insulin drip is at 3.5 units an hour and the patient urine output is older of 30 cc an hour. The white cell count is at 13 with a hemoglobin of 10 and a platelet count of 108. Sodium is at 139, potassium 3.9, BUN 17 with a creatinine of 0.8 and LFTs are within normal limits. No focal neurological deficits. The patient is postop day #1 following aortic valve replacement and single-vessel coronary bypass surgery with TRAN to LAD. Objective - Vital Signs Vital signs: Vital Signs Temp 97.9 F 09/12/24 04:00 Pulse 80 09/12/24 07:15 Resp 14 09/12/24 07:15 BP 100/54 09/12/24 05:30 Pulse Ox 93 L 09/12/24 07:15 FiO2 40 09/11/24 21:27 Intake & Output 09/11/24 09/12/24 09/12/24 18:59 06:59 18:59 Intake Total 5016.027 2059.508 97.158 Output Total 1655 1385 25 Balance 111.965 402.508 72.158 Weight 86.6 kg Intake: IV 268 1368 59 0.9 @ 50 550 50 ACETAMINOPHEN IV (For NPO 400 ) 1,000 mg In Empty Bag 1 bag @ 400 mls/hr IVPB Q6H [facility] Rx#:[id number] ceFAZolin 2 gm In 50 Dextrose 5% in Water 50 ml @ 100 mls/hr IVPB Q8HR [facility] Rx#:[id number] ns for cardiac output 120 260 0 ns for pressure flush 45 108 9 Intake, IV Titration 1498.965 419.508 38.158 Amount ACETAMINOPHEN IV (For NPO 100 ) 1,000 mg In Empty Bag 1 bag @ 400 mls/hr IVPB Q6H [facility] Rx#:[id number] Albumin Human 5% 250 ml 250 250 In Empty Bag 1 bag @ 250 mls/hr IVPB ONCE ONE Rx#: [id number] Albumin Human 5% 250 ml 750 In Empty Bag 1 bag @ 250 mls/hr IVPB Q1HR PRN Rx#: [id number] Clevidipine Butyrate 25 79.534 3.901 mg In Empty Bag 1 bag @ 1 MG/HR 2 mls/hr IV .Q24H PRN Rx#:[id number] Insulin Regular 100 unit 9.752 38.474 8.232 In Sodium Chloride 0.9% 100 ml @ Per Protocol IV .Q0M [facility] Rx#:[id number] Nitroglycerin-D5w Pmx 50 7.5 1.5 26.025 mg In Dextrose/Water 1 250ml.bag @ 5 MCG/MIN 1.5 mls/hr IV .Q24H [facility] Rx#: [id number] Sodium Chloride 0.9% 1, 250 50 000 ml @ 30 mls/hr IV . Q24H [facility] Rx#:[id number] ceFAZolin 2 gm In 50 Dextrose 5% in Water 50 ml @ 100 mls/hr IVPB Q8HR [facility] Rx#:[id number] propofoL 1,000 mg In 81.713 Empty Bag 1 bag @ Titrate IV .Q0M [facility] Rx#: [id number] Output: Chest Tube Drainage 495 910 0 Mediastinal 430 780 0 Pleural Catheter Left 65 130 0 Gastric Drainage 70 Urine 785 405 25 Estimated Blood Loss 375 Other: Voiding Method Indwelling Catheter Indwelling Catheter ABP, PAP, CO, CI - Last Documented Arterial Blood Pressure 139/50 Pulmonary Artery Pressure 25/5 Cardiac Output 5.4 Cardiac Index 2.8 - Exam CONSTITUTIONAL: Appears comfortable, cooperative, no acute distress RESPIRATORY: Lungs sounds diminished bilaterally. Respirations even, nonlabored. Currently on 4 L nasal cannula with oxygen saturation 97%. Able to achieve 1250 mL on incentive spirometry. Strong cough. CARDIOVASCULAR: S1, S2 present. AV paced on telemetry with underlying rhythm complete heart block. Sternum stable. Palpable peripheral pulses bilaterally. Trace generalized edema present. No calf pain or tenderness noted. Heart hugger in place with patient demonstrating appropriate use. Antiembolism stockings, SCDs present. GASTROINTESTINAL: Abdomen soft, nontender, nondistended. Hypoactive bowel sounds present 4 quadrants. Tolerating minimal clear liquids. Denies flatus GENITOURINARY: [place] present draining clear, yellow urine. Output overnight 25-40 mL per hour INTEGUMENTARY: Skin is warm and dry with evidence of good perfusion. Anterior chest incision well approximated and covered with dry intact dressing NEUROLOGIC: Cranial nerves II through XII intact MUSKULOSKELETAL: Able to move all extremities, strength equal bilaterally PSYCHIATRIC: Alert and oriented to person place and time, appropriate affect, intact judgment and insight INVASIVE LINES AND TUBES: Mediastinal/left pleural chest tubes present and connected to wall suction, no air leaks present. Mediastinal tube with 400 mL serosanguineous drainage overnight, 1200 mL since surgery. Left pleural chest tube with 65 mL serosanguineous drainage overnight, 210 mL since surgery. A/V epicardial pacemaker wires present, connected to generator, DDD mode with rate 8 0 bpm. Right internal jugular Dudley/Cordis, right radial arterial line present. Last CO/CI 5.4/2.0, PA 21/3, CVP 1. - Labs CBC & Chem 7: 09/12/24 04:30 09/12/24 04:45 Labs: Abnormal Lab Results - Last 24 Hours (Table) 09/05/24 09/11/24 09/11/24 Range/Units 09: 08:32 08:33 WBC (4.50-10.00) 10*3/uL RBC (4.40-5.60) 10*6/uL Hgb (13.0-17.0) g/dL Hct (39.6-50.0) % Plt Count (140-440) 10*3/uL Immature Gran # (0.00-0.04) 10*3/uL Neutrophils # (1.80-7.70) 10*3/uL Lymphocytes # (0.90-5.00) 10*3/uL Eosinophils # (0.04-0.35) 10*3/uL PT (10.0-12.5) sec INR (<1.2) ABG pH (7.35-7.45) ABG pCO2 46 H 28 L (35-45) mmHg ABG pO2 >420 H 174 H (83-108) mmHg ABG HCO3 26 H 17 L (21-25) mmol/L ABG Total CO2 16 L (19-24) mmol/L ABG O2 Saturation >99.4 H 99.0 H (94-97) % ABG Hematocrit 27 L (34.0-46.0) % ABG Potassium 2.6 L* (3.4-4.5) mmol/L ABG Ionized Calcium 3.4 L* (4.5-5.3) mg/dL ABG Glucose 108 H (75-99) mg/dL ABG Lactic Acid (0.5-1.6) mmol/L Hemoglobin 8.6 L (13.0-17.5) gm/dL Chloride (98-107) mmol/L Glucose (74-99) mg/dL POC Glucose (mg/dL) (70-110) mg/dL Calcium (8.4-10.2) mg/dL Magnesium (1.6-2.3) mg/dL Total Bilirubin (0.2-1.3) mg/dL Alkaline Phosphatase (38-126) U/L Total Protein (6.3-8.2) g/dL Albumin (3.5-5.0) g/dL Arterial Blood Potassium 2.6 L* (3.4-4.5) mmol/L Arterial Blood Glucose 108 H (75-99) mg/dL Crossmatch See Detail 09/11/24 09/11/24 09/11/24 Range/Units 08:33 10:03 10:28 WBC (4.50-10.00) 10*3/uL RBC (4.40-5.60) 10*6/uL Hgb (13.0-17.0) g/dL Hct (39.6-50.0) % Plt Count (140-440) 10*3/uL Immature Gran # (0.00-0.04) 10*3/uL Neutrophils # (1.80-7.70) 10*3/uL Lymphocytes # (0.90-5.00) 10*3/uL Eosinophils # (0.04-0.35) 10*3/uL PT (10.0-12.5) sec INR (<1.2) ABG pH 7.47 H (7.35-7.45) ABG pCO2 (35-45) mmHg ABG pO2 35 L* 166 H 415 H (83-108) mmHg ABG HCO3 26 H (21-25) mmol/L ABG Total CO2 (19-24) mmol/L ABG O2 Saturation 67.0 L 99.1 H >99.4 H (94-97) % ABG Hematocrit 31 L 27 L (34.0-46.0) % ABG Potassium (3.4-4.5) mmol/L ABG Ionized Calcium 4.1 L (4.5-5.3) mg/dL ABG Glucose 148 H 114 H 100 H (75-99) mg/dL ABG Lactic Acid 1.8 H (0.5-1.6) mmol/L Hemoglobin 10.0 L 11.5 L 8.9 L (13.0-17.5) gm/dL Chloride (98-107) mmol/L Glucose (74-99) mg/dL POC Glucose (mg/dL) (70-110) mg/dL Calcium (8.4-10.2) mg/dL Magnesium (1.6-2.3) mg/dL Total Bilirubin (0.2-1.3) mg/dL Alkaline Phosphatase (38-126) U/L Total Protein (6.3-8.2) g/dL Albumin (3.5-5.0) g/dL Arterial Blood Potassium (3.4-4.5) mmol/L Arterial Blood Glucose 148 H 114 H 100 H (75-99) mg/dL Crossmatch 09/11/24 09/11/24 09/11/24 Range/Units 10:58 11:35 12:45 WBC (4.50-10.00) 10*3/uL RBC (4.40-5.60) 10*6/uL Hgb (13.0-17.0) g/dL Hct (39.6-50.0) % Plt Count (140-440) 10*3/uL Immature Gran # (0.00-0.04) 10*3/uL Neutrophils # (1.80-7.70) 10*3/uL Lymphocytes # (0.90-5.00) 10*3/uL Eosinophils # (0.04-0.35) 10*3/uL PT (10.0-12.5) sec INR (<1.2) ABG pH 7.49 H (7.35-7.45) ABG pCO2 33 L (35-45) mmHg ABG pO2 >420 H >420 H 335 H (83-108) mmHg ABG HCO3 (21-25) mmol/L ABG Total CO2 (19-24) mmol/L ABG O2 Saturation >99.4 H >99.4 H 99.1 H (94-97) % ABG Hematocrit 28 L 29 L 31 L (34.0-46.0) % ABG Potassium (3.4-4.5) mmol/L ABG Ionized Calcium 4.2 L 4.3 L (4.5-5.3) mg/dL ABG Glucose 113 H 116 H 123 H (75-99) mg/dL ABG Lactic Acid 1.7 H (0.5-1.6) mmol/L Hemoglobin 9.0 L 9.4 L 10.2 L (13.0-17.5) gm/dL Chloride (98-107) mmol/L Glucose (74-99) mg/dL POC Glucose (mg/dL) (70-110) mg/dL Calcium (8.4-10.2) mg/dL Magnesium (1.6-2.3) mg/dL Total Bilirubin (0.2-1.3) mg/dL Alkaline Phosphatase (38-126) U/L Total Protein (6.3-8.2) g/dL Albumin (3.5-5.0) g/dL Arterial Blood Potassium (3.4-4.5) mmol/L Arterial Blood Glucose 113 H 116 H 123 H (75-99) mg/dL Crossmatch 09/11/24 09/11/24 09/11/24 Range/Units 13:28 13:28 13:28 WBC 12.57 H (4.50-10.00) 10*3/uL RBC 3.62 L (4.40-5.60) 10*6/uL Hgb 11.3 L (13.0-17.0) g/dL Hct 32.4 L (39.6-50.0) % Plt Count 94 L (140-440) 10*3/uL Immature Gran # 0.13 H (0.00-0.04) 10*3/uL Neutrophils # 10.54 H (1.80-7.70) 10*3/uL Lymphocytes # (0.90-5.00) 10*3/uL Eosinophils # (0.04-0.35) 10*3/uL PT 13.2 H (10.0-12.5) sec INR 1.2 H (<1.2) ABG pH (7.35-7.45) ABG pCO2 (35-45) mmHg ABG pO2 (83-108) mmHg ABG HCO3 (21-25) mmol/L ABG Total CO2 (19-24) mmol/L ABG O2 Saturation (94-97) % ABG Hematocrit (34.0-46.0) % ABG Potassium (3.4-4.5) mmol/L ABG Ionized Calcium (4.5-5.3) mg/dL ABG Glucose (75-99) mg/dL ABG Lactic Acid (0.5-1.6) mmol/L Hemoglobin (13.0-17.5) gm/dL Chloride 109 H (98-107) mmol/L Glucose 113 H (74-99) mg/dL POC Glucose (mg/dL) (70-110) mg/dL Calcium (8.4-10.2) mg/dL Magnesium 3.8 H (1.6-2.3) mg/dL Total Bilirubin 1.4 H (0.2-1.3) mg/dL Alkaline Phosphatase 36 L (38-126) U/L Total Protein 4.8 L (6.3-8.2) g/dL Albumin 3.0 L (3.5-5.0) g/dL Arterial Blood Potassium (3.4-4.5) mmol/L Arterial Blood Glucose (75-99) mg/dL Crossmatch 09/11/24 09/11/24 09/11/24 Range/Units 13:38 14:03 14:53 WBC (4.50-10.00) 10*3/uL RBC (4.40-5.60) 10*6/uL Hgb (13.0-17.0) g/dL Hct (39.6-50.0) % Plt Count (140-440) 10*3/uL Immature Gran # (0.00-0.04) 10*3/uL Neutrophils # (1.80-7.70) 10*3/uL Lymphocytes # (0.90-5.00) 10*3/uL Eosinophils # (0.04-0.35) 10*3/uL PT (10.0-12.5) sec INR (<1.2) ABG pH (7.35-7.45) ABG pCO2 (35-45) mmHg ABG pO2 318 H (83-108) mmHg ABG HCO3 (21-25) mmol/L ABG Total CO2 (19-24) mmol/L ABG O2 Saturation >100.0 H (94-97) % ABG Hematocrit (34.0-46.0) % ABG Potassium (3.4-4.5) mmol/L ABG Ionized Calcium (4.5-5.3) mg/dL ABG Glucose (75-99) mg/dL ABG Lactic Acid (0.5-1.6) mmol/L Hemoglobin 12.0 L (13.0-17.5) gm/dL Chloride (98-107) mmol/L Glucose (74-99) mg/dL POC Glucose (mg/dL) 119 H 145 H (70-110) mg/dL Calcium (8.4-10.2) mg/dL Magnesium (1.6-2.3) mg/dL Total Bilirubin (0.2-1.3) mg/dL Alkaline Phosphatase (38-126) U/L Total Protein (6.3-8.2) g/dL Albumin (3.5-5.0) g/dL Arterial Blood Potassium (3.4-4.5) mmol/L Arterial Blood Glucose (75-99) mg/dL Crossmatch 09/11/24 09/11/24 09/11/24 Range/Units 16:01 16:39 17:11 WBC 10.54 H (4.50-10.00) 10*3/uL RBC 3.45 L (4.40-5.60) 10*6/uL Hgb 10.7 L (13.0-17.0) g/dL Hct 30.6 L (39.6-50.0) % Plt Count 93 L (140-440) 10*3/uL Immature Gran # 0.06 H (0.00-0.04) 10*3/uL Neutrophils # 9.04 H (1.80-7.70) 10*3/uL Lymphocytes # 0.58 L (0.90-5.00) 10*3/uL Eosinophils # (0.04-0.35) 10*3/uL PT (10.0-12.5) sec INR (<1.2) ABG pH (7.35-7.45) ABG pCO2 (35-45) mmHg ABG pO2 (83-108) mmHg ABG HCO3 (21-25) mmol/L ABG Total CO2 (19-24) mmol/L ABG O2 Saturation (94-97) % ABG Hematocrit (34.0-46.0) % ABG Potassium (3.4-4.5) mmol/L ABG Ionized Calcium (4.5-5.3) mg/dL ABG Glucose (75-99) mg/dL ABG Lactic Acid (0.5-1.6) mmol/L Hemoglobin (13.0-17.5) gm/dL Chloride (98-107) mmol/L Glucose (74-99) mg/dL POC Glucose (mg/dL) 140 H 144 H (70-110) mg/dL Calcium (8.4-10.2) mg/dL Magnesium (1.6-2.3) mg/dL Total Bilirubin (0.2-1.3) mg/dL Alkaline Phosphatase (38-126) U/L Total Protein (6.3-8.2) g/dL Albumin (3.5-5.0) g/dL Arterial Blood Potassium (3.4-4.5) mmol/L Arterial Blood Glucose (75-99) mg/dL Crossmatch 09/11/24 09/11/24 09/11/24 Range/Units 18:22 19:32 19:37 WBC 11.59 H (4.50-10.00) 10*3/uL RBC 3.25 L (4.40-5.60) 10*6/uL Hgb 10.0 L (13.0-17.0) g/dL Hct 29.5 L (39.6-50.0) % Plt Count 101 L (140-440) 10*3/uL Immature Gran # 0.06 H (0.00-0.04) 10*3/uL Neutrophils # 9.82 H (1.80-7.70) 10*3/uL Lymphocytes # 0.83 L (0.90-5.00) 10*3/uL Eosinophils # 0.02 L (0.04-0.35) 10*3/uL PT (10.0-12.5) sec INR (<1.2) ABG pH (7.35-7.45) ABG pCO2 (35-45) mmHg ABG pO2 (83-108) mmHg ABG HCO3 (21-25) mmol/L ABG Total CO2 (19-24) mmol/L ABG O2 Saturation (94-97) % ABG Hematocrit (34.0-46.0) % ABG Potassium (3.4-4.5) mmol/L ABG Ionized Calcium (4.5-5.3) mg/dL ABG Glucose (75-99) mg/dL ABG Lactic Acid (0.5-1.6) mmol/L Hemoglobin (13.0-17.5) gm/dL Chloride (98-107) mmol/L Glucose (74-99) mg/dL POC Glucose (mg/dL) 139 H 166 H (70-110) mg/dL Calcium (8.4-10.2) mg/dL Magnesium (1.6-2.3) mg/dL Total Bilirubin (0.2-1.3) mg/dL Alkaline Phosphatase (38-126) U/L Total Protein (6.3-8.2) g/dL Albumin (3.5-5.0) g/dL Arterial Blood Potassium (3.4-4.5) mmol/L Arterial Blood Glucose (75-99) mg/dL Crossmatch 09/11/24 09/11/24 09/11/24 Range/Units 21:12 21:43 22:05 WBC (4.50-10.00) 10*3/uL RBC (4.40-5.60) 10*6/uL Hgb (13.0-17.0) g/dL Hct (39.6-50.0) % Plt Count (140-440) 10*3/uL Immature Gran # (0.00-0.04) 10*3/uL Neutrophils # (1.80-7.70) 10*3/uL Lymphocytes # (0.90-5.00) 10*3/uL Eosinophils # (0.04-0.35) 10*3/uL PT (10.0-12.5) sec INR (<1.2) ABG pH 7.30 L (7.35-7.45) ABG pCO2 47 H (35-45) mmHg ABG pO2 109 H (83-108) mmHg ABG HCO3 (21-25) mmol/L ABG Total CO2 (19-24) mmol/L ABG O2 Saturation 98.1 H (94-97) % ABG Hematocrit (34.0-46.0) % ABG Potassium (3.4-4.5) mmol/L ABG Ionized Calcium (4.5-5.3) mg/dL ABG Glucose (75-99) mg/dL ABG Lactic Acid (0.5-1.6) mmol/L Hemoglobin 10.1 L (13.0-17.5) gm/dL Chloride (98-107) mmol/L Glucose (74-99) mg/dL POC Glucose (mg/dL) 172 H 167 H (70-110) mg/dL Calcium (8.4-10.2) mg/dL Magnesium (1.6-2.3) mg/dL Total Bilirubin (0.2-1.3) mg/dL Alkaline Phosphatase (38-126) U/L Total Protein (6.3-8.2) g/dL Albumin (3.5-5.0) g/dL Arterial Blood Potassium (3.4-4.5) mmol/L Arterial Blood Glucose (75-99) mg/dL Crossmatch 09/11/24 09/12/24 09/12/24 Range/Units 23:27 00:21 01:17 WBC (4.50-10.00) 10*3/uL RBC (4.40-5.60) 10*6/uL Hgb (13.0-17.0) g/dL Hct (39.6-50.0) % Plt Count (140-440) 10*3/uL Immature Gran # (0.00-0.04) 10*3/uL Neutrophils # (1.80-7.70) 10*3/uL Lymphocytes # (0.90-5.00) 10*3/uL Eosinophils # (0.04-0.35) 10*3/uL PT (10.0-12.5) sec INR (<1.2) ABG pH (7.35-7.45) ABG pCO2 (35-45) mmHg ABG pO2 (83-108) mmHg ABG HCO3 (21-25) mmol/L ABG Total CO2 (19-24) mmol/L ABG O2 Saturation (94-97) % ABG Hematocrit (34.0-46.0) % ABG Potassium (3.4-4.5) mmol/L ABG Ionized Calcium (4.5-5.3) mg/dL ABG Glucose (75-99) mg/dL ABG Lactic Acid (0.5-1.6) mmol/L Hemoglobin (13.0-17.5) gm/dL Chloride (98-107) mmol/L Glucose (74-99) mg/dL POC Glucose (mg/dL) 152 H 150 H 161 H (70-110) mg/dL Calcium (8.4-10.2) mg/dL Magnesium (1.6-2.3) mg/dL Total Bilirubin (0.2-1.3) mg/dL Alkaline Phosphatase (38-126) U/L Total Protein (6.3-8.2) g/dL Albumin (3.5-5.0) g/dL Arterial Blood Potassium (3.4-4.5) mmol/L Arterial Blood Glucose (75-99) mg/dL Crossmatch 09/12/24 09/12/24 09/12/24 Range/Units 02:16 03:04 04:12 WBC (4.50-10.00) 10*3/uL RBC (4.40-5.60) 10*6/uL Hgb (13.0-17.0) g/dL Hct (39.6-50.0) % Plt Count (140-440) 10*3/uL Immature Gran # (0.00-0.04) 10*3/uL Neutrophils # (1.80-7.70) 10*3/uL Lymphocytes # (0.90-5.00) 10*3/uL Eosinophils # (0.04-0.35) 10*3/uL PT (10.0-12.5) sec INR (<1.2) ABG pH (7.35-7.45) ABG pCO2 (35-45) mmHg ABG pO2 (83-108) mmHg ABG HCO3 (21-25) mmol/L ABG Total CO2 (19-24) mmol/L ABG O2 Saturation (94-97) % ABG Hematocrit (34.0-46.0) % ABG Potassium (3.4-4.5) mmol/L ABG Ionized Calcium (4.5-5.3) mg/dL ABG Glucose (75-99) mg/dL ABG Lactic Acid (0.5-1.6) mmol/L Hemoglobin (13.0-17.5) gm/dL Chloride (98-107) mmol/L Glucose (74-99) mg/dL POC Glucose (mg/dL) 155 H 158 H 149 H (70-110) mg/dL Calcium (8.4-10.2) mg/dL Magnesium (1.6-2.3) mg/dL Total Bilirubin (0.2-1.3) mg/dL Alkaline Phosphatase (38-126) U/L Total Protein (6.3-8.2) g/dL Albumin (3.5-5.0) g/dL Arterial Blood Potassium (3.4-4.5) mmol/L Arterial Blood Glucose (75-99) mg/dL Crossmatch 09/12/24 09/12/24 09/12/24 Range/Units 04:30 04:45 06:11 WBC 13.00 H (4.50-10.00) 10*3/uL RBC 3.24 L (4.40-5.60) 10*6/uL Hgb 10.0 L (13.0-17.0) g/dL Hct 29.7 L (39.6-50.0) % Plt Count 108 L (140-440) 10*3/uL Immature Gran # 0.06 H (0.00-0.04) 10*3/uL Neutrophils # 11.71 H (1.80-7.70) 10*3/uL Lymphocytes # 0.40 L (0.90-5.00) 10*3/uL Eosinophils # 0.00 L (0.04-0.35) 10*3/uL PT (10.0-12.5) sec INR (<1.2) ABG pH (7.35-7.45) ABG pCO2 (35-45) mmHg ABG pO2 (83-108) mmHg ABG HCO3 (21-25) mmol/L ABG Total CO2 (19-24) mmol/L ABG O2 Saturation (94-97) % ABG Hematocrit (34.0-46.0) % ABG Potassium (3.4-4.5) mmol/L ABG Ionized Calcium (4.5-5.3) mg/dL ABG Glucose (75-99) mg/dL ABG Lactic Acid (0.5-1.6) mmol/L Hemoglobin (13.0-17.5) gm/dL Chloride (98-107) mmol/L Glucose 133 H (74-99) mg/dL POC Glucose (mg/dL) 160 H (70-110) mg/dL Calcium 8.2 L (8.4-10.2) mg/dL Magnesium 2.7 H (1.6-2.3) mg/dL Total Bilirubin (0.2-1.3) mg/dL Alkaline Phosphatase 30 L (38-126) U/L Total Protein 5.3 L (6.3-8.2) g/dL Albumin (3.5-5.0) g/dL Arterial Blood Potassium (3.4-4.5) mmol/L Arterial Blood Glucose (75-99) mg/dL Crossmatch 09/12/24 09/12/24 09/12/24 Range/Units 06:58 08:00 09:23 WBC (4.50-10.00) 10*3/uL RBC (4.40-5.60) 10*6/uL Hgb (13.0-17.0) g/dL Hct (39.6-50.0) % Plt Count (140-440) 10*3/uL Immature Gran # (0.00-0.04) 10*3/uL Neutrophils # (1.80-7.70) 10*3/uL Lymphocytes # (0.90-5.00) 10*3/uL Eosinophils # (0.04-0.35) 10*3/uL PT (10.0-12.5) sec INR (<1.2) ABG pH (7.35-7.45) ABG pCO2 (35-45) mmHg ABG pO2 (83-108) mmHg ABG HCO3 (21-25) mmol/L ABG Total CO2 (19-24) mmol/L ABG O2 Saturation (94-97) % ABG Hematocrit (34.0-46.0) % ABG Potassium (3.4-4.5) mmol/L ABG Ionized Calcium (4.5-5.3) mg/dL ABG Glucose (75-99) mg/dL ABG Lactic Acid (0.5-1.6) mmol/L Hemoglobin (13.0-17.5) gm/dL Chloride (98-107) mmol/L Glucose (74-99) mg/dL POC Glucose (mg/dL) 144 H 130 H 129 H (70-110) mg/dL Calcium (8.4-10.2) mg/dL Magnesium (1.6-2.3) mg/dL Total Bilirubin (0.2-1.3) mg/dL Alkaline Phosphatase (38-126) U/L Total Protein (6.3-8.2) g/dL Albumin (3.5-5.0) g/dL Arterial Blood Potassium (3.4-4.5) mmol/L Arterial Blood Glucose (75-99) mg/dL Crossmatch Assessment and Plan Plan: Aortic valve replacement and a single-vessel bypass surgery with TRAN to LAD. The patient is currently postop day # 1. Hemodynamically stable. Postop cardiac rhythm is asystole and the patient is currently paced with a rate of 80. The patient continues to be paced with a rate of 80. He would likely need a permanent pacemaker. Postthoracotomy, extubated successfully and patient is currently on room air oxygen. Chest tubes are in place. No evidence of pneumothorax. Coronary artery disease, cardiac catheterization revealing intermediate disease involving the mid LAD approximately 50 to 60% History of aortic valve stenosis with a previous TAVR with subsequent bio prosthetic valve stenosis History of CVA back in 2022 BPH and the patient undergoes self-catheterization Hypertension Hyperlipidemia Osteoarthritis Acid reflux Plan Patient currently on room air oxygen Monitor output from the chest tubes, keep chest tubes in place Monitor hemodynamic parameters, Dud[place]-Margarita catheter can be removed today Cardiac rhythm is paced at a rate of 80. Insulin drip for blood sugar control 3.5 units an hour Urine output is adequate Labs were reviewed Continue aspirin Continue Plavix Continue Lipitor at 80 mg a day Zestril 10 mg p.o. daily Will follow Time with Patient: Greater than 30
[2024-09-12 16:08] LABS: Glucose,Whole Blood 122 mg/dL (70-110)
[2024-09-12] MEDS: ONDANSETRON 4 MG/2 ML VIAL IVP PRN (16:30)
[2024-09-12 17:10] LABS: Glucose,Whole Blood 111 mg/dL (70-110)
[2024-09-12 18:00] LABS: Glucose,Whole Blood 136 mg/dL (70-110)
[2024-09-12 19:02] LABS: Glucose,Whole Blood 132 mg/dL (70-110)
[2024-09-12] MEDS: ATORVASTATIN 80 MG TAB PO SCH (20:11)
[2024-09-12 20:52] LABS: Glucose,Whole Blood 115 mg/dL (70-110)
[2024-09-12 22:00] LABS: Glucose,Whole Blood 111 mg/dL (70-110)
[2024-09-12 23:54] LABS: Glucose,Whole Blood 115 mg/dL (70-110)
[2024-09-13] MEDS: DOPamine DRIP 800 MG in DEXTROSE/WATER 1 250ML.BAG IV SCH (00:04)
[2024-09-13 02:03] LABS: Glucose,Whole Blood 128 mg/dL (70-110)
[2024-09-13 02:15] LABS: ALT 11 U/L (4-49); AST 37 U/L (17-59); African American GFR (CKD) 54 (>60 ml/min/1.73 sqM); Albumin 3.7 g/dL (3.5-5.0); Alkaline Phosphatase 28 U/L (38-126); Anion Gap 8 mmol/L; Blood Urea Nitrogen 24 mg/dL (9-20); Calcium 7.8 mg/dL (8.4-10.2); Carbon Dioxide 24 mmol/L (22-30); Chloride 103 mmol/L (98-107); Glucose 114 mg/dL (74-99); Non-African American GFR(CKD) 47 (>60 ml/min/1.73 sqM); Potassium 4.1 mmol/L (3.5-5.1); Sodium 135 mmol/L (137-145); Total Protein 5.2 g/dL (6.3-8.2)
[2024-09-13] MEDS: NOREPINEPHRINE 4 MG in SODIUM CHLORIDE 0.9% 250 ML IV SCH (02:52)
[2024-09-13 03:05] LABS: Glucose,Whole Blood 125 mg/dL (70-110)
[2024-09-13 04:21] LABS: Glucose,Whole Blood 129 mg/dL (70-110)
[2024-09-13 05:22] LABS: Basophils # (A) 0.01 10*3/uL (0.00-0.10); Basophils % (A) 0.1 %; Eosinophils # (A) 0.05 10*3/uL (0.04-0.35); Eosinophils % (A) 0.4 %; HCT 24.4 % (39.6-50.0); Lymphocytes # (A) 1.11 10*3/uL (0.90-5.00); Lymphocytes % (A) 8.4 %; MCH 30.8 pg (27.0-32.0); MCHC 33.2 g/dL (32.0-37.0); MCV 92.8 fL (80.0-97.0); Mean Platelet Volume 10.7 fL (9.5-12.2); Monocytes # (A) 1.11 10*3/uL (0.20-1.00); Monocytes % (A) 8.4 %; Neutrophils # (A) 10.79 10*3/uL (1.80-7.70); Neutrophils % (A) 82.1 %; RBC 2.63 10*6/uL (4.40-5.60); RDW 15.6 % (11.5-14.5); WBC 13.15 10*3/uL (4.50-10.00)
[2024-09-13 05:23] LABS: HGB 8.1 g/dL (13.0-17.0)
[2024-09-13 05:46] LABS: Glucose,Whole Blood 134 mg/dL (70-110)
[2024-09-13] MEDS: PANTOPRAZOLE 40 MG TABLET PO SCH (06:29)
[2024-09-13 06:44] LABS: RBC Morphology Normal
[2024-09-13 06:45] LABS: Platelet Count 83 10*3/uL (140-440)
--- NOTE | 2024-09-13 06:51 | P.PN ---
Subjective Progress Note Date: 09/13/24 The patient is a pleasant 79-year-old gentleman who is known to our service from before with a past medical history significant for severe symptomatic aortic stenosis as well as a CAD documented on recent heart catheterization showing severe disease involving the left anterior descending artery as well as hypertension and dyslipidemia. The patient in 2018 underwent a TAVR and that was successful. He starts being symptomatic again with shortness of breath with exertion and lately symptoms of chest discomfort with exertion. Because he continues to be symptomatic he underwent a heart catheterization which revealed severe disease involving the LAD and severe gradient across aortic valve with a mean gradient exceeding 40 mmHg. Subsequently the patient was referred for surgery and underwent surgical aortic valve replacement with taking the TAVR valve out. This is postoperation day #1. The patient was extubated yesterday. He is currently in what is seems to be complete heart block requiring pacing which is not surprising. Hemodynamically he is stable. His pressure has been maybe on the soft side. He is dry with low CVP and he is in process of receiving fluid. Otherwise he seems to be stable from a cardiovascular standpoint of view. The urine output has been reasonable. Blood work was reviewed. Chest x-ray was reviewed as well. September 13, 2024 The patient was seen and evaluated this morning. He is still hypotensive requiring norepinephrine. Beside that his kidney function has been worse since he was hypotensive. With that ongoing to stop lisinopril. Clinically he seems to be stable. He still in paced rhythm. The chest x-ray was reviewed. Blood work was reviewed. I will continue current medical regimen and try to wean the patient from vasopressors at this point and avoid any nephrotoxic medications. Continue monitor the urine output. The physical examination is remarkable for diminished breathing sounds bilaterally with distant heart sounds. The CVP remains around 10. Assessment Severe symptomatic aortic stenosis in patient who had TAVR before CAD with known severe disease involving the LAD Status post aortic valve replacement along with TRAN to LAD Hypotension requiring norepinephrine Multiple comorbid conditions Plan Continue the current medical regimen DC lisinopril Continue monitor the kidney function and electrolytes Try to wean the patient from norepinephrine Continue antiplatelet and statin Follow-up with the patient Objective - Vital Signs Vital signs: Vital Signs Temp 98 F 09/13/24 04:00 Pulse 80 09/13/24 06:15 Resp 32 H 09/13/24 06:15 BP 117/58 09/13/24 06:15 Pulse Ox 93 L 09/13/24 06:15 FiO2 40 09/11/24 21:27 Intake & Output 09/12/24 09/12/24 09/13/24 06:59 18:59 06:59 Intake Total 0746.989 9546.228 1371.948 Output Total 1385 917 631 Balance 402.508 499.228 740.948 Weight 86.6 kg 86.6 kg 86.18 kg Intake: IV 1368 1198 1358 0.9 @ 50 550 390 ACETAMINOPHEN IV (For NPO 400 ) 1,000 mg In Empty Bag 1 bag @ 400 mls/hr IVPB Q6H [facility] Rx#:[id number] Albumin Human 5% 250 ml 500 750 In Empty Bag 1 bag @ 250 mls/hr IVPB ONCE ONE Rx#: [id number] Pressure Bag 108 108 108 Sodium Chloride 0.9% 1, 90 360 000 ml @ 30 mls/hr IV . Q24H [facility] Rx#:[id number] ceFAZolin 2 gm In 50 50 Dextrose 5% in Water 50 ml @ 100 mls/hr IVPB Q8HR [facility] Rx#:[id number] ns for cardiac output 260 60 140 Intake, IV Titration 419.508 68.228 13.948 Amount Albumin Human 5% 250 ml 250 In Empty Bag 1 bag @ 250 mls/hr IVPB ONCE ONE Rx#: [id number] Clevidipine Butyrate 25 79.534 11.801 mg In Empty Bag 1 bag @ 1 MG/HR 2 mls/hr IV .Q24H [facility] Rx#:[id number] Insulin Regular 100 unit 38.474 30.402 9.384 In Sodium Chloride 0.9% 100 ml @ Per Protocol IV .Q0M [facility] Rx#:[id number] Nitroglycerin-D5w Pmx 50 1.5 26.025 mg In Dextrose/Water 1 250ml.bag @ 5 MCG/MIN 1.5 mls/hr IV .Q24H [facility] Rx#: [id number] Norepinephrine 4 mg In 4.564 Sodium Chloride 0.9% 250 ml @ 0.03 MCG/KG/MIN 9. 898 mls/hr IV .Q24H [facility] Rx#:[id number] Sodium Chloride 0.9% 1, 50 000 ml @ 30 mls/hr IV . Q24H [facility] Rx#:[id number] Oral 150 Output: Chest Tube Drainage 910 652 441 Mediastinal 780 482 291 Pleural Catheter Left 130 170 150 Gastric Drainage 70 Urine 405 265 190 Other: Voiding Method Indwelling Catheter Indwelling Catheter Indwelling Catheter ABP, PAP, CO, CI - Last Documented Arterial Blood Pressure 108/42 Pulmonary Artery Pressure 26/14 Cardiac Output 6 Cardiac Index 3.1 - Labs CBC & Chem 7: 09/13/24 04:22 09/13/24 01:32 Labs: Abnormal Lab Results - Last 24 Hours (Table) 09/12/24 09/12/24 09/12/24 Range/Units 06:58 08:00 09:23 WBC (4.50-10.00) 10*3/uL RBC (4.40-5.60) 10*6/uL Hgb (13.0-17.0) g/dL Hct (39.6-50.0) % Plt Count (140-440) 10*3/uL Immature Gran # (0.00-0.04) 10*3/uL Neutrophils # (1.80-7.70) 10*3/uL Monocytes # (0.20-1.00) 10*3/uL Sodium (137-145) mmol/L BUN (9-20) mg/dL Creatinine (0.66-1.25) mg/dL Glucose (74-99) mg/dL POC Glucose (mg/dL) 144 H 130 H 129 H (70-110) mg/dL Calcium (8.4-10.2) mg/dL Ionized Calcium Tim (4.5-5.3) mg/dL Alkaline Phosphatase (38-126) U/L Total Protein (6.3-8.2) g/dL 09/12/24 09/12/24 09/12/24 Range/Units 09:54 10:15 10:56 WBC (4.50-10.00) 10*3/uL RBC (4.40-5.60) 10*6/uL Hgb (13.0-17.0) g/dL Hct (39.6-50.0) % Plt Count (140-440) 10*3/uL Immature Gran # (0.00-0.04) 10*3/uL Neutrophils # (1.80-7.70) 10*3/uL Monocytes # (0.20-1.00) 10*3/uL Sodium (137-145) mmol/L BUN (9-20) mg/dL Creatinine (0.66-1.25) mg/dL Glucose (74-99) mg/dL POC Glucose (mg/dL) 117 H 129 H 114 H (70-110) mg/dL Calcium (8.4-10.2) mg/dL Ionized Calcium Tim (4.5-5.3) mg/dL Alkaline Phosphatase (38-126) U/L Total Protein (6.3-8.2) g/dL 09/12/24 09/12/24 09/12/24 Range/Units 12:06 13:58 14:53 WBC (4.50-10.00) 10*3/uL RBC (4.40-5.60) 10*6/uL Hgb (13.0-17.0) g/dL Hct (39.6-50.0) % Plt Count (140-440) 10*3/uL Immature Gran # (0.00-0.04) 10*3/uL Neutrophils # (1.80-7.70) 10*3/uL Monocytes # (0.20-1.00) 10*3/uL Sodium (137-145) mmol/L BUN (9-20) mg/dL Creatinine (0.66-1.25) mg/dL Glucose (74-99) mg/dL POC Glucose (mg/dL) 126 H 166 H 151 H (70-110) mg/dL Calcium (8.4-10.2) mg/dL Ionized Calcium Tim (4.5-5.3) mg/dL Alkaline Phosphatase (38-126) U/L Total Protein (6.3-8.2) g/dL 09/12/24 09/12/24 09/12/24 Range/Units 16:06 17:09 17:59 WBC (4.50-10.00) 10*3/uL RBC (4.40-5.60) 10*6/uL Hgb (13.0-17.0) g/dL Hct (39.6-50.0) % Plt Count (140-440) 10*3/uL Immature Gran # (0.00-0.04) 10*3/uL Neutrophils # (1.80-7.70) 10*3/uL Monocytes # (0.20-1.00) 10*3/uL Sodium (137-145) mmol/L BUN (9-20) mg/dL Creatinine (0.66-1.25) mg/dL Glucose (74-99) mg/dL POC Glucose (mg/dL) 122 H 111 H 136 H (70-110) mg/dL Calcium (8.4-10.2) mg/dL Ionized Calcium Tim (4.5-5.3) mg/dL Alkaline Phosphatase (38-126) U/L Total Protein (6.3-8.2) g/dL 09/12/24 09/12/24 09/12/24 Range/Units 19:01 20:51 21:59 WBC (4.50-10.00) 10*3/uL RBC (4.40-5.60) 10*6/uL Hgb (13.0-17.0) g/dL Hct (39.6-50.0) % Plt Count (140-440) 10*3/uL Immature Gran # (0.00-0.04) 10*3/uL Neutrophils # (1.80-7.70) 10*3/uL Monocytes # (0.20-1.00) 10*3/uL Sodium (137-145) mmol/L BUN (9-20) mg/dL Creatinine (0.66-1.25) mg/dL Glucose (74-99) mg/dL POC Glucose (mg/dL) 132 H 115 H 111 H (70-110) mg/dL Calcium (8.4-10.2) mg/dL Ionized Calcium Tim (4.5-5.3) mg/dL Alkaline Phosphatase (38-126) U/L Total Protein (6.3-8.2) g/dL 09/12/24 09/13/24 09/13/24 Range/Units 23:52 01:32 02:01 WBC (4.50-10.00) 10*3/uL RBC (4.40-5.60) 10*6/uL Hgb (13.0-17.0) g/dL Hct (39.6-50.0) % Plt Count (140-440) 10*3/uL Immature Gran # (0.00-0.04) 10*3/uL Neutrophils # (1.80-7.70) 10*3/uL Monocytes # (0.20-1.00) 10*3/uL Sodium 135 L (137-145) mmol/L BUN 24 H (9-20) mg/dL Creatinine 1.42 H (0.66-1.25) mg/dL Glucose 114 H (74-99) mg/dL POC Glucose (mg/dL) 115 H 128 H (70-110) mg/dL Calcium 7.8 L (8.4-10.2) mg/dL Ionized Calcium Tim (4.5-5.3) mg/dL Alkaline Phosphatase 28 L (38-126) U/L Total Protein 5.2 L (6.3-8.2) g/dL 09/13/24 09/13/24 09/13/24 Range/Units 03:03 04:19 04:22 WBC 13.15 H (4.50-10.00) 10*3/uL RBC 2.63 L (4.40-5.60) 10*6/uL Hgb 8.1 L D (13.0-17.0) g/dL Hct 24.4 L (39.6-50.0) % Plt Count 83 L (140-440) 10*3/uL Immature Gran # 0.08 H (0.00-0.04) 10*3/uL Neutrophils # 10.79 H (1.80-7.70) 10*3/uL Monocytes # 1.11 H (0.20-1.00) 10*3/uL Sodium (137-145) mmol/L BUN (9-20) mg/dL Creatinine (0.66-1.25) mg/dL Glucose (74-99) mg/dL POC Glucose (mg/dL) 125 H 129 H (70-110) mg/dL Calcium (8.4-10.2) mg/dL Ionized Calcium Tim (4.5-5.3) mg/dL Alkaline Phosphatase (38-126) U/L Total Protein (6.3-8.2) g/dL 09/13/24 09/13/24 Range/Units 04:22 05:45 WBC (4.50-10.00) 10*3/uL RBC (4.40-5.60) 10*6/uL Hgb (13.0-17.0) g/dL Hct (39.6-50.0) % Plt Count (140-440) 10*3/uL Immature Gran # (0.00-0.04) 10*3/uL Neutrophils # (1.80-7.70) 10*3/uL Monocytes # (0.20-1.00) 10*3/uL Sodium (137-145) mmol/L BUN (9-20) mg/dL Creatinine (0.66-1.25) mg/dL Glucose (74-99) mg/dL POC Glucose (mg/dL) 134 H (70-110) mg/dL Calcium (8.4-10.2) mg/dL Ionized Calcium Tim 4.4 L (4.5-5.3) mg/dL Alkaline Phosphatase (38-126) U/L Total Protein (6.3-8.2) g/dL
[2024-09-13 07:00] LABS: Glucose,Whole Blood 137 mg/dL (70-110)
--- NOTE | 2024-09-13 07:12 | XR ---
EXAMINATION TYPE: XR chest 1V portable DATE OF EXAM: 09/13/2024 COMPARISON: 09/12/2024. CLINICAL INDICATION: Male, 79 years old with history of Post Operative Cardiac Surgery; TECHNIQUE: Single frontal view of the chest is obtained. FINDINGS: No change in the position of [place] catheter, left chest tube and mediastinal tube. No change in the mild pulmonary vascular congestion mild pulmonary edema. There is no pneumothorax. There is a prosthetic aortic valve and a left atrial occlusive device. IMPRESSION: No significant interval change. [facility], , 09/13/2024 7:10 AM
--- NOTE | 2024-09-13 07:29 | P.PN ---
Subjective Progress Note Date: 09/13/24 Principal diagnosis: Prosthetic aortic valve stenosis, coronary artery disease. History of severe aortic stenosis with TAVR in November 2020, coronary artery disease with PCI in 2020, heart failure with preserved ejection fraction, hypertension, hyperlipidemia, CVA in 2022, mild restrictive lung disease, previous tobacco dependence, osteoarthritis, enlarged prostate with self catheterization POD#2 Coronary bypass grafting x 1 with TRAN to LAD, excision of Medtronic Evolut CoreValve, excision of [place] aortic valve, replacement aortic valve with 23 mm Echeverria Inspiris bovine pericardial valve prosthesis, occlusion of left atrial appendage with 40 mm AtriCure clip, CINDY by anesthesia Acute blood loss anemia and thrombocytopenia, expected given hemodilution and cardiopulmonary bypass pump Hypotension, requiring pressors, likely due to vasoplegia and CASIE initiation yesterday The patient was seen and examined this morning sitting up in recliner in the intensive care unit in no acute distress. Currently AV placed with underlying heart rhythm complete heart block. Blood pressure was elevated yesterday and he was on Cleviprex which was weaned off, was started on half his home dose of lisinopril throughout the day blood pressure started to dwindle. He also had large output from his chest tubes. During the night his urine output started to taper off as well. Dr. Burnett was contacted and patient was initially started on dopamine for urine output and then later during the night IV levo for blood pressure support. Remains on low-dose Levophed and renal dose dopamine with improvement in blood pressure and urine output. States pain is controlled on current medication regimen, denies shortness of breath. Currently on 4 L nasal cannula with oxygen saturation in the low 90s, able to achieve 0610-0024 mL on his incentive spirometry. Chest x-ray, labs reviewed. Hemoglobin did drop a little, likely due to hemodilution from 2 L of albumin given since surgery. Creatinine did bump, likely due to hypotension, lisinopril, Toradol. Both Toradol and lisinopril stopped. Right internal jugular Llewellyn/Cordis, mediastinal/left pleural chest tubes all remain. Patient did ambulate into the hallway yesterday without difficulty. No other new concerns. Objective - Vital Signs Vital signs: Vital Signs Temp 98 F 09/13/24 04:00 Pulse 80 09/13/24 07:00 Resp 17 09/13/24 07:00 BP 103/61 09/13/24 07:00 Pulse Ox 94 L 09/13/24 07:00 FiO2 40 09/11/24 21:27 Intake & Output 09/12/24 09/13/24 09/13/24 18:59 06:59 18:59 Intake Total 4346.396 9699.948 59 Output Total 917 631 240 Balance 499.228 740.948 -181 Weight 86.6 kg 86.18 kg Intake: IV 1198 1358 59 0.9 @ 50 390 Albumin Human 5% 250 ml 500 750 In Empty Bag 1 bag @ 250 mls/hr IVPB ONCE ONE Rx#: [id number] Pressure Bag 108 108 9 Sodium Chloride 0.9% 1, 90 360 30 000 ml @ 30 mls/hr IV . Q24H [facility] Rx#:[id number] ceFAZolin 2 gm In 50 Dextrose 5% in Water 50 ml @ 100 mls/hr IVPB Q8HR [facility] Rx#:[id number] ns for cardiac output 60 140 20 Intake, IV Titration 68.228 13.948 Amount Clevidipine Butyrate 25 11.801 mg In Empty Bag 1 bag @ 1 MG/HR 2 mls/hr IV .Q24H [facility] Rx#:[id number] Insulin Regular 100 unit 30.402 9.384 In Sodium Chloride 0.9% 100 ml @ Per Protocol IV .Q0M [facility] Rx#:[id number] Nitroglycerin-D5w Pmx 50 26.025 mg In Dextrose/Water 1 250ml.bag @ 5 MCG/MIN 1.5 mls/hr IV .Q24H [facility] Rx#: [id number] Norepinephrine 4 mg In 4.564 Sodium Chloride 0.9% 250 ml @ 0.03 MCG/KG/MIN 9. 898 mls/hr IV .Q24H [facility] Rx#:[id number] Oral 150 Output: Chest Tube Drainage 652 441 200 Mediastinal 482 291 100 Pleural Catheter Left 170 150 100 Urine 265 190 40 Other: Voiding Method Indwelling Catheter Indwelling Catheter ABP, PAP, CO, CI - Last Documented Arterial Blood Pressure 108/42 Pulmonary Artery Pressure 26/13 Cardiac Output 6 Cardiac Index 3.1 - Exam CONSTITUTIONAL: Appears comfortable, cooperative, no acute distress RESPIRATORY: Lungs sounds diminished bilaterally. Respirations even, nonlabored. Currently on 4 L nasal cannula with oxygen saturation 91%. Able to achieve 9891-8003 mL on incentive spirometry. Strong cough. CARDIOVASCULAR: S1, S2 present. AV paced on telemetry with underlying rhythm complete heart block. Sternum stable. Palpable peripheral pulses bilaterally. Trace generalized edema present. No calf pain or tenderness noted. Heart hugger in place with patient demonstrating appropriate use. Antiembolism stockings, SCDs present. GASTROINTESTINAL: Abdomen soft, nontender, nondistended. Hypoactive bowel sounds present 4 quadrants. Tolerating diet. Denies flatus GENITOURINARY: [place] present draining clear, yellow urine. Output overnight 0- 5 mL per hour until dopamine and levo started, now 25-40 ml/hr INTEGUMENTARY: Skin is warm and dry with evidence of good perfusion. Anterior chest incision well approximated and covered with dry intact dressing NEUROLOGIC: Cranial nerves II through XII intact MUSKULOSKELETAL: Able to move all extremities, strength equal bilaterally PSYCHIATRIC: Alert and oriented to person place and time, appropriate affect, intact judgment and insight INVASIVE LINES AND TUBES: Mediastinal/left pleural chest tubes present and connected to wall suction, no air leaks present. Mediastinal tube with 150 mL serosanguineous drainage overnight, 850 mL in the last 24 hours. Left pleural chest tube with 10 mL serosanguineous drainage overnight, 400 mL in the last 24 hours. A/V epicardial pacemaker wires present, connected to generator, DDD mode with rate 80 bpm. Right internal jugular Llewellyn/Cordis, right radial arterial line present. Last CO/CI 6/3.1, PA 28/14, CVP 10. - Allied health notes Allied health notes reviewed: nursing - Labs CBC & Chem 7: 09/13/24 04:22 09/13/24 01:32 Labs: Abnormal Lab Results - Last 24 Hours (Table) 09/12/24 09/12/24 09/12/24 Range/Units 08:00 09:23 09:54 WBC (4.50-10.00) 10*3/uL RBC (4.40-5.60) 10*6/uL Hgb (13.0-17.0) g/dL Hct (39.6-50.0) % Plt Count (140-440) 10*3/uL Immature Gran # (0.00-0.04) 10*3/uL Neutrophils # (1.80-7.70) 10*3/uL Monocytes # (0.20-1.00) 10*3/uL Sodium (137-145) mmol/L BUN (9-20) mg/dL Creatinine (0.66-1.25) mg/dL Glucose (74-99) mg/dL POC Glucose (mg/dL) 130 H 129 H 117 H (70-110) mg/dL Calcium (8.4-10.2) mg/dL Ionized Calcium Tim (4.5-5.3) mg/dL Alkaline Phosphatase (38-126) U/L Total Protein (6.3-8.2) g/dL 09/12/24 09/12/24 09/12/24 Range/Units 10:15 10:56 12:06 WBC (4.50-10.00) 10*3/uL RBC (4.40-5.60) 10*6/uL Hgb (13.0-17.0) g/dL Hct (39.6-50.0) % Plt Count (140-440) 10*3/uL Immature Gran # (0.00-0.04) 10*3/uL Neutrophils # (1.80-7.70) 10*3/uL Monocytes # (0.20-1.00) 10*3/uL Sodium (137-145) mmol/L BUN (9-20) mg/dL Creatinine (0.66-1.25) mg/dL Glucose (74-99) mg/dL POC Glucose (mg/dL) 129 H 114 H 126 H (70-110) mg/dL Calcium (8.4-10.2) mg/dL Ionized Calcium Tmi (4.5-5.3) mg/dL Alkaline Phosphatase (38-126) U/L Total Protein (6.3-8.2) g/dL 09/12/24 09/12/24 09/12/24 Range/Units 13:58 14:53 16:06 WBC (4.50-10.00) 10*3/uL RBC (4.40-5.60) 10*6/uL Hgb (13.0-17.0) g/dL Hct (39.6-50.0) % Plt Count (140-440) 10*3/uL Immature Gran # (0.00-0.04) 10*3/uL Neutrophils # (1.80-7.70) 10*3/uL Monocytes # (0.20-1.00) 10*3/uL Sodium (137-145) mmol/L BUN (9-20) mg/dL Creatinine (0.66-1.25) mg/dL Glucose (74-99) mg/dL POC Glucose (mg/dL) 166 H 151 H 122 H (70-110) mg/dL Calcium (8.4-10.2) mg/dL Ionized Calcium Tim (4.5-5.3) mg/dL Alkaline Phosphatase (38-126) U/L Total Protein (6.3-8.2) g/dL 09/12/24 09/12/24 09/12/24 Range/Units 17:09 17:59 19:01 WBC (4.50-10.00) 10*3/uL RBC (4.40-5.60) 10*6/uL Hgb (13.0-17.0) g/dL Hct (39.6-50.0) % Plt Count (140-440) 10*3/uL Immature Gran # (0.00-0.04) 10*3/uL Neutrophils # (1.80-7.70) 10*3/uL Monocytes # (0.20-1.00) 10*3/uL Sodium (137-145) mmol/L BUN (9-20) mg/dL Creatinine (0.66-1.25) mg/dL Glucose (74-99) mg/dL POC Glucose (mg/dL) 111 H 136 H 132 H (70-110) mg/dL Calcium (8.4-10.2) mg/dL Ionized Calcium Tim (4.5-5.3) mg/dL Alkaline Phosphatase (38-126) U/L Total Protein (6.3-8.2) g/dL 09/12/24 09/12/24 09/12/24 Range/Units 20:51 21:59 23:52 WBC (4.50-10.00) 10*3/uL RBC (4.40-5.60) 10*6/uL Hgb (13.0-17.0) g/dL Hct (39.6-50.0) % Plt Count (140-440) 10*3/uL Immature Gran # (0.00-0.04) 10*3/uL Neutrophils # (1.80-7.70) 10*3/uL Monocytes # (0.20-1.00) 10*3/uL Sodium (137-145) mmol/L BUN (9-20) mg/dL Creatinine (0.66-1.25) mg/dL Glucose (74-99) mg/dL POC Glucose (mg/dL) 115 H 111 H 115 H (70-110) mg/dL Calcium (8.4-10.2) mg/dL Ionized Calcium Tim (4.5-5.3) mg/dL Alkaline Phosphatase (38-126) U/L Total Protein (6.3-8.2) g/dL 09/13/24 09/13/24 09/13/24 Range/Units 01:32 02:01 03:03 WBC (4.50-10.00) 10*3/uL RBC (4.40-5.60) 10*6/uL Hgb (13.0-17.0) g/dL Hct (39.6-50.0) % Plt Count (140-440) 10*3/uL Immature Gran # (0.00-0.04) 10*3/uL Neutrophils # (1.80-7.70) 10*3/uL Monocytes # (0.20-1.00) 10*3/uL Sodium 135 L (137-145) mmol/L BUN 24 H (9-20) mg/dL Creatinine 1.42 H (0.66-1.25) mg/dL Glucose 114 H (74-99) mg/dL POC Glucose (mg/dL) 128 H 125 H (70-110) mg/dL Calcium 7.8 L (8.4-10.2) mg/dL Ionized Calcium Tim (4.5-5.3) mg/dL Alkaline Phosphatase 28 L (38-126) U/L Total Protein 5.2 L (6.3-8.2) g/dL 09/13/24 09/13/24 09/13/24 Range/Units 04:19 04:22 04:22 WBC 13.15 H (4.50-10.00) 10*3/uL RBC 2.63 L (4.40-5.60) 10*6/uL Hgb 8.1 L D (13.0-17.0) g/dL Hct 24.4 L (39.6-50.0) % Plt Count 83 L (140-440) 10*3/uL Immature Gran # 0.08 H (0.00-0.04) 10*3/uL Neutrophils # 10.79 H (1.80-7.70) 10*3/uL Monocytes # 1.11 H (0.20-1.00) 10*3/uL Sodium (137-145) mmol/L BUN (9-20) mg/dL Creatinine (0.66-1.25) mg/dL Glucose (74-99) mg/dL POC Glucose (mg/dL) 129 H (70-110) mg/dL Calcium (8.4-10.2) mg/dL Ionized Calcium Tim 4.4 L (4.5-5.3) mg/dL Alkaline Phosphatase (38-126) U/L Total Protein (6.3-8.2) g/dL 09/13/24 09/13/24 Range/Units 05:45 06:58 WBC (4.50-10.00) 10*3/uL RBC (4.40-5.60) 10*6/uL Hgb (13.0-17.0) g/dL Hct (39.6-50.0) % Plt Count (140-440) 10*3/uL Immature Gran # (0.00-0.04) 10*3/uL Neutrophils # (1.80-7.70) 10*3/uL Monocytes # (0.20-1.00) 10*3/uL Sodium (137-145) mmol/L BUN (9-20) mg/dL Creatinine (0.66-1.25) mg/dL Glucose (74-99) mg/dL POC Glucose (mg/dL) 134 H 137 H (70-110) mg/dL Calcium (8.4-10.2) mg/dL Ionized Calcium Tim (4.5-5.3) mg/dL Alkaline Phosphatase (38-126) U/L Total Protein (6.3-8.2) g/dL - Imaging and Cardiology Chest x-ray: report reviewed, image reviewed Assessment and Plan Assessment: Prosthetic aortic valve stenosis, status post excision of TAVR and [place] valve, replacement aortic valve Coronary artery disease, status post single-vessel CABG Underlying complete heart block, unexpected but potential complication of any valve surgery Acute blood loss anemia and thrombocytopenia, expected Hypotension likely from vasoplegia and medication administration History of severe aortic stenosis with TAVR in November 2020 Coronary artery disease with PCI in 2020 Heart failure with preserved ejection fraction, EF 60 to 65% Hypertension Hyperlipidemia, treated, cholesterol 171, LDL 97, triglycerides 161 CVA in 2022 Mild restrictive lung disease, preoperative FEV1 62% of predicted Previous tobacco dependence Osteoarthritis Enlarged prostate with self catheterization Plan: Continue to maximize medical therapy with aspirin, statin, Plavix. Will hold off on beta-mina for now due to underlying heart rhythm Wean levo as tolerated, continue dopamine Lisinopril discontinued Wean oxygen as tolerated. Encourage incentive spirometry use 10 times every hour while awake. Bronchodilators per pulmonology Increase activity, ambulate as tolerated. PT/OT/cardiac rehab consulted Will monitor daily labs and x-rays, electrolyte replacement per protocol. No Lasix today GI/DVT prophylaxis Pain control per current medication regimen. Toradol discontinued due to bump in creatinine Insulin management per internal medicine. Patient is not diabetic, preoperative hemoglobin A1c 6.1% Continue to AV pace, monitor for return of intrinsic rhythm, hold AV panda blockers, likely will need pacemaker Continue Llewellyn/Cordis Discontinue Esc[place] catheter once patient's has brought in his self catheterization kits from home Monitor and record strict accurate intake and output Continue chest tubes for another 24 hours More recommendations to follow as patient progresses
[2024-09-13] MEDS ORDERED: MAGNESIUM HYDROXIDE 2,400 MG/30 ML CUP PO PRN (08:00)
[2024-09-13] MEDS: CALCIUM GLUCONATE IN NACL 1 GM in SALINE 1 100ML.BAG IVPB ONE (08:16)
[2024-09-13] MEDS ORDERED: DEXTROSE 50% SYRINGE 50 ML IVP PRN ×2 (10:00)
[2024-09-13 11:21] LABS: Glucose,Whole Blood 123 mg/dL (70-110)
--- NOTE | 2024-09-13 11:36 | P.PN ---
Subjective Progress Note Date: 09/13/24 No new complaints today. Sugars are well controlled. Gen: In NAD, non-toxic HEENT: normocephalic, atraumatic, hearing acuity is intant, mucous membranes moist CVS: perfusing all extremities well, no pitting edema, Respiratory: symmetric chest expansion, no accessory muscle use, GI: soft, NTTP, ND, : no suprapubic tenderness, no CVA tenderness MSK/Derm: no rashes, cyanosis Neuro: CN II-XII intact, no motor weakness, Psych: cooperative, euthymic mood, judgment and insight is intact Hospital course: Patient is a 79-year-old male with history of aortic stenosis with previous TAVR, CAD, hypertension, dyslipidemia, GERD, CVA/TIA presenting for elective CABG and aortic valve replacement. [facility] physicians consulted for medical management. Upon initial evaluation, WBC 12.57, hemoglobin 11.3, platelet 94, pH 7.42, [id number], potassium 4.3, creatinine 0.75, blood sugars range between 113- 145, magnesium 2.8, total bili 1.4, AST 31, ALT 17, ALP 36. Chest x-ray independently interpreted, shows postoperative changes, interstitial opacities bilaterally. Assessment/Plan: Active: CAD status post CABG, and aortic valve replacement Hypertension Dyslipidemia - On amiodarone drip, aspirin 325 daily, aspirin 80 mg daily, Plavix 75 daily, metoprolol 12.5 daily - Pain control, DVT prophylaxis, bowel regimen per cardiothoracic surgery - Pulmonology to manage vent settings Hyperglycemia Prediabetes, A1c 6.1 - Switched to subcu sliding scale insulin Thank you for allowing us to participate in the care of this pleasant patient. Do not hesitate to contact us with questions. Someone can be reached from the [facility] hospitalist group all hours of the day at [phone] or via perfect serve. Objective - Vital Signs Vital signs: Vital Signs Temp 99.1 F 09/13/24 08:00 Pulse 80 09/13/24 11:00 Resp 19 09/13/24 11:00 BP 119/64 09/13/24 11:00 Pulse Ox 93 L 09/13/24 11:00 FiO2 40 09/11/24 21:27 Intake & Output 09/12/24 09/13/24 09/13/24 18:59 06:59 18:59 Intake Total 5570.936 3038.948 342.068 Output Total 917 631 400 Balance 499.228 740.948 -57.932 Weight 86.6 kg 86.18 kg Intake: IV 1198 1358 176 0.9 @ 50 390 Albumin Human 5% 250 ml 500 750 In Empty Bag 1 bag @ 250 mls/hr IVPB ONCE ONE Rx#: [id number] Pressure Bag 108 108 36 Sodium Chloride 0.9% 1, 90 360 120 000 ml @ 30 mls/hr IV . Q24H [facility] Rx#:[id number] ceFAZolin 2 gm In 50 Dextrose 5% in Water 50 ml @ 100 mls/hr IVPB Q8HR [facility] Rx#:[id number] ns for cardiac output 60 140 20 Intake, IV Titration 68.228 13.948 46.068 Amount Clevidipine Butyrate 25 11.801 mg In Empty Bag 1 bag @ 1 MG/HR 2 mls/hr IV .Q24H [facility] Rx#:[id number] Insulin Regular 100 unit 30.402 9.384 12.524 In Sodium Chloride 0.9% 100 ml @ Per Protocol IV .Q0M [facility] Rx#:[id number] Nitroglycerin-D5w Pmx 50 26.025 mg In Dextrose/Water 1 250ml.bag @ 5 MCG/MIN 1.5 mls/hr IV .Q24H [facility] Rx#: [id number] Norepinephrine 4 mg In 4.564 33.544 Sodium Chloride 0.9% 250 ml @ 0.03 MCG/KG/MIN 9. 898 mls/hr IV .Q24H [facility] Rx#:[id number] Oral 150 120 Output: Chest Tube Drainage 652 441 235 Mediastinal 482 291 130 Pleural Catheter Left 170 150 105 Urine 265 190 165 Other: Voiding Method Indwelling Catheter Indwelling Catheter ABP, PAP, CO, CI - Last Documented Arterial Blood Pressure 106/49 Pulmonary Artery Pressure 28/17 Cardiac Output 5.2 Cardiac Index 2.7 - Labs CBC & Chem 7: 09/13/24 04:22 09/13/24 01:32 Labs: Abnormal Lab Results - Last 24 Hours (Table) 09/12/24 09/12/24 09/12/24 Range/Units 12:06 13:58 14:53 WBC (4.50-10.00) 10*3/uL RBC (4.40-5.60) 10*6/uL Hgb (13.0-17.0) g/dL Hct (39.6-50.0) % Plt Count (140-440) 10*3/uL Immature Gran # (0.00-0.04) 10*3/uL Neutrophils # (1.80-7.70) 10*3/uL Monocytes # (0.20-1.00) 10*3/uL Sodium (137-145) mmol/L BUN (9-20) mg/dL Creatinine (0.66-1.25) mg/dL Glucose (74-99) mg/dL POC Glucose (mg/dL) 126 H 166 H 151 H (70-110) mg/dL Calcium (8.4-10.2) mg/dL Ionized Calcium Tim (4.5-5.3) mg/dL Alkaline Phosphatase (38-126) U/L Total Protein (6.3-8.2) g/dL 09/12/24 09/12/24 09/12/24 Range/Units 16:06 17:09 17:59 WBC (4.50-10.00) 10*3/uL RBC (4.40-5.60) 10*6/uL Hgb (13.0-17.0) g/dL Hct (39.6-50.0) % Plt Count (140-440) 10*3/uL Immature Gran # (0.00-0.04) 10*3/uL Neutrophils # (1.80-7.70) 10*3/uL Monocytes # (0.20-1.00) 10*3/uL Sodium (137-145) mmol/L BUN (9-20) mg/dL Creatinine (0.66-1.25) mg/dL Glucose (74-99) mg/dL POC Glucose (mg/dL) 122 H 111 H 136 H (70-110) mg/dL Calcium (8.4-10.2) mg/dL Ionized Calcium Tim (4.5-5.3) mg/dL Alkaline Phosphatase (38-126) U/L Total Protein (6.3-8.2) g/dL 09/12/24 09/12/24 09/12/24 Range/Units 19:01 20:51 21:59 WBC (4.50-10.00) 10*3/uL RBC (4.40-5.60) 10*6/uL Hgb (13.0-17.0) g/dL Hct (39.6-50.0) % Plt Count (140-440) 10*3/uL Immature Gran # (0.00-0.04) 10*3/uL Neutrophils # (1.80-7.70) 10*3/uL Monocytes # (0.20-1.00) 10*3/uL Sodium (137-145) mmol/L BUN (9-20) mg/dL Creatinine (0.66-1.25) mg/dL Glucose (74-99) mg/dL POC Glucose (mg/dL) 132 H 115 H 111 H (70-110) mg/dL Calcium (8.4-10.2) mg/dL Ionized Calcium Tim (4.5-5.3) mg/dL Alkaline Phosphatase (38-126) U/L Total Protein (6.3-8.2) g/dL 09/12/24 09/13/24 09/13/24 Range/Units 23:52 01:32 02:01 WBC (4.50-10.00) 10*3/uL RBC (4.40-5.60) 10*6/uL Hgb (13.0-17.0) g/dL Hct (39.6-50.0) % Plt Count (140-440) 10*3/uL Immature Gran # (0.00-0.04) 10*3/uL Neutrophils # (1.80-7.70) 10*3/uL Monocytes # (0.20-1.00) 10*3/uL Sodium 135 L (137-145) mmol/L BUN 24 H (9-20) mg/dL Creatinine 1.42 H (0.66-1.25) mg/dL Glucose 114 H (74-99) mg/dL POC Glucose (mg/dL) 115 H 128 H (70-110) mg/dL Calcium 7.8 L (8.4-10.2) mg/dL Ionized Calcium Tim (4.5-5.3) mg/dL Alkaline Phosphatase 28 L (38-126) U/L Total Protein 5.2 L (6.3-8.2) g/dL 05/17/25 05/17/25 05/17/25 Range/Units 03:03 04:19 04:22 WBC 13.15 H (4.50-10.00) 10*3/uL RBC 2.63 L (4.40-5.60) 10*6/uL Hgb 8.1 L D (13.0-17.0) g/dL Hct 24.4 L (39.6-50.0) % Plt Count 83 L (140-440) 10*3/uL Immature Gran # 0.08 H (0.00-0.04) 10*3/uL Neutrophils # 10.79 H (1.80-7.70) 10*3/uL Monocytes # 1.11 H (0.20-1.00) 10*3/uL Sodium (137-145) mmol/L BUN (9-20) mg/dL Creatinine (0.66-1.25) mg/dL Glucose (74-99) mg/dL POC Glucose (mg/dL) 125 H 129 H (70-110) mg/dL Calcium (8.4-10.2) mg/dL Ionized Calcium Tim (4.5-5.3) mg/dL Alkaline Phosphatase (38-126) U/L Total Protein (6.3-8.2) g/dL 09/13/24 09/13/24 09/13/24 Range/Units 04:22 05:45 06:58 WBC (4.50-10.00) 10*3/uL RBC (4.40-5.60) 10*6/uL Hgb (13.0-17.0) g/dL Hct (39.6-50.0) % Plt Count (140-440) 10*3/uL Immature Gran # (0.00-0.04) 10*3/uL Neutrophils # (1.80-7.70) 10*3/uL Monocytes # (0.20-1.00) 10*3/uL Sodium (137-145) mmol/L BUN (9-20) mg/dL Creatinine (0.66-1.25) mg/dL Glucose (74-99) mg/dL POC Glucose (mg/dL) 134 H 137 H (70-110) mg/dL Calcium (8.4-10.2) mg/dL Ionized Calcium Tim 4.4 L (4.5-5.3) mg/dL Alkaline Phosphatase (38-126) U/L Total Protein (6.3-8.2) g/dL 09/13/24 Range/Units 11:19 WBC (4.50-10.00) 10*3/uL RBC (4.40-5.60) 10*6/uL Hgb (13.0-17.0) g/dL Hct (39.6-50.0) % Plt Count (140-440) 10*3/uL Immature Gran # (0.00-0.04) 10*3/uL Neutrophils # (1.80-7.70) 10*3/uL Monocytes # (0.20-1.00) 10*3/uL Sodium (137-145) mmol/L BUN (9-20) mg/dL Creatinine (0.66-1.25) mg/dL Glucose (74-99) mg/dL POC Glucose (mg/dL) 123 H (70-110) mg/dL Calcium (8.4-10.2) mg/dL Ionized Calcium Tim (4.5-5.3) mg/dL Alkaline Phosphatase (38-126) U/L Total Protein (6.3-8.2) g/dL
[2024-09-13] MEDS: INSULIN LISPRO (HumaLOG) 100 UNIT/ML 10 mL VL SQ SCH (11:50)
[2024-09-13] MEDS: bisacodyL 10 MG SUPP RECTAL PRN (13:54)
--- NOTE | 2024-09-13 14:37 | P.PN ---
Subjective Progress Note Date: 09/13/24 This is a 79-year-old male patient who was brought into the intensive care unit following cardiac surgery. The patient had a previous TAVR and the patient developed prosthetic aortic valve stenosis and the patient also has coronary artery disease. Based on that, the patient underwent coronary artery bypass surgery x 1 with TRAN to LAD and excision of the Medtronic CoreValve and replacement aortic valve with 23 mm Echeverria Inspiris bovine pericardial valve prosthesis. The patient was kept intubated the patient was brought into the intensive care for further care. At this point in time, the patient is on propofol running at 20 mcg/kg/min and the patient is calm and comfortable and synchronous with mechanical ventilator. The patient is on assist-control mode of mechanical ventilation and the patient is currently on a rate of 12, tidal volume of 500, FiO2 of 100% with a PEEP of 5. Blood gases showed a pH of 7.4 with a OLT216 and PO2 of 318. FiO2 is now down to 50%. The patient has been m ediastinal and 1 left pleural chest tube and output has been minimal since arriving from the operating room. No evidence of any pneumothorax on postop chest x-ray. There is mild pulm vessel congestion and the patient has some mild CHF findings. The patient's cardiac rhythm is paced at a rate of 80. He is on nitroglycerin drip running at 5 mcg/min. His hemodynamic parameters show a PA pressure of 30/19 with a cardiac output of 3.5 with an index of 1.9. Initially, his cardiac index was low and the patient was given 2 boluses of albumin, 250 cc each. Urine output is adequate. He is normothermic. His blood work shows a WBC count of 12.5 with a hemoglobin of 11.3 and his sodium level is at 137, BUN is 50 with a creatinine of 0.7. LFTs are normal. On 09/12/2024, the patient is being seen for a follow-up. The patient was weaned off the mechanical ventilator and the patient was extubated without any major difficulties and the patient is currently on oxygen room air. Chest x-ray shows postsurgical changes, chest tubes are in place, [place]-Margarita catheter in place. ET tube has been removed. Lung volumes are small and the patient has some mild pulmonary vascular congestion. Earlier hemodynamic parameters showed a PA pressure of 29/8 and a cardiac index is up to 3.2. The patient is paced at a rate of 80 and he would likely need a permanent pacemaker. Insulin drip is at 3.5 units an hour and the patient urine output is older of 30 cc an hour. The white cell count is at 13 with a hemoglobin of 10 and a platelet count of 108. Sodium is at 139, potassium 3.9, BUN 17 with a creatinine of 0.8 and LFTs are within normal limits. No focal neurological deficits. The patient is postop day #1 following aortic valve replacement and single-vessel coronary bypass surgery with TRAN to LAD. On 09/13/2024, the patient is being seen for a follow-up. The patient is postop day #2. Overnight, the patient had a low blood pressure and a low urine output. Based on that, the patient was started on dopamine which is currently running at 3 mcg/kg/min. Subsequently, low-dose norepinephrine was also added at 0.01 mcg/kg/min. The patient's cardiac rhythm is paced at rate of 80. Is currently on 4 L of oxygen by nasal cannula. Creatinine is up to 1.4. The patient is awake and alert and communicating. The chest tubes are still in place. The patient has a left pleural chest tube that has drained approximately 400 cc over the past 24 hours and mediastinal chest tube that has drained around 800 cc cc over the past 24 hours. [place]-Margarita in place. Cardiac output is at 6 with an index of 3.1. PA pressures are 28/14. CVP is at 10. The patient is afebrile. Hemoglobin of 8.1. White cell count of 13 and the platelet count is at 83. Blood sugar is at 123 and the patient was taken off the insulin drip. BUN 25 with a creatinine of 1.4. Sodium is at 135 and a potassium level is at 4.1. Objective - Vital Signs Vital signs: Vital Signs Temp 99.1 F 09/13/24 08:00 Pulse 80 09/13/24 08:30 Resp 21 09/13/24 08:30 BP 104/58 09/13/24 08:30 Pulse Ox 94 L 09/13/24 08:30 FiO2 40 09/11/24 21:27 Intake & Output 09/12/24 09/13/24 09/13/24 18:59 06:59 18:59 Intake Total 3775.048 6359.948 266.319 Output Total 917 631 300 Balance 499.228 740.948 -33.681 Weight 86.6 kg 86.18 kg Intake: IV 1198 1358 103 0.9 @ 50 390 Albumin Human 5% 250 ml 500 750 In Empty Bag 1 bag @ 250 mls/hr IVPB ONCE ONE Rx#: [id number] Pressure Bag 108 108 18 Sodium Chloride 0.9% 1, 90 360 65 000 ml @ 30 mls/hr IV . Q24H [facility] Rx#:[id number] ceFAZolin 2 gm In 50 Dextrose 5% in Water 50 ml @ 100 mls/hr IVPB Q8HR [facility] Rx#:[id number] ns for cardiac output 60 140 20 Intake, IV Titration 68.228 13.948 43.319 Amount Clevidipine Butyrate 25 11.801 mg In Empty Bag 1 bag @ 1 MG/HR 2 mls/hr IV .Q24H [facility] Rx#:[id number] Insulin Regular 100 unit 30.402 9.384 12.524 In Sodium Chloride 0.9% 100 ml @ Per Protocol IV .Q0M [facility] Rx#:[id number] Nitroglycerin-D5w Pmx 50 26.025 mg In Dextrose/Water 1 250ml.bag @ 5 MCG/MIN 1.5 mls/hr IV .Q24H [facility] Rx#: [id number] Norepinephrine 4 mg In 4.564 30.795 Sodium Chloride 0.9% 250 ml @ 0.03 MCG/KG/MIN 9. 898 mls/hr IV .Q24H [facility] Rx#:[id number] Oral 150 120 Output: Chest Tube Drainage 652 441 235 Mediastinal 482 291 130 Pleural Catheter Left 170 150 105 Urine 265 190 65 Other: Voiding Method Indwelling Catheter Indwelling Catheter ABP, PAP, CO, CI - Last Documented Arterial Blood Pressure 117/45 Pulmonary Artery Pressure 29/16 Cardiac Output 6 Cardiac Index 3.1 - Exam CONSTITUTIONAL: Appears comfortable, cooperative, no acute distress RESPIRATORY: Lungs sounds diminished bilaterally. Respirations even, nonlabored. Currently on 4 L nasal cannula with oxygen saturation 91%. Able to achieve 1759-0029 mL on incentive spirometry. Strong cough. CARDIOVASCULAR: S1, S2 present. AV paced on telemetry with underlying rhythm complete heart block. Sternum stable. Palpable peripheral pulses bilaterally. Trace generalized edema present. No calf pain or tenderness noted. Heart hugger in place with patient demonstrating appropriate use. Antiembolism stockings, SCDs present. GASTROINTESTINAL: Abdomen soft, nontender, nondistended. Hypoactive bowel sounds present 4 quadrants. Tolerating diet. Denies flatus GENITOURINARY: [place] present draining clear, yellow urine. Output overnight 0- 5 mL per hour until dopamine and levo started, now 25-40 ml/hr INTEGUMENTARY: Skin is warm and dry with evidence of good perfusion. Anterior chest incision well approximated and covered with dry intact dressing NEUROLOGIC: Cranial nerves II through XII intact MUSKULOSKELETAL: Able to move all extremities, strength equal bilaterally PSYCHIATRIC: Alert and oriented to person place and time, appropriate affect, intact judgment and insight INVASIVE LINES AND TUBES: Mediastinal/left pleural chest tubes present and connected to wall suction, no air leaks present. Mediastinal tube with 150 mL serosanguineous drainage overnight, 850 mL in the last 24 hours. Left pleural chest tube with 10 mL serosanguineous drainage overnight, 400 mL in the last 24 hours. A/V epicardial pacemaker wires present, connected to generator, DDD mode with rate 80 bpm. Right internal jugular [place]/Cordis, right radial arterial line present. Last CO/CI 6/3.1, PA 28/14, CVP 10. - Labs CBC & Chem 7: 09/13/24 04:22 09/13/24 01:32 Labs: Abnormal Lab Results - Last 24 Hours (Table) 09/12/24 09/12/24 09/12/24 Range/Units 09:54 10:15 10:56 WBC (4.50-10.00) 10*3/uL RBC (4.40-5.60) 10*6/uL Hgb (13.0-17.0) g/dL Hct (39.6-50.0) % Plt Count (140-440) 10*3/uL Immature Gran # (0.00-0.04) 10*3/uL Neutrophils # (1.80-7.70) 10*3/uL Monocytes # (0.20-1.00) 10*3/uL Sodium (137-145) mmol/L BUN (9-20) mg/dL Creatinine (0.66-1.25) mg/dL Glucose (74-99) mg/dL POC Glucose (mg/dL) 117 H 129 H 114 H (70-110) mg/dL Calcium (8.4-10.2) mg/dL Ionized Calcium Tim (4.5-5.3) mg/dL Alkaline Phosphatase (38-126) U/L Total Protein (6.3-8.2) g/dL 09/12/24 09/12/24 09/12/24 Range/Units 12:06 13:58 14:53 WBC (4.50-10.00) 10*3/uL RBC (4.40-5.60) 10*6/uL Hgb (13.0-17.0) g/dL Hct (39.6-50.0) % Plt Count (140-440) 10*3/uL Immature Gran # (0.00-0.04) 10*3/uL Neutrophils # (1.80-7.70) 10*3/uL Monocytes # (0.20-1.00) 10*3/uL Sodium (137-145) mmol/L BUN (9-20) mg/dL Creatinine (0.66-1.25) mg/dL Glucose (74-99) mg/dL POC Glucose (mg/dL) 126 H 166 H 151 H (70-110) mg/dL Calcium (8.4-10.2) mg/dL Ionized Calcium Tim (4.5-5.3) mg/dL Alkaline Phosphatase (38-126) U/L Total Protein (6.3-8.2) g/dL 09/12/24 09/12/24 09/12/24 Range/Units 16:06 17:09 17:59 WBC (4.50-10.00) 10*3/uL RBC (4.40-5.60) 10*6/uL Hgb (13.0-17.0) g/dL Hct (39.6-50.0) % Plt Count (140-440) 10*3/uL Immature Gran # (0.00-0.04) 10*3/uL Neutrophils # (1.80-7.70) 10*3/uL Monocytes # (0.20-1.00) 10*3/uL Sodium (137-145) mmol/L BUN (9-20) mg/dL Creatinine (0.66-1.25) mg/dL Glucose (74-99) mg/dL POC Glucose (mg/dL) 122 H 111 H 136 H (70-110) mg/dL Calcium (8.4-10.2) mg/dL Ionized Calcium Tim (4.5-5.3) mg/dL Alkaline Phosphatase (38-126) U/L Total Protein (6.3-8.2) g/dL 09/12/24 09/12/24 09/12/24 Range/Units 19:01 20:51 21:59 WBC (4.50-10.00) 10*3/uL RBC (4.40-5.60) 10*6/uL Hgb (13.0-17.0) g/dL Hct (39.6-50.0) % Plt Count (140-440) 10*3/uL Immature Gran # (0.00-0.04) 10*3/uL Neutrophils # (1.80-7.70) 10*3/uL Monocytes # (0.20-1.00) 10*3/uL Sodium (137-145) mmol/L BUN (9-20) mg/dL Creatinine (0.66-1.25) mg/dL Glucose (74-99) mg/dL POC Glucose (mg/dL) 132 H 115 H 111 H (70-110) mg/dL Calcium (8.4-10.2) mg/dL Ionized Calcium Tim (4.5-5.3) mg/dL Alkaline Phosphatase (38-126) U/L Total Protein (6.3-8.2) g/dL 09/12/24 09/13/24 09/13/24 Range/Units 23:52 01:32 02:01 WBC (4.50-10.00) 10*3/uL RBC (4.40-5.60) 10*6/uL Hgb (13.0-17.0) g/dL Hct (39.6-50.0) % Plt Count (140-440) 10*3/uL Immature Gran # (0.00-0.04) 10*3/uL Neutrophils # (1.80-7.70) 10*3/uL Monocytes # (0.20-1.00) 10*3/uL Sodium 135 L (137-145) mmol/L BUN 24 H (9-20) mg/dL Creatinine 1.42 H (0.66-1.25) mg/dL Glucose 114 H (74-99) mg/dL POC Glucose (mg/dL) 115 H 128 H (70-110) mg/dL Calcium 7.8 L (8.4-10.2) mg/dL Ionized Calcium Tim (4.5-5.3) mg/dL Alkaline Phosphatase 28 L (38-126) U/L Total Protein 5.2 L (6.3-8.2) g/dL 09/13/24 09/13/24 09/13/24 Range/Units 03:03 04:19 04:22 WBC 13.15 H (4.50-10.00) 10*3/uL RBC 2.63 L (4.40-5.60) 10*6/uL Hgb 8.1 L D (13.0-17.0) g/dL Hct 24.4 L (39.6-50.0) % Plt Count 83 L (140-440) 10*3/uL Immature Gran # 0.08 H (0.00-0.04) 10*3/uL Neutrophils # 10.79 H (1.80-7.70) 10*3/uL Monocytes # 1.11 H (0.20-1.00) 10*3/uL Sodium (137-145) mmol/L BUN (9-20) mg/dL Creatinine (0.66-1.25) mg/dL Glucose (74-99) mg/dL POC Glucose (mg/dL) 125 H 129 H (70-110) mg/dL Calcium (8.4-10.2) mg/dL Ionized Calcium Tim (4.5-5.3) mg/dL Alkaline Phosphatase (38-126) U/L Total Protein (6.3-8.2) g/dL 09/13/24 09/13/24 09/13/24 Range/Units 04:22 05:45 06:58 WBC (4.50-10.00) 10*3/uL RBC (4.40-5.60) 10*6/uL Hgb (13.0-17.0) g/dL Hct (39.6-50.0) % Plt Count (140-440) 10*3/uL Immature Gran # (0.00-0.04) 10*3/uL Neutrophils # (1.80-7.70) 10*3/uL Monocytes # (0.20-1.00) 10*3/uL Sodium (137-145) mmol/L BUN (9-20) mg/dL Creatinine (0.66-1.25) mg/dL Glucose (74-99) mg/dL POC Glucose (mg/dL) 134 H 137 H (70-110) mg/dL Calcium (8.4-10.2) mg/dL Ionized Calcium Tim 4.4 L (4.5-5.3) mg/dL Alkaline Phosphatase (38-126) U/L Total Protein (6.3-8.2) g/dL Assessment and Plan Plan: Aortic valve replacement and a single-vessel bypass surgery with TRAN to LAD. The patient is currently postop day # 2. Hemodynamically stable. Postop cardiac rhythm is asystole and the patient is currently paced with a rate of 80. The patient continues to be paced with a rate of 80. He would likely need a permanent pacemaker. Meanwhile, the patient is a drop in urine output and the cardiac output in the patient's creatinine is on the rise. Based on that, the patient was started on a combination of dopamine and norepinephrine. The patient has also received IV albumin and total of 1 L over the past 24 hours. Urine output is improving. Blood pressure is stable. Cardiac output is stable. Chest tubes are still in place. Postthoracotomy, extubated successfully and patient is currently on 4 L of oxygen by nasal cannula chest tubes are in place. No evidence of pneumothorax. Coronary artery disease, cardiac catheterization revealing intermediate disease involving the mid LAD approximately 50 to 60% History of aortic valve stenosis with a previous TAVR with subsequent bioprosthetic valve stenosis History of CVA back in 2022 BPH and the patient undergoes self-catheterization Hypertension Hyperlipidemia Osteoarthritis Acid reflux Plan Patient currently on 4 L of oxygen by nasal cannula Monitor output from the chest tubes, keep chest tubes in place Monitor hemodynamic parameters, keep [place]-Margarita catheter in place Continue dopamine at 3 mcg/kg/min Titrate norepinephrine Cardiac rhythm is paced at a rate of 80. Insulin drip f has been discontinued and the patient is currently on sliding scale insulin coverage Urine output is adequate Labs were reviewed Continue aspirin Continue Plavix Continue Lipitor at 80 mg a day Hold Zestril Will follow, continue to follow, condition remains somewhat critical and the patient will be kept in the ICU for now for postoperative care. Will need close monitoring of the hemodynamics. Overall respiratory status is stable. Chest x- ray findings are stable. Will continue to follow. Critical care evaluation. 32 minutes. Time with Patient: Greater than 30
[2024-09-13 16:23] LABS: Glucose,Whole Blood 122 mg/dL (70-110)
[2024-09-13 19:41] LABS: Glucose,Whole Blood 130 mg/dL (70-110)
[2024-09-14 04:45] LABS: ALT 12 U/L (4-49); AST 31 U/L (17-59); African American GFR (CKD) 86 (>60 ml/min/1.73 sqM); Albumin 3.3 g/dL (3.5-5.0); Alkaline Phosphatase 37 U/L (38-126); Anion Gap 5 mmol/L; Blood Urea Nitrogen 27 mg/dL (9-20); Carbon Dioxide 25 mmol/L (22-30); Chloride 107 mmol/L (98-107); Glucose 122 mg/dL (74-99); Magnesium 2.7 mg/dL (1.6-2.3); Non-African American GFR(CKD) 75 (>60 ml/min/1.73 sqM); Potassium 4.7 mmol/L (3.5-5.1); Sodium 137 mmol/L (137-145); Total Bilirubin 1.3 mg/dL (0.2-1.3); Total Protein 5.1 g/dL (6.3-8.2)
[2024-09-14 05:15] LABS: Basophils # (A) 0.02 10*3/uL (0.00-0.10); Basophils % (A) 0.2 %; Eosinophils # (A) 0.03 10*3/uL (0.04-0.35); Eosinophils % (A) 0.2 %; HCT 26.2 % (39.6-50.0); HGB 8.5 g/dL (13.0-17.0); Immature Platelet Fraction 5.6 % (1.1-6.1); Lymphocytes # (A) 0.84 10*3/uL (0.90-5.00); Lymphocytes % (A) 6.4 %; MCH 30.2 pg (27.0-32.0); MCHC 32.4 g/dL (32.0-37.0); MCV 93.2 fL (80.0-97.0); Monocytes # (A) 1.09 10*3/uL (0.20-1.00); Monocytes % (A) 8.3 %; Neutrophils # (A) 11.05 10*3/uL (1.80-7.70); Neutrophils % (A) 84.3 %; RBC 2.81 10*6/uL (4.40-5.60); RDW 15.3 % (11.5-14.5); WBC 13.11 10*3/uL (4.50-10.00)
[2024-09-14 05:16] LABS: Platelet Count 99 10*3/uL (140-440)
[2024-09-14 06:33] LABS: Glucose,Whole Blood 135 mg/dL (70-110)
[2024-09-14] MEDS: bisacodyL 10 MG SUPP RECTAL STA (06:57)
[2024-09-14] MEDS: METOCLOPRAMIDE 5 MG/ML 2 ML VIAL IVP STA (06:57)
--- NOTE | 2024-09-14 07:03 | XR ---
EXAMINATION TYPE: XR chest 1V portable DATE OF EXAM: 09/14/2024 COMPARISON: 09/13/2024 CLINICAL INDICATION: Male, 79 years old with history of post cardiac surgery; TECHNIQUE: Single frontal view of the chest is obtained. FINDINGS: No change in the left chest tube, [place]-Margarita catheter and mediastinal drainage tubes. There is an atrial occlusive device and a prosthetic aortic valve. There is persistent mild pulmonary vascular congestion. There is no significant pleural effusion or pneumothorax. IMPRESSION: No significant interval change. [facility], , 09/14/2024 7:00 AM
--- NOTE | 2024-09-14 07:27 | P.PN ---
Subjective Progress Note Date: 09/14/24 The patient is a pleasant 79-year-old gentleman who is known to our service from before with a past medical history significant for severe symptomatic aortic stenosis as well as a CAD documented on recent heart catheterization showing severe disease involving the left anterior descending artery as well as hypertension and dyslipidemia. The patient in 2018 underwent a TAVR and that was successful. He starts being symptomatic again with shortness of breath with exertion and lately symptoms of chest discomfort with exertion. Because he continues to be symptomatic he underwent a heart catheterization which revealed severe disease involving the LAD and severe gradient across aortic valve with a mean gradient exceeding 40 mmHg. Subsequently the patient was referred for surgery and underwent surgical aortic valve replacement with taking the TAVR valve out. This is postoperation day #1. The patient was extubated yesterday. He is currently in what is seems to be complete heart block requiring pacing which is not surprising. Hemodynamically he is stable. His pressure has been maybe on the soft side. He is dry with low CVP and he is in process of receiving fluid. Otherwise he seems to be stable from a cardiovascular standpoint of view. The urine output has been reasonable. Blood work was reviewed. Chest x-ray was reviewed as well. September 13, 2024 The patient was seen and evaluated this morning. He is still hypotensive requiring norepinephrine. Beside that his kidney function has been worse since he was hypotensive. With that ongoing to stop lisinopril. Clinically he seems to be stable. He still in paced rhythm. The chest x-ray was reviewed. Blood work was reviewed. I will continue current medical regimen and try to wean the patient from vasopressors at this point and avoid any nephrotoxic medications. Continue monitor the urine output. The physical examination is remarkable for diminished breathing sounds bilaterally with distant heart sounds. The CVP remains around 10. September 14, 2024 The patient was seen and evaluated this morning with he is stable overall but continues to be on a small dose of dopamine trying to wean him from that. Urine output has been excellent. Pressure has improved. Kidney function has improved. The chest x-ray was reviewed and showed some pulmonary vascular congestion and on examination he does have mild expiratory wheezing. The physical examination is remarkable for distant heart sounds and mild bilateral expiratory wheezing and mild upper extremity edema as well Assessment Severe symptomatic aortic stenosis in patient who had TAVR before CAD with known severe disease involving the LAD Status post aortic valve replacement along with TRAN to LAD Hypotension requiring norepinephrine which has improved Multiple comorbid conditions Plan Continue the current medical regimen including dual antiplatelet therapy along w ith high intensity statin Try to wean the patient from dopamine Keep low threshold to give the patient some IV Lasix Continue monitor the kidney function and electrolytes and hemoglobin Follow-up with the patient Objective - Vital Signs Vital signs: Vital Signs Temp 98.5 F 09/14/24 04:00 Pulse 101 H 09/14/24 07:00 Resp 20 09/14/24 07:00 BP 120/72 09/14/24 07:00 Pulse Ox 96 09/14/24 07:00 FiO2 40 09/11/24 21:27 Intake & Output 09/13/24 09/14/24 09/14/24 18:59 06:59 18:59 Intake Total 1094.068 697 Output Total 1095 1065 Balance -0.932 -368 Weight 90.3 kg Intake: IV 688 697 Calcium Gluconate in NaCl 100 2 gm In Saline 1 100ml. bag @ 100 mls/hr IVPB ONCE PRN Rx#:[id number] Pressure Bag 108 117 Sodium Chloride 0.9% 1, 390 520 000 ml @ 30 mls/hr IV . Q24H ISIDRO Rx#:[id number] ns for cardiac output 90 60 Intake, IV Titration 46.068 Amount Insulin Regular 100 unit 12.524 In Sodium Chloride 0.9% 100 ml @ Per Protocol IV .Q0M ISIDRO Rx#:[id number] Norepinephrine 4 mg In 33.544 Sodium Chloride 0.9% 250 ml @ 0.03 MCG/KG/MIN 9. 898 mls/hr IV .Q24H ISIDRO Rx#:[id number] Oral 360 Output: Chest Tube Drainage 685 430 Mediastinal 430 250 Pleural Catheter Left 255 180 Urine 410 635 Other: Voiding Method Indwelling Catheter Indwelling Catheter ABP, PAP, CO, CI - Last Documented Arterial Blood Pressure 117/55 Pulmonary Artery Pressure 30/12 Cardiac Output 5.6 Cardiac Index 2.9 - Labs CBC & Chem 7: 09/14/24 04:20 09/14/24 04:20 Labs: Abnormal Lab Results - Last 24 Hours (Table) 09/13/24 09/13/24 09/13/24 Range/Units 11:19 16:21 19:40 WBC (4.50-10.00) 10*3/uL RBC (4.40-5.60) 10*6/uL Hgb (13.0-17.0) g/dL Hct (39.6-50.0) % Plt Count (140-440) 10*3/uL Immature Gran # (0.00-0.04) 10*3/uL Neutrophils # (1.80-7.70) 10*3/uL Lymphocytes # (0.90-5.00) 10*3/uL Monocytes # (0.20-1.00) 10*3/uL Eosinophils # (0.04-0.35) 10*3/uL BUN (9-20) mg/dL Glucose (74-99) mg/dL POC Glucose (mg/dL) 123 H 122 H 130 H (70-110) mg/dL Calcium (8.4-10.2) mg/dL Magnesium (1.6-2.3) mg/dL Alkaline Phosphatase (38-126) U/L Total Protein (6.3-8.2) g/dL Albumin (3.5-5.0) g/dL 09/14/24 09/14/24 09/14/24 Range/Units 04:20 04:20 06:32 WBC 13.11 H (4.50-10.00) 10*3/uL RBC 2.81 L (4.40-5.60) 10*6/uL Hgb 8.5 L (13.0-17.0) g/dL Hct 26.2 L (39.6-50.0) % Plt Count 99 L (140-440) 10*3/uL Immature Gran # 0.08 H (0.00-0.04) 10*3/uL Neutrophils # 11.05 H (1.80-7.70) 10*3/uL Lymphocytes # 0.84 L (0.90-5.00) 10*3/uL Monocytes # 1.09 H (0.20-1.00) 10*3/uL Eosinophils # 0.03 L (0.04-0.35) 10*3/uL BUN 27 H (9-20) mg/dL Glucose 122 H (74-99) mg/dL POC Glucose (mg/dL) 135 H (70-110) mg/dL Calcium 8.0 L (8.4-10.2) mg/dL Magnesium 2.7 H (1.6-2.3) mg/dL Alkaline Phosphatase 37 L (38-126) U/L Total Protein 5.1 L (6.3-8.2) g/dL Albumin 3.3 L (3.5-5.0) g/dL
--- NOTE | 2024-09-14 07:42 | P.PN ---
Subjective Progress Note Date: 09/14/24 Principal diagnosis: Prosthetic aortic valve stenosis, coronary artery disease. History of severe aortic stenosis with TAVR in November 2020, coronary artery disease with PCI in 2020, heart failure with preserved ejection fraction, hypertension, hyperlipidemia, CVA in 2022, mild restrictive lung disease, previous tobacco dependence, osteoarthritis, enlarged prostate with self catheterization POD#3 Coronary bypass grafting x 1 with TRAN to LAD, excision of Medtronic Evolut CoreValve, excision of [place] aortic valve, replacement aortic valve with 23 mm Echeverria Inspiris bovine pericardial valve prosthesis, occlusion of left atrial appendage with 40 mm AtriCure clip, CINDY by anesthesia Acute blood loss anemia and thrombocytopenia, expected given hemodilution and cardiopulmonary bypass pump Hypotension, requiring pressors, likely due to vasoplegia and CASIE initiation The patient was seen and examined this morning sitting up in recliner in the intensive care unit in no acute distress. Currently AV placed with underlying heart rhythm complete heart block. Blood pressure more stable today, off Levophed, remains on IV dopamine at renal dose. Urine output has picked up. Patient still diuresing through his chest tubes. States pain is controlled on current medication regimen, has not taken any narcotics in 24 hours, denies shortness of breath. Currently on 2 L nasal cannula with oxygen saturation in the mid 90s, able to achieve 1000 mL on his incentive spirometry. Chest x-ray, labs reviewed. Right internal jugular [place]/Cord[place], mediastinal/left pleural chest tubes all remain. Patient did ambulate into the hallway yesterday without difficulty. No other new concerns. Objective - Vital Signs Vital signs: Vital Signs Temp 98.5 F 09/14/24 04:00 Pulse 101 H 09/14/24 07:00 Resp 20 09/14/24 07:00 BP 120/72 09/14/24 07:00 Pulse Ox 96 09/14/24 07:00 FiO2 40 09/11/24 21:27 Intake & Output 09/13/24 09/14/24 09/14/24 18:59 06:59 18:59 Intake Total 1094.068 697 Output Total 1095 1065 Balance -0.932 -368 Weight 90.3 kg Intake: IV 688 697 Calcium Gluconate in NaCl 100 2 gm In Saline 1 100ml. bag @ 100 mls/hr IVPB ONCE PRN Rx#:[id number] Pressure Bag 108 117 Sodium Chloride 0.9% 1, 390 520 000 ml @ 30 mls/hr IV . Q24H ISIDRO Rx#:[id number] ns for cardiac output 90 60 Intake, IV Titration 46.068 Amount Insulin Regular 100 unit 12.524 In Sodium Chloride 0.9% 100 ml @ Per Protocol IV .Q0M ISIDRO Rx#:[id number] Norepinephrine 4 mg In 33.544 Sodium Chloride 0.9% 250 ml @ 0.03 MCG/KG/MIN 9. 898 mls/hr IV .Q24H ISIDRO Rx#:[id number] Oral 360 Output: Chest Tube Drainage 685 430 Mediastinal 430 250 Pleural Catheter Left 255 180 Urine 410 635 Other: Voiding Method Indwelling Catheter Indwelling Catheter ABP, PAP, CO, CI - Last Documented Arterial Blood Pressure 117/55 Pulmonary Artery Pressure 30/12 Cardiac Output 5.6 Cardiac Index 2.9 - Exam CONSTITUTIONAL: Appears comfortable, cooperative, no acute distress RESPIRATORY: Lungs sounds diminished bilaterally with faint expiratory wheezes present. Respirations even, nonlabored. Currently on 2 L nasal cannula with oxygen saturation 96%. Able to achieve 1000 mL on incentive spirometry. Strong cough. CARDIOVASCULAR: S1, S2 present. AV paced on telemetry with underlying rhythm complete heart block. Sternum stable. Palpable peripheral pulses bilaterally. Trace generalized edema present. No calf pain or tenderness noted. Heart hugger in place with patient demonstrating appropriate use. Antiembolism stockings, SCDs present. GASTROINTESTINAL: Abdomen soft, nontender, nondistended. Hypoactive bowel sounds present 4 quadrants. Tolerating diet. Denies flatus GENITOURINARY: [place] present draining clear, yellow urine. Output overnight 30-75 mL per hour, 1045 mL in the last 24 hours INTEGUMENTARY: Skin is warm and dry with evidence of good perfusion. Anterior chest incision well approximated and covered with dry intact dressing NEUROLOGIC: Cranial nerves II through XII intact MUSKULOSKELETAL: Able to move all extremities, strength equal bilaterally PSYCHIATRIC: Alert and oriented to person place and time, appropriate affect, intact judgment and insight INVASIVE LINES AND TUBES: Mediastinal/left pleural chest tubes present and connected to wall suction, no air leaks present. Mediastinal tube with 300 mL serosanguineous drainage overnight, 600 mL in the last 24 hours. Left pleural chest tube with 130 mL serosanguineous drainage overnight, 350 mL in the last 24 hours. A/V epicardial pacemaker wires present, connected to generator, DDD mode with rate 80 bpm. Right internal jugular [place]/Cordis, right radial arterial line present. Last CO/CI 5.6/2.9, PA 28/14, CVP 8. - Allied health notes Allied health notes reviewed: nursing - Labs CBC & Chem 7: 09/14/24 04:20 09/14/24 04:20 Labs: Abnormal Lab Results - Last 24 Hours (Table) 09/13/24 09/13/24 09/13/24 Range/Units 11:19 16:21 19:40 WBC (4.50-10.00) 10*3/uL RBC (4.40-5.60) 10*6/uL Hgb (13.0-17.0) g/dL Hct (39.6-50.0) % Plt Count (140-440) 10*3/uL Immature Gran # (0.00-0.04) 10*3/uL Neutrophils # (1.80-7.70) 10*3/uL Lymphocytes # (0.90-5.00) 10*3/uL Monocytes # (0.20-1.00) 10*3/uL Eosinophils # (0.04-0.35) 10*3/uL BUN (9-20) mg/dL Glucose (74-99) mg/dL POC Glucose (mg/dL) 123 H 122 H 130 H (70-110) mg/dL Calcium (8.4-10.2) mg/dL Magnesium (1.6-2.3) mg/dL Alkaline Phosphatase (38-126) U/L Total Protein (6.3-8.2) g/dL Albumin (3.5-5.0) g/dL 09/14/24 09/14/24 09/14/24 Range/Units 04:20 04:20 06:32 WBC 13.11 H (4.50-10.00) 10*3/uL RBC 2.81 L (4.40-5.60) 10*6/uL Hgb 8.5 L (13.0-17.0) g/dL Hct 26.2 L (39.6-50.0) % Plt Count 99 L (140-440) 10*3/uL Immature Gran # 0.08 H (0.00-0.04) 10*3/uL Neutrophils # 11.05 H (1.80-7.70) 10*3/uL Lymphocytes # 0.84 L (0.90-5.00) 10*3/uL Monocytes # 1.09 H (0.20-1.00) 10*3/uL Eosinophils # 0.03 L (0.04-0.35) 10*3/uL BUN 27 H (9-20) mg/dL Glucose 122 H (74-99) mg/dL POC Glucose (mg/dL) 135 H (70-110) mg/dL Calcium 8.0 L (8.4-10.2) mg/dL Magnesium 2.7 H (1.6-2.3) mg/dL Alkaline Phosphatase 37 L (38-126) U/L Total Protein 5.1 L (6.3-8.2) g/dL Albumin 3.3 L (3.5-5.0) g/dL - Imaging and Cardiology Chest x-ray: report reviewed, image reviewed Assessment and Plan Assessment: Prosthetic aortic valve stenosis, status post excision of TAVR and [place] valve, replacement aortic valve Coronary artery disease, status post single-vessel CABG Underlying complete heart block, unexpected but potential complication of any valve surgery Acute blood loss anemia and thrombocytopenia, expected Hypotension likely from vasoplegia and medication administration History of severe aortic stenosis with TAVR in November 2020 Coronary artery disease with PCI in 2020 Heart failure with preserved ejection fraction, EF 60 to 65% Hypertension Hyperlipidemia, treated, cholesterol 171, LDL 97, triglycerides 161 CVA in 2022 Mild restrictive lung disease, preoperative FEV1 62% of predicted Previous tobacco dependence Osteoarthritis Enlarged prostate with self catheterization Plan: Continue to maximize medical therapy with aspirin, statin, Plavix. Will hold off on beta-mina for now due to underlying heart rhythm Wean dopamine Wean oxygen as tolerated. Encourage incentive spirometry use 10 times every hour while awake. Bronchodilators per pulmonology Increase activity, ambulate as tolerated. PT/OT/cardiac rehab consulted Will monitor daily labs and x-rays, electrolyte replacement per protocol. Will give 40 mg IVP lasix today GI/DVT prophylaxis Pain control per current medication regimen Insulin management per internal medicine. Patient is not diabetic, preoperative hemoglobin A1c 6.1% Continue to AV pace, monitor for return of intrinsic rhythm, hold AV panda blockers, likely will need pacemaker Discontinue [place], connect Cordis to continuous CVP monitoring Continue [place] catheter for for now, when [place] catheter removed patient will need straight catheterization kits from home Monitor and record strict accurate intake and output Continue chest tubes for another 24 hours More recommendations to follow as patient progresses
[2024-09-14] MEDS: ACETAMINOPHEN TAB 325 MG TAB PO PRN (07:55)
[2024-09-14] MEDS: FUROSEMIDE 10 MG/ML 4 ML VIAL IV STA (09:31)
[2024-09-14 11:06] LABS: Glucose,Whole Blood 118 mg/dL (70-110)
--- NOTE | 2024-09-14 13:22 | P.PN ---
Subjective Progress Note Date: 09/14/24 This is a 79-year-old male patient who was brought into the intensive care unit following cardiac surgery. The patient had a previous TAVR and the patient developed prosthetic aortic valve stenosis and the patient also has coronary artery disease. Based on that, the patient underwent coronary artery bypass surgery x 1 with TRAN to LAD and excision of the Medtronic CoreValve and replacement aortic valve with 23 mm Echeverria Inspiris bovine pericardial valve prosthesis. The patient was kept intubated the patient was brought into the intensive care for further care. At this point in time, the patient is on propofol running at 20 mcg/kg/min and the patient is calm and comfortable and synchronous with mechanical ventilator. The patient is on assist-control mode of mechanical ventilation and the patient is currently on a rate of 12, tidal volume of 500, FiO2 of 100% with a PEEP of 5. Blood gases showed a pH of 7.4 with a [id number] and PO2 of 318. FiO2 is now down to 50%. The patient has been m ediastinal and 1 left pleural chest tube and output has been minimal since arriving from the operating room. No evidence of any pneumothorax on postop chest x-ray. There is mild pulm vessel congestion and the patient has some mild CHF findings. The patient's cardiac rhythm is paced at a rate of 80. He is on nitroglycerin drip running at 5 mcg/min. His hemodynamic parameters show a PA pressure of 30/19 with a cardiac output of 3.5 with an index of 1.9. Initially, his cardiac index was low and the patient was given 2 boluses of albumin, 250 cc each. Urine output is adequate. He is normothermic. His blood work shows a WBC count of 12.5 with a hemoglobin of 11.3 and his sodium level is at 137, BUN is 50 with a creatinine of 0.7. LFTs are normal. On 09/12/2024, the patient is being seen for a follow-up. The patient was weaned off the mechanical ventilator and the patient was extubated without any major difficulties and the patient is currently on oxygen room air. Chest x-ray shows postsurgical changes, chest tubes are in place, [place] catheter in place. ET tube has been removed. Lung volumes are small and the patient has some mild pulmonary vascular congestion. Earlier hemodynamic parameters showed a PA pressure of 29/8 and a cardiac index is up to 3.2. The patient is paced at a rate of 80 and he would likely need a permanent pacemaker. Insulin drip is at 3.5 units an hour and the patient urine output is older of 30 cc an hour. The white cell count is at 13 with a hemoglobin of 10 and a platelet count of 108. Sodium is at 139, potassium 3.9, BUN 17 with a creatinine of 0.8 and LFTs are within normal limits. No focal neurological deficits. The patient is postop day #1 following aortic valve replacement and single-vessel coronary bypass surgery with TRAN to LAD. On 09/13/2024, the patient is being seen for a follow-up. The patient is postop day #2. Overnight, the patient had a low blood pressure and a low urine output. Based on that, the patient was started on dopamine which is currently running at 3 mcg/kg/min. Subsequently, low-dose norepinephrine was also added at 0.01 mcg/kg/min. The patient's cardiac rhythm is paced at rate of 80. Is currently on 4 L of oxygen by nasal cannula. Creatinine is up to 1.4. The patient is awake and alert and communicating. The chest tubes are still in place. The patient has a left pleural chest tube that has drained approximately 400 cc over the past 24 hours and mediastinal chest tube that has drained around 800 cc cc over the past 24 hours. [place]arita in place. Cardiac output is at 6 with an index of 3.1. PA pressures are 28/14. CVP is at 10. The patient is afebrile. Hemoglobin of 8.1. White cell count of 13 and the platelet count is at 83. Blood sugar is at 123 and the patient was taken off the insulin drip. BUN 25 with a creatinine of 1.4. Sodium is at 135 and a potassium level is at 4.1. \ On 09/14/2024, patient is sitting up in a chair and the patient is calm and comfortable. It seems that the patient's urine output is improved and the patient's blood pressure is more stable. [place] catheter still in place and the patient's cardiac output is at 5.5 with an index of 3.0. The patient is currently off norepinephrine and the patient remains on dopamine at 3 mcg/k g/min. Urine output is noted of 3250 cc an hour. Repeat chest x-ray was done this morning. Chest tubes are still in place. No significant interval change compared to yesterday the patient continues to have mild pulm vessel congestion. Accordingly, the patient was given a dose of Lasix 40 mg IV push. The white cell count is at 13.1. Hemoglobin 8.5 and a platelet count of 99. BUN is 27 creatinine 0.9 and the sodium is at 137 and the potassium level is at 4.7. The patient continues to be paced at a rate of 80. Underlying cardiac rhythm is third-degree AV block. Objective - Vital Signs Vital signs: Vital Signs Temp 99.3 F 09/14/24 08:00 Pulse 80 09/14/24 09:00 Resp 14 09/14/24 09:00 BP 101/64 09/14/24 09:00 Pulse Ox 92 L 09/14/24 09:00 FiO2 40 09/11/24 21:27 Intake & Output 09/13/24 09/14/24 09/14/24 18:59 06:59 18:59 Intake Total 1094.068 697 138 Output Total 1095 1065 320 Balance -0.932 -368 -182 Weight 90.3 kg Intake: IV 688 697 138 Calcium Gluconate in NaCl 100 2 gm In Saline 1 100ml. bag @ 100 mls/hr IVPB ONCE PRN Rx#:[id number] Pressure Bag 108 117 18 Sodium Chloride 0.9% 1, 390 520 80 000 ml @ 30 mls/hr IV . Q24H ISIDRO Rx#:[id number] ns for cardiac output 90 60 40 Intake, IV Titration 46.068 Amount Insulin Regular 100 unit 12.524 In Sodium Chloride 0.9% 100 ml @ Per Protocol IV .Q0M ISIDRO Rx#:[id number] Norepinephrine 4 mg In 33.544 Sodium Chloride 0.9% 250 ml @ 0.03 MCG/KG/MIN 9. 898 mls/hr IV .Q24H ISIDRO Rx#:[id number] Oral 360 Output: Chest Tube Drainage 685 430 190 Mediastinal 430 250 150 Pleural Catheter Left 255 180 40 Urine 410 635 130 Other: Voiding Method Indwelling Catheter Indwelling Catheter ABP, PAP, CO, CI - Last Documented Arterial Blood Pressure 104/43 Pulmonary Artery Pressure 33/10 Cardiac Output 5.9 Cardiac Index 3.0 - Exam CONSTITUTIONAL: Appears comfortable, cooperative, no acute distress RESPIRATORY: Lungs sounds diminished bilaterally with faint expiratory wheezes present. Respirations even, nonlabored. Currently on 2 L nasal cannula with oxygen saturation 96%. Able to achieve 1000 mL on incentive spirometry. Strong cough. CARDIOVASCULAR: S1, S2 present. AV paced on telemetry with underlying rhythm complete heart block. Sternum stable. Palpable peripheral pulses bilaterally. Trace generalized edema present. No calf pain or tenderness noted. Heart hugger in place with patient demonstrating appropriate use. Antiembolism stockings, SCDs present. GASTROINTESTINAL: Abdomen soft, nontender, nondistended. Hypoactive bowel sounds present 4 quadrants. Tolerating diet. Denies flatus GENITOURINARY: [place] present draining clear, yellow urine. Output overnight 30-75 mL per hour, 1045 mL in the last 24 hours INTEGUMENTARY: Skin is warm and dry with evidence of good perfusion. Anterior chest incision well approximated and covered with dry intact dressing NEUROLOGIC: Cranial nerves II through XII intact MUSKULOSKELETAL: Able to move all extremities, strength equal bilaterally PSYCHIATRIC: Alert and oriented to person place and time, appropriate affect, intact judgment and insight INVASIVE LINES AND TUBES: Mediastinal/left pleural chest tubes present and connected to wall suction, no air leaks present. Mediastinal tube with 300 mL serosanguineous drainage overnight, 600 mL in the last 24 hours. Left pleural chest tube with 130 mL serosanguineous drainage overnight, 350 mL in the last 24 hours. A/V epicardial pacemaker wires present, connected to generator, DDD mode with rate 80 bpm. Right internal jugular [place]ordis, right radial arterial line present. Last CO/CI 5.6/2.9, PA 28/14, CVP 8. - Labs CBC & Chem 7: 09/14/24 04:20 09/14/24 04:20 Labs: Abnormal Lab Results - Last 24 Hours (Table) 09/13/24 09/13/24 09/13/24 Range/Units 11:19 16:21 19:40 WBC (4.50-10.00) 10*3/uL RBC (4.40-5.60) 10*6/uL Hgb (13.0-17.0) g/dL Hct (39.6-50.0) % Plt Count (140-440) 10*3/uL Immature Gran # (0.00-0.04) 10*3/uL Neutrophils # (1.80-7.70) 10*3/uL Lymphocytes # (0.90-5.00) 10*3/uL Monocytes # (0.20-1.00) 10*3/uL Eosinophils # (0.04-0.35) 10*3/uL BUN (9-20) mg/dL Glucose (74-99) mg/dL POC Glucose (mg/dL) 123 H 122 H 130 H (70-110) mg/dL Calcium (8.4-10.2) mg/dL Magnesium (1.6-2.3) mg/dL Alkaline Phosphatase (38-126) U/L Total Protein (6.3-8.2) g/dL Albumin (3.5-5.0) g/dL 09/14/24 09/14/24 09/14/24 Range/Units 04:20 04:20 06:32 WBC 13.11 H (4.50-10.00) 10*3/uL RBC 2.81 L (4.40-5.60) 10*6/uL Hgb 8.5 L (13.0-17.0) g/dL Hct 26.2 L (39.6-50.0) % Plt Count 99 L (140-440) 10*3/uL Immature Gran # 0.08 H (0.00-0.04) 10*3/uL Neutrophils # 11.05 H (1.80-7.70) 10*3/uL Lymphocytes # 0.84 L (0.90-5.00) 10*3/uL Monocytes # 1.09 H (0.20-1.00) 10*3/uL Eosinophils # 0.03 L (0.04-0.35) 10*3/uL BUN 27 H (9-20) mg/dL Glucose 122 H (74-99) mg/dL POC Glucose (mg/dL) 135 H (70-110) mg/dL Calcium 8.0 L (8.4-10.2) mg/dL Magnesium 2.7 H (1.6-2.3) mg/dL Alkaline Phosphatase 37 L (38-126) U/L Total Protein 5.1 L (6.3-8.2) g/dL Albumin 3.3 L (3.5-5.0) g/dL Assessment and Plan Plan: Aortic valve replacement and a single-vessel bypass surgery with TRAN to LAD. The patient is currently postop day # 3 hemodynamically stable. Postop cardiac rhythm is asystole and the patient is currently paced with a rate of 80. The patient continues to be paced with a rate of 80. He would likely need a permanent pacemaker. Improvement in the cardiac output and index and urine output and the patient is currently off norepinephrine and he remains on dopamine. Urine output is adequate in the order of 30 to 50 cc an hour. Postthoracotomy, extubated successfully and patient is currently on 4 L of oxygen by nasal cannula chest tubes are in place. No evidence of pneumothorax. Will keep the chest tube in place for another 24 hours. Output remains considerably high especially from the mediastinal chest tube. Coronary artery disease, cardiac catheterization revealing intermediate disease involving the mid LAD approximately 50 to 60% History of aortic valve stenosis with a previous TAVR with subsequent bioprosthetic valve stenosis History of CVA back in 2022 BPH and the patient undergoes self-catheterization Hypertension Hyperlipidemia Osteoarthritis Acid reflux Plan Patient currently on 4 L of oxygen by nasal cannula Monitor output from the chest tubes, keep chest tubes in place, mediastinal chest tube still producing significant amount of output. No evidence of any pneumothorax. Monitor hemodynamic parameters, keep [place] catheter in place Continue dopamine at 3 mcg/kg/min Norepinephrine has been discontinued Cardiac rhythm is paced at a rate of 80. Insulin sliding scale insulin coverage Urine output is adequate Lasix 40 mg IV push Labs were reviewed Continue aspirin Continue Plavix Continue Lipitor at 80 mg a day Hold Zestril Renal function is improved compared to yesterday Will follow, continue to follow, condition remains somewhat critical and the patient will be kept in the ICU for now for postoperative care. Will need close monitoring of the hemodynamics. Overall respiratory status is stable. Chest x- ray findings are stable. Will continue to follow. Critical care evaluation. 32 minutes. Time with Patient: Greater than 30
--- NOTE | 2024-09-14 14:30 | P.PN ---
Subjective Progress Note Date: 09/14/24 No new complaints today. Sugars are well controlled. Gen: In NAD, non-toxic HEENT: normocephalic, atraumatic, hearing acuity is intant, mucous membranes moist CVS: perfusing all extremities well, no pitting edema, Respiratory: symmetric chest expansion, no accessory muscle use, GI: soft, NTTP, ND, : no suprapubic tenderness, no CVA tenderness MSK/Derm: no rashes, cyanosis Neuro: CN II-XII intact, no motor weakness, Psych: cooperative, euthymic mood, judgment and insight is intact Hospital course: Patient is a 79-year-old male with history of aortic stenosis with previous TAVR, CAD, hypertension, dyslipidemia, GERD, CVA/TIA presenting for elective CABG and aortic valve replacement. [facility] [place] physicians consulted for medical management. Upon initial evaluation, WBC 12.57, hemoglobin 11.3, platelet 94, pH 7.42, ALH413, potassium 4.3, creatinine 0.75, blood sugars range between 113- 145, magnesium 2.8, total bili 1.4, AST 31, ALT 17, ALP 36. Chest x-ray independently interpreted, shows postoperative changes, interstitial opacities bilaterally. Assessment/Plan: Active: CAD status post CABG, and aortic valve replacement Hypertension Dyslipidemia - On amiodarone, aspirin 325 daily, aspirin 80 mg daily, Plavix 75 daily, metoprolol 12.5 daily - Pain control, DVT prophylaxis, bowel regimen per cardiothoracic surgery - Pulmonology consult - Cardiology consult Hyperglycemia Prediabetes, A1c 6.1 - Switched to subcu sliding scale insulin Thank you for allowing us to participate in the care of this pleasant patient. Do not hesitate to contact us with questions. Someone can be reached from the [facility] hospitalist group all hours of the day at [phone] or via perfect serve. Objective - Vital Signs Vital signs: Vital Signs Temp 99.3 F 09/14/24 08:00 Pulse 80 09/14/24 14:00 Resp 31 H 09/14/24 14:00 BP 104/58 09/14/24 14:00 Pulse Ox 95 09/14/24 14:00 FiO2 40 09/11/24 21:27 Intake & Output 09/13/24 09/14/24 09/14/24 18:59 06:59 18:59 Intake Total 1094.068 697 526.307 Output Total 1095 1065 1285 Balance -0.932 -171 -758.693 Weight 90.3 kg Intake: IV 688 697 347 Calcium Gluconate in NaCl 100 2 gm In Saline 1 100ml. bag @ 100 mls/hr IVPB ONCE PRN Rx#:[id number] Pressure Bag 108 117 57 Sodium Chloride 0.9% 1, 390 520 250 000 ml @ 30 mls/hr IV . Q24H ISIDRO Rx#:[id number] ns for cardiac output 90 60 40 Intake, IV Titration 46.068 179.307 Amount DOPamine DRIP 800 mg In 179.307 Dextrose/Water 1 250ml. bag @ 3 MCG/KG/MIN 4.871 mls/hr IV .Q24H ISIDRO Rx#: [id number] Insulin Regular 100 unit 12.524 In Sodium Chloride 0.9% 100 ml @ Per Protocol IV .Q0M ISIDRO Rx#:[id number] Norepinephrine 4 mg In 33.544 Sodium Chloride 0.9% 250 ml @ 0.03 MCG/KG/MIN 9. 898 mls/hr IV .Q24H ISIDRO Rx#:[id number] Oral 360 Output: Chest Tube Drainage 685 430 260 Mediastinal 430 250 200 Pleural Catheter Left 255 180 60 Urine 733 880 6195 Other: Voiding Method Indwelling Catheter Indwelling Catheter Indwelling Catheter ABP, PAP, CO, CI - Last Documented Arterial Blood Pressure 100/44 Pulmonary Artery Pressure 28/8 Cardiac Output 5.9 Cardiac Index 3 - Labs CBC & Chem 7: 09/14/24 04:20 09/14/24 04:20 Labs: Abnormal Lab Results - Last 24 Hours (Table) 09/13/24 09/13/24 09/14/24 Range/Units 16:21 19:40 04:20 WBC 13.11 H (4.50-10.00) 10*3/uL RBC 2.81 L (4.40-5.60) 10*6/uL Hgb 8.5 L (13.0-17.0) g/dL Hct 26.2 L (39.6-50.0) % Plt Count 99 L (140-440) 10*3/uL Immature Gran # 0.08 H (0.00-0.04) 10*3/uL Neutrophils # 11.05 H (1.80-7.70) 10*3/uL Lymphocytes # 0.84 L (0.90-5.00) 10*3/uL Monocytes # 1.09 H (0.20-1.00) 10*3/uL Eosinophils # 0.03 L (0.04-0.35) 10*3/uL BUN (9-20) mg/dL Glucose (74-99) mg/dL POC Glucose (mg/dL) 122 H 130 H (70-110) mg/dL Calcium (8.4-10.2) mg/dL Magnesium (1.6-2.3) mg/dL Alkaline Phosphatase (38-126) U/L Total Protein (6.3-8.2) g/dL Albumin (3.5-5.0) g/dL 09/14/24 09/14/24 09/14/24 Range/Units 04:20 06:32 11:05 WBC (4.50-10.00) 10*3/uL RBC (4.40-5.60) 10*6/uL Hgb (13.0-17.0) g/dL Hct (39.6-50.0) % Plt Count (140-440) 10*3/uL Immature Gran # (0.00-0.04) 10*3/uL Neutrophils # (1.80-7.70) 10*3/uL Lymphocytes # (0.90-5.00) 10*3/uL Monocytes # (0.20-1.00) 10*3/uL Eosinophils # (0.04-0.35) 10*3/uL BUN 27 H (9-20) mg/dL Glucose 122 H (74-99) mg/dL POC Glucose (mg/dL) 135 H 118 H (70-110) mg/dL Calcium 8.0 L (8.4-10.2) mg/dL Magnesium 2.7 H (1.6-2.3) mg/dL Alkaline Phosphatase 37 L (38-126) U/L Total Protein 5.1 L (6.3-8.2) g/dL Albumin 3.3 L (3.5-5.0) g/dL
[2024-09-14 16:11] LABS: Glucose,Whole Blood 147 mg/dL (70-110)
[2024-09-14 19:30] LABS: Glucose,Whole Blood 158 mg/dL (70-110)
[2024-09-15 06:07] LABS: HCT 27.3 % (39.6-50.0); MCH 30.7 pg (27.0-32.0); MCV 93.2 fL (80.0-97.0); Mean Platelet Volume 10.9 fL (9.5-12.2); Platelet Count 145 10*3/uL (140-440); RBC 2.93 10*6/uL (4.40-5.60); WBC 12.76 10*3/uL (4.50-10.00)
[2024-09-15 06:08] LABS: Glucose,Whole Blood 152 mg/dL (70-110)
[2024-09-15 06:24] LABS: African American GFR (CKD) 79 (>60 ml/min/1.73 sqM); Anion Gap 5 mmol/L; Blood Urea Nitrogen 30 mg/dL (9-20); Calcium 8.6 mg/dL (8.4-10.2); Carbon Dioxide 27 mmol/L (22-30); Chloride 107 mmol/L (98-107); Glucose 115 mg/dL (74-99); Non-African American GFR(CKD) 68 (>60 ml/min/1.73 sqM); Potassium 4.6 mmol/L (3.5-5.1); Sodium 139 mmol/L (137-145)
--- NOTE | 2024-09-15 06:54 | XR ---
EXAMINATION TYPE: XR chest 1V portable DATE OF EXAM: 09/15/2024 CLINICAL INDICATION: Male, 79 years old with history of pulmonary congestion, progress study. Postope rative cardiac surgery. TECHNIQUE: Single AP portable semiupright view of the chest is obtained. COMPARISON: Chest x-ray from one day earlier and older studies. FINDINGS: Interval removal of right internal jugular [place]ita catheter. Persistent mediastinal drai nage catheter and left-sided chest tube. Redemonstration of overlying sternal wires along with metall ic aortic valve and left atrial appendage clip. Persistent cardiomegaly with central vascular congestion. No pneumothorax seen bilaterally. Osseous s tructures are intact. IMPRESSION: Persistent fluid overload state. No significant change from one day earlier. [facility], , 09/15/2024 6:51 AM
[2024-09-15] MEDS: SODIUM CHLORIDE 0.9% 1,000 ML IV SCH (08:15)
[2024-09-15 11:21] LABS: Glucose,Whole Blood 94 mg/dL (70-110)
--- NOTE | 2024-09-15 11:34 | P.PN ---
Subjective Progress Note Date: 09/15/24 No new complaints today. Sugars are well controlled. Gen: In NAD, non-toxic HEENT: normocephalic, atraumatic, hearing acuity is intant, mucous membranes moist CVS: perfusing all extremities well, no pitting edema, Respiratory: symmetric chest expansion, no accessory muscle use, GI: soft, NTTP, ND, : no suprapubic tenderness, no CVA tenderness MSK/Derm: no rashes, cyanosis Neuro: CN II-XII intact, no motor weakness, Psych: cooperative, euthymic mood, judgment and insight is intact Hospital course: Patient is a 79-year-old male with history of aortic stenosis with previous TAVR, CAD, hypertension, dyslipidemia, GERD, CVA/TIA presenting for elective CABG and aortic valve replacement. [facility] physicians consulted for medical management. Upon initial evaluation, WBC 12.57, hemoglobin 11.3, platelet 94, pH 7.42, QYM487, potassium 4.3, creatinine 0.75, blood sugars range between 113- 145, magnesium 2.8, total bili 1.4, AST 31, ALT 17, ALP 36. Chest x-ray independently interpreted, shows postoperative changes, interstitial opacities bilaterally. Assessment/Plan: Active: CAD status post CABG, and aortic valve replacement Hypertension Dyslipidemia - On amiodarone, aspirin 325 daily, aspirin 80 mg daily, Plavix 75 daily, metoprolol 12.5 daily; pending diagnostic EP study with possible cardioversion today - Pain control, DVT prophylaxis, bowel regimen per cardiothoracic surgery - Pulmonology consult - Cardiology consult Hyperglycemia Prediabetes, A1c 6.1 - Switched to subcu sliding scale insulin Thank you for allowing us to participate in the care of this pleasant patient. Do not hesitate to contact us with questions. Someone can be reached from the [facility] hospitalist group all hours of the day at [phone] or via perfect serve. Objective - Vital Signs Vital signs: Vital Signs Temp 98.7 F 09/15/24 09:00 Pulse 80 09/15/24 10:00 Resp 18 09/15/24 10:00 BP 123/69 09/15/24 10:00 Pulse Ox 97 09/15/24 10:00 FiO2 40 09/11/24 21:27 Intake & Output 09/14/24 09/15/24 09/15/24 18:59 06:59 18:59 Intake Total 680.411 429 154.141 Output Total 1550 830 215 Balance -869.589 -401 -60.859 Weight 89.8 kg Intake: IV 485 429 132 Pressure Bag 75 39 12 Sodium Chloride 0.9% 1, 370 390 120 000 ml @ 30 mls/hr IV . Q24H ISIDRO Rx#:[id number] ns for cardiac output 40 Intake, IV Titration 195.411 22.141 Amount DOPamine DRIP 800 mg In 195.411 22.141 Dextrose/Water 1 250ml. bag @ 3 MCG/KG/MIN 4.871 mls/hr IV .Q24H ISIDRO Rx#: [id number] Output: Chest Tube Drainage 380 310 30 Mediastinal 270 100 20 Pleural Catheter Left 110 210 10 Urine 1170 520 185 Other: Voiding Method Indwelling Catheter Indwelling Catheter ABP, PAP, CO, CI - Last Documented Arterial Blood Pressure 122/49 Pulmonary Artery Pressure 28/8 Cardiac Output 5.9 Cardiac Index 3 - Labs CBC & Chem 7: 09/15/24 05:37 09/15/24 05:37 Labs: Abnormal Lab Results - Last 24 Hours (Table) 09/14/24 09/14/24 09/15/24 Range/Units 16:09 19:27 05:37 WBC 12.76 H (4.50-10.00) 10*3/uL RBC 2.93 L (4.40-5.60) 10*6/uL Hgb 9.0 L (13.0-17.0) g/dL Hct 27.3 L (39.6-50.0) % BUN (9-20) mg/dL Glucose (74-99) mg/dL POC Glucose (mg/dL) 147 H 158 H (70-110) mg/dL 09/15/24 09/15/24 Range/Units 05:37 06:07 WBC (4.50-10.00) 10*3/uL RBC (4.40-5.60) 10*6/uL Hgb (13.0-17.0) g/dL Hct (39.6-50.0) % BUN 30 H (9-20) mg/dL Glucose 115 H (74-99) mg/dL POC Glucose (mg/dL) 152 H (70-110) mg/dL
--- NOTE | 2024-09-15 13:17 | P.PN ---
Subjective Progress Note Date: 09/15/24 Principal diagnosis: Status post aortic valve replacement and single-vessel bypass surgery TRAN to LAD postoperative day #4 This is a 79-year-old male patient who was brought into the intensive care unit following cardiac surgery. The patient had a previous TAVR and the patient developed prosthetic aortic valve stenosis and the patient also has coronary artery disease. Based on that, the patient underwent coronary artery bypass surgery x 1 with TRAN to LAD and excision of the Medtronic CoreValve and replacement aortic valve with 23 mm Echeverria Inspiris bovine pericardial valve prosthesis. The patient was kept intubated the patient was brought into the intensive care for further care. At this point in time, the patient is on propofol running at 20 mcg/kg/min and the patient is calm and comfortable and synchronous with mechanical ventilator. The patient is on assist-control mode of mechanical ventilation and the patient is currently on a rate of 12, tidal volume of 500, FiO2 of 100% with a PEEP of 5. Blood gases showed a pH of 7.4 with a [id number] and PO2 of 318. FiO2 is now down to 50%. The patient has been mediastinal and 1 left pleural chest tube and output has been minimal since arriving from the operating room. No evidence of any pneumothorax on postop chest x-ray. There is mild pulm vessel congestion and the patient has some mild CHF findings. The patient's cardiac rhythm is paced at a rate of 80. He is on nitroglycerin drip running at 5 mcg/min. His hemodynamic parameters show a PA pressure of 30/19 with a cardiac output of 3.5 with an index of 1.9. Initially, his cardiac index was low and the patient was given 2 boluses of albumin, 250 cc each. Urine output is adequate. He is normothermic. His blood work shows a WBC count of 12.5 with a hemoglobin of 11.3 and his sodium level is at 137, BUN is 50 with a creatinine of 0.7. LFTs are normal. On 09/12/2024, the patient is being seen for a follow-up. The patient was weaned off the mechanical ventilator and the patient was extubated without any major difficulties and the patient is currently on oxygen room air. Chest x-ray shows postsurgical changes, chest tubes are in place, Goessel-Margarita catheter in place. ET tube has been removed. Lung volumes are small and the patient has some mild pulmonary vascular congestion. Earlier hemodynamic parameters showed a PA pressure of 29/8 and a cardiac index is up to 3.2. The patient is paced at a rate of 80 and he would likely need a permanent pacemaker. Insulin drip is at 3.5 units an hour and the patient urine output is older of 30 cc an hour. The white cell count is at 13 with a hemoglobin of 10 and a platelet count of 108. Sodium is at 139, potassium 3.9, BUN 17 with a creatinine of 0.8 and LFTs are within normal limits. No focal neurological deficits. The patient is postop day #1 following aortic valve replacement and single-vessel coronary bypass surgery with TRAN to LAD. On 09/13/2024, the patient is being seen for a follow-up. The patient is postop day #2. Overnight, the patient had a low blood pressure and a low urine output. Based on that, the patient was started on dopamine which is currently running at 3 mcg/kg/min. Subsequently, low-dose norepinephrine was also added at 0.01 mcg/kg/min. The patient's cardiac rhythm is paced at rate of 80. Is currently on 4 L of oxygen by nasal cannula. Creatinine is up to 1.4. The patient is awake and alert and communicating. The chest tubes are still in place. The patient has a left pleural chest tube that has drained approximately 400 cc over the past 24 hours and mediastinal chest tube that has drained around 800 cc cc over the past 24 hours. Goessel-Margarita in place. Cardiac output is at 6 with an index of 3.1. PA pressures are 28/14. CVP is at 10. The patient is afebrile. Hemoglobin of 8.1. White cell count of 13 and the platelet count is at 83. Blood sugar is at 123 and the patient was taken off the insulin drip. BUN 25 with a creatinine of 1.4. Sodium is at 135 and a potassium level is at 4.1. \ On 09/14/2024, patient is sitting up in a chair and the patient is calm and comfortable. It seems that the patient's urine output is improved and the patient's blood pressure is more stable. Goessel-Margarita catheter still in place and the patient's cardiac output is at 5.5 with an index of 3.0. The patient is currently off norepinephrine and the patient remains on dopamine at 3 mcg/kg/min. Urine output is noted of 3250 cc an hour. Repeat chest x-ray was done this morning. Chest tubes are still in place. No significant interval change compared to yesterday the patient continues to have mild pulm vessel congestion. Accordingly, the patient was given a dose of Lasix 40 mg IV push. The white cell count is at 13.1. Hemoglobin 8.5 and a platelet count of 99. BUN is 27 creatinine 0.9 and the sodium is at 137 and the potassium level is at 4.7. The patient continues to be paced at a rate of 80. Underlying cardiac rhythm is third-degree AV block. Patient was seen today on 09/15/2024, patient is postoperative day #4, on room air, not in any distress, continues to have chest tubes in place, these may be removed today. Dopamine is now on hold, being considered for possible permanent pacemaker placement by Dr. Chao. Chest x-ray is suggestive of mild pulmonary edema and pulmonary vascular congestion WBC count today is 12.7 hemoglobin 9 electrolytes are normal renal profile showed a BUN of 30 creat 1.04 Objective - Vital Signs Vital signs: Vital Signs Temp 98.2 F 09/15/24 12:00 Pulse 80 09/15/24 12:00 Resp 22 09/15/24 12:00 BP 114/85 09/15/24 12:00 Pulse Ox 93 L 09/15/24 12:00 FiO2 40 09/11/24 21:27 Intake & Output 09/14/24 09/15/24 09/15/24 18:59 06:59 18:59 Intake Total 680.411 429 154.141 Output Total 1550 830 215 Balance -869.589 -401 -60.859 Weight 89.8 kg Intake: IV 485 429 132 Pressure Bag 75 39 12 Sodium Chloride 0.9% 1, 370 390 120 000 ml @ 30 mls/hr IV . Q24H ISIDRO Rx#:[id number] ns for cardiac output 40 Intake, IV Titration 195.411 22.141 Amount DOPamine DRIP 800 mg In 195.411 22.141 Dextrose/Water 1 250ml. bag @ 3 MCG/KG/MIN 4.871 mls/hr IV .Q24H ISIDRO Rx#: [id number] Output: Chest Tube Drainage 380 310 30 Mediastinal 270 100 20 Pleural Catheter Left 110 210 10 Urine 1170 520 185 Other: Voiding Method Indwelling Catheter Indwelling Catheter ABP, PAP, CO, CI - Last Documented Arterial Blood Pressure 122/49 Pulmonary Artery Pressure 28/8 Cardiac Output 5.9 Cardiac Index 3 - Exam CONSTITUTIONAL: 79-year-old white male in no distress, on room air Head: Atraumatic, normocephalic RESPIRATORY: Good breath sound bilaterally no crackles rhonchi or wheezes CARDIOVASCULAR: Distant S1-S2, no S3 gallop 2/6 systolic murmur throughout the precordium GASTROINTESTINAL: Soft abdomen nontenderNo rebound no guarding Alert oriented x 3 no gross focal deficit skin: No rash NEUROLOGIC: Cranial nerves II through XII intact MUSKULOSKELETAL: No deformities no limitation range of motion PSYCHIATRIC: Normal mood and affect and no mental status examination - Labs CBC & Chem 7: 09/15/24 05:37 09/15/24 05:37 Labs: Abnormal Lab Results - Last 24 Hours (Table) 09/14/24 09/14/24 09/15/24 Range/Units 16:09 19:27 05:37 WBC 12.76 H (4.50-10.00) 10*3/uL RBC 2.93 L (4.40-5.60) 10*6/uL Hgb 9.0 L (13.0-17.0) g/dL Hct 27.3 L (39.6-50.0) % BUN (9-20) mg/dL Glucose (74-99) mg/dL POC Glucose (mg/dL) 147 H 158 H (70-110) mg/dL 09/15/24 09/15/24 Range/Units 05:37 06:07 WBC (4.50-10.00) 10*3/uL RBC (4.40-5.60) 10*6/uL Hgb (13.0-17.0) g/dL Hct (39.6-50.0) % BUN 30 H (9-20) mg/dL Glucose 115 H (74-99) mg/dL POC Glucose (mg/dL) 152 H (70-110) mg/dL Assessment and Plan Assessment: Impression: Status post aortic valve replacement and single-vessel bypass surgery with TRAN to LAD postoperative day #4 Underlying coronary artery disease and aortic valve stenosis with previous TAVR and subsequent bioprosthetic valve stenosis History of CVA Benign essential hypertension Dyslipidemia Degenerative joint disease GERD without esophagitis Recommendation: Continue present supportive care measures Patient is now off dopamine Continue sliding scale insulin Continue intermittent diuretics Continue aspirin Plavix beta-blockers and statin Incentive spirometry and ambulation GI and DVT prophylaxis Will continue to follow Time with Patient: Less than 30
--- NOTE | 2024-09-15 13:53 | P.PN ---
Subjective Progress Note Date: 09/15/24 Principal diagnosis: Prosthetic aortic valve stenosis, coronary artery disease. Medical history significant for severe aortic stenosis with TAVR in November 2020, coronary artery disease with PCI in 2020, heart failure with preserved ejection fraction, hypertension, hyperlipidemia, CVA in 2022, mild restrictive lung disease, previous tobacco dependence, osteoarthritis, enlarged prostate with self catheterization. POD#4 Coronary bypass grafting x 1 with left internal mammary artery to the left anterior descending coronary artery, excision of Medtronic Evolut CoreValve, excision of [place]qasuk aortic valve, replacement aortic valve with 23 mm Echeverria Inspiris bovine pericardial valve prosthesis, occlusion of left atrial appendage with 40 mm AtriCure clip, CINDY by anesthesia. Acute blood loss anemia and thrombocytopenia, expected given hemodilution and cardiopulmonary bypass pump. Hypotension, requiring pressors, likely due to vasoplegia and CASIE initiation. Patient was seen and examined in follow-up today September 15, 2024 at his bedside in the intensive care unit. He is currently sitting up at the bedside recliner, is awake, alert, oriented x 3 and is in no acute apparent distress. He denies any complaints of pain or shortness of breath at this time. Oxygen saturations are 96% on 2 L nasal cannula and he is achieving 1500 mL on his incentive spirometry with encouragement. Bedside telemetry is showing a paced rhythm, underlying rhythm is third-degree heart block heart rate in the 50s. He is scheduled for a permanent pacemaker today to be performed by Dr. Chao from electrophysiology. He reports he has been up ambulating in the intensive care unit hallway with standby assistance from nursing and therapy staff and tolerating well. He reports he is walked farther today than he has in the last few days. Right IJ cordis remains in place with continuous CVP monitoring, current CVP pressure is showing 12 mmHg. Dopamine drip is infusing at 1 mcg/kg/min. Mediastinal and left pleural chest tubes remain in place to low continuous wall suction -20 cm H2O. No airleak is present. Mediastinal chest tube drained 70 mL of thin serosanguineous drainage in the last 8 hours and 360 mL in the last 24 hours. Left pleural chest tube draining thin serosanguineous drainage with 150 mL output in the last 8 hours and 250 mL output in the last 24 hours. Laboratory and chest x-ray results were reviewed. Objective - Vital Signs Vital signs: Vital Signs Temp 98.4 F 09/15/24 04:00 Pulse 80 09/15/24 06:00 Resp 29 H 09/15/24 06:00 BP 123/71 09/15/24 06:00 Pulse Ox 96 09/15/24 06:00 FiO2 40 09/11/24 21:27 Intake & Output 09/14/24 09/15/24 09/15/24 18:59 06:59 18:59 Intake Total 680.411 429 Output Total 1550 830 Balance -869.589 -401 Weight 89.8 kg Intake: IV 485 429 Pressure Bag 75 39 Sodium Chloride 0.9% 1, 370 390 000 ml @ 30 mls/hr IV . Q24H ISIDRO Rx#:[id number] ns for cardiac output 40 Intake, IV Titration 195.411 Amount DOPamine DRIP 800 mg In 195.411 Dextrose/Water 1 250ml. bag @ 3 MCG/KG/MIN 4.871 mls/hr IV .Q24H ISIDRO Rx#: [id number] Output: Chest Tube Drainage 380 310 Mediastinal 270 100 Pleural Catheter Left 110 210 Urine 1170 520 Other: Voiding Method Indwelling Catheter Indwelling Catheter ABP, PAP, CO, CI - Last Documented Arterial Blood Pressure 122/49 Pulmonary Artery Pressure 28/8 Cardiac Output 5.9 Cardiac Index 3 - Exam CONSTITUTIONAL: Appears comfortable, cooperative, no acute distress. RESPIRATORY: Lungs sounds diminished to his bilateral bases. Respirations symmetrical, nonlabored. Currently on 2 L nasal cannula with oxygen saturation 96%. Able to achieve 1500 mL on incentive spirometry. Strong cough. CARDIOVASCULAR: S1, S2 present. AV paced on telemetry with underlying rhythm complete heart block. Sternum stable. Palpable peripheral pulses bilaterally. Trace generalized edema present. No calf pain or tenderness noted. Heart hugger in place with patient demonstrating appropriate use. Antiembolism stockings, SCDs present. GASTROINTESTINAL: Abdomen soft, nontender, and nondistended. Active bowel sounds present 4 quadrants. Tolerating diet. Passing flatus. Bowel movement yesterday 09/14/2024. GENITOURINARY: Escalona present draining clear, yellow urine. Urine output 350 mL in the last 8 hours. INTEGUMENTARY: Skin is warm and dry with no clubbing or cyanosis present. Midline sternal incision well approximated and covered with dry intact dressing. NEUROLOGIC: Cranial nerves II through XII intact. No focal deficits. MUSKULOSKELETAL: Able to move all extremities, strength equal bilaterally. PSYCHIATRIC: Alert and oriented to person place and time, appropriate affect, intact judgment and insight. INVASIVE LINES AND TUBES: Mediastinal/left pleural chest tubes present and c onnected to wall suction, no air leaks present. Mediastinal tube with 70 mL serosanguineous drainage overnight, 360 mL in the last 24 hours. Left pleural chest tube with 150 mL serosanguineous drainage overnight, 250 mL in the last 24 hours. A/V epicardial pacemaker wires present, connected to generator, DDD mode with rate 80 bpm. Right internal jugular Cordis, right radial arterial line present. Current CVP 12 mmHg. - Allied health notes Allied health notes reviewed: nursing - Labs CBC & Chem 7: 09/15/24 05:37 09/15/24 05:37 Labs: Abnormal Lab Results - Last 24 Hours (Table) 09/14/24 09/14/24 09/14/24 Range/Units 11:05 16:09 19:27 WBC (4.50-10.00) 10*3/uL RBC (4.40-5.60) 10*6/uL Hgb (13.0-17.0) g/dL Hct (39.6-50.0) % BUN (9-20) mg/dL Glucose (74-99) mg/dL POC Glucose (mg/dL) 118 H 147 H 158 H (70-110) mg/dL 09/15/24 09/15/24 09/15/24 Range/Units 05:37 05:37 06:07 WBC 12.76 H (4.50-10.00) 10*3/uL RBC 2.93 L (4.40-5.60) 10*6/uL Hgb 9.0 L (13.0-17.0) g/dL Hct 27.3 L (39.6-50.0) % BUN 30 H (9-20) mg/dL Glucose 115 H (74-99) mg/dL POC Glucose (mg/dL) 152 H (70-110) mg/dL - Imaging and Cardiology Chest x-ray: report reviewed, image reviewed Assessment and Plan Assessment: Prosthetic aortic valve stenosis, status post excision of TAVR and atqasuk valve, replacement aortic valve Coronary artery disease, status post single-vessel CABG Underlying complete heart block, unexpected but potential complication of any valve surgery Acute blood loss anemia and thrombocytopenia, expected Hypotension likely from vasoplegia and medication administration History of severe aortic stenosis with TAVR in November 2020 Coronary artery disease with PCI in 2020 Heart failure with preserved ejection fraction, EF 60 to 65% Hypertension Hyperlipidemia, treated, cholesterol 171, LDL 97, triglycerides 161 CVA in 2022 Mild restrictive lung disease, preoperative FEV1 62% of predicted Previous tobacco dependence Osteoarthritis Enlarged prostate with self catheterization Plan: Continue to maximize medical therapy with aspirin, statin, Plavix. Will hold off on beta-mina for now due to underlying heart rhythm. He is scheduled for a permanent pacemaker placement today by Dr. Chao from electrophysiology. Discontinue dopamine drip. Wean oxygen as tolerated. Encourage incentive spirometry use 10 times every hour while awake. Bronchodilators per pulmonology. Increase activity, ambulate as tolerated. PT/OT/cardiac rehab following. Will monitor daily labs and chest x-rays, electrolyte replacement per protocol. GI/DVT prophylaxis. Pain control per current medication regimen. Insulin management per internal medicine. Patient is not diabetic, preoperative hemoglobin A1c 6.1%. Continue to AV pace, monitor for return of intrinsic rhythm, hold AV panda blockers, scheduled for permanent pacemaker today. Will remove Cordis today. Continue Escalona catheter for for now, when Escalona catheter removed patient will need straight catheterization kits from home. Monitor and record strict accurate intake and output. We remove his mediastinal chest tubes today, keep left pleural chest tube in place. More recommendations to follow based on patient's clinical course. Time with Patient: Greater than 30
[2024-09-15 16:26] LABS: Glucose,Whole Blood 122 mg/dL (70-110)
--- NOTE | 2024-09-15 18:40 | P.EPCON ---
Electrophysiology Consult - EP Consult Electrophysiology Consult: This is Dr. Chao dictating a consult on this patient The patient was interviewed and examined IMPRESSION / ASSESSMENT: Recent aortic valve replacement for prosthetic aortic valve stenosis CAD, status post TRAN graft to the LAD Left atrial occlusion with atri-cure clip In 2019 he had undergone TAVR, now with prosthetic aortic valve stenosis Postoperative complete heart block with 100% paced rhythm with gradual improvement Today the patient has an underlying rhythm at 70 beats a minute when I reprogrammed his pacemaker this morning His thresholds are very acceptable especially in the right ventricle His chest tube, pericardial drain was removed today, CVP line was removed, dopamine was discontinued He still has a chest tube pleural in situ which is draining PLAN: In view of the presence of the chest tube which is still draining, underlying ventricular rates now between 70-80 beats a minute, accelerated junctional rhythm with associated normal blood pressures, adequate ventricular thresholds via the external pacing wires, urgent permanent pacing is not indicated. I would recommend waiting till the chest tube is out and if stable then proceeding with dual-chamber pacing preferably with conduction system pacing since his anticipated RV pacing would be 100%. Will reevaluate on a daily basis HPI Called by Dr. Shine for evaluation of bradycardia and complete heart block status post aortic valve replacement, redo Patient was evaluated this morning in the ICU. He was sitting comfortably in a chair. Later he was lying in bed comfortably No orthopnea PND. His pericardial drain had been removed as well as CVP when I saw him on the second occasion today. However the chest tube was still in since it was still draining He looked comfortable He was 100% paced on the monitor. I reprogrammed the pacemaker and gradually reduced the rate of pacing to 50 bpm The patient had an underlying rhythm consistent with accelerated junctional rhythm at 69 beats a minute wide QRS with A-V dissociation Sinus rate about 100 beats a minute Patient's blood pressure was 123 systolic and later 111 systolic and he was asymptomatic Atrial pacing threshold was between 3 and 4 MA Ventricular pacing threshold was between 2 and 3 MA, External wire pacemaker was programmed for backup pacing only ROS: No fever chills or rigors, no cough, phlegm or expectoration, no nausea, vomiting or diarrhea, no hematuria, dysuria, no musculoskeletal complaints, no strokes or seizures, no skin lesions. EXAMINATION: 135/72, 128/72, 130/73 mmHg Pulse rate in the 70s and 80s afebrile Pulse ox in the 90s Breath sounds are reduced bilaterally Heart sounds S1-S2 are soft soft ejection systolic murmur REVIEW OF LABS, ECG & MEDICAL DATA White count 12.8 thousand, hemoglobin 9.0 Electrolytes normal Renal function normal
--- NOTE | 2024-09-15 21:17 | P.PN ---
Subjective Progress Note Date: 09/15/24 The patient is a pleasant 79-year-old gentleman who is known to our service from before with a past medical history significant for severe symptomatic aortic stenosis as well as a CAD documented on recent heart catheterization showing severe disease involving the left anterior descending artery as well as hypertension and dyslipidemia. The patient in 2018 underwent a TAVR and that was successful. He starts being symptomatic again with shortness of breath with exertion and lately symptoms of chest discomfort with exertion. Because he continues to be symptomatic he underwent a heart catheterization which revealed severe disease involving the LAD and severe gradient across aortic valve with a mean gradient exceeding 40 mmHg. Subsequently the patient was referred for surgery and underwent surgical aortic valve replacement with taking the TAVR valve out. This is postoperation day #1. The patient was extubated yesterday. He is currently in what is seems to be complete heart block requiring pacing which is not surprising. Hemodynamically he is stable. His pressure has been maybe on the soft side. He is dry with low CVP and he is in process of receiving fluid. Otherwise he seems to be stable from a cardiovascular standpoint of view. The urine output has been reasonable. Blood work was reviewed. Chest x-ray was reviewed as well. September 13, 2024 The patient was seen and evaluated this morning. He is still hypotensive requiring norepinephrine. Beside that his kidney function has been worse since he was hypotensive. With that ongoing to stop lisinopril. Clinically he seems to be stable. He still in paced rhythm. The chest x-ray was reviewed. Blood work was reviewed. I will continue current medical regimen and try to wean the patient from vasopressors at this point and avoid any nephrotoxic medications. Continue monitor the urine output. The physical examination is remarkable for diminished breathing sounds bilaterally with distant heart sounds. The CVP remains around 10. September 14, 2024 The patient was seen and evaluated this morning with he is stable overall but continues to be on a small dose of dopamine trying to wean him from that. Urine output has been excellent. Pressure has improved. Kidney function has improved. The chest x-ray was reviewed and showed some pulmonary vascular congestion and on examination he does have mild expiratory wheezing. The physical examination is remarkable for distant heart sounds and mild bilateral expiratory wheezing and mild upper extremity edema as well September 15, 2024 Patient seen and examined bedside this a.m. Coming along well. Hemodynamically stable. No arrhythmias noticed. BP 125/75, heart rate 80 bpm Patient is continuously requiring epicardial pacing. Assessment Severe symptomatic aortic stenosis in patient who had TAVR before status post surgical aortic valve placement along with TRAN to LAD Multiple comorbid conditions Plan Continue current medical regimen Plan for PPM placement tomorrow Continue monitor the kidney function and electrolytes and hemoglobin Follow-up with the patient Objective - Vital Signs Vital signs: Vital Signs Temp 98.2 F 09/15/24 16:30 Pulse 80 09/15/24 19:00 Resp 22 09/15/24 19:00 BP 125/73 09/15/24 19:00 Pulse Ox 94 L 09/15/24 19:00 FiO2 40 09/11/24 21:27 Intake & Output 09/15/24 09/15/24 09/16/24 06:59 18:59 06:59 Intake Total 429 187.141 Output Total 830 635 20 Balance -401 -447.859 -20 Weight 89.8 kg Intake: IV 429 165 Pressure Bag 39 15 Sodium Chloride 0.9% 1, 390 150 000 ml @ 30 mls/hr IV . Q24H ISIDRO Rx#:[id number] Intake, IV Titration 22.141 Amount DOPamine DRIP 800 mg In 22.141 Dextrose/Water 1 250ml. bag @ 3 MCG/KG/MIN 4.871 mls/hr IV .Q24H ISIDRO Rx#: [id number] Output: Chest Tube Drainage 310 240 Mediastinal 100 80 Pleural Catheter Left 210 160 Urine 520 395 20 Other: Voiding Method Indwelling Catheter Indwelling Catheter ABP, PAP, CO, CI - Last Documented Arterial Blood Pressure 122/49 Pulmonary Artery Pressure 28/8 Cardiac Output 5.9 Cardiac Index 3 - Labs CBC & Chem 7: 09/15/24 05:37 09/15/24 05:37 Labs: Abnormal Lab Results - Last 24 Hours (Table) 09/15/24 09/15/24 09/15/24 Range/Units 05:37 05:37 06:07 WBC 12.76 H (4.50-10.00) 10*3/uL RBC 2.93 L (4.40-5.60) 10*6/uL Hgb 9.0 L (13.0-17.0) g/dL Hct 27.3 L (39.6-50.0) % BUN 30 H (9-20) mg/dL Glucose 115 H (74-99) mg/dL POC Glucose (mg/dL) 152 H (70-110) mg/dL 09/15/24 Range/Units 16:24 WBC (4.50-10.00) 10*3/uL RBC (4.40-5.60) 10*6/uL Hgb (13.0-17.0) g/dL Hct (39.6-50.0) % BUN (9-20) mg/dL Glucose (74-99) mg/dL POC Glucose (mg/dL) 122 H (70-110) mg/dL
[2024-09-15 23:24] LABS: Glucose,Whole Blood 105 mg/dL (70-110)
[2024-09-16 06:08] LABS: Basophils # (A) 0.06 10*3/uL (0.00-0.10); Basophils % (A) 0.6 %; Eosinophils # (A) 0.09 10*3/uL (0.04-0.35); Eosinophils % (A) 0.8 %; HCT 27.9 % (39.6-50.0); HGB 9.3 g/dL (13.0-17.0); Lymphocytes # (A) 1.13 10*3/uL (0.90-5.00); Lymphocytes % (A) 10.6 %; MCH 30.7 pg (27.0-32.0); MCHC 33.3 g/dL (32.0-37.0); MCV 92.1 fL (80.0-97.0); Mean Platelet Volume 10.7 fL (9.5-12.2); Monocytes # (A) 0.81 10*3/uL (0.20-1.00); Monocytes % (A) 7.6 %; Neutrophils # (A) 8.47 10*3/uL (1.80-7.70); Neutrophils % (A) 79.6 %; Platelet Count 199 10*3/uL (140-440); RBC 3.03 10*6/uL (4.40-5.60); RDW 14.8 % (11.5-14.5); WBC 10.64 10*3/uL (4.50-10.00)
[2024-09-16 06:26] LABS: ALT 34 U/L (4-49); AST 49 U/L (17-59); African American GFR (CKD) 80 (>60 ml/min/1.73 sqM); Albumin 3.4 g/dL (3.5-5.0); Alkaline Phosphatase 54 U/L (38-126); Anion Gap 9 mmol/L; Blood Urea Nitrogen 31 mg/dL (9-20); Calcium 9.1 mg/dL (8.4-10.2); Carbon Dioxide 25 mmol/L (22-30); Chloride 103 mmol/L (98-107); Glucose 87 mg/dL (74-99); Non-African American GFR(CKD) 69 (>60 ml/min/1.73 sqM); Potassium 4.5 mmol/L (3.5-5.1); Sodium 137 mmol/L (137-145); Total Bilirubin 1.6 mg/dL (0.2-1.3); Total Protein 5.4 g/dL (6.3-8.2)
--- NOTE | 2024-09-16 06:47 | XR ---
EXAMINATION TYPE: XR chest 1V portable DATE OF EXAM: 09/16/2024 CLINICAL INDICATION: Male, 79 years old with history of Postop cardiac surgery, progress study. TECHNIQUE: Single AP portable semiupright view of the chest is obtained. COMPARISON: Chest x-ray from one day earlier and older studies. FINDINGS: Interval removal of mediastinal drainage catheter is suspected. Persistent left-sided ches t tube. Redemonstration of overlying sternal wires along with metallic aortic valve and left atrial a ppendage clip. Persistent cardiomegaly with central vascular congestion. No pneumothorax seen bilaterally. Osseous s tructures are intact. IMPRESSION: Persistent fluid overload state. No significant change from one day earlier. [facility], , 09/16/2024 6:44 AM
[2024-09-16] MEDS ORDERED: CLINDAMYCIN 600 MG in SODIUM CHLORIDE 0.9% 250 ML IRRIGATION PRN (07:00)
[2024-09-16] MEDS ORDERED: CLINDAMYCIN 900 MG in DEXTROSE 5% IN WATER 50 ML IVPB PRN (07:00)
--- NOTE | 2024-09-16 07:07 | P.PN ---
Subjective Progress Note Date: 09/16/24 Principal diagnosis: Prosthetic aortic valve stenosis, coronary artery disease. History of severe aortic stenosis with TAVR in November 2020, coronary artery disease with PCI in 2020, heart failure with preserved ejection fraction, hypertension, hyperlipidemia, CVA in 2022, mild restrictive lung disease, previous tobacco dependence, osteoarthritis, enlarged prostate with self catheterization POD#5 Coronary bypass grafting x 1 with TRAN to LAD, excision of Medtronic Evolut CoreValve, excision of wrangell aortic valve, replacement aortic valve with 23 mm Echeverria Inspiris bovine pericardial valve prosthesis, occlusion of left atrial appendage with 40 mm AtriCure clip, CINDY by anesthesia Acute blood loss anemia and thrombocytopenia, expected given hemodilution and cardiopulmonary bypass pump Hypotension, requiring pressors, likely due to vasoplegia and CASIE initiation The patient was seen and examined this morning sitting up in recliner in the intensive care unit in no acute distress. Currently AV placed with underlying junctional. Blood pressure stable and trending up off dopamine for 24 hours. States pain is controlled on current medication regimen, denies shortness of breath. Currently on room air with oxygen saturation in the high 90s, able to achieve 1000 mL on his incentive spirometry. Chest x-ray, labs reviewed. Left pleural chest tube remains. Patient has ambulated in the hallway without difficulty. Patient to have permanent pacemaker placed today by Dr. Chao. No other new concerns. Objective - Vital Signs Vital signs: Vital Signs Temp 97.9 F 09/16/24 04:00 Pulse 80 09/16/24 06:00 Resp 26 H 09/16/24 06:00 BP 157/90 09/16/24 06:00 Pulse Ox 97 09/16/24 06:00 FiO2 40 09/11/24 21:27 Intake & Output 09/15/24 09/16/24 09/16/24 18:59 06:59 18:59 Intake Total 187.141 100 Output Total 635 640 Balance -447.859 -540 Weight 88.3 kg Intake: IV 165 Pressure Bag 15 Sodium Chloride 0.9% 1, 150 000 ml @ 30 mls/hr IV . Q24H ISIDRO Rx#:[id number] Intake, IV Titration 22.141 Amount DOPamine DRIP 800 mg In 22.141 Dextrose/Water 1 250ml. bag @ 3 MCG/KG/MIN 4.871 mls/hr IV .Q24H ISIDRO Rx#: [id number] Oral 100 Output: Chest Tube Drainage 240 90 Mediastinal 80 Pleural Catheter Left 160 90 Urine 395 550 Other: Voiding Method Indwelling Catheter Indwelling Catheter ABP, PAP, CO, CI - Last Documented Arterial Blood Pressure 122/49 Pulmonary Artery Pressure 28/8 Cardiac Output 5.9 Cardiac Index 3 - Exam CONSTITUTIONAL: Appears comfortable, cooperative, no acute distress RESPIRATORY: Lungs sounds diminished bilaterally. Respirations even, nonlabored. Currently on room air with oxygen saturation 97%. Able to achieve 1000 mL on incentive spirometry. Strong cough. CARDIOVASCULAR: S1, S2 present. AV paced on telemetry with underlying rhythm junctional. Sternum stable. Palpable peripheral pulses bilaterally. No edema present. No calf pain or tenderness noted. Heart hugger in place with patient demonstrating appropriate use. Antiembolism stockings, SCDs present. GASTROINTESTINAL: Abdomen soft, nontender, nondistended. Active bowel sounds present 4 quadrants. Tolerating diet. Positive bowel movement 09/14 GENITOURINARY: [place] present draining clear, yellow urine. Output overnight 30-60 mL per hour, 910 mL in the last 24 hours INTEGUMENTARY: Skin is warm and dry with evidence of good perfusion. Anterior chest incision well approximated and covered with dry intact dressing NEUROLOGIC: Cranial nerves II through XII intact MUSKULOSKELETAL: Able to move all extremities, strength equal bilaterally PSYCHIATRIC: Alert and oriented to person place and time, appropriate affect, intact judgment and insight INVASIVE LINES AND TUBES: Left pleural chest tube present and connected to wall suction, no air leaks present, 90 mL serosanguineous drainage overnight, 350 mL in the last 24 hours. A/V epicardial pacemaker wires present, connected to generator, DDD mode with rate 80 bpm. - Allied health notes Allied health notes reviewed: nursing - Labs CBC & Chem 7: 09/16/24 05:19 09/16/24 05:19 Labs: Abnormal Lab Results - Last 24 Hours (Table) 09/15/24 09/16/24 09/16/24 Range/Units 16:24 05:19 05:19 WBC 10.64 H (4.50-10.00) 10*3/uL RBC 3.03 L (4.40-5.60) 10*6/uL Hgb 9.3 L (13.0-17.0) g/dL Hct 27.9 L (39.6-50.0) % Immature Gran # 0.08 H (0.00-0.04) 10*3/uL Neutrophils # 8.47 H (1.80-7.70) 10*3/uL BUN 31 H (9-20) mg/dL POC Glucose (mg/dL) 122 H (70-110) mg/dL Total Bilirubin 1.6 H (0.2-1.3) mg/dL Total Protein 5.4 L (6.3-8.2) g/dL Albumin 3.4 L (3.5-5.0) g/dL - Imaging and Cardiology Chest x-ray: report reviewed, image reviewed Assessment and Plan Assessment: Prosthetic aortic valve stenosis, status post excision of TAVR and wrangell valve, replacement aortic valve Coronary artery disease, status post single-vessel CABG Underlying complete heart block, unexpected but potential complication of any valve surgery Acute blood loss anemia and thrombocytopenia, expected Hypotension likely from vasoplegia and medication administration History of severe aortic stenosis with TAVR in November 2020 Coronary artery disease with PCI in 2020 Heart failure with preserved ejection fraction, EF 60 to 65% Hypertension Hyperlipidemia, treated, cholesterol 171, LDL 97, triglycerides 161 CVA in 2022 Mild restrictive lung disease, preoperative FEV1 62% of predicted Previous tobacco dependence Osteoarthritis Enlarged prostate with self catheterization Plan: Continue to maximize medical therapy with aspirin, statin, Plavix. Will hold off on beta-mina for now due to underlying heart rhythm Encourage incentive spirometry use 10 times every hour while awake. Bronchodilators per pulmonology Increase activity, ambulate as tolerated. PT/OT/cardiac rehab consulted Will monitor daily labs and x-rays, electrolyte replacement per protocol GI/DVT prophylaxis Pain control per current medication regimen Insulin management per internal medicine. Patient is not diabetic, preoperative hemoglobin A1c 6.1% Will discontinue left pleural chest tube Continue to AV pace, patient will get permanent pacemaker today. Afterwards will discontinue epicardial pacemaker wires Discontinue Escalona catheter, patient to use straight catheterization kits from home Monitor and record strict accurate intake and output More recommendations to follow as patient progresses
--- NOTE | 2024-09-16 08:58 | P.PN ---
Subjective Progress Note Date: 09/16/24 No new complaints today. Plan is for permanent pacemaker placement today Gen: In NAD, non-toxic HEENT: normocephalic, atraumatic, hearing acuity is intant, mucous membranes moist CVS: perfusing all extremities well, no pitting edema, Respiratory: symmetric chest expansion, no accessory muscle use, GI: soft, NTTP, ND, : no suprapubic tenderness, no CVA tenderness MSK/Derm: no rashes, cyanosis Neuro: CN II-XII intact, no motor weakness, Psych: cooperative, euthymic mood, judgment and insight is intact Hospital course: Patient is a 79-year-old male with history of aortic stenosis with previous TAVR, CAD, hypertension, dyslipidemia, GERD, CVA/TIA presenting for elective CABG and aortic valve replacement. [facility] physicians consulted for medical management. Upon initial evaluation, WBC 12.57, hemoglobin 11.3, platelet 94, pH 7.42, [id number], potassium 4.3, creatinine 0.75, blood sugars range between 113- 145, magnesium 2.8, total bili 1.4, AST 31, ALT 17, ALP 36. Chest x-ray in dependently interpreted, shows postoperative changes, interstitial opacities bilaterally. Assessment/Plan: Active: CAD status post CABG, and aortic valve replacement Hypertension Dyslipidemia - On amiodarone, aspirin 325 daily, aspirin 80 mg daily, Plavix 75 daily, metoprolol 12.5 daily; pending diagnostic EP study with possible cardioversion today - Pain control, DVT prophylaxis, bowel regimen per cardiothoracic surgery - Pulmonology consult - Cardiology consult Hyperglycemia Prediabetes, A1c 6.1 - Switched to subcu sliding scale insulin Thank you for allowing us to participate in the care of this pleasant patient. Do not hesitate to contact us with questions. Someone can be reached from the [facility] hospitalist group all hours of the day at [phone] or via perfect serve. Objective - Vital Signs Vital signs: Vital Signs Temp 98.4 F 09/16/24 08:00 Pulse 70 09/16/24 08:00 Resp 21 09/16/24 08:00 BP 138/83 09/16/24 08:00 Pulse Ox 95 09/16/24 08:00 FiO2 40 09/11/24 21:27 Intake & Output 09/15/24 09/16/24 09/16/24 18:59 06:59 18:59 Intake Total 187.141 100 Output Total 635 640 35 Balance -447.859 -540 -35 Weight 88.3 kg Intake: IV 165 Pressure Bag 15 Sodium Chloride 0.9% 1, 150 000 ml @ 30 mls/hr IV . Q24H ISIDRO Rx#:[id number] Intake, IV Titration 22.141 Amount DOPamine DRIP 800 mg In 22.141 Dextrose/Water 1 250ml. bag @ 3 MCG/KG/MIN 4.871 mls/hr IV .Q24H ISIDRO Rx#: [id number] Oral 100 Output: Chest Tube Drainage 240 90 Mediastinal 80 Pleural Catheter Left 160 90 Urine 395 550 35 Other: Voiding Method Indwelling Catheter Indwelling Catheter ABP, PAP, CO, CI - Last Documented Arterial Blood Pressure 122/49 Pulmonary Artery Pressure 28/8 Cardiac Output 5.9 Cardiac Index 3 - Labs CBC & Chem 7: 09/16/24 05:19 09/16/24 05:19 Labs: Abnormal Lab Results - Last 24 Hours (Table) 09/15/24 09/16/24 09/16/24 Range/Units 16:24 05:19 05:19 WBC 10.64 H (4.50-10.00) 10*3/uL RBC 3.03 L (4.40-5.60) 10*6/uL Hgb 9.3 L (13.0-17.0) g/dL Hct 27.9 L (39.6-50.0) % Immature Gran # 0.08 H (0.00-0.04) 10*3/uL Neutrophils # 8.47 H (1.80-7.70) 10*3/uL BUN 31 H (9-20) mg/dL POC Glucose (mg/dL) 122 H (70-110) mg/dL Total Bilirubin 1.6 H (0.2-1.3) mg/dL Total Protein 5.4 L (6.3-8.2) g/dL Albumin 3.4 L (3.5-5.0) g/dL
[2024-09-16 11:29] LABS: Glucose,Whole Blood 89 mg/dL (70-110)
--- NOTE | 2024-09-16 13:46 | P.PN ---
Subjective Progress Note Date: 09/16/24 Principal diagnosis: Status post aortic valve replacement and single-vessel bypass surgery TRAN to LAD postoperative day #5 This is a 79-year-old male patient who was brought into the intensive care unit following cardiac surgery. The patient had a previous TAVR and the patient developed prosthetic aortic valve stenosis and the patient also has coronary artery disease. Based on that, the patient underwent coronary artery bypass surgery x 1 with TRAN to LAD and excision of the Medtronic CoreValve and replacement aortic valve with 23 mm Echeverria Inspiris bovine pericardial valve prosthesis. The patient was kept intubated the patient was brought into the intensive care for further care. At this point in time, the patient is on propofol running at 20 mcg/kg/min and the patient is calm and comfortable and synchronous with mechanical ventilator. The patient is on assist-control mode of mechanical ventilation and the patient is currently on a rate of 12, tidal volume of 500, FiO2 of 100% with a PEEP of 5. Blood gases showed a pH of 7.4 with a [id number] and PO2 of 318. FiO2 is now down to 50%. The patient has been mediastinal and 1 left pleural chest tube and output has been minimal since arriving from the operating room. No evidence of any pneumothorax on postop chest x-ray. There is mild pulm vessel congestion and the patient has some mild CHF findings. The patient's cardiac rhythm is paced at a rate of 80. He is on nitroglycerin drip running at 5 mcg/min. His hemodynamic parameters show a PA pressure of 30/19 with a cardiac output of 3.5 with an index of 1.9. Initially, his cardiac index was low and the patient was given 2 boluses of albumin, 250 cc each. Urine output is adequate. He is normothermic. His blood work shows a WBC count of 12.5 with a hemoglobin of 11.3 and his sodium level is at 137, BUN is 50 with a creatinine of 0.7. LFTs are normal. On 09/12/2024, the patient is being seen for a follow-up. The patient was weaned off the mechanical ventilator and the patient was extubated without any major difficulties and the patient is currently on oxygen room air. Chest x-ray shows postsurgical changes, chest tubes are in place, [place] catheter in place. ET tube has been removed. Lung volumes are small and the patient has some mild pulmonary vascular congestion. Earlier hemodynamic parameters showed a PA pressure of 29/8 and a cardiac index is up to 3.2. The patient is paced at a rate of 80 and he would likely need a permanent pacemaker. Insulin drip is at 3.5 units an hour and the patient urine output is older of 30 cc an hour. The white cell count is at 13 with a hemoglobin of 10 and a platelet count of 108. Sodium is at 139, potassium 3.9, BUN 17 with a creatinine of 0.8 and LFTs are within normal limits. No focal neurological deficits. The patient is postop day #1 following aortic valve replacement and single-vessel coronary bypass surgery with TRAN to LAD. On 09/13/2024, the patient is being seen for a follow-up. The patient is postop day #2. Overnight, the patient had a low blood pressure and a low urine output. Based on that, the patient was started on dopamine which is currently running at 3 mcg/kg/min. Subsequently, low-dose norepinephrine was also added at 0.01 mcg/kg/min. The patient's cardiac rhythm is paced at rate of 80. Is currently on 4 L of oxygen by nasal cannula. Creatinine is up to 1.4. The patient is awake and alert and communicating. The chest tubes are still in place. The patient has a left pleural chest tube that has drained approximately 400 cc over the past 24 hours and mediastinal chest tube that has drained around 800 cc cc over the past 24 hours. [place] in place. Cardiac output is at 6 with an index of 3.1. PA pressures are 28/14. CVP is at 10. The patient is afebrile. Hemoglobin of 8.1. White cell count of 13 and the platelet count is at 83. Blood sugar is at 123 and the patient was taken off the insulin drip. BUN 25 with a creatinine of 1.4. Sodium is at 135 and a potassium level is at 4.1. \ On 09/14/2024, patient is sitting up in a chair and the patient is calm and comfortable. It seems that the patient's urine output is improved and the patient's blood pressure is more stable. [place] catheter still in place and the patient's cardiac output is at 5.5 with an index of 3.0. The patient is currently off norepinephrine and the patient remains on dopamine at 3 mcg/kg/min. Urine output is noted of 3250 cc an hour. Repeat chest x-ray was done this morning. Chest tubes are still in place. No significant interval change compared to yesterday the patient continues to have mild pulm vessel congestion. Accordingly, the patient was given a dose of Lasix 40 mg IV push. The white cell count is at 13.1. Hemoglobin 8.5 and a platelet count of 99. BUN is 27 creatinine 0.9 and the sodium is at 137 and the potassium level is at 4.7. The patient continues to be paced at a rate of 80. Underlying cardiac rhythm is third-degree AV block. Patient was seen today on 09/15/2024, patient is postoperative day #4, on room air, not in any distress, continues to have chest tubes in place, these may be removed today. Dopamine is now on hold, being considered for possible permanent pacemaker placement by Dr. Chao. Chest x-ray is suggestive of mild pulmonary edema and pulmonary vascular congestion WBC count today is 12.7 hemoglobin 9 electrolytes are normal renal profile showed a BUN of 30 creat 1.04 Seen today on 09/16/2024, patient remains in the ICU, he is now on room air, all his tubes and catheters have been removed, patient is achieving about 1500 cc on incentive spirometry. Chest x-ray continues to show mild interstitial edema but clinically the patient is doing very well. WBC count is 10.6 hemoglobin 9.3 electrolytes are normal renal profile is normal, patient is to have pacemaker implantation today by Dr. Chao. Patient denies any shortness of breath, no chest pain, no fever, no chills, no hemoptysis. Objective - Vital Signs Vital signs: Vital Signs Temp 98.2 F 09/16/24 12:00 Pulse 70 09/16/24 13:00 Resp 17 09/16/24 13:00 BP 156/86 09/16/24 13:00 Pulse Ox 96 09/16/24 13:00 FiO2 40 09/11/24 21:27 Intake & Output 09/15/24 09/16/24 09/16/24 18:59 06:59 18:59 Intake Total 187.141 100 Output Total 635 640 190 Balance -447.859 -540 -190 Weight 88.3 kg Intake: IV 165 Pressure Bag 15 Sodium Chloride 0.9% 1, 150 000 ml @ 30 mls/hr IV . Q24H ISIDRO Rx#:[id number] Intake, IV Titration 22.141 Amount DOPamine DRIP 800 mg In 22.141 Dextrose/Water 1 250ml. bag @ 3 MCG/KG/MIN 4.871 mls/hr IV .Q24H ISIDRO Rx#: [id number] Oral 100 Output: Chest Tube Drainage 240 90 Mediastinal 80 Pleural Catheter Left 160 90 Urine 395 550 190 Other: Voiding Method Indwelling Catheter Indwelling Catheter Indwelling Catheter ABP, PAP, CO, CI - Last Documented Arterial Blood Pressure 122/49 Pulmonary Artery Pressure 28/8 Cardiac Output 5.9 Cardiac Index 3 - Exam CONSTITUTIONAL: 79-year-old white male in no distress, on room air, O2 saturation is 96% Head: Atraumatic, normocephalic RESPIRATORY: Good breath sound bilaterally no crackles rhonchi or wheezes CARDIOVASCULAR: Distant S1-S2, no S3 gallop 2/6 systolic murmur throughout the precordium GASTROINTESTINAL: Soft abdomen nontenderNo rebound no guarding Alert oriented x 3 no gross focal deficit skin: No rash NEUROLOGIC: Cranial nerves II through XII intact MUSKULOSKELETAL: No deformities no limitation range of motion PSYCHIATRIC: Normal mood and affect and no mental status examination - Labs CBC & Chem 7: 09/16/24 05:19 09/16/24 05:19 Labs: Abnormal Lab Results - Last 24 Hours (Table) 09/15/24 09/16/24 09/16/24 Range/Units 16:24 05:19 05:19 WBC 10.64 H (4.50-10.00) 10*3/uL RBC 3.03 L (4.40-5.60) 10*6/uL Hgb 9.3 L (13.0-17.0) g/dL Hct 27.9 L (39.6-50.0) % Immature Gran # 0.08 H (0.00-0.04) 10*3/uL Neutrophils # 8.47 H (1.80-7.70) 10*3/uL BUN 31 H (9-20) mg/dL POC Glucose (mg/dL) 122 H (70-110) mg/dL Total Bilirubin 1.6 H (0.2-1.3) mg/dL Total Protein 5.4 L (6.3-8.2) g/dL Albumin 3.4 L (3.5-5.0) g/dL Assessment and Plan Assessment: Impression: Status post aortic valve replacement and single-vessel bypass surgery with TRAN to LAD postoperative day #5 Underlying coronary artery disease and aortic valve stenosis with previous TAVR and subsequent bioprosthetic valve stenosis History of CVA Benign essential hypertension Dyslipidemia Degenerative joint disease GERD without esophagitis Recommendation: Patient to have pacemaker implantation today Continue present supportive care measures Continue intermittent diuretics Continue aspirin Plavix beta-blockers and statin Incentive spirometry and ambulation GI and DVT prophylaxis Will continue to follow Time with Patient: Less than 30
[2024-09-16] MEDS ORDERED: VANCOMYCIN 1,250 MG in SODIUM CHLORIDE 0.9% 250 ML IVPB ONE (14:00)
[2024-09-16] MEDS ORDERED: fentaNYL (PF) 50 MCG/ML 2 ML AMP ONE (14:34)
[2024-09-16] MEDS ORDERED: MIDAZOLAM 2 MG/2 ML VIAL ONE (14:34)
[2024-09-16] MEDS ORDERED: KETAMINE HCL IN 0.9 % NACL 50 MG/5 ML SYRINGE ONE (14:34)
[2024-09-16] MEDS: ceFAZolin 1,000 MG VIAL IVPB ONE (14:34)
[2024-09-16] MEDS: SODIUM CHLORIDE 0.9% 250 ML IV ONE (14:34)
[2024-09-16] MEDS ORDERED: PROPOFOL 10 MG/ML 20 ML VIAL IV ONE (14:34)
[2024-09-16] MEDS: ceFAZolin 2 GM in DEXTROSE 5% IN WATER 50 ML IVPB ONE (14:46)
[2024-09-16] MEDS: ceFAZolin 1,000 MG in SODIUM CHLORIDE 0.9% 1,000 ML IRRIGATION ONE (14:49)
[2024-09-16] MEDS: LIDOCAINE 1% INJ 10MG/ML (20 ML MDV) SQ ONE (14:49)
--- NOTE | 2024-09-16 15:35 | FL ---
EXAMINATION TYPE: FL guidance operating room DATE OF EXAM: 09/16/2024 CLINICAL INDICATION: Male, 79 years old with history of PACEMAKER INSERTION, TECHNIQUE: Fluoroscopy. COMPARISON: None. FINDINGS: Fluoroscopic guidance was provided during pacemaker insertion procedure performed by Dr. Familia bar. A total of 61.2 seconds of fluoroscopic time was utilized during the procedure and 2 spot juan diego ges was acquired. TOTAL DAP = 15.342 Gycm2. IMPRESSION: As Above. [facility], , 09/16/2024 3:33 PM
--- NOTE | 2024-09-16 15:44 | P.OP ---
Date of Procedure: 09/16/24 Preoperative Diagnosis: Complete heart block Postoperative Diagnosis: Same Procedure(s) Performed: Dual-chamber permanent pacemaker with Boland Brady Melara DR permanent pacemaker Implants: Boland Assurity MRI dual-chamber pacemaker model number [id number] serial #[id number], Boland Ultipace 46 cm screw-in lead in the atrial position reference number LPA 1231 serial number [id number], Boland Ultipace 58 cm ventricular lead reference number LPA 1231 serial number [id number]. Anesthesia: MAC Surgeon: Gurdeep Liu Estimated Blood Loss (ml): 25 IV fluids (ml): 200 Pathology: none sent Condition: stable Disposition: PACU Indications for Procedure: 79-year-old status post explant of TAVR valve and [place] aortic valve with postoperative complete heart block. Operative Findings: An excellent cephalic vein was present for vascular access. P waves were measured at 1.8 mV with an impedance of 440 ohms and a pacing threshold of 0.75 V at 0.5 ms pulse width, ventricular lead measurements showed an impedance of 610 ohms and a ventricular capture of 0.5 V at 0.5 ms. Patient had no underlying rhythm so R waves could not be measured. Description of Procedure: Patient was brought to the operating room placed supine on the table. Right shoulder and neck region were sterilely prepped and draped. IV sedation was given. 1% lidocaine was used to infuse the left pectoral region. Incision was made over the deltopectoral groove carried down through skin and subcutaneous tissue. The cephalic vein was identified. It was dissected out and ligated distally with a 2-0 silk suture and controlled proximally with the same. Vein was opened and the ventricular lead was introduced and passed into the apex of the right ventricle under fluoroscopic guidance. It was screwed in here. Excellent capture was noted. It was secured to the pectoralis fascia with 2-0 silk suture ligatures. Atrial lead was then introduced alongside the ventricular lead through the cephalic vein. It was passed into the right atrium. It was retroflexed with a J stylette and an appropriate spot was identified in the atrial wall to screw it in. Good sensing and capture were noted here. Lead was secured at the pectoralis fashion with 2-0 silk suture ligatures and a 2-0 silk tie was tied around the cephalic vein proximally to contain backbleeding. The 2 leads were connected to a [place] dual- chamber pulse generator. This was placed in the pocket medially and secured with 2-0 silk suture ligature. The pocket was irrigated with antibiotic solution. Good hemostasis was verified. The pocket was closed with 2 layers of 3-0 Vicryl. Skin glue dressing was applied.
--- NOTE | 2024-09-16 16:29 | XR ---
EXAMINATION TYPE: XR chest 1V portable DATE OF EXAM: 09/16/2024 CLINICAL INDICATION: Male, 79 years old with history of post pacer placement, progress study. TECHNIQUE: Single AP portable upright view of the chest is obtained. COMPARISON: Chest x-ray from earlier today FINDINGS: Interval removal of left-sided chest tube. Redemonstration of overlying sternal wires venkat g with metallic aortic valve and left atrial appendage clip. There is new dual-lead pacemaker with le ads projecting over the right atrium and right ventricle. Persistent cardiomegaly with mild central vascular congestion. No pneumothorax seen bilaterally. Osse ous structures are intact. IMPRESSION: As above. [facility], , 09/16/2024 4:27 PM
[2024-09-16 16:35] LABS: Glucose,Whole Blood 93 mg/dL (70-110)
[2024-09-16] MEDS ORDERED: SODIUM CHLORIDE 0.65% NASAL SPRAY 44 ML BTL NASAL PRN (18:56)
[2024-09-16 21:20] LABS: Glucose,Whole Blood 128 mg/dL (70-110)
[2024-09-16] MEDS: METOPROLOL TARTRATE 25 MG TAB PO SCH (21:49)
[2024-09-17 05:59] LABS: HCT 26.7 % (39.6-50.0); HGB 8.7 g/dL (13.0-17.0); MCH 29.9 pg (27.0-32.0); MCHC 32.6 g/dL (32.0-37.0); MCV 91.8 fL (80.0-97.0); Mean Platelet Volume 10.4 fL (9.5-12.2); Platelet Count 229 10*3/uL (140-440); RBC 2.91 10*6/uL (4.40-5.60); RDW 14.9 % (11.5-14.5); WBC 11.83 10*3/uL (4.50-10.00)
[2024-09-17 06:09] LABS: African American GFR (CKD) 82 (>60 ml/min/1.73 sqM); Anion Gap 9 mmol/L; Blood Urea Nitrogen 27 mg/dL (9-20); Calcium 8.6 mg/dL (8.4-10.2); Carbon Dioxide 25 mmol/L (22-30); Chloride 103 mmol/L (98-107); Glucose 127 mg/dL (74-99); Non-African American GFR(CKD) 71 (>60 ml/min/1.73 sqM); Potassium 4.2 mmol/L (3.5-5.1); Sodium 137 mmol/L (137-145)
[2024-09-17 06:29] LABS: Glucose,Whole Blood 136 mg/dL (70-110)
--- NOTE | 2024-09-17 06:53 | XR ---
EXAMINATION TYPE: XR chest 2V DATE OF EXAM: 09/17/2024 CLINICAL INDICATION: Male, 79 years old with history of post cardiac surgery, TECHNIQUE: Frontal and lateral views of the chest are obtained. COMPARISON: Chest x-ray from one day earlier FINDINGS: Redemonstration of overlying sternal wires along with metallic aortic valve and left atria l appendage clip. A dual-lead pacemaker is redemonstrated leads terminating in the right atrium and r ight ventricle. Persistent cardiomegaly with mild central vascular congestion. No pneumothorax seen bilaterally. Osse ous structures are intact. IMPRESSION: As above. No Significant change from most recent x-ray. [facility], , 09/17/2024 6:51 AM
--- NOTE | 2024-09-17 07:12 | P.PN ---
Subjective Progress Note Date: 09/17/24 Principal diagnosis: Prosthetic aortic valve stenosis, coronary artery disease. History of severe aortic stenosis with TAVR in November 2020, coronary artery disease with PCI in 2020, heart failure with preserved ejection fraction, hypertension, hyperlipidemia, CVA in 2022, mild restrictive lung disease, previous tobacco dependence, osteoarthritis, enlarged prostate with self catheterization POD#6 Coronary bypass grafting x 1 with TRAN to LAD, excision of Medtronic Evolut CoreValve, excision of huslia aortic valve, replacement aortic valve with 23 mm Echeverria Inspiris bovine pericardial valve prosthesis, occlusion of left atrial appendage with 40 mm AtriCure clip, CINDY by anesthesia Acute blood loss anemia and thrombocytopenia, expected given hemodilution and cardiopulmonary bypass pump Hypotension, requiring pressors, likely due to vasoplegia and CASIE initiation Complete heart block, POD #1 dual-chamber permanent pacemaker with NextGame permanent pacemaker The patient was seen and examined this morning sitting up in recliner in the intensive care unit in no acute distress. Currently AV paced, hemodynamically stable. States pain is controlled on current medication regimen, denies shortness of breath. Currently on room air with oxygen saturation in the mid 90s, able to achieve 1500 mL on his incentive spirometry. Chest x-ray, labs reviewed. Patient has ambulated in the hallway without difficulty. Transfer orders were placed yesterday for 3 S. cardiac stepdown unit after permanent pacemaker is placed, no bed availability. Anticipate discharge to home with home care today. No other new concerns. Objective - Vital Signs Vital signs: Vital Signs Temp 98.3 F 09/17/24 00:00 Pulse 96 09/17/24 00:00 Resp 14 09/17/24 00:00 BP 113/72 09/17/24 00:00 Pulse Ox 96 09/16/24 21:50 FiO2 40 09/11/24 21:27 Intake & Output 09/16/24 09/17/24 09/17/24 18:59 06:59 18:59 Intake Total 51 Output Total 210 0 Balance -159 0 Weight 87.589 kg Intake: IV 51 Output: Urine 190 0 Estimated Blood Loss 20 Other: Voiding Method Self-Catheterization Self-Catheterization # Bowel Movements 1 ABP, PAP, CO, CI - Last Documented Arterial Blood Pressure 122/49 Pulmonary Artery Pressure 28/8 Cardiac Output 5.9 Cardiac Index 3 - Exam CONSTITUTIONAL: Appears comfortable, cooperative, no acute distress RESPIRATORY: Lungs sounds diminished bilaterally. Respirations even, nonlabored. Currently on room air with oxygen saturation 96%. Able to achieve 1500 mL on incentive spirometry. Strong cough. CARDIOVASCULAR: S1, S2 present. AV paced on telemetry. Sternum stable. Palpable peripheral pulses bilaterally. No edema present. No calf pain or tenderness noted. Heart hugger in place with patient demonstrating appropriate use. Antiembolism stockings, SCDs present. GASTROINTESTINAL: Abdomen soft, nontender, nondistended. Active bowel sounds present 4 quadrants. Tolerating diet. Positive bowel movement 09/17 GENITOURINARY: [place] discontinued yesterday, patient has straight cath x 2 INTEGUMENTARY: Skin is warm and dry with evidence of good perfusion. Anterior chest incision well approximated and covered with dry intact dressing. Left lateral anterior chest pacer incision well-approximated without redness or drainage NEUROLOGIC: Cranial nerves II through XII intact MUSKULOSKELETAL: Able to move all extremities, strength equal bilaterally PSYCHIATRIC: Alert and oriented to person place and time, appropriate affect, intact judgment and insight INVASIVE LINES AND TUBES: A/V epicardial pacemaker wires present, grounded - Allied health notes Allied health notes reviewed: nursing - Labs CBC & Chem 7: 09/17/24 05:08 09/17/24 05:08 Labs: Abnormal Lab Results - Last 24 Hours (Table) 09/16/24 09/17/24 09/17/24 Range/Units 21:19 05:08 05:08 WBC 11.83 H (4.50-10.00) 10*3/uL RBC 2.91 L (4.40-5.60) 10*6/uL Hgb 8.7 L (13.0-17.0) g/dL Hct 26.7 L (39.6-50.0) % BUN 27 H (9-20) mg/dL Glucose 127 H (74-99) mg/dL POC Glucose (mg/dL) 128 H (70-110) mg/dL 09/17/24 Range/Units 06:28 WBC (4.50-10.00) 10*3/uL RBC (4.40-5.60) 10*6/uL Hgb (13.0-17.0) g/dL Hct (39.6-50.0) % BUN (9-20) mg/dL Glucose (74-99) mg/dL POC Glucose (mg/dL) 136 H (70-110) mg/dL - Imaging and Cardiology Chest x-ray: report reviewed, image reviewed Assessment and Plan Assessment: Prosthetic aortic valve stenosis, status post excision of TAVR and huslia valve, replacement aortic valve Coronary artery disease, status post single-vessel CABG Underlying complete heart block, unexpected but potential complication of any valve surgery, status post permanent pacemaker placement Acute blood loss anemia and thrombocytopenia, expected Hypotension likely from vasoplegia and medication administration History of severe aortic stenosis with TAVR in November 2020 Coronary artery disease with PCI in 2020 Heart failure with preserved ejection fraction, EF 60 to 65% Hypertension Hyperlipidemia, treated, cholesterol 171, LDL 97, triglycerides 161 CVA in 2022 Mild restrictive lung disease, preoperative FEV1 62% of predicted Previous tobacco dependence Osteoarthritis Enlarged prostate with self catheterization Plan: Continue to maximize medical therapy with aspirin, statin, Plavix, beta-mina. Will increase beta-mina therapy as tolerated Encourage incentive spirometry use 10 times every hour while awake. Bronchodilators per pulmonology Increase activity, ambulate as tolerated. PT/OT/cardiac rehab consulted Will monitor daily labs and x-rays, electrolyte replacement per protocol GI/DVT prophylaxis Pain control per current medication regimen Insulin management per internal medicine. Patient is not diabetic, preoperative hemoglobin A1c 6.1% Epicardial pacemaker wires discontinued, patient to remain on bedrest for 1 hour post wire removal Patient to continue to straight cath as he does at home For shower today, then to shower daily Monitor and record strict accurate intake and output Transfer orders were placed yesterday afternoon, no bed availability, patient remains in the intensive care unit as a 3 S. overflow patient Discharge planning in progress, anticipate discharge to home with home care this afternoon More recommendations to follow as patient progresses
[2024-09-17 11:19] LABS: Glucose,Whole Blood 118 mg/dL (70-110)
--- NOTE | 2024-09-17 11:43 | P.PN ---
Subjective Progress Note Date: 09/17/24 Subjective: Patient seen and examined at bedside. No acute events overnight. Denies any new complaints. Pertinent positives and negatives as discussed above, a complete review of systems was performed and all other systems are negative. Vitals Signs Reviewed. General: Nontoxic, no distress, appears at stated age Derm: Warm, dry, heart hugger in place Head: Atraumatic, normocephalic, symmetric Eyes: EOMI, no lid lag, anicteric sclera Mouth: No lip lesion, mucus membranes moist Cardiovascular: S1S2 reg, no murmur Lungs: CTA bilateral, no rhonchi, no rales, no accessory muscle use Abdominal: Soft, nontender to palpation, no guarding, no appreciable organomegaly Ext: No gross muscle atrophy, no edema, no contractures Neuro: CN II-XI grossly intact, no focal neuro deficits Psych: Alert, oriented, appropriate affect Data Reviewed Today: Pertinent Labs: WBC 11.83, hemoglobin 8.7, creatinine 1.01 Imaging: Chest x-ray independently interpreted, shows bilateral interstitial opacities Assessment and Plan: CAD status post CABG, and aortic valve replacement Leukocytosis, dyspnea, surgery Acute blood loss anemia, anticipated, surgery Hypertension Dyslipidemia - On aspirin 325 daily, atorvastatin 80 mg daily, Plavix 75 daily, metoprolol 25 BID - Pain control, DVT prophylaxis, bowel regimen per cardiothoracic surgery - Pulmonology and cardiology following - Cardiothoracic surgery note reviewed, likely discharge this afternoon. Complete heart block status post permanent pacemaker - Cardiothoracic surgery note reviewed as above Hyperglycemia Prediabetes, A1c 6.1 - Continue sliding scale insulin, monitor for hypoglycemia Thank you for allowing us to participate in the care of this pleasant patient. Do not hesitate to contact us with questions. Someone can be reached from the [facility] hospitalist group all hours of the day at [phone] or via [employer]. Objective - Vital Signs Vital signs: Vital Signs Temp 98.1 F 09/17/24 04:00 Pulse 92 09/17/24 04:00 Resp 24 09/17/24 04:00 BP 134/90 09/17/24 04:00 Pulse Ox 96 09/16/24 21:50 FiO2 40 09/11/24 21:27 Intake & Output 09/16/24 09/17/24 09/17/24 18:59 06:59 18:59 Intake Total 51 Output Total 210 0 Balance -159 0 Weight 87.589 kg Intake: IV 51 Output: Urine 190 0 Estimated Blood Loss 20 Other: Voiding Method Self-Catheterization Self-Catheterization # Voids 1 # Bowel Movements 1 1 ABP, PAP, CO, CI - Last Documented Arterial Blood Pressure 122/49 Pulmonary Artery Pressure 28/8 Cardiac Output 5.9 Cardiac Index 3 - Labs CBC & Chem 7: 09/17/24 05:08 09/17/24 05:08 Labs: Abnormal Lab Results - Last 24 Hours (Table) 09/16/24 09/17/24 09/17/24 Range/Units 21:19 05:08 05:08 WBC 11.83 H (4.50-10.00) 10*3/uL RBC 2.91 L (4.40-5.60) 10*6/uL Hgb 8.7 L (13.0-17.0) g/dL Hct 26.7 L (39.6-50.0) % BUN 27 H (9-20) mg/dL Glucose 127 H (74-99) mg/dL POC Glucose (mg/dL) 128 H (70-110) mg/dL 09/17/24 09/17/24 Range/Units 06:28 11:18 WBC (4.50-10.00) 10*3/uL RBC (4.40-5.60) 10*6/uL Hgb (13.0-17.0) g/dL Hct (39.6-50.0) % BUN (9-20) mg/dL Glucose (74-99) mg/dL POC Glucose (mg/dL) 136 H 118 H (70-110) mg/dL
[2024-09-17 13:22] VITALS: PULSE 100
[2024-09-17 13:23] VITALS: BP 137/89; RESP 20; TEMP 98.1
--- NOTE | 2024-09-17 13:33 | P.PN ---
Subjective Progress Note Date: 09/17/24 Principal diagnosis: Status post aortic valve replacement and single-vessel bypass surgery TRAN to LAD postoperative day #6 This is a 79-year-old male patient who was brought into the intensive care unit following cardiac surgery. The patient had a previous TAVR and the patient developed prosthetic aortic valve stenosis and the patient also has coronary artery disease. Based on that, the patient underwent coronary artery bypass surgery x 1 with TRAN to LAD and excision of the Medtronic CoreValve and replacement aortic valve with 23 mm Echeverria Inspiris bovine pericardial valve prosthesis. The patient was kept intubated the patient was brought into the intensive care for further care. At this point in time, the patient is on propofol running at 20 mcg/kg/min and the patient is calm and comfortable and synchronous with mechanical ventilator. The patient is on assist-control mode of mechanical ventilation and the patient is currently on a rate of 12, tidal volume of 500, FiO2 of 100% with a PEEP of 5. Blood gases showed a pH of 7.4 with a NJA350 and PO2 of 318. FiO2 is now down to 50%. The patient has been mediastinal and 1 left pleural chest tube and output has been minimal since arriving from the operating room. No evidence of any pneumothorax on postop chest x-ray. There is mild pulm vessel congestion and the patient has some mild CHF findings. The patient's cardiac rhythm is paced at a rate of 80. He is on nitroglycerin drip running at 5 mcg/min. His hemodynamic parameters show a PA pressure of 30/19 with a cardiac output of 3.5 with an index of 1.9. Initially, his cardiac index was low and the patient was given 2 boluses of albumin, 250 cc each. Urine output is adequate. He is normothermic. His blood work shows a WBC count of 12.5 with a hemoglobin of 11.3 and his sodium level is at 137, BUN is 50 with a creatinine of 0.7. LFTs are normal. On 09/12/2024, the patient is being seen for a follow-up. The patient was weaned off the mechanical ventilator and the patient was extubated without any major difficulties and the patient is currently on oxygen room air. Chest x-ray shows postsurgical changes, chest tubes are in place, Granby-Margarita catheter in place. ET tube has been removed. Lung volumes are small and the patient has some mild pulmonary vascular congestion. Earlier hemodynamic parameters showed a PA pressure of 29/8 and a cardiac index is up to 3.2. The patient is paced at a rate of 80 and he would likely need a permanent pacemaker. Insulin drip is at 3.5 units an hour and the patient urine output is older of 30 cc an hour. The white cell count is at 13 with a hemoglobin of 10 and a platelet count of 108. Sodium is at 139, potassium 3.9, BUN 17 with a creatinine of 0.8 and LFTs are within normal limits. No focal neurological deficits. The patient is postop day #1 following aortic valve replacement and single-vessel coronary bypass surgery with TRAN to LAD. On 09/13/2024, the patient is being seen for a follow-up. The patient is postop day #2. Overnight, the patient had a low blood pressure and a low urine output. Based on that, the patient was started on dopamine which is currently running at 3 mcg/kg/min. Subsequently, low-dose norepinephrine was also added at 0.01 mcg/kg/min. The patient's cardiac rhythm is paced at rate of 80. Is currently on 4 L of oxygen by nasal cannula. Creatinine is up to 1.4. The patient is awake and alert and communicating. The chest tubes are still in place. The patient has a left pleural chest tube that has drained approximately 400 cc over the past 24 hours and mediastinal chest tube that has drained around 800 cc cc over the past 24 hours. Granby-Margarita in place. Cardiac output is at 6 with an index of 3.1. PA pressures are 28/14. CVP is at 10. The patient is afebrile. Hemoglobin of 8.1. White cell count of 13 and the platelet count is at 83. Blood sugar is at 123 and the patient was taken off the insulin drip. BUN 25 with a creatinine of 1.4. Sodium is at 135 and a potassium level is at 4.1. \ On 09/14/2024, patient is sitting up in a chair and the patient is calm and comfortable. It seems that the patient's urine output is improved and the patient's blood pressure is more stable. Granby-Margarita catheter still in place and the patient's cardiac output is at 5.5 with an index of 3.0. The patient is currently off norepinephrine and the patient remains on dopamine at 3 mcg/kg/min. Urine output is noted of 3250 cc an hour. Repeat chest x-ray was done this morning. Chest tubes are still in place. No significant interval change compared to yesterday the patient continues to have mild pulm vessel congestion. Accordingly, the patient was given a dose of Lasix 40 mg IV push. The white cell count is at 13.1. Hemoglobin 8.5 and a platelet count of 99. BUN is 27 creatinine 0.9 and the sodium is at 137 and the potassium level is at 4.7. The patient continues to be paced at a rate of 80. Underlying cardiac rhythm is third-degree AV block. Patient was seen today on 09/15/2024, patient is postoperative day #4, on room air, not in any distress, continues to have chest tubes in place, these may be removed today. Dopamine is now on hold, being considered for possible permanent pacemaker placement by Dr. Chao. Chest x-ray is suggestive of mild pulmonary edema and pulmonary vascular congestion WBC count today is 12.7 hemoglobin 9 electrolytes are normal renal profile showed a BUN of 30 creat 1.04 Seen today on 09/16/2024, patient remains in the ICU, he is now on room air, all his tubes and catheters have been removed, patient is achieving about 1500 cc on incentive spirometry. Chest x-ray continues to show mild interstitial edema but clinically the patient is doing very well. WBC count is 10.6 hemoglobin 9.3 electrolytes are normal renal profile is normal, patient is to have pacemaker implantation today by Dr. Chao. Patient denies any shortness of breath, no chest pain, no fever, no chills, no hemoptysis. Seen today on 09/17/2024, remains in the ICU however he is on overflow, patient is doing great, ambulating with a bit of assistance in the hallway, his chest x- ray is reassuring, his labs are noted, patient is on room air, not in any distress, underwent uneventful pacemaker implantation yesterday, and again the patient is quite asymptomatic. Plans are in progress to discharge this patient home. Objective - Vital Signs Vital signs: Vital Signs Temp 98.1 F 09/17/24 12:00 Pulse 100 09/17/24 12:00 Resp 20 09/17/24 12:00 BP 137/89 09/17/24 12:00 Pulse Ox 93 L 09/17/24 12:00 FiO2 40 09/11/24 21:27 Intake & Output 09/16/24 09/17/24 09/17/24 18:59 06:59 18:59 Intake Total 51 Output Total 210 0 400 Balance -159 0 -400 Weight 87.589 kg Intake: IV 51 Output: Urine 190 0 400 Estimated Blood Loss 20 Other: Voiding Method Self-Catheterization Self-Catheterization Self-Catheterization # Voids 1 # Bowel Movements 1 1 1 ABP, PAP, CO, CI - Last Documented Arterial Blood Pressure 122/49 Pulmonary Artery Pressure 28/8 Cardiac Output 5.9 Cardiac Index 3 - Exam CONSTITUTIONAL: 79-year-old white male in no distress, on room air Head: Atraumatic, normocephalic RESPIRATORY: Good breath sound bilaterally no crackles rhonchi or wheezes CARDIOVASCULAR: Distant S1-S2, no S3 gallop 2/6 systolic murmur throughout the precordium GASTROINTESTINAL: Soft abdomen nontenderNo rebound no guarding Alert oriented x 3 no gross focal deficit skin: No rash NEUROLOGIC: Cranial nerves II through XII intact MUSKULOSKELETAL: No deformities no limitation range of motion PSYCHIATRIC: Normal mood and affect and no mental status examination - Labs CBC & Chem 7: 09/17/24 05:08 09/17/24 05:08 Labs: Abnormal Lab Results - Last 24 Hours (Table) 09/16/24 09/17/24 09/17/24 Range/Units 21:19 05:08 05:08 WBC 11.83 H (4.50-10.00) 10*3/uL RBC 2.91 L (4.40-5.60) 10*6/uL Hgb 8.7 L (13.0-17.0) g/dL Hct 26.7 L (39.6-50.0) % BUN 27 H (9-20) mg/dL Glucose 127 H (74-99) mg/dL POC Glucose (mg/dL) 128 H (70-110) mg/dL 09/17/24 09/17/24 Range/Units 06:28 11:18 WBC (4.50-10.00) 10*3/uL RBC (4.40-5.60) 10*6/uL Hgb (13.0-17.0) g/dL Hct (39.6-50.0) % BUN (9-20) mg/dL Glucose (74-99) mg/dL POC Glucose (mg/dL) 136 H 118 H (70-110) mg/dL Assessment and Plan Assessment: Impression: Status post aortic valve replacement and single-vessel bypass surgery with TRAN to LAD postoperative day #6 Underlying coronary artery disease and aortic valve stenosis with previous TAVR and subsequent bioprosthetic valve stenosis History of CVA Benign essential hypertension Dyslipidemia Degenerative joint disease GERD without esophagitis Recommendation: Cleared from the pulmonary perspective for discharge Continue aspirin Plavix beta-blockers and statin Incentive spirometry even when he goes home Time with Patient: Less than 30
--- NOTE | 2024-09-17 15:32 | P.DS ---
Providers Date of admission: 09/11/24 05:34 Expected date of discharge: 09/17/24 Attending physician: Gurdeep Liu Consults: 09/11/24 13:14 Consult Physician Routine Consulting Provider: Yamilex Lucas Consult Reason/Comments: [employer] Driver Consult: post cardiac surgery Do you want consulting provider notified?: Yes Consult Physician Routine Consulting Provider: Courtney Sales Consult Reason/Comments: insulin mgmt Do you want consulting provider notified?: Yes Consult Physician Routine Consulting Provider: Chad Shine Consult Reason/Comments: Email Marketing Intern Consult: post cardiac surgery Do you want consulting provider notified?: Yes Primary care physician: [facility] Course: FINAL DIAGNOSIS: Prosthetic aortic valve stenosis Coronary artery disease Underlying complete heart block, unexpected but potential complication of any valve surgery Acute blood loss anemia and thrombocytopenia, expected Hypotension likely from vasoplegia and medication administration History of severe aortic stenosis with TAVR in November 2020 Coronary artery disease with PCI in 2020 Heart failure with preserved ejection fraction, EF 60 to 65% Hypertension Hyperlipidemia, treated, cholesterol 171, LDL 97, triglycerides 161 CVA in 2022 Mild restrictive lung disease, preoperative FEV1 62% of predicted Previous tobacco dependence Osteoarthritis Enlarged prostate with self catheterization PRINCIPAL PROCEDURE: Coronary bypass grafting x 1 with TRAN to LAD Excision of Medtronic Evolut CoreValve Excision of united auburn aortic valve, replacement aortic valve with 23 mm Echeverria Inspiris bovine pericardial valve prosthesis Occlusion of left atrial appendage with 40 mm AtriCure clip CINDY by anesthesia Dual-chamber permanent pacemaker with Boland permanent pacemaker HISTORY OF PRESENT ILLNESS: This is a 79-year-old gentleman who follows outpatient at the [facility] for primary care as well as with Dr. Shine for cardiology. He previously underwent transcatheter aortic valve replacement in November 2020 and felt well up until the end of 2023 when he began to develop increased shortness of breath. A CINDY was performed demonstrating increased gradient across the aortic valve with thickening of the valve leaflets. He was brought back to TAVR clinic in March 2024. At that time it was felt that the patient may have some degree of clot formation on the valve leaflets which could explain the increased gradient across aortic valve. Recommendation was made to pursue 60 to 90-day course of Coumadin to see if it improved the patient's symptomatology as well as echo appearance. He was seen in the valve clinic again in July 2024, symptomatology had not improved and the velocities across the aortic valve continue to increase. There was significant density at the base of the leaflets of the valve suggesting HALT. This gentleman underwent heart catheterization demonstrating new lesion in the mid LAD with significant stenosis by FloWire analysis. Recommendations were made for open heart surgery to remove previous TAVR valve and place new surgical aortic valve as well as single-vessel myocardial revascularization. The usual perioperative course was discussed in detail with the patient and his family, all risks and benefits were explained, all questions were answered, and consent was obtained to proceed with surgery. The patient was scheduled for surgery at the earliest possible date after obtaining dental clearance. HOSPITAL COURSE: The patient was brought to the hospital on 09/11/24, taken to the preoperative area, prepared in the usual fashion, and subsequently taken to the operating room where Dr. Liu performed single-vessel CABG along with placement of new aortic valve after removal of united auburn and TAVR valve. Upon completion of surgery the patient was transferred to the cardiovascular intensive care unit where he was recovered and monitored hemodynamically. She was extubated, all lines, tubes, and drips were discontinued when appropriate. The patient did develop complete heart block which is a potential complication of any valve surgery and he underwent placement of dual-chamber permanent pacemaker. Transfer orders were placed for 3 S. cardiac stepdown unit, however there was no bed availability and the patient remained on ICU as a stepdown patient until discharge. His oxygen was titrated down, he continued to work with physical and occupational therapy, he was tolerating oral diet, his pain was controlled, and he was ready to be discharged to home with [facility] care on postoperative day #6. He received written and verbal instruction regarding his medications, activity restrictions, signs and symptoms requiring physician notification, and follow-up appointments. Patient Condition at Discharge: Stable Plan - Discharge Summary Discharge Rx Participant: No New Discharge Prescriptions: New Aspirin 325 mg PO DAILY #30 tab Metoprolol Tartrate [Lopressor] 25 mg PO BID #60 tab Pantoprazole [Protonix] 40 mg PO AC-BRKFST #30 tab Sennosides-Docusate Sodium [Senokot-S] 2 each PO HS PRN tab PRN Reason: Constipation Acetaminophen Tab [Tylenol] 650 mg PO Q4HR PRN tab PRN Reason: Fever And/ Or Mild Pain (1-3) Continue prednisoLONE ACETATE 1% OPHTH [Pred Forte 1%] 1 drops BOTH EYES DAILY Clopidogrel [Plavix] 75 mg PO DAILY #30 tab Atorvastatin [Lipitor] 80 mg PO HS Discontinued Lisinopril-Hctz 20-12.5 mg [Zestoretic 20-12.5] 1 tab PO BID Aspirin 81 mg PO DAILY 30 Days #30 tab Discharge Medication List Clopidogrel [Plavix] 75 mg PO DAILY #30 tab 07/10/22 [Rx] Atorvastatin [Lipitor] 80 mg PO HS 02/13/24 [History] prednisoLONE ACETATE 1% OPHTH [Pred Forte 1%] 1 drops BOTH EYES DAILY 03/19/24 [History] Acetaminophen Tab [Tylenol] 650 mg PO Q4HR PRN tab 09/17/24 [Rx] Aspirin 325 mg PO DAILY #30 tab 09/17/24 [Rx] Metoprolol Tartrate [Lopressor] 25 mg PO BID #60 tab 09/17/24 [Rx] Pantoprazole [Protonix] 40 mg PO AC-BRKFST #30 tab 09/17/24 [Rx] Sennosides-Docusate Sodium [Senokot-S] 2 each PO HS PRN tab 09/17/24 [Rx] Follow up Appointment(s)/Referral(s): [facility] [NON-STAFF] - 4 Weeks (You will receive a phone call in approximately 4-6 weeks for evaluation for cardiac rehab) [facility] [[facility] - 1-2 Days (You should be seen by home care registered nurse 09/19/24, then 2-3 times per week until you start cardiac rehab. Physical and occupational therapy should visit at least once, may continue to visit if needed) Chad Shine MD [STAFF PHYSICIAN] - 09/24/24 3:30 pm (Appointment September 24 is for pacemaker device check, cardiology office will call you with a follow-up appointment with Dr. Shine per [facility]) Gurdeep Liu MD [STAFF PHYSICIAN] - 10/16/24 2:30 pm Emilio Fabian DO [Doctor of Osteopathic Medicine] - 10/24/24 10:00 am [facility],Clinic [REFERRING] - 09/18/24 3:00 pm Ambulatory/Diagnostic Orders: Complete Blood Count w/diff [LAB.AMB] Time Frame: 3 Days, Location: None Selected Comprehensive Metabolic Panel [LAB.AMB] Time Frame: 3 Days, Location: None Selected Activity/Diet/Wound Care/Special Instructions: DISCHARGE INSTRUCTIONS: 1. No driving for 4 weeks, or until physician gives their ok. 2. The patient should sleep in their own bed, no medical bed needed. 3. Stairs are not an issue. If the bedroom is upstairs, it is advised that the patient go up at night and down in the morning for the first week. Go slowly, using handrail and take 1 step at a time. 4. NITA hose are to be worn for 30 days post surgery or until physician discontinues. 5. Heart hugger is to be worn 100% of the time until physician discontinues.(except when showering) 6. No lifting, pushing, or pulling more than 10 pounds for 12 weeks. The physician will advise of any restriction changes. 7. The patient is expected to continue the prescribed walking program. 8. Continue pain control per as needed orders. 9. Continue with incentive spirometry and splinting/heart hugger until otherwise directed by the physician. 10. Must shower daily using liquid antibacterial soap 11. Routine sternal incision care. No powders, lotions, ointments on incisions. No dressings are necessary on incisions unless they are draining. Dermabond tape is to remain on sternal incision until surgeon follow-up. 12. Please call surgeon/BLOOD COORDINATOR for temp greater than 101 F or purulent drainage from incisions. 13. You should weigh yourself daily, record and bring log with you to follow up appointments. 14. All prescriptions given by surgeon for 30 days. Refills need to be filled through education reporter/primary care physician. 15. A Red armband has been placed on the patient. It should be worn for 30 days post discharge from surgery and will be removed by the cardiac surgeons. If an ER visit is necessary, please make sure the number on the Red armband is called before going to ER. 16. You have been referred to and are expected to begin Cardiac Rehab in approximately 4-6 weeks. 17. Quitting smoking is the most important step you can take to improve your health. For additional information and assistance to quit smoking, please call the [employer] tobacco quit line (7-438-BRXM-NOW/ ) or online: [email or web address] it-[email or web address] HOME HEALTH SERVICES TO PROVIDE: RN SKILLED HOME CARE SERVICES FOR POST-OP SURGICAL PATIENTS WITH THE FOLLOWING: Coronary Artery Bypass Surgery (CABG), Mitral Valve Replacement/Repair ( MVR), Aortic Valve Replacement/Repair (AVR) RN TO CONTINUE EDUCATION FROM ``ROAD TO A HEALTH HEART PATIENT EDUCATION MANUAL (GIVEN TO PATIENT IN THE HOSPITAL) MEDICATION RECONCILIATION WITH EDUCATION NEEDED ON FIRST HOME VISIT EMPHASIZE IMPORTANCE OF WEARING BREAST SUPPORT/HEART HUGGER ENCOURAGE USE OF INCENTIVE SPIROMETER 10 X EVERY HOUR WHILE AWAKE ENCOURAGE UTILIZATION OF LOWER EXTREMITY COMPRESSION STOCKINGS/NITA HOSE and ELEVATE LEGS ABOVE LEVEL OF HEART WHILE AT REST. ENCOURAGE AMBULATION 3-5x/day INCREASING TOLERATES, WHILE AVOIDING EXTREMES IN TEMPERATURE FREQUENCY: RN TO OPEN THE PATIENT WITHIN 24 HOURS OF DISCHARGE FROM THE HOSPITAL WITH TELEHEALTH INSTALLED AT [facility], RN TO VISIT 2-3 X A WEEK FOR 4 WEEKS ESTABLISHED BY PATIENT NEEDS. LABORATORY: CBC, CMP TO BE DRAWN ON THE THIRD DAY HOME, (RAN STAT) FAX RESULTS TO [phone]. TELEHEALTH PARAMETERS: WEIGHT: NOTIFY MD OF WEIGHT GAIN OF 2 LBS IN 24 HOURS OR 5 LBS IN ONE WEEK HR: NOTIFY MD OF HR <55 BPM OR HR>100 BPM BP: NOTIFY MD IF BP <90/55 OR BP>140/100 O2 SAT: NOTIFY MD IF PO2<93% ON ROOM AIR SEND TELEHEALTH REPORT TO GIVING OFFICER AND CARDIOVASCULAR SURGEON THE FIRST WEEK OF CARE AND THEN BI-WEEKLY. PLEASE ADDITIONALLY COMMUNICATE ANY ABNORMALS AND NEW FINDINGS TO THE SURGEONS OFFICE. PATIENT EDUCATION MATERIAL Instructions following a heart rhythm device implant. 1. Keep dressing DRY for 5 DAYS. You may cover the area with Saran or Cling Wrap, prior to a shower. 2. The dressing will be removed in the Device Clinic at [facility]. Absorbable sutures were used to close the wound. 3. Avoid raising the left arm above the shoulder level. 4 week restriction 4. Avoid arm movements, like backscratching, rubbing the head, or pulling on a cord. 4 weeks restriction 5. Gentle range of motion movements of the shoulder, closest to the incision should be performed to avoid a frozen shoulder. (Pendulum exercises of the shoulder) 6. The opposite arm may be used freely. 7. Avoid driving for 7 days. 8. Avoid activities such as golfing, swimming, weed whacking, lifting more than 10 pounds weight, bowling, gymnastics and weight training/lifting. (6 weeks restriction) 9. Activities such as wood chopping with an axe, pull-ups in the gymnasium, power lifting, arc-welding, being close to home induction cooktops will always be a problem. 10. Arm sling is only a reminder not to raise the arm above the head. You do not need to keep the arm completely immobilized. Your free to move the arm and use it and for normal activities. In case of any problems, please call [facility], [place], @ [phone], Attention: Device Clinic Discharge Disposition: HOME WITH HOME HEALTH SERVICES
--- NOTE | 2024-09-18 06:59 | P.PN ---
Subjective Progress Note Date: 09/17/24 The patient is a pleasant 79-year-old gentleman who is known to our service from before with a past medical history significant for severe symptomatic aortic stenosis as well as a CAD documented on recent heart catheterization showing severe disease involving the left anterior descending artery as well as hypertension and dyslipidemia. The patient in 2018 underwent a TAVR and that was successful. He starts being symptomatic again with shortness of breath with exertion and lately symptoms of chest discomfort with exertion. Because he continues to be symptomatic he underwent a heart catheterization which revealed severe disease involving the LAD and severe gradient across aortic valve with a mean gradient exceeding 40 mmHg. Subsequently the patient was referred for surgery and underwent surgical aortic valve replacement with taking the TAVR valve out. This is postoperation day #1. The patient was extubated yesterday. He is currently in what is seems to be complete heart block requiring pacing which is not surprising. Hemodynamically he is stable. His pressure has been maybe on the soft side. He is dry with low CVP and he is in process of receiving fluid. Otherwise he seems to be stable from a cardiovascular standpoint of view. The urine output has been reasonable. Blood work was reviewed. Chest x-ray was reviewed as well. September 13, 2024 The patient was seen and evaluated this morning. He is still hypotensive requiring norepinephrine. Beside that his kidney function has been worse since he was hypotensive. With that ongoing to stop lisinopril. Clinically he seems to be stable. He still in paced rhythm. The chest x-ray was reviewed. Blood work was reviewed. I will continue current medical regimen and try to wean the patient from vasopressors at this point and avoid any nephrotoxic medications. Continue monitor the urine output. The physical examination is remarkable for diminished breathing sounds bilaterally with distant heart sounds. The CVP remains around 10. September 14, 2024 The patient was seen and evaluated this morning with he is stable overall but continues to be on a small dose of dopamine trying to wean him from that. Urine output has been excellent. Pressure has improved. Kidney function has improved. The chest x-ray was reviewed and showed some pulmonary vascular congestion and on examination he does have mild expiratory wheezing. The physical examination is remarkable for distant heart sounds and mild bilateral expiratory wheezing and mild upper extremity edema as well September 15, 2024 Patient seen and examined bedside this a.m. Coming along well. Hemodynamically stable. No arrhythmias noticed. BP 125/75, heart rate 80 bpm Patient is continuously requiring epicardial pacing. 09/16/2024 Patient is seen and examined at bedside this a.m. Hemodynamically stable Underwent pacemaker implantation by Dr. Liu today. Appropriately sensing and capturing. Pacemaker interrogation with within normal range 09/17/2024 Patient underwent pacemaker implantation yesterday with Dr. Liu. Pacemaker seems to be working appropriately. Appropriately sensing and capturing. Hemodynamically stable. Surgical scar appears to be intact. Assessment Severe symptomatic aortic stenosis in patient who had TAVR before status post surgical aortic valve placement along with TRAN to LAD Complete heart block after aortic valve surgical replacement Multiple comorbid conditions Plan Continue current medical regimen Patient appears to be clinically stable from cardiovascular standpoint to be discharged. Recommend close outpatient follow-up. Objective - Vital Signs Vital signs: Vital Signs Temp 98.1 F 09/17/24 12:00 Pulse 100 09/17/24 12:00 Resp 20 09/17/24 12:00 BP 137/89 09/17/24 12:00 Pulse Ox 93 L 09/17/24 12:00 FiO2 40 09/11/24 21:27 Intake & Output 09/17/24 09/17/24 09/18/24 06:59 18:59 06:59 Output Total 0 400 Balance 0 -400 Weight 87.589 kg Output: Urine 0 400 Other: Voiding Method Self-Catheterization Self-Catheterization # Voids 1 # Bowel Movements 1 1 ABP, PAP, CO, CI - Last Documented Arterial Blood Pressure 122/49 Pulmonary Artery Pressure 28/8 Cardiac Output 5.9 Cardiac Index 3 - Labs CBC & Chem 7: 09/17/24 05:08 09/17/24 05:08 Labs: Abnormal Lab Results - Last 24 Hours (Table) 09/17/24 Range/Units 11:18 POC Glucose (mg/dL) 118 H (70-110) mg/dL
== END 2024-09-17 13:38 | disposition home health service (06) | DRG 220 ==
LOC: 2ORMAIN 05:34 → 2SICU 10:50
PROVIDERS: ADMIT Thoracic Surgery (Cardiothoracic Vascular Surgery); ATTEND Thoracic Surgery (Cardiothoracic Vascular Surgery)
PROC: 02L70CK Occlusion of Left Atrial Appendage with Extraluminal Device, Open Approach (ICD-10-PCS; 2024-09-11)
PROC: 5A1221Z Performance of Cardiac Output, Continuous (ICD-10-PCS; 2024-09-11)
PROC: B24BZZ4 Ultrasonography of Heart with Aorta, Transesophageal (ICD-10-PCS; 2024-09-11)
PROC: 02100Z9 Bypass Coronary Artery, One Artery from Left Internal Mammary, Open Approach (ICD-10-PCS; principal; 2024-09-11 08:00)
PROC: 02RF08Z Replacement of Aortic Valve with Zooplastic Tissue, Open Approach (ICD-10-PCS; 2024-09-11 08:00)
PROC: 0JH606Z Insertion of Pacemaker, Dual Chamber into Chest Subcutaneous Tissue and Fascia, Open Approach (ICD-10-PCS; 2024-09-16)
PROC: 02H63JZ Insertion of Pacemaker Lead into Right Atrium, Percutaneous Approach (ICD-10-PCS; 2024-09-16)
PROC: 02HK3JZ Insertion of Pacemaker Lead into Right Ventricle, Percutaneous Approach (ICD-10-PCS; 2024-09-16)
DX: T82.857A Stenosis of other cardiac prosthetic devices, implants and grafts, initial encounter (principal); D62 Acute posthemorrhagic anemia; I44.2 Atrioventricular block, complete; D69.6 Thrombocytopenia, unspecified; I11.0 Hypertensive heart disease with heart failure; I50.32 Chronic diastolic (congestive) heart failure; I25.10 Atherosclerotic heart disease of native coronary artery without angina pectoris; E78.5 Hyperlipidemia, unspecified; R73.03 Prediabetes; J98.4 Other disorders of lung; Y83.1 Surgical operation with implant of artificial internal device as the cause of abnormal reaction of the patient, or of later complication, without mention of misadventure at the time of the procedure; N40.0 Benign prostatic hyperplasia without lower urinary tract symptoms; K21.9 Gastro-esophageal reflux disease without esophagitis; M19.90 Unspecified osteoarthritis, unspecified site; Z79.82 Long term (current) use of aspirin; Z79.02 Long term (current) use of antithrombotics/antiplatelets; Z86.73 Personal history of transient ischemic attack (TIA), and cerebral infarction without residual deficits; Z87.891 Personal history of nicotine dependence; Z98.61 Coronary angioplasty status; Z95.0 Presence of cardiac pacemaker
CPT/HCPCS: 71045; 71046; 80048; 80053; 82330; 82805; 83036; 83735; 85025; 85027; 85610; 85730; 86850; 86891; 86900; 86901; 86920; 88305; 88311; 94002; 94640

== ENCOUNTER 2024-10-21 20:38 | Emergency (ER) | payer OTHER ==
[2024-10-21 21:35] VITALS: RESP 18
--- NOTE | 2024-10-21 23:20 | ED ---
General Adult HPI - General Chief complaint: Urogenital Stated complaint: Urinating blood Time Seen by Provider: 10/21/24 22:38 Source: patient, RN notes reviewed Mode of arrival: ambulatory Limitations: no limitations - History of Present Illness Initial comments: 79-year-old male presents to the emergency department for evaluation of hematuria. Patient reports that he had a bowel movement earlier today and noticed that there was some blood coming from the urethra. Patient does note that he self caths 3-4 times daily. He has had normal urine output but has noticed some blood in the urine. He denies any abdominal or flank pain. Denies any fever, chills. Denies any nausea, vomiting. - Related Data Home Medications Medication Instructions Recorded Confirmed prednisoLONE ACETATE 1% OPHTH 1 drop BOTH EYES DAILY 03/19/24 10/01/24 [Pred Forte 1%] Previous Rx's Medication Instructions Recorded Clopidogrel [Plavix] 75 mg PO DAILY #30 tab 07/10/22 Acetaminophen Tab [Tylenol] 650 mg PO Q4HR PRN tab 09/17/24 Aspirin 325 mg PO DAILY #30 tab 09/17/24 Metoprolol Tartrate [Lopressor] 25 mg PO BID #60 tab 09/17/24 Pantoprazole [Protonix] 40 mg PO AC-BRKFST #30 tab 09/17/24 Atorvastatin [Lipitor] 80 mg PO HS #30 tab 10/02/24 Colchicine [Colcrys] 0.6 mg PO DAILY #30 each 10/02/24 Furosemide [Lasix] 40 mg PO DAILY #30 tablet 10/02/24 Potassium Chloride ER [K-Dur 20] 20 meq PO DAILY #30 tab 10/02/24 Sennosides-Docusate Sodium 2 each PO HS PRN tab 10/02/24 [Senokot-S] Ciprofloxacin HCl [Cipro] 500 mg PO Q12HR #14 tablet 10/22/24 Allergies Allergy/AdvReac Type Severity Reaction Status Date / Time ketorolac Allergy redness Verified 10/21/24 21:32 and burning to eye from drops Penicillins Allergy Anaphylaxis Verified 10/21/24 21:32 Review of Systems ROS Statement: Those systems with pertinent positive or pertinent negative responses have been documented in the HPI. ROS Other: All systems not noted in ROS Statement are negative. 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 History of Any Multi-Drug Resistant Organisms: None Reported Past Surgical History: Heart Catheterization, Heart Catheterization With Stent, Pacemaker Additional Past Surgical History / Comment(s): cyst off back of neck ( calcium), circumcision, colonoscopy, heart cath with stent (12/01/20), aortic valve replacement(TAVR)12-08-20, B/L CATARACT REMOVAL WITH LENS IMPLANTS 12/24/23 Past Anesthesia/Blood Transfusion Reactions: Previous Problems w/ Anesthesia Additional Past Anesthesia/Blood Transfusion Reaction / Comment(s): Woke up during a colonoscopy; no hx of blood transfusion. Date of Last Stent Placement:: 12/01/20 Type of Cardiac Device: Permanent Pacemaker Device Placement Date:: 09/15/24 Past Psychological History: No Psychological Hx Reported Smoking Status: Former smoker Past Alcohol Use History: None Reported Past Drug Use History: None Reported - Past Family History Mother Family Medical History: No Reported History Additional Family Medical History / Comment(s): in Father Family Medical History: Diabetes Mellitus General Exam Limitations: no limitations General appearance: alert, in no apparent distress Head exam: Present: atraumatic, normocephalic, normal inspection Eye exam: Present: normal appearance, PERRL, EOMI. Absent: scleral icterus, conjunctival injection, periorbital swelling ENT exam: Present: normal exam, mucous membranes moist Neck exam: Present: normal inspection. Absent: tenderness, meningismus, lymphadenopathy Respiratory exam: Present: normal lung sounds bilaterally. Absent: respiratory distress, wheezes, rales, rhonchi, stridor Cardiovascular Exam: Present: regular rate, normal rhythm, normal heart sounds. Absent: systolic murmur, diastolic murmur, rubs, gallop, clicks GI/Abdominal exam: Present: soft, normal bowel sounds. Absent: distended, tenderness, guarding, rebound, rigid Extremities exam: Present: normal inspection, full ROM, normal capillary refill. Absent: tenderness, pedal edema, joint swelling, calf tenderness Back exam: Absent: CVA tenderness (R), CVA tenderness (L) Neurological exam: Present: alert, oriented X3, CN II-XII intact Psychiatric exam: Present: normal affect, normal mood Skin exam: Present: warm, dry, intact, normal color. Absent: rash Course Vital Signs 10/21/24 10/22/24 21:32 02:04 Temperature 98.0 F 97.8 F Pulse Rate 109 H 90 Respiratory 18 18 Rate Blood Pressure 149/99 144/75 O2 Sat by Pulse 95 99 Oximetry Medical Decision Making - Medical Decision Making Was pt. sent in by a medical professional or institution (, [facility]AN, [employer]EL[employer], urgent care, hospital, or group home...) When possible be specific @ -No Did you speak to anyone other than the patient for history (EMS, parent, family, police, friend...)? What history was obtained from this source @ -No Did you review nursing and triage notes (agree or disagree)? Why? @ -I reviewed and agree with nursing and triage notes Were old charts reviewed (outside hosp., previous admission, EMS record, old EKG, old radiological studies, urgent care reports/EKG's, group home records)? Report findings @ -No old charts were reviewed Differential Diagnosis (chest pain, altered mental status, abdominal pain women, abdominal pain men, vaginal bleeding, weakness, fever, dyspnea, syncope, headache, dizziness, GI bleed, back pain, seizure, CVA, palpatations, mental health, musculoskeletal)? @ -UTI, kidney stone, bladder cancer, this is not inclusive EKG interpreted by me (3pts min.). @ -None X-rays interpreted by me (1pt min.). @ -None done CT interpreted by me (1pt min.). @ -None done U/S interpreted by me (1pt. min.). @ -None done What testing was considered but not performed or refused? (CT, X-rays, U/S, labs)? Why? @ -None What meds were considered but not given or refused? Why? @ -None Did you discuss the management of the patient with other professionals (professionals i.e. ADRIAN Mendoza, [employer] SQL DEVELOPER, lab, RT, psych nurse, social services assistant, museum assistant, teacher, soil science technical officer, manager case)? Give summary @ -No Was smoking cessation discussed for >3mins.? @ -No Was critical care preformed (if so, how long)? @ -No Were there social determinants of health that impacted care today? How? (Homelessness, low income, unemployed, alcoholism, drug addiction, transportation, low edu. Level, literacy, decrease access to med. care, intermediate, rehab)? @ -No Was there de-escalation of care discussed even if they declined (Discuss DNR or withdrawal of care, Hospice)? DNR status @ -No What co-morbidities impacted this encounter? (DM, HTN, Smoking, COPD, CAD, Cancer, CVA, ARF, Chemo, Hep., AIDS, mental health diagnosis, sleep apnea, morbid obesity)? @ -None Was patient admitted / discharged? Hospital course, mention meds given and route, prescriptions, significant lab abnormalities, going to OR and other pertinent info. @ -Discharge.Patient presents emergency department for hematuria. Patients UA reveals large blood, large leukocyte esterase, RBCs greater than 182, WBCs greater than 182, many WBC clumps, moderate urine bacteria. It appears that the patient has a urinary tract infection. He will be started on antibiotics for this. He will be discharged home. Advised follow-up with his urologist. He is understanding agreeable plan. Patient stable at time of discharge. Case di scussed with Dr. De Jesus. Undiagnosed new problem with uncertain prognosis? @ -No Drug Therapy requiring intensive monitoring for toxicity (Heparin, Nitro, Insulin, Cardizem)? @ -No Were any procedures done? @ -No Diagnosis/symptom? @ -UTI Acute, or Chronic, or Acute on Chronic? @ -Acute Uncomplicated (without systemic symptoms) or Complicated (systemic symptoms)? @ -Uncomplicated Side effects of treatment? @ -No Exacerbation, Progression, or Severe Exacerbation? @ -No Poses a threat to life or bodily function? How? (Chest pain, [place], [place], pneumonia, PE, COPD, DKA, ARF, appy, cholecystitis, CVA, Diverticulitis, Homicidal, Suicidal, threat to staff... and all critical care pts) @ -No - Lab Data Lab Results 10/21/24 Range/Units 23:49 Urine Color Light Yellow Urine Appearance Turbid (Clear) Urine pH 6.0 (5.0-8.0) Ur Specific [place] 1.015 (1.001-1.035) Urine Protein 1+ H (Negative) Urine Glucose (UA) Negative (Negative) Urine Ketones Negative (Negative) Urine Blood Large H (Negative) Urine Nitrite Negative (Negative) Urine Bilirubin Negative (Negative) Urine Urobilinogen <2.0 (<2.0) mg/dL Ur Leukocyte Esterase Large H (Negative) Urine RBC >182 H (0-5) /hpf Urine WBC >182 H (0-5) /hpf Urine WBC Clumps Many H (None) /hpf Urine Bacteria Moderate H (None) /hpf Urine Mucus Rare H (None) /hpf Disposition Clinical Impression: Hematuria, UTI (urinary tract infection) Disposition: HOME SELF-CARE Condition: Stable Instructions (If sedation given, give patient instructions): Urinary Tract Infection in Men (ED) Additional Instructions: Please pickling grader your antibiotic and take to completion. Return to the emergency department for new or worsening symptoms. Prescriptions: Ciprofloxacin HCl [Cipro] 500 mg PO Q12HR #14 tablet Is patient prescribed a controlled substance at d/c from ED?: No Referrals: Alexis Pandya DO [Primary Care Provider] - 1-2 days
[2024-10-22 00:27] LABS: Appearance,Urine Turbid (Clear); Bacteria,Urine Moderate /hpf; Bilirubin,Urine Negative (Negative); Blood,Urine Large (Negative); Color,Urine Light Yellow; Glucose,Urine (UA) Negative (Negative); Ketones,Urine Negative (Negative); Leukocyte Esterase,Urine Large (Negative); Mucus,Urine Rare /hpf; Nitrite,Urine Negative (Negative); Protein,Urine 1+ (Negative); RBC,Urine >182 /hpf (0-5); Specific Gravity,Urine 1.015 (1.001-1.035); Urobilinogen,Urine <2.0 mg/dL (<2.0); WBC,Urine >182 /hpf (0-5)
[2024-10-22] MEDS: CEPHALEXIN 500 MG CAP PO STA (01:58)
[2024-10-22] MEDS: CIPROFLOXACIN HCL 500 MG TAB PO STA (02:00)
[2024-10-22 02:05] VITALS: BP 144/75; PULSE 90; TEMP 97.8
== END 2024-10-22 02:05 | disposition home or self-care (01) ==
LOC: EC 20:38
DX: R31.9 Hematuria, unspecified (principal); N39.0 Urinary tract infection, site not specified; Z86.73 Personal history of transient ischemic attack (TIA), and cerebral infarction without residual deficits; Z87.891 Personal history of nicotine dependence; Z88.0 Allergy status to penicillin; Z88.8 Allergy status to other drugs, medicaments and biological substances
CPT/HCPCS: 81001; 87086; 99283

== ENCOUNTER 2024-11-05 11:08 | Day surgery (SDC) | payer OTHER ==
[~2024-11-05 11:08] MED LIST changes: -ALPRAZolam 0.25 MG TAB PO PRN; -ALPRAZolam 0.5 MG TAB PO PRN; -ATORVASTATIN 80 MG TAB PO STA; -NITROGLYCERIN SL TABS 0.4 MG TAB SUBLINGUAL PRN; +Pre Op ABX Message 1 EACH MISC MISCELLANE ONE; -RX INFO: IV CONTRAST WAS GIVEN 1 EACH MISC MISCELLANE PRN; -SODIUM CHLORIDE 0.9% 1,000 ML IV SCH
[2024-11-05 11:38] VITALS: RESP 16; TEMP 96.9
[2024-11-05 13:22] VITALS: BP 123/79; PULSE 86
--- NOTE | 2024-11-05 13:51 | XR ---
EXAMINATION TYPE: XR chest 1V DATE OF EXAM: 11/05/2024 1:29 PM COMPARISON: Chest radiographs from 10/02/2024. CLINICAL INDICATION: Male, 79 years old with history of POST THORACENTESIS; [facility] TECHNIQUE: XR chest 1V Frontal view of the chest. FINDINGS: Lungs/Pleura: Decrease in left pleural effusion compared to prior. Blunting of the left costophrenic angle. There is no evidence of right pleural effusion, focal consolidation, or pneumothorax Pulmonary vascularity: Unremarkable. Heart/mediastinum: Cardiomediastinal silhouette is enlarged. Left atrial appendage occlusion device i s present. Two lead cardiac conduction device overlying the left hemithorax with lead tips projecting over the right ventricle and right atrium. Musculoskeletal: No acute osseous pathology. Midline sternotomy wires are noted. IMPRESSION: Status post left thoracentesis no evidence for pneumothorax. [facility], , 11/05/2024 1:48 PM
--- NOTE | 2024-11-05 14:39 | OP ---
OPERATIVE REPORT DATE OF SERVICE : PROCEDURE: Left-sided thoracentesis. PREOPERATIVE DIAGNOSIS: Left pleural effusion. POSTOPERATIVE DIAGNOSIS: Left pleural effusion. DESCRIPTION OF PROCEDURE: The posterior chest was marked by ultrasound. A time-out was completed verifying correct patient, procedure, site, positioning , and implant (s) or special equipment if applicable. Ultrasound guidance was/was not used and appropriate fluid pocket was identified and marked. Patient was positioned, prepped and draped in usual sterile fashion. Lidocaine was used to anesthetize the area. A Thoracentesis catheter was introduced into the pleural space and fluid was removed. Blood loss was none. A chest x-ray was ordered to evaluate for pneumothorax. Total Fluid Removed: 1200 mL of bloody fluid removed from the left pleural space. Color of Fluid: Bloody. The fluid will be sent for analysis including chemistry, cytology, and microbiology. Patient tolerated the procedure well and there were no complications. A chest x-ray will be ordered. [employer] BOSS: Dr. Jaja Mike. The patient's procedure took place in [facility], room #1. There was informed consent and universal time-out. MMODL / IJN: [id number] /
[2024-11-06 10:32] LABS: Glucose, BF Source Bronchoalviolar Lav; Glucose, Body Fluid 121 mg/dL; LDH, Body Fluid Source Bronchoalviolar Lav; T. Protein, Body Fluid Source Bronchoalviolar Lav; Total Protein, Body Fluid >3600 mg/dL
[2024-11-06 11:03] LABS: Appearance,BF Hazy (Clear)
== END 2024-11-05 13:50 | disposition home or self-care (01) ==
LOC: ORWHC2ENDO 11:08
PROVIDERS: ATTEND Internal Medicine Critical Care Medicine
DX: J90 Pleural effusion, not elsewhere classified (principal); I25.10 Atherosclerotic heart disease of native coronary artery without angina pectoris; I11.0 Hypertensive heart disease with heart failure; I50.9 Heart failure, unspecified; N40.0 Benign prostatic hyperplasia without lower urinary tract symptoms; E78.5 Hyperlipidemia, unspecified; Z88.0 Allergy status to penicillin; Z79.899 Other long term (current) drug therapy; Z79.82 Long term (current) use of aspirin; Z95.1 Presence of aortocoronary bypass graft; Z95.0 Presence of cardiac pacemaker; Z95.2 Presence of prosthetic heart valve; Z87.891 Personal history of nicotine dependence; Z86.73 Personal history of transient ischemic attack (TIA), and cerebral infarction without residual deficits
CPT/HCPCS: 32554; 71045; 82945; 83615; 84157; 87070; 87102; 87116; 87205; 87206; 88108; 88305; 89050

== ENCOUNTER → 2024-11-05 | Outpatient (CLI) | payer OTHER ==
--- NOTE | 2024-11-05 11:37 | US ---
EXAMINATION TYPE: US chest DATE OF EXAM: 11/05/2024 COMPARISON: NONE CLINICAL INDICATION: Male, 79 years old with history of [id number] PLEURAL EFFUSION, NOT ELSEWHERE CLASS IFIED; TECHNIQUE: Grayscale imaging of the chest. Targeted ultrasound of the posterior lower left hemithora x FINDINGS: EXAM MEASUREMENTS: Left Pleural Effusion pocket size: 8.6 cm Left skin surface to fluid distance: 2.7 cm Left side marked for possible thoracentesis outside the dept. Pulmonologists are able to review the images in the patient?s EMR. IMPRESSIONS: Left side pleural effusion. [facility], , 11/05/2024 11:35 AM
== END | disposition home or self-care (01) ==
LOC: RADUSWWP 10:48
PROVIDERS: ATTEND Internal Medicine Critical Care Medicine
DX: J90 Pleural effusion, not elsewhere classified (principal)
CPT/HCPCS: 76604

== ENCOUNTER 2024-11-27 10:14 | Day surgery (SDC) | payer OTHER ==
[2024-11-24 15:09] VITALS: BMI 26.3
[2024-11-27 11:14] VITALS: TEMP 97.4
--- NOTE | 2024-11-27 11:14 | XR ---
EXAMINATION TYPE: XR chest 1V DATE OF EXAM: 11/27/2024 11:06 AM COMPARISON: 11/14/2024 CLINICAL INDICATION: Male, 79 years old with history of CHECKING LEFT LUNG ? FLUID, TECHNIQUE: XR chest 1V views of the chest are obtained. FINDINGS: Demonstrated are scattered senescent parenchymal change. Left basilar pleural effusions with underlying infiltrate or atelectasis. The remainder of the lungs are clear. The heart is stable. Hilar and mediastinal structures are within normal limits. Degenerative changes are seen of the dorsal spine. IMPRESSION: 1. Left basilar pleural effusions with underlying infiltrate or atelectasis. The remainder of the dion ngs are clear. [facility], , 11/27/2024 11:11 AM
[2024-11-27] MEDS: IV FLUID CONTINUATION 1,000 ML IV ONE (11:20)
[2024-11-27] MEDS: LIDOCAINE 1% (10MG/ML) FOR IV START INTRADERMA STA (11:20)
[2024-11-27] MEDS: LACTATED RINGERS 1,000 ML BAG IV STA (11:20)
[2024-11-27] MEDS: ONDANSETRON 4 MG/2 ML VIAL IVP PRN (11:30)
[2024-11-27] MEDS ORDERED: MIDAZOLAM 2 MG/2 ML VIAL ONE (15:33)
[2024-11-27] MEDS ORDERED: PHENYLEPHRINE-0.9% NACL SYG 1,000 MCG/10 ML SYRINGE ONE (15:33)
[2024-11-27] MEDS ORDERED: fentaNYL (PF) 50 MCG/ML 2 ML AMP ONE (15:33)
[2024-11-27] MEDS ORDERED: LIDOCAINE 1% INJ 10MG/ML (20 ML MDV) ONE (15:33)
[2024-11-27] MEDS ORDERED: PROPOFOL 10 MG/ML 20 ML VIAL IV ONE (15:33)
[2024-11-27] MEDS: LIDOCAINE 1% INJ 10MG/ML (20 ML MDV) SQ ONE (15:53)
--- NOTE | 2024-11-27 16:27 | FL ---
Fluoroscopy History: PLEURX CATHETER PLACEMENT L SIDE PLEURX CATHETER PLACEMENT, 9SEC FL TIME, [phone] [facility], , 11/27/2024 4:24 PM
--- NOTE | 2024-11-27 16:46 | P.OP ---
Date of Procedure: 11/27/24 Preoperative Diagnosis: Left Pleural Effusion Postoperative Diagnosis: Left Pleural Effusion Procedure(s) Performed: Left Pleurex Insertion Implants: pleurex Anesthesia: MAC Surgeon: Vitor Sanchez Vehicle Leasing And Rental Manager #1: Bang Vasquez Estimated Blood Loss (ml): 5 IV fluids (ml): 100 Urine output (ml): 0 Pathology: none sent Condition: stable Disposition: PACU Indications for Procedure: s/p open heart surgery with recurrent L pleural effusion that has been tapped and recurred, after discussion with cardiac surgeon Dr. Liu, it was decided to place a pleurex in the left pleural space until drainage has decreased and it can be removed. Operative Findings: 8050 cc of straw colored pleural fluid removed, lung re-expanded at end of case Description of Procedure: The patient was placed supine and MAC given. The patient was prepped and draped in sterile fashion. Fluoro c arm spot shot showed a large left pleural effusion. 2 incisions along the lateral chest were made with distance between the stab incisions measured with the pleurex on the skin. The pleurex was tunneled from the pleurex exit incision out the pleurex insertion incision. The pleural space was accessed with a needle and guide wire placed in the pleural space. Spot shot showed the wire going to the apex. A dilator was placed over the wire and then a peel away sheet was placed over the wire. The pleurex catheter was fed through the peel away sheeth after removing the wire. The sheeth was peeled away and the catheter fully inserted into the pleural space. A spot shot showed the pleurex traveling to the apex. The pleurex was put to suction and 850 cc of straw colored fluid came out. A spot shot showed the lung re-expanded and the pleural space without fluid. The catheter was sutured in and dressed sterily. The insertion stab incision was closed with monocryl and skin glue. The patient was brought to pacu in stable condition.
[2024-11-27 17:15] VITALS: BP 130/91; PULSE 105; RESP 17
--- NOTE | 2024-11-27 19:42 | XR ---
EXAMINATION TYPE: XR chest 1V portable DATE OF EXAM: 11/27/2024 5:03 PM COMPARISON: Chest radiographs from the same day. CLINICAL INDICATION: Male, 79 years old with history of post pleurx; [facility] TECHNIQUE: XR chest 1V portable Frontal view of the chest. FINDINGS: There is interval mild residual decrease in the previously seen left basal pleural effusion. Stable a ppearance of left chest dual lead cardiac pacer device. Sternotomy wires are stable. No acute osseous abnormalities. The cardiac silhouette is mildly enlarged but stable. No pneumothorax is seen. IMPRESSION: Mild interval decrease in previously seen left pleural effusion with residual pleural fluid suggested . [facility], , 11/27/2024 7:40 PM
== END 2024-11-27 17:45 | disposition home health service (06) ==
LOC: OR 10:14
PROVIDERS: ATTEND Thoracic Surgery (Cardiothoracic Vascular Surgery)
DX: Z46.82 Encounter for fitting and adjustment of non-vascular catheter (principal); J90 Pleural effusion, not elsewhere classified
CPT/HCPCS: 77001; 71045; 32551; J0690; J2405; J2003